=== PATIENT | male | born 1950 | race Hispanic/Latino ===

== ENCOUNTER 2017-02-17 12:22 | Inpatient (IN) | payer OTHER ==
[2017-02-17 12:55] VITALS: BMI 20.3
--- NOTE | 2017-02-17 13:18 | ED PDOC ---
Arrival/HPI - General Chief Complaint: Psychiatric Evaluation Time Seen by Provider: 02/17/17 12:24 Historian: Patient - History of Present Illness Narrative History of Present Illness (Text): 02/17/17 12:52 A 66 year old male, whose past medical history includes anxiety, agitation, nervousness, CHF, diabetes, and schizoaffective disorder, presents to the emergency department complaining of increasing anxiousness and a racing mind. Patient reports he just needs to be admitted. He denies any suicidal/homicidal ideations or visual/auditory hallucinations or delusions. He sates he only takes his psychiatric medication as need. He reports "they have electric stuff on him to control him." He says he drinks on a daily bases with his last drink being this morning. He denies any drug use. Patient denies any physical complaints at this time. PMD: Dr. Vipul Murillo Crown Attacher: Dr. Connell Time/Duration: 1-3 hours Symptom Onset: Sudden Symptom Course: Unchanged Quality: Other Activities at Onset: Rest Context: Home Past Medical History - Provider Review Nursing Documentation Reviewed: Yes - Infectious Disease Hx of Infectious Diseases: None - Cardiac Hx Cardiac Disorders: No Hx Congestive Heart Failure: Yes Hx Hypertension: Yes - Pulmonary Hx Respiratory Disorders: No Hx Sleep Apnea: No Hx Tuberculosis: No - Neurological Hx Neurological Disorder: No - HEENT Hx HEENT Disorder: No - Renal Hx Renal Disorder: No - Endocrine/Metabolic Hx Endocrine Disorders: Yes Hx Diabetes Mellitus Type 2: Yes - Hematological/Oncological Hx Blood Disorders: No - Integumentary Hx Dermatological Disorder: No - Musculoskeletal/Rheumatological Hx Musculoskeletal Disorders: No - Gastrointestinal Hx Gastrointestinal Disorders: No - Genitourinary/Gynecological Hx Genitourinary Disorders: No - Psychiatric Hx Psychophysiologic Disorder: No Hx Anxiety: Yes Hx Schizophrenia: Yes Hx Substance Use: No Other/Comment: anger management - Surgical History Other/Comment: inguinal hernia repair 2010 - Anesthesia Hx Anesthesia: Yes Hx Anesthesia Reactions: No Hx Malignant Hyperthermia: No Family/Social History - Physician Review Nursing Documentation Reviewed: Yes Family/Social History: Unknown Family HX Smoking Status: Light Smoker < 10 Cigarettes Daily Hx Alcohol Use: Yes Hx Substance Use: No Allergies/Home Meds Allergies/Adverse Reactions: Allergies No Known Allergies Allergy (Verified 10/07/15 13:03) Review of Systems - Physician Review All systems were reviewed & negative as marked: Yes - Review of Systems Constitutional: absent: Fevers Respiratory: absent: SOB Cardiovascular: absent: Chest Pain Gastrointestinal: absent: Abdominal Pain Psychiatric: Anxiety. absent: Suicidal Ideation (suicidal/homicidal ideations ) , Other (visual/auditory hallucinations or delusions) Physical Exam Vital Signs Reviewed: Yes Vital Signs Temp Pulse Resp BP Pulse Ox 02/17/17 14:45 90 18 129/109 H 96 02/17/17 14:42 129/109 H 02/17/17 12:22 99.2 F 62 18 187/98 H 100 Temperature: Afebrile Blood Pressure: Hypertensive Pulse: Regular Respiratory Rate: Normal Appearance: Positive for: Well-Appearing, Non-Toxic, Comfortable Pain Distress: None Mental Status: Positive for: Alert and Oriented X 3 - Systems Exam Head: Present: Atraumatic, Normocephalic Pupils: Present: PERRL Extroacular Muscles: Present: EOMI Conjunctiva: Present: Normal Mouth: Present: Moist Mucous Membranes, Other (no tongue fasciculations) Neck: Present: Normal Range of Motion Respiratory/Chest: Present: Clear to Auscultation, Good Air Exchange. No: Respiratory Distress, Accessory Muscle Use Cardiovascular: Present: Regular Rate and Rhythm, Normal S1, S2. No: Murmurs Abdomen: Present: Normal Bowel Sounds. No: Tenderness, Distention, Peritoneal Signs Back: Present: Normal Inspection Upper Extremity: Present: Normal Inspection. No: Cyanosis, Edema Lower Extremity: Present: Normal Inspection. No: Edema Neurological: Present: GCS=15, CN II-XII Intact, Speech Normal, Motor Func Grossly Intact, Normal Sensory Function, Other (no tremors) Skin: Present: Warm, Dry, Normal Color. No: Rashes Psychiatric: Present: Alert, Oriented x 3, Normal Insight, Normal Concentration , Anxious Medical Decision Making ED Course and Treatment: 02/17/17 12:52 Impression: A 66 year old male with anxiousness. Differential Diagnosis include but are not limited to: Anxiety vs. schizoaffective disorder vs. alcohol withdrawal Plan: -- EKG -- Chest X-ray -- Labs -- Urinalysis -- Ativan -- Reassess and disposition Prior Visits: Notes and results from previous visits were reviewed. The patient last presented to the emergency department on 10/03/16 for evaluation of of hallucinations. Patient was later hospitalized for schizoaffective disorder. Progress Notes: EKG: Ordered, reviewed, and independently interpreted the EKG. Rate : 109 BPM Rhythm : Sinus tachycardia Interpretation : 1st degree AV block and right bundle branch block. 02/17/17 13:48 Chest X-ray Impression: As read by me, no acute findings. 02/17/17 14:09 Patient is medically cleared for psych evaluation. 02/17/17 15:42 Case discussed with Mckayla who will admit patient under Dr. Taisha Caputo for Schizoaffective with Depressive type r/o. - Lab Interpretations Lab Results: 02/17/17 13:18 02/17/17 13:18 Lab Results 02/17/17 14:50: Urine Color Light yellow, Urine Appearance Clear, Urine pH 7.0, Ur Specific [place] 1.010, Urine Protein Negative, Urine Glucose (UA) Negative, Urine Ketones Negative, Urine Blood Negative, Urine Nitrate Negative, Urine Bilirubin Negative, Urine Urobilinogen 0.2, Ur Leukocyte Esterase Negative, Urine Opiates Screen Negative, Urine Methadone Screen Negative, Ur Barbiturates Screen Negative, Ur Phencyclidine Scrn Negative, Ur Amphetamines Screen Negative , U Benzodiazepines Scrn Negative, U Oth Cocaine Metabols Negative, U Cannabinoids Screen Negative 02/17/17 13:18: WBC 5.2, RBC 4.62, Hgb 14.2, Hct 41.7 L, MCV 90.3, MCH 30.7, MCHC 34.1, RDW 11.9, Plt Count 293, MPV 10.1, Gran % 52.2, Lymph % (Auto) 30.5, [place]th % (Auto) 15.4 H, Eos % (Auto) 1.7, Baso % (Auto) 0.2, Gran # 2.72, Lymph # 1.6, Smyth # 0.8 H, Eos # 0.1, Baso # 0.01, Sodium 137, Potassium 4.2, Chloride 97 L, Carbon Dioxide 27, Anion Gap 17, BUN 18, Creatinine 1.0, Est GFR ( Amer) > 60, Est GFR (Non-Af Amer) > 60, Random Glucose 153 H, Calcium 10.4, Total Bilirubin 0.5, AST 43, ALT 40, Alkaline Phosphatase 81, Total Protein 8.3 , Albumin 4.7, Globulin 3.7, Albumin/Globulin Ratio 1.3, Salicylates < 1 L, Acetaminophen < 10.0 L, Valproic Acid 23 L, Alcohol, Quantitative < 10 I have reviewed the lab results: Yes - RAD Interpretation Radiology Orders: 02/17/17 13:02 CHEST PORTABLE [RAD] Stat - Medication Orders Current Medication Orders: Discontinued Medications Labetalol HCl (Trandate) 20 mg IV STAT STA Stop: 02/17/17 14:11 Last Admin: 02/17/17 14:42 Dose: Not Given Non-Admin Reason: BP Parameters Not Met MAR Pulse and Blood Pressure Document 02/17/17 14:42 JOL (Rec: 02/17/17 14:42 [id number] Blood Pressure Blood Pressure (100/60-150/90) 129/109 Lorazepam (Ativan) 2 mg IVP STAT STA Stop: 02/17/17 13:00 Last Admin: 02/17/17 13:18 Dose: 2 MG Behavioural Document 02/17/17 13:18 JO (Rec: 02/17/17 13:18 [facility]-[id number]) Maintenance Maintenance Dose No Nonmedicinal Nonmedicinal Interventions Redirect Therapeutic Communication Activity Behavior Behavior for Medication: Anxiety Dangers to self/others IVP Administration Document 02/17/17 13:18 JO (Rec: 02/17/17 13:18 [id number]) Charges for Administration # of IVP Administrations 1 - Scribe Statement The provider has reviewed the documentation as recorded by the Scribe Ignacia Lin Provider Scribe Attestation: All medical record entries made by the Scribe were at my direction and personally dictated by me. I have reviewed the chart and agree that the record accurately reflects my personal performance of the history, physical exam, medical decision making, and the department course for this patient. I have also personally directed, reviewed, and agree with the discharge instructions and disposition. Disposition/Present on Arrival - Present on Arrival Any Indicators Present on Arrival: No History of DVT/PE: No History of Uncontrolled Diabetes: No Urinary Catheter: No History of Decub. Ulcer: No History Surgical Site Infection Following: None - Disposition Have Diagnosis and Disposition been Completed?: Yes Diagnosis: Schizoaffective disorder, Alcohol withdrawal syndrome Disposition: HOSPITALIZED Disposition Time: 14:09 Patient Plan: Admission Condition: GUARDED Referrals: Chidi JOHNSON,Loc Tony MD [Primary Care Provider] - Follow up with primary
[2017-02-17 13:19] LABS: ADD MANUAL DIFF? NO
[2017-02-17 13:35] LABS: ALB/GLOB RATIO 1.3 (1.1-1.8); ALKALINE PHOSPHATASE 81 U/L (38-133); ALT/SGPT 40 U/L (7-56); AST/SGOT 43 U/L (15-59); BILIRUBIN,TOTAL 0.5 mg/dL (0.2-1.3); BLOOD UREA NITROGEN 18 mg/dL (7-21); CALCIUM 10.4 mg/dL (8.4-10.5); CARBON DIOXIDE 27 mmol/L (21-33); CHLORIDE 97 mmol/L (98-107); GFR AFRICAN-AMERICAN > 60; GLUCOSE,RANDOM 153 mg/dL (70-110); POTASSIUM 4.2 mmol/L (3.6-5.0); SODIUM 137 mmol/L (132-148); TOTAL PROTEIN 8.3 g/dL (5.8-8.3)
[2017-02-17 13:37] LABS: BASO # 0.01 K/mm3 (0.0-2.0); BASO % 0.2 % (0.0-3.0); EOS # 0.1 (0.0-0.7); EOS % 1.7 % (1.5-5.0); GRAN # 2.72 (1.4-6.5); GRAN % 52.2 % (50.0-68.0); HEMATOCRIT 41.7 % (42.0-52.0); LYMPH # 1.6 (1.2-3.4); LYMPH % 30.5 % (22.0-35.0); MEAN CELL VOLUME 90.3 fL (80.0-105.0); MEAN CORPUSCULAR HEMOGLOBIN 30.7 pg (25.0-35.0); MEAN CORPUSCULAR HGB CONC 34.1 g/dl (31.0-37.0); MEAN PLATELET VOLUME 10.1 fl (7.0-11.0); MONO # 0.8 (0.1-0.6); MONO % 15.4 % (1.0-6.0); PLATELET COUNT 293 10^3/uL (120.0-450.0); RED CELL DISTRIBUTION WIDTH 11.9 % (11.5-14.5); WHITE BLOOD COUNT 5.2 10^3/ul (4.5-11.0)
[2017-02-17] MEDS ORDERED: Labetalol 5 mg/ml Inj 20ML IV STA (14:10)
--- NOTE | 2017-02-17 14:13 | RAD ---
PROCEDURE: CHEST RADIOGRAPH, 1 VIEW HISTORY: psych COMPARISON: 10/03/2016 FINDINGS: LUNGS: Clear. PLEURA: No pneumothorax or pleural fluid seen. CARDIOVASCULAR: Normal. OSSEOUS STRUCTURES: No significant abnormalities. VISUALIZED UPPER ABDOMEN: Normal. OTHER FINDINGS: None. IMPRESSION: No active disease.
[2017-02-17 15:04] LABS: URINE BILIRUBIN NEGATIVE (NEGATIVE); URINE BLOOD NEGATIVE (NEGATIVE); URINE GLUCOSE (UA) NEGATIVE (NEGATIVE); URINE KETONE NEGATIVE (NEGATIVE); URINE LEUKOCYTE ESTERASE NEGATIVE Leu/uL (NEGATIVE); URINE PROTEIN NEGATIVE mg/dL (<30 mg/dL); URINE UROBILINOGEN 0.2 E.U./dL (<1 E.U./dL)
[2017-02-17 15:06] LABS: URINE APPEARANCE CLEAR (CLEAR); URINE COLOR LIGHT YELLOW (YELLOW)
--- NOTE | 2017-02-17 15:49 | CARD ---
APPROVED REPORT EKG Measurement Heart [id number] <Conclusion> Sinus tachycardia with 1st degree AV block Right bundle branch block Abnormal ECG
[2017-02-17] MEDS ORDERED: Albuterol-Ipratrop 3 mg / 0.5 (3 ml) UD IH PRN (17:16)
[2017-02-17] MEDS ORDERED: Magnesium Hydroxide Susp 30 ml UD PO PRN (17:19)
[2017-02-17] MEDS: Divalproex 250 mg DR (BID formulation) PO SCH (21:57)
[2017-02-18 07:02] LABS: CHOLESTEROL 155 mg/dL (130-200); GLUCOSE,FASTING 102 mg/dL (65-110)
[2017-02-18] MEDS: Divalproex 250 mg DR (BID formulation) PO SCH ×2 (09:30→21:16)
--- NOTE | 2017-02-18 10:19 | CON ---
DATE: 02/18/2017 MEDICAL CONSULTATION HISTORY OF PRESENT ILLNESS: The patient is a 66-year-old man with a past medical history of schizoph aidan, hypertension, hyperlipidemia, and non-insulin dependent diabetes mellitus (diet-controlled), w ho presents to [facility] Emergency Department for evaluation of a several-day history of increased agitation, anxiety, and racing thoughts. The patient denied any visual/auditory hallucina tions associated with the symptoms, but was subsequently, admitted to the inpatient psychiatric marsh[facility] for continued management of increased anxiety and schizophrenia. PAST MEDICAL HISTORY: As per HPI. PAST SURGICAL HISTORY: Left inguinal hernia repair. ALLERGIES: No known drug allergies. MEDICATIONS: Lipitor 10 mg p.o. daily, lisinopril 20 mg p.o. daily, Ambien 10 mg p.o. at bedtime, Re storil 30 mg p.o. at bedtime. FAMILY HISTORY: Noncontributory. SOCIAL HISTORY: The patient reports a former [id number] smoking history and social alcohol use. H e denies illicit drug abuse. REVIEW OF SYSTEMS: A 14-point review of systems is negative except as per HPI. PHYSICAL EXAMINATION: VITAL SIGNS: Temperature 97.5, pulse 89, blood pressure 132/86, respiratory rate 19, oxygen saturati on 99% on room air. GENERAL: No apparent distress. HEENT: PERRL. EOMI. No scleral icterus. No conjunctival pallor. NECK: No JVD, no bruits. LUNGS: Clear to auscultation. CARDIOVASCULAR: Regular rate and rhythm. Normal S1 and S2. ABDOMEN: Normoactive bowel sounds, soft, nontender, nondistended. EXTREMITIES: No edema. NEUROLOGIC: Awake, alert, and oriented x 3. No focal motor deficits. LABORATORY DATA: CBC reviewed and unremarkable. CMP reviewed and unremarkable. Cholesterol 155, triglycerides 143, HDL 65, LDL 66. ASSESSMENT: The patient is a 66-year-old man with a past medical history of hypertension, hyperlipid emia, non-insulin dependent diabetes mellitus, and schizophrenia who presented to the Emergency Depar tment with a several-day history of increased agitation, and who was admitted to the inpatient psychi atric unit for continued management of schizophrenia. PLAN: 1. Hypertension. Blood pressure remains controlled. Continue with lisinopril 20 mg p.o. daily. We will continue to monitor hemodynamics and adjust antihypertensives as needed. 2. Non-insulin dependent diabetes mellitus. Most recent A1c from approximately 3 months ago was 6.5 . The patient remains diet-controlled and with goal A1c, thus, no indication for medical therapy. 3. Hyperlipidemia. Labs demonstrate satisfactory lipid panel. We will discontinue Lipitor. 4. Insomnia. Continue with Ambien 5 mg p.o. at bedtime. 5. Schizophrenia. Continue with care, as per psychiatric team. 6. Prophylaxis. GI prophylaxis is not indicated, as the patient is eating. DVT prophylaxis is not indicated, as the patient is ambulatory. CODE STATUS: Full code. Loc Murillo MD cc: [id number] TT: 02/18/2017 10:19:09 Confirmation # [id number] Dictation # [id number] jn
--- NOTE | 2017-02-18 13:18 | PCM.PSYCH ---
Initial Psychiatric Evaluation - Initial Psychiatric Evaluation Type of Admission: Voluntary Chief Complaint (in patient's own words): "I need a break" History of Present Illness and Precipitating Events: A 66 year old single male with history of schizoaffective disorder, reportedly adherent with medications ambien, restoril and seroquel presents to the emergency department complaining of increasing anxiousness and a racing mind. Patient indicated to staff that he "just needs to be admitted". I reviewed nursing notes and prior records. Patient was interviewed in the dayroom and again during treatment team meeting. He is in fair control, indicates that he was anxious and wanted to take a break from his current living situation. Feels there was a "clash of methodist". Patient is pleasantly paranoid about his landlord and indicates that his landord has "designs about his life" and wants patient to date his . Patient doesn't feel like his landlord wants to hurt him and patient denies thoughts to harm his landlord. Patient's landlord is Islamic and patient feels as though there are "anti-christian mechanisms and anti-semitic electronics in effect". Patient reports living in this home for over 2 decades. Patient initially reported that he was having difficulty sleeping prior to admission however eventually admitted that he was sleeping fairly well on a combination of ambien, restoril and seroquel prescribed by Dr. Killian. Patient denied any depression or suicidal thoughts. Pt denies any homicidal or suicidal ideation. PSYCHIATRIC HISTORY MULTIPLE ADMISSIONS, most recently 10/03/16-10/15/16, discharged on Risperdal 2 mg at the morning time 2 mg at the nighttime for psychosis and mood stabilization, Depakote 500 mg at the morning time and 750 at the nighttime for mood stabilization, sonata 10mg po hs for insomnia, cogentin 0.5bid for possible EPS. Other admissions occurred in 12/2015, 10/2015 and 11/2011 at [facility]. Obtains Restoril 30 mg HS, ambien 10 mg hs and Seroquel [address] Murillo (confirmed by calling [facility]) SOCIAL HISTORY Born and raised in [place]. Single. No kids. Unemployed. Prior arrests in [place] for "damaging an automobile" as well as in [place], [place] for MJA possession. Denies drug, alcohol or tobacco use. Current Medications: Active Medications Generic Name Dose Route Start Last Admin Trade Name Freq PRN Reason Stop Dose Admin Acetaminophen 650 mg 02/17/17 17:20 Tylenol 325mg Tab PO Q6H PRN Pain, moderate (4-7) Albuterol/Ipratropium 3 ml 02/17/17 17:16 Duoneb 3 Mg/0.5 Mg (3 Ml) Ud IH [id number] PRN Shortness of Breath Atorvastatin Calcium 10 mg 02/17/17 17:15 02/17/17 21:56 Lipitor PO 10 mg DIN SADIE Administration Benztropine Mesylate 0.5 mg 02/17/17 22:00 02/17/17 21:56 Cogentin PO 0.5 mg AMHS SADIE Administration Divalproex Sodium 250 mg 02/17/17 22:00 02/17/17 21:57 Depestevan Stephenson (*Bid*) PO 250 mg AMHS SADIE Administration Protocol Famotidine 40 mg 02/17/17 17:01 Pepcid PO HS PRN Indigestion / Heartburn Lisinopril 20 mg 02/17/17 18:00 02/17/17 18:02 Zestril PO 20 mg DAILY SADIE Administration Lorazepam 1 mg 02/17/17 17:13 02/18/17 01:57 Ativan PO 1 mg Q6 PRN Administration Anxiety Protocol Lorazepam 1 mg 02/17/17 17:15 Ativan IM Q6H PRN Anxiety Protocol Magnesium Hydroxide 30 ml 02/17/17 17:19 Milk Of Magnesia PO DAILY PRN Constipation Risperidone 1 mg 02/17/17 22:00 02/17/17 21:57 Risperdal Tab PO 1 mg AMHS SADIE Administration Protocol Ziprasidone 20 mg 02/17/17 17:05 Geodon Cap PO Q6 PRN Agitation Protocol Ziprasidone 20 mg 02/17/17 17:08 Geodon Inj IM Q6 PRN Agitation Protocol Zolpidem Tartrate 5 mg 02/17/17 16:59 02/17/17 21:57 Ambien PO 5 mg HS PRN Administration Insomnia Protocol Past Psychiatric History - Past Psychiatric History Pertinent Medical Hx (Current Medical&Sleep Prob, Allergies): Allergies Allergy/AdvReac Type Severity Reaction Status Date / Time No Known Allergies Allergy Verified 02/17/17 19:47 Atorvastatin [Lipitor] 10 mg PO DIN #7 tab 10/15/16 Benztropine [Cogentin] 0.5 mg PO AMHS PRN #30 tab 10/15/16 Divalproex [Depakocecilia STEPHENSON (*BID*)] 250 mg PO HS #14 tcp 10/15/16 Divalproex [Depakote (*BID*)] 500 mg PO AMHS #30 tcp 10/15/16 Famotidine [Pepcid] 40 mg PO HS #7 tab 10/15/16 Folic Acid 1 mg PO DAILY #14 tab 10/15/16 Lisinopril [Zestril] 20 mg PO DAILY #7 tab 10/15/16 Multivitamin Therapeutic Tab [Thera Tab] 1 tab PO DAILY #14 tab 10/15/16 Thiamine [Vitamin B1 Tab] 100 mg PO DAILY #14 tab 10/15/16 Zaleplon [Sonata] 10 mg PO HS #14 cap 10/15/16 risperiDONE [RisperDAL] 2 mg PO AMHS #30 tab 10/15/16 Mental Status Examination - Affect Affect: Broad - Motor Activity Motor Activity: Calm - Reliability in Providing Information Reliability in Providing Information: Fair, Poor, due to alteration in thoughts - Speech Speech: Tangential - Mood Mood: Other (labile, though pleasant and joking at times) - Formal Thought Process Formal Thought Process: Delusions, Paranoia, Loosening of associations - Cognitive Functions Orientation: Place, Situation Sensorium: Alert Judgement: Imparied, as evidence by: Poor judgement, Imparied, as evidence by: Lack of insight into illness DSM 5 DX - DSM 5 DSM 5 Diagnosis: Schizoaffective Disorder - Recommended/Plan of Treatment Treatment Recommendations and Plan of Treatment: * Grp, milieu and supportive tx * c/w Ambien 5 mg HS for insomnia * c/w Risperdal 1 mg AMHS for delusions and paranoia, c/w Cogentin 0.5 mg AMHS for EPS prophylaxis * c/w Depakote 250 mg AMHS for mood control * Appreciate f/u by Dr. Ruiz on 02/18/17 * Vitals reviewed and noted below: Selected Entries 02/18/17 02/18/17 06:00 09:30 Temperature 97.5 F L Pulse Rate 89 89 Respiratory 19 Rate Blood Pressure 132/86 132/86 O2 Sat by Pulse 99 Oximetry FLOOR LABS NOTED BELOW 02/18/17 02/18/17 06:00 06:19 POC Glucose (mg/dL) 93 Fasting Glucose 102 Triglycerides 143 Cholesterol 155 LDL Cholesterol Direct 66 HDL Cholesterol 65 H ER LABS AND STUDIES 02/17/17 14:50: Urine Color Light yellow, Urine Appearance Clear, Urine pH 7.0, Ur Specific [place] 1.010, Urine Protein Negative, Urine Glucose (UA) Negative, Urine Ketones Negative, Urine Blood Negative, Urine Nitrate Negative, Urine Bilirubin Negative, Urine Urobilinogen 0.2, Ur Leukocyte Esterase Negative, Urine Opiates Screen Negative, Urine Methadone Screen Negative, Ur Barbiturates Screen Negative, Ur Phencyclidine Scrn Negative, Ur Amphetamines Screen Negative , U Benzodiazepines Scrn Negative, U Oth Cocaine Metabols Negative, U Cannabinoids Screen Negative 02/17/17 13:18: WBC 5.2, RBC 4.62, Hgb 14.2, Hct 41.7 L, MCV 90.3, MCH 30.7, MCHC 34.1, RDW 11.9, Plt Count 293, MPV 10.1, Gran % 52.2, Lymph % (Auto) 30.5, [place] % (Auto) 15.4 H, Eos % (Auto) 1.7, Baso % (Auto) 0.2, Gran # 2.72, Lymph # 1.6, [place] # 0.8 H, Eos # 0.1, Baso # 0.01, Sodium 137, Potassium 4.2, Chloride 97 L, Carbon Dioxide 27, Anion Gap 17, BUN 18, Creatinine 1.0, Est GFR ( Amer) > 60, Est GFR (Non-Af Amer) > 60, Random Glucose 153 H, Calcium 10.4, Total Bilirubin 0.5, AST 43, ALT 40, Alkaline Phosphatase 81, Total Protein 8.3 , Albumin 4.7, Globulin 3.7, Albumin/Globulin Ratio 1.3, Salicylates < 1 L, Acetaminophen < 10.0 L, Valproic Acid 23 L, Alcohol, Quantitative < 10 EKG: Rate : 109 BPM Rhythm : Sinus tachycardia Interpretation : 1st degree AV block and right bundle branch block. 02/17/17 13:48 Chest X-ray Impression: no acute findings. - Smoking Cessation Smoking Cessation Initiated: No Reason for not providing: Patient denies tobacco use
--- NOTE | 2017-02-19 08:51 | PN ---
DATE: 02/19/2017 SUBJECTIVE: The patient seen and examined at bedside in inpatient psychiatric unit. No acute events overnight. He remains afebrile and hemodynamically stable. OBJECTIVE: VITAL SIGNS: Temperature 97.8, pulse 75, blood pressure 109/78, respiratory rate 16. Oxygen saturat ion 99% on room air. GENERAL: No apparent distress. HEENT: PERRL. EOMI. No scleral icterus. No conjunctival pallor. NECK: No JVD, no bruits. LUNGS: Clear to auscultation. CARDIOVASCULAR: Regular rate and rhythm, normal S1 and S2, no murmurs. ABDOMEN: Normoactive bowel sounds, soft, nontender, nondistended. EXTREMITIES: No edema. NEUROLOGIC: Awake, alert and oriented x 3. No focal motor deficits. LABORATORY DATA: No new labs. ASSESSMENT: The patient is a 66-year-old man with past medical history of hypertension, hyperlipidem ia, [id number] diabetes mellitus, and schizophrenia who is admitted to the inpatient psych iatric unit for continued management of schizophrenia. PLAN: 1. Hypertension. Blood pressure well controlled. Continue with lisinopril 20 mg p.o. daily. 2. Oqg-tklfrkv-zjzjsvibc diabetes mellitus, well controlled with most recent A1c of 6.5. Fingerstic ks are satisfactory. Will continue to monitor. 3. Hyperlipidemia, diet controlled. 4. Insomnia. Continue with Ambien 5 mg p.o. at bedtime. 5. Schizophrenia. Continue with care as per psychiatric team. 6. Prophylaxis. GI prophylaxis not indicated as the patient is eating. DVT prophylaxis is not louis cated as patient is ambulatory. CODE STATUS: Full code. Loc Murillo MD cc: [id number] TT: 02/19/2017 08:51:15 Confirmation # [id number] Dictation # [id number]
[2017-02-19] MEDS: Divalproex 250 mg DR (BID formulation) PO SCH ×2 (10:33→23:11)
--- NOTE | 2017-02-19 11:00 | PCM.PYCHPN ---
Psychiatric Progress Note - Psychiatric Progress Note Patient seen today, length of contact: 25 min Patient Chief Complaint: "I need a break" Problems Identified/Issues Discussed: I reviewed recent notes and met with patient at bedside. Patient appears fairly groomed and he is oriented to month your location and to circumstances. Patient is in good control during our interview and generally denies any issues with his medications or any new discomfort or pain. He is still paranoid but this needs to be elicited. Patient can also admit that his thought process can be paranoid sometimes. Patient is labile with overinclusive and tangential thought process. He is easily redirectable. Does not demonstrate overt signs of anger and can joke appropriately. He is oddly related but not overly psychotic. There are no behavioral issues overnight Diagnostic Results: Schizoaffective Disorder Medication Change: No Medical Record Reviewed: Yes (notes, reports, labs, vitals) Mental Status Examination - Cognitive Function Orientation: Place, Situation Attention: WNL Concentration: Poor (improving) Association: Loose Fund of Knowledge: Poor - Mood Mood: Other (labile, though pleasant and joking at times) - Affect Affect: Broad - Speech Speech: Appropriate - Formal Thought Process Formal Thought Process: Delusions, Paranoia, Loosening of associations ( improving) - Homicidal Ideation Homicidal Ideation: No Goal/Treatment Plan - Goal/Treatment Plan Need for Continued Stay: Discharge may exacerbated symptoms Progress Toward Problem(s) and Goals/Treatment Plan: * Grp, milieu and supportive tx * c/w Ambien 5 mg HS for insomnia * c/w Risperdal 1 mg AMHS for delusions and paranoia, c/w Cogentin 0.5 mg AMHS for EPS prophylaxis * c/w Depakote 250 mg AMHS for mood control * Appreciate f/u by Dr. Ruiz on 02/18/17 and 02/19/17 * Vitals reviewed and noted below: Selected Entries 02/19/17 02/19/17 06:30 10:33 Temperature 97.8 F Pulse Rate 75 75 Respiratory 16 Rate Blood Pressure 109/78 109/78 FLOOR LABS NOTED BELOW 02/18/17 02/18/17 06:00 06:19 POC Glucose (mg/dL) 93 Fasting Glucose 102 Triglycerides 143 Cholesterol 155 LDL Cholesterol Direct 66 HDL Cholesterol 65 H ER LABS AND STUDIES 02/17/17 14:50: Urine Color Light yellow, Urine Appearance Clear, Urine pH 7.0, Ur Specific [place] 1.010, Urine Protein Negative, Urine Glucose (UA) Negative, Urine Ketones Negative, Urine Blood Negative, Urine Nitrate Negative, Urine Bilirubin Negative, Urine Urobilinogen 0.2, Ur Leukocyte Esterase Negative, Urine Opiates Screen Negative, Urine Methadone Screen Negative, Ur Barbiturates Screen Negative, Ur Phencyclidine Scrn Negative, Ur Amphetamines Screen Negative , U Benzodiazepines Scrn Negative, U Oth Cocaine Metabols Negative, U Cannabinoids Screen Negative 02/17/17 13:18: WBC 5.2, RBC 4.62, Hgb 14.2, Hct 41.7 L, MCV 90.3, MCH 30.7, MCHC 34.1, RDW 11.9, Plt Count 293, MPV 10.1, Gran % 52.2, Lymph % (Auto) 30.5, [place] % (Auto) 15.4 H, Eos % (Auto) 1.7, Baso % (Auto) 0.2, Gran # 2.72, Lymph # 1.6, [place] # 0.8 H, Eos # 0.1, Baso # 0.01, Sodium 137, Potassium 4.2, Chloride 97 L, Carbon Dioxide 27, Anion Gap 17, BUN 18, Creatinine 1.0, Est GFR ( Amer) > 60, Est GFR (Non-Af Amer) > 60, Random Glucose 153 H, Calcium 10.4, Total Bilirubin 0.5, AST 43, ALT 40, Alkaline Phosphatase 81, Total Protein 8.3 , Albumin 4.7, Globulin 3.7, Albumin/Globulin Ratio 1.3, Salicylates < 1 L, Acetaminophen < 10.0 L, Valproic Acid 23 L, Alcohol, Quantitative < 10 EKG: Rate : 109 BPM Rhythm : Sinus tachycardia Interpretation : 1st degree AV block and right bundle branch block. 02/17/17 13:48 Chest X-ray Impression: no acute findings.
[2017-02-20] MEDS: Divalproex 250 mg DR (BID formulation) PO SCH ×2 (10:36→21:21)
--- NOTE | 2017-02-20 11:14 | PCM.PYCHPN ---
Psychiatric Progress Note - Psychiatric Progress Note Patient seen today, length of contact: 25 min Patient Chief Complaint: "I need a break" Problems Identified/Issues Discussed: I reviewed recent notes and met with patient at bedside. Patient appears fairly groomed and he is oriented to month, year, location and circumstances. Patient is in good control during our interview and generally denies any issues with his medications or any new discomfort or pain. Sleep was restless last night. He is still paranoid but this needs to be elicited and less noticeable than prior admissions. Patient is also willing to admit that his thought process can be paranoid sometimes. Patient is labile with overinclusive and tangential thought process. Nursing notes indicate that patient can be seen pacing on the unit and can be intrusive at times. Nonetheless he is easily redirectable. Does not demonstrate overt signs of anger and can joke appropriately. He is oddly related but not overly psychotic. There were no behavioral issues overnight Diagnostic Results: Schizoaffective Disorder Medication Change: Yes (increased risperdal to 1/2 on 02/20/17) Medical Record Reviewed: Yes (notes, reports, labs, vitals) Mental Status Examination - Cognitive Function Orientation: Place, Situation Attention: WNL Concentration: Poor (improving) Association: Loose Fund of Knowledge: Poor - Mood Mood: Other (labile, though pleasant and joking at times) - Affect Affect: Broad - Speech Speech: Appropriate - Formal Thought Process Formal Thought Process: Delusions, Paranoia, Loosening of associations ( improving) - Homicidal Ideation Homicidal Ideation: No Goal/Treatment Plan - Goal/Treatment Plan Need for Continued Stay: Discharge may exacerbated symptoms Progress Toward Problem(s) and Goals/Treatment Plan: * Grp, milieu and supportive tx * c/w Ambien 5 mg HS prn for insomnia * Increased Risperdal to 1 mg AM and 2 mg HS for delusions and paranoia, c/w Cogentin 0.5 mg AMHS for EPS prophylaxis * c/w Depakote 250 mg AMHS for mood control * Appreciate f/u by Dr. Ruiz on 02/18/17 and 02/19/17 * Vitals reviewed and noted below: Selected Entries 02/20/17 02/20/17 08:36 10:37 Temperature 97.1 F L Pulse Rate 73 73 Respiratory 19 Rate Blood Pressure 112/73 112/73 FLOOR LABS NOTED BELOW 02/18/17 02/18/17 06:00 06:19 POC Glucose (mg/dL) 93 Fasting Glucose 102 Triglycerides 143 Cholesterol 155 LDL Cholesterol Direct 66 HDL Cholesterol 65 H ER LABS AND STUDIES 02/17/17 14:50: Urine Color Light yellow, Urine Appearance Clear, Urine pH 7.0, Ur Specific [place] 1.010, Urine Protein Negative, Urine Glucose (UA) Negative, Urine Ketones Negative, Urine Blood Negative, Urine Nitrate Negative, Urine Bilirubin Negative, Urine Urobilinogen 0.2, Ur Leukocyte Esterase Negative, Urine Opiates Screen Negative, Urine Methadone Screen Negative, Ur Barbiturates Screen Negative, Ur Phencyclidine Scrn Negative, Ur Amphetamines Screen Negative , U Benzodiazepines Scrn Negative, U Oth Cocaine Metabols Negative, U Cannabinoids Screen Negative 02/17/17 13:18: WBC 5.2, RBC 4.62, Hgb 14.2, Hct 41.7 L, MCV 90.3, MCH 30.7, MCHC 34.1, RDW 11.9, Plt Count 293, MPV 10.1, Gran % 52.2, Lymph % (Auto) 30.5, [place] % (Auto) 15.4 H, Eos % (Auto) 1.7, Baso % (Auto) 0.2, Gran # 2.72, Lymph # 1.6, [place] # 0.8 H, Eos # 0.1, Baso # 0.01, Sodium 137, Potassium 4.2, Chloride 97 L, Carbon Dioxide 27, Anion Gap 17, BUN 18, Creatinine 1.0, Est GFR ( Amer) > 60, Est GFR (Non-Af Amer) > 60, Random Glucose 153 H, Calcium 10.4, Total Bilirubin 0.5, AST 43, ALT 40, Alkaline Phosphatase 81, Total Protein 8.3 , Albumin 4.7, Globulin 3.7, Albumin/Globulin Ratio 1.3, Salicylates < 1 L, Acetaminophen < 10.0 L, Valproic Acid 23 L, Alcohol, Quantitative < 10 EKG: Rate : 109 BPM Rhythm : Sinus tachycardia Interpretation : 1st degree AV block and right bundle branch block. 02/17/17 13:48 Chest X-ray Impression: no acute findings.
[2017-02-21] MEDS: Divalproex 250 mg DR (BID formulation) PO SCH ×2 (09:02→22:42)
--- NOTE | 2017-02-21 09:23 | PCM.PYCHPN ---
Psychiatric Progress Note - Psychiatric Progress Note Patient seen today, length of contact: 25 min Patient Chief Complaint: "I need a break" Problems Identified/Issues Discussed: I reviewed recent notes and met with patient at bedside. Patient appears fairly groomed and he is oriented to month, year, location and circumstances. Patient is in good control during our interview and generally denies any issues with his medications or any new discomfort or pain. Reports that "everything is so far so good" and that he slept better last night . He is still paranoid but this still needs to be elicited and noticeably less pervasive than prior admissions. Patient is also able to admit that he can be paranoid sometimes. Patient can be labile with overinclusive and tangential thought process, focus appears to be improving. Prior nursing notes have indicated that patient paces on the unit and can be intrusive at times. Nonetheless he is easily redirectable and impulse control also appears to be improving. Patient does not demonstrate overt signs of anger and can joke appropriately. He is oddly related but not overtly psychotic. Seems only to be able engage superficially in conversations. There were no behavioral issues overnight Diagnostic Results: Schizoaffective Disorder Medication Change: Yes (increased risperdal to 1/2 on 02/20/17) Medical Record Reviewed: Yes (notes, reports, labs, vitals) Mental Status Examination - Cognitive Function Orientation: Place, Situation Attention: WNL Concentration: Poor (improving) Association: Loose Fund of Knowledge: Poor - Mood Mood: Other (labile, though pleasant and joking at times) - Affect Affect: Broad - Speech Speech: Appropriate - Formal Thought Process Formal Thought Process: Delusions, Paranoia, Loosening of associations ( improving) - Homicidal Ideation Homicidal Ideation: No Goal/Treatment Plan - Goal/Treatment Plan Need for Continued Stay: Discharge may exacerbated symptoms Progress Toward Problem(s) and Goals/Treatment Plan: * Grp, milieu and supportive tx * Appreciate f/u by Dr. Ruiz on 02/18/17 and 02/19/17 * c/w Ambien 5 mg HS prn for insomnia * Increased Risperdal to 1 mg AM and 2 mg HS for delusions and paranoia, c/w Cogentin 0.5 mg AMHS for EPS prophylaxis * c/w Depakote 250 mg AMHS for mood control * Vitals reviewed and noted below: Selected Entries 02/20/17 02/20/17 02/20/17 08:36 10:37 16:25 Temperature 97.1 F L Pulse Rate 73 73 82 Respiratory 19 Rate Blood Pressure 112/73 112/73 104/53 L FLOOR LABS NOTED BELOW 02/18/17 02/18/17 06:00 06:19 POC Glucose (mg/dL) 93 Fasting Glucose 102 Triglycerides 143 Cholesterol 155 LDL Cholesterol Direct 66 HDL Cholesterol 65 H ER LABS AND STUDIES 02/17/17 14:50: Urine Color Light yellow, Urine Appearance Clear, Urine pH 7.0, Ur Specific [place] 1.010, Urine Protein Negative, Urine Glucose (UA) Negative, Urine Ketones Negative, Urine Blood Negative, Urine Nitrate Negative, Urine Bilirubin Negative, Urine Urobilinogen 0.2, Ur Leukocyte Esterase Negative, Urine Opiates Screen Negative, Urine Methadone Screen Negative, Ur Barbiturates Screen Negative, Ur Phencyclidine Scrn Negative, Ur Amphetamines Screen Negative , U Benzodiazepines Scrn Negative, U Oth Cocaine Metabols Negative, U Cannabinoids Screen Negative 02/17/17 13:18: WBC 5.2, RBC 4.62, Hgb 14.2, Hct 41.7 L, MCV 90.3, MCH 30.7, MCHC 34.1, RDW 11.9, Plt Count 293, MPV 10.1, Gran % 52.2, Lymph % (Auto) 30.5, [place] % (Auto) 15.4 H, Eos % (Auto) 1.7, Baso % (Auto) 0.2, Gran # 2.72, Lymph # 1.6, [place] # 0.8 H, Eos # 0.1, Baso # 0.01, Sodium 137, Potassium 4.2, Chloride 97 L, Carbon Dioxide 27, Anion Gap 17, BUN 18, Creatinine 1.0, Est GFR ( Amer) > 60, Est GFR (Non-Af Amer) > 60, Random Glucose 153 H, Calcium 10.4, Total Bilirubin 0.5, AST 43, ALT 40, Alkaline Phosphatase 81, Total Protein 8.3 , Albumin 4.7, Globulin 3.7, Albumin/Globulin Ratio 1.3, Salicylates < 1 L, Acetaminophen < 10.0 L, Valproic Acid 23 L, Alcohol, Quantitative < 10 EKG: Rate : 109 BPM Rhythm : Sinus tachycardia Interpretation : 1st degree AV block and right bundle branch block. 02/17/17 13:48 Chest X-ray Impression: no acute findings.
--- NOTE | 2017-02-22 09:06 | PCM.PYCHPN ---
Psychiatric Progress Note - Psychiatric Progress Note Patient seen today, length of contact: 25 min Patient Chief Complaint: "I need a break" Problems Identified/Issues Discussed: I reviewed recent notes and met with patient at bedside. Patient appears fairly groomed and he is oriented to month, year, location and circumstances. Patient is in good control during our interview and generally denies any issues with his medications or any new discomfort or pain. Reports that "I am ready to leave" and that he slept fairly well last night. He is still paranoid but this is noticeably less pervasive than prior admissions. Patient is also able to admit that he can be paranoid sometimes. Patient can be labile with overinclusive and tangential thought process though focus appears to be improving since admission. Prior nursing notes have indicated that patient paces on the unit and can be intrusive at times. Nonetheless he is easily redirectable and impulse control also appears to be improving. There has been no aggression or threats on the unit. Patient does not demonstrate overt signs of anger. He is oddly related but not overtly psychotic. He can joke and relate light-heartedly. Seems only to be able engage superficially in conversations. There were no behavioral issues over the weekend Diagnostic Results: Schizoaffective Disorder Medication Change: Yes (increased risperdal to 1 mg AM & 2 mg HS on 02/20/17) Medical Record Reviewed: Yes (notes, reports, labs, vitals) Mental Status Examination - Cognitive Function Orientation: Place, Situation Attention: WNL Concentration: Poor (improving) Association: Loose Fund of Knowledge: Poor - Mood Mood: Other (labile, though pleasant and joking at times) - Affect Affect: Broad - Speech Speech: Appropriate - Formal Thought Process Formal Thought Process: Delusions, Paranoia, Loosening of associations ( improving) - Homicidal Ideation Homicidal Ideation: No Goal/Treatment Plan - Goal/Treatment Plan Need for Continued Stay: Discharge may exacerbated symptoms Progress Toward Problem(s) and Goals/Treatment Plan: * Grp, milieu and supportive tx * Appreciate f/u by Dr. Ruiz on 02/18/17 and 02/19/17 * c/w Ambien 5 mg HS prn for insomnia * Risperdal to 1 mg AM and 2 mg HS for delusions and paranoia, c/w Cogentin 0.5 mg AMHS for EPS prophylaxis * Depakote 250 mg AMHS for mood control * Vitals reviewed and noted below: 02/21/17 02/21/17 02/21/17 06:00 09:02 16:23 Temperature 97.9 F Pulse Rate 73 73 78 Respiratory 18 Rate Blood Pressure 111/65 111/65 117/77 FLOOR LABS NOTED BELOW 02/18/17 02/18/17 06:00 06:19 POC Glucose (mg/dL) 93 Fasting Glucose 102 Triglycerides 143 Cholesterol 155 LDL Cholesterol Direct 66 HDL Cholesterol 65 H ER LABS AND STUDIES 02/17/17 14:50: Urine Color Light yellow, Urine Appearance Clear, Urine pH 7.0, Ur Specific [place] 1.010, Urine Protein Negative, Urine Glucose (UA) Negative, Urine Ketones Negative, Urine Blood Negative, Urine Nitrate Negative, Urine Bilirubin Negative, Urine Urobilinogen 0.2, Ur Leukocyte Esterase Negative, Urine Opiates Screen Negative, Urine Methadone Screen Negative, Ur Barbiturates Screen Negative, Ur Phencyclidine Scrn Negative, Ur Amphetamines Screen Negative , U Benzodiazepines Scrn Negative, U Oth Cocaine Metabols Negative, U Cannabinoids Screen Negative 02/17/17 13:18: WBC 5.2, RBC 4.62, Hgb 14.2, Hct 41.7 L, MCV 90.3, MCH 30.7, MCHC 34.1, RDW 11.9, Plt Count 293, MPV 10.1, Gran % 52.2, Lymph % (Auto) 30.5, [place] % (Auto) 15.4 H, Eos % (Auto) 1.7, Baso % (Auto) 0.2, Gran # 2.72, Lymph # 1.6, [place] # 0.8 H, Eos # 0.1, Baso # 0.01, Sodium 137, Potassium 4.2, Chloride 97 L, Carbon Dioxide 27, Anion Gap 17, BUN 18, Creatinine 1.0, Est GFR ( Amer) > 60, Est GFR (Non-Af Amer) > 60, Random Glucose 153 H, Calcium 10.4, Total Bilirubin 0.5, AST 43, ALT 40, Alkaline Phosphatase 81, Total Protein 8.3 , Albumin 4.7, Globulin 3.7, Albumin/Globulin Ratio 1.3, Salicylates < 1 L, Acetaminophen < 10.0 L, Valproic Acid 23 L, Alcohol, Quantitative < 10 EKG: Rate : 109 BPM Rhythm : Sinus tachycardia Interpretation : 1st degree AV block and right bundle branch block. 02/17/17 13:48 Chest X-ray Impression: no acute findings. Estimated Date of D/C: 02/23/17
[2017-02-22] MEDS: Divalproex 250 mg DR (BID formulation) PO SCH ×2 (09:28→22:27)
[2017-02-23 06:58] VITALS: BP 109/69; PULSE 69; RESP 20; TEMP 97.3; O2SAT 97
[2017-02-23] MEDS: Divalproex 250 mg DR (BID formulation) PO SCH (09:48)
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
== END 2017-02-23 16:16 | disposition home or self-care (01) | DRG 430 ==
LOC: ED 12:22 → PSYC 15:22
PROVIDERS: ADMIT Psychiatry & Neurology Psychiatry; ATTEND Psychiatry & Neurology Psychiatry
DX: F25.9 Schizoaffective disorder, unspecified (principal); E11.9 Type 2 diabetes mellitus without complications; I10 Essential (primary) hypertension; F41.9 Anxiety disorder, unspecified; E78.5 Hyperlipidemia, unspecified; R45.1 Restlessness and agitation; G47.00 Insomnia, unspecified; Z87.891 Personal history of nicotine dependence

== ENCOUNTER 2017-04-26 01:36 | Inpatient (IN) | payer MEDICAID, OTHER ==
[2017-04-26 01:58] VITALS: BMI 24.7
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
[2017-04-26 03:12] LABS: ADD MANUAL DIFF? NO
[2017-04-26 03:21] LABS: BASO # 0.01 K/mm3 (0.0-2.0); BASO % 0.2 % (0.0-3.0); EOS # 0.1 (0.0-0.7); EOS % 1.3 % (1.5-5.0); GRAN % 62.1 % (50.0-68.0); HEMATOCRIT 36.2 % (42.0-52.0); LYMPH # 0.8 (1.2-3.4); LYMPH % 18.4 % (22.0-35.0); MEAN CELL VOLUME 88.5 fL (80.0-105.0); MEAN CORPUSCULAR HEMOGLOBIN 29.1 pg (25.0-35.0); MEAN CORPUSCULAR HGB CONC 32.9 g/dl (31.0-37.0); MEAN PLATELET VOLUME 10.8 fl (7.0-11.0); MONO # 0.8 (0.1-0.6); PLATELET COUNT 226 10^3/uL (120.0-450.0); RED CELL DISTRIBUTION WIDTH 13.5 % (11.5-14.5); WHITE BLOOD COUNT 4.5 10^3/ul (4.5-11.0)
[2017-04-26 03:36] LABS: ALB/GLOB RATIO 1.3 (1.1-1.8); ALKALINE PHOSPHATASE 58 U/L (38-133); ALT/SGPT 43 U/L (7-56); AST/SGOT 70 U/L (15-59); BILIRUBIN,TOTAL 0.5 mg/dL (0.2-1.3); BLOOD UREA NITROGEN 20 mg/dL (7-21); CALCIUM 9.2 mg/dL (8.4-10.5); CARBON DIOXIDE 27 mmol/L (21-33); CHLORIDE 107 mmol/L (98-107); GFR AFRICAN-AMERICAN > 60; GLUCOSE,RANDOM 144 mg/dL (70-110); POTASSIUM 3.7 mmol/L (3.6-5.0); SODIUM 142 mmol/L (132-148); TOTAL PROTEIN 6.8 g/dL (5.8-8.3)
[2017-04-26 03:47] LABS: TROPONIN I 0.05 ng/mL
--- NOTE | 2017-04-26 04:47 | CP.PCM.HP ---
History of Present Illness - History of Present Illness History of Present Illness: CC: Bizarre Behavior This is a 66yo M w/ a PMhx of schizoaffective disorder, CHF, hypertension, hyperlipidemia, and NIDDM coming in in extremely bizarre straight, extremely hard to redirect, frequently leaving the room during the exam, stating that he needs to call the police because he believes that people are after him. Even while writing this note he is staring at me from the nurses station. Iván Alvarez was called on him due to un-redirectionable behavior. The patient is denying any physical symptoms, no fevers/chills, ROBETRS, CP, SOB, abdominal pain, N/V/D, dysuria/freq/urg, or lower extremity pain/swelling. PMhx: as above Surgeries: denies FamHx: would not answer the question Allergies: said he had none Meds: please refer to MAR Social; unable to obtain from the patient or collaterals at the time Present on Admission - Present on Admission Any Indicators Present on Admission: No History of DVT/PE: No History of Uncontrolled Diabetes: Yes Urinary Catheter: No Decubitus Ulcer Present: No Past Patient History - Infectious Disease Hx of Infectious Diseases: None - Past Social History Smoking Status: Light Smoker < 10 Cigarettes Daily - CARDIAC Hx Cardiac Disorders: No Hx Congestive Heart Failure: Yes Hx Hypertension: Yes - PULMONARY Hx Respiratory Disorders: No Hx Sleep Apnea: No Hx Tuberculosis: No - NEUROLOGICAL Hx Neurological Disorder: No - HEENT Hx HEENT Problems: No - RENAL Hx Chronic Kidney Disease: No - ENDOCRINE/METABOLIC Hx Endocrine Disorders: Yes Hx Diabetes Mellitus Type 2: Yes - HEMATOLOGICAL/ONCOLOGICAL Hx Blood Disorders: No - INTEGUMENTARY Hx Dermatological Problems: No - MUSCULOSKELETAL/RHEUMATOLOGICAL Hx Musculoskeletal Disorders: No - GASTROINTESTINAL Hx Gastrointestinal Disorders: No - GENITOURINARY/GYNECOLOGICAL Hx Genitourinary Disorders: No - PSYCHIATRIC Hx Bipolar Disorder: Yes Hx Substance Use: No - SURGICAL HISTORY Other/Comment: inguinal hernia repair 2010 - ANESTHESIA Hx Anesthesia: Yes Hx Anesthesia Reactions: No Hx Malignant Hyperthermia: No Meds Allergies/Adverse Reactions: Allergies Allergy/AdvReac Type Severity Reaction Status Date / Time No Known Allergies Allergy Verified 04/26/17 02:03 Physical Exam - Constitutional Appears: Well, Non-toxic Additional comments: bizarre behavior dishelved - Head Exam Head Exam: ATRAUMATIC - Eye Exam Eye Exam: EOMI - ENT Exam ENT Exam: Mucous Membranes Moist - Neck Exam Neck exam: Positive for: Full Rom. Negative for: Lymphadenopathy - Respiratory Exam Respiratory Exam: Clear to Auscultation Bilateral, NORMAL BREATHING PATTERN. absent: Rales, Rhonchi, Wheezes - Cardiovascular Exam Cardiovascular Exam: REGULAR RHYTHM, +S1, +S2 - GI/Abdominal Exam GI & Abdominal Exam: Normal Bowel Sounds, Soft. absent: Tenderness - Rectal Exam Rectal Exam: Deferred - Extremities Exam Extremities exam: Positive for: normal inspection. Negative for: calf tenderness - Back Exam Back exam: NORMAL INSPECTION. absent: CVA tenderness (L), CVA tenderness (R) - Neurological Exam Neurological exam: Alert, Oriented x3 - Psychiatric Exam Psychiatric exam: Normal Affect - Skin Skin Exam: Warm Results - Vital Signs Recent Vital Signs: Last Vital Signs Temp 98.3 F 04/26/17 01:58 Pulse 57 L 04/26/17 01:58 Resp 17 04/26/17 01:58 BP 119/71 04/26/17 01:58 Pulse Ox 98 04/26/17 01:58 - Labs Result Diagrams: 04/26/17 03:04 04/26/17 03:04 Labs: Laboratory Results - last 24 hr 04/26/17 04/26/17 04/26/17 03:04 03:04 03:04 WBC 4.5 RBC 4.09 Hgb 11.9 L Hct 36.2 L MCV 88.5 MCH 29.1 MCHC 32.9 RDW 13.5 Plt Count 226 MPV 10.8 Gran % 62.1 Lymph % (Auto) 18.4 L Laurel % (Auto) 18.0 H Eos % (Auto) 1.3 L Baso % (Auto) 0.2 Gran # 2.80 Lymph # 0.8 L Laurel # 0.8 H Eos # 0.1 Baso # 0.01 Sodium 142 Potassium 3.7 Chloride 107 Carbon Dioxide 27 Anion Gap 12 BUN 20 Creatinine 0.8 Est GFR ( Amer) > 60 Est GFR (Non-Af Amer) > 60 Random Glucose 144 H Calcium 9.2 Total Bilirubin 0.5 AST 70 H ALT 43 Alkaline Phosphatase 58 Lactate Dehydrogenase 546 Total Creatine Kinase 805 H CK-MB (CK-2) 9.8 H CK-MB (CK-2) % 1.2 L Troponin I 0.05 Total Protein 6.8 Albumin 3.9 Globulin 2.9 Albumin/Globulin Ratio 1.3 Alcohol, Quantitative < 10 Assessment & Plan - Assessment and Plan (Free Text) Assessment: 66yo M admitted for bizarre behavior 1st degree heart block; asymptomatic -patient has a first degree heart block on EKG with bradycardia asymptomatic -asymptomatic -cardiology consult ordered; please appreciate recs -from my understanding, first degree heart blocks are simply monitored and there is no treatment for them unless they become symptomatic and rarely progress to such -patient also has an old RBBB Shizoaffective disorder -will resume psych meds -geodon 20mg for extreme agitation or unredirectable behavior -psych consult; Dr. Sumner; recs appreciated -patient is psychotic currently, unredirectionable; paranoid; tangential CHF; chronic and not in exacerbation -c/w home meds -appreciate cardio recs hypertension -c/w home meds hyperlipidemia -c/w home meds NIDDM -RISS Proph Pepcid SCD Heart Healthy Diet Case Discussed w Dr. Charity Ramos PGY1 Night Float Decision To Admit - Pt Status Changed To: Hospital Disposition Of: Observation - . Bed Request Type: Remote Telemetry Admitting Physician: Estiven Nash MD
[2017-04-26] MEDS ORDERED: Albuterol 0.083% Inhal Sol (2.5 mg/3 mL) UD IH PRN (05:59)
[2017-04-26] MEDS: Insulin Lispro 1 UNITS/0.01 ML SC SCH ×4 (08:13→22:00)
--- NOTE | 2017-04-26 09:16 | RAD ---
HISTORY: medical clearance COMPARISON: Chest x-ray performed 02/17/17 TECHNIQUE: Chest, one view. FINDINGS: Examination limited by habitus and hypoinflation. LUNGS: Bilateral hilar prominence. No focal consolidation. Mild streaky upper lobe atelectasis. Please note that chest x-ray has limited sensitivity for the detection of pulmonary masses. PLEURA: No significant pleural effusion identified. No definite pneumothorax . CARDIOVASCULAR: Heart size appears top normal. OSSEOUS STRUCTURES: Degenerative changes. VISUALIZED UPPER ABDOMEN: Unremarkable. OTHER FINDINGS: None. IMPRESSION: Hypoinflation. Bilateral hilar prominence. Mild bilateral upper lobe streaky atelectasis.
[2017-04-26 09:19] LABS: TROPONIN I 0.05 ng/mL
[2017-04-26] MEDS: Multivitamin Therapeutic Tab PO SCH (10:09)
[2017-04-26] MEDS: Divalproex 500 mg DR(BID formulation) PO SCH ×2 (10:09→21:05)
[2017-04-26 10:27] LABS: MAGNESIUM 2.2 mg/dL (1.7-2.2); PHOSPHOROUS 3.2 mg/dL (2.5-4.5)
--- NOTE | 2017-04-26 11:19 | RAD ---
HISTORY: abn cxr COMPARISON: Chest x-ray performed 04/26/17 TECHNIQUE: Chest PA and lateral FINDINGS: LUNGS: Examination limited by habitus and hypoinflation. The patient's chin obscures evaluation of the lung apices. Bilateral hilar prominence. No focal consolidation. Please note that chest x-ray has limited sensitivity for the detection of pulmonary masses. PLEURA: No significant pleural effusion identified. No definite pneumothorax . CARDIOVASCULAR: Heart size appears top normal. OSSEOUS STRUCTURES: Degenerative changes. VISUALIZED UPPER ABDOMEN: Unremarkable. OTHER FINDINGS: None. IMPRESSION: Limited study. Hypoinflation. Bilateral hilar prominence.
--- NOTE | 2017-04-26 16:04 | CON ---
DATE: 04/26/2017 REASON FOR CONSULTATION: High grade AV block. HISTORY OF PRESENT ILLNESS: The patient is a 66-year-old male, who has a history of schizoaffective disorder, congestive heart failure, hypertension, hyperlipidemia, jez-qowkjfs-kcqbljgqh diabetes isabel itus, who was brought in by EMS because of bizarre behavior. The patient was found yelling and screa thierno outside his house. The patient denies any suicidal or homicidal ideation. He denies any chest pain. The patient was found to be in sinus rhythm with 2:1 AV conduction. The patient was admitted to ICU. There is no reported and no reported third degree AV block so far. SOCIAL HISTORY: Unobtainable at this time as the patient does not give any reliable answers and he i s still restless and agitated. MEDICATIONS: Albuterol inhaler q. 2 hours, Cogentin 0.5 mg p.r.n. orally, Depakote 500 mg twice a da y, folic acid 1 mg daily, Geodon 20 mg IM p.r.n. for agitation, Lipitor 10 mg once a day, ibuprofen 6 00 mg q. 6 hours, Pepcid 20 mg twice a day orally, Risperdal 1 mg p.o. q. a.m. and 2 mg p.o. at bedti ny, thiamine 100 mg daily, Zestril 20 mg daily. REVIEW OF SYSTEMS: No reported seizures since patient's admission to ICU and no reported significant sinus pauses. PHYSICAL EXAMINATION: GENERAL: The patient is an elderly male, who is agitated, uncooperative but does not appear to be in acute distress. The patient did allow me to listen to his heart and lungs, palpate his stomach, and check his lower extremities, and the findings were as follows: HEENT: Normocephalic. NECK: No JVD. CHEST: Clear. HEART: S1, S2 regular. EXTREMITIES: No edema. LABORATORY DATA: Hemoglobin and hematocrit 11.9 and 36.2, white count and platelet count were within normal limits. SMA-7 is within normal limits except for glucose of 144. Troponin was 0.05 twice. TSH level is within normal limits at 0.52. EKG revealed sinus rhythm with 2:1 AV block, heart rate i s 44, right bundle branch block, nonspecific inferior T-wave changes. Chest x-ray revealed no infilt rate or effusion. ASSESSMENT: 1. High grade atrioventricular block with 2:1 conduction. 2. Schizoaffective disorder. 3. Uncontrolled diabetes mellitus. 4. Mild anemia. RECOMMENDATIONS: Continue current ICU monitoring. Continue Zestril 20 mg once a day, Lipitor 10 mg once a day, Pepcid 20 mg orally twice a day, albuterol inhaler. Continue Depakote, Cogentin, Haldol and thiamine. Obtain an echocardiogram. Electrophysiology consult from Dr. Romero will be requested . Quentin Quick MD cc: [id number] TT: 04/26/2017 16:04:03 Confirmation # [id number] Dictation # [id number] ln
[2017-04-26 16:44] LABS: TROPONIN I 0.04 ng/mL
--- NOTE | 2017-04-26 22:01 | CARD ---
APPROVED REPORT EKG Measurement Heart [id number] <Conclusion> Sinus rhythm with 2nd degree AV block with 2:1 AV conduction Possible Left atrial enlargement Right bundle branch block Possible Inferior infarct, age undetermined Abnormal ECG
--- NOTE | 2017-04-26 22:01 | CARD ---
APPROVED REPORT EKG Measurement Heart [id number] <Conclusion> Sinus rhythm with 2nd degree AV block with 2:1 AV conduction Possible Left atrial enlargement Right bundle branch block T wave abnormality, consider inferior ischemia Abnormal ECG
[2017-04-27 05:41] LABS: URINE BILIRUBIN NEGATIVE (NEGATIVE); URINE BLOOD NEGATIVE (NEGATIVE); URINE GLUCOSE (UA) 250 mg/dL (NEGATIVE); URINE KETONE 15 mg/dL (NEGATIVE); URINE LEUKOCYTE ESTERASE NEGATIVE Leu/uL (NEGATIVE); URINE PROTEIN 30 mg/dL (<30 mg/dL); URINE UROBILINOGEN 0.2 E.U./dL (<1 E.U./dL)
[2017-04-27 05:44] LABS: URINE APPEARANCE SL CLOUDY (CLEAR); URINE COLOR YELLOW (YELLOW)
[2017-04-27 05:47] LABS: URINE EPITHELIAL CELLS 0 - 2 /hpf (0-5); URINE RBC 0 - 2 /hpf (0-2); URINE WBC 0 - 2 /hpf (0-6)
[2017-04-27 06:38] LABS: ADD MANUAL DIFF? NO
[2017-04-27 07:09] LABS: ALB/GLOB RATIO 1.4 (1.1-1.8); ALKALINE PHOSPHATASE 59 U/L (38-133); ALT/SGPT 38 U/L (7-56); AST/SGOT 40 U/L (15-59); BILIRUBIN,TOTAL 0.6 mg/dL (0.2-1.3); BLOOD UREA NITROGEN 16 mg/dL (7-21); CALCIUM 9.3 mg/dL (8.4-10.5); CARBON DIOXIDE 28 mmol/L (21-33); CHLORIDE 105 mmol/L (98-107); GFR AFRICAN-AMERICAN > 60; GLUCOSE,RANDOM 101 mg/dL (70-110); POTASSIUM 3.8 mmol/L (3.6-5.0); SODIUM 140 mmol/L (132-148); TOTAL PROTEIN 6.6 g/dL (5.8-8.3)
[2017-04-27 07:18] LABS: BASO # 0.01 K/mm3 (0.0-2.0); BASO % 0.3 % (0.0-3.0); EOS # 0.2 (0.0-0.7); EOS % 4.5 % (1.5-5.0); GRAN # 1.97 (1.4-6.5); GRAN % 49.4 % (50.0-68.0); HEMATOCRIT 38.2 % (42.0-52.0); LYMPH # 1.2 (1.2-3.4); LYMPH % 30.8 % (22.0-35.0); MEAN CELL VOLUME 88.2 fL (80.0-105.0); MEAN CORPUSCULAR HEMOGLOBIN 28.9 pg (25.0-35.0); MEAN CORPUSCULAR HGB CONC 32.7 g/dl (31.0-37.0); MEAN PLATELET VOLUME 10.7 fl (7.0-11.0); MONO # 0.6 (0.1-0.6); PLATELET COUNT 194 10^3/uL (120.0-450.0); RED CELL DISTRIBUTION WIDTH 13.2 % (11.5-14.5)
[2017-04-27] MEDS: Insulin Lispro 1 UNITS/0.01 ML SC SCH ×4 (08:47→22:00)
[2017-04-27] MEDS: Multivitamin Therapeutic Tab PO SCH ×2 (08:53→09:39)
[2017-04-27] MEDS: Divalproex 500 mg DR(BID formulation) PO SCH ×2 (09:45→21:56)
--- NOTE | 2017-04-27 10:05 | CON ---
DATE: 04/27/2017 HISTORY OF PRESENT ILLNESS: Shortly, the patient is a 66-year-old male with long and debilitating hi story of schizoaffective disorder versus schizophrenia. The patient was admitted on the CCU unit for EKG changes, as well as AV block, right bundle-branch block, and change in mental status. Psych dat kimmy was called for evaluation of disorganized and paranoid behavior. The patient was seen and examined in CCU. This short story writer is very familiar with this patient from the [facility] admissions to the psychiatric inpatient unit. Most recent was in 02/2017. The patient has chr onic noncompliance with the medication management and followup appointment. The patient was seen and examined today in CCU. The patient presented to be alert and oriented. The patient knows that he is in the hospital in CCU. The patient knows the date today, but presented to be disorganized in his thoughts and behavior. The patient presented to be paranoid. The patient sa id that he was admitted because he was dying. When this short story writer asked what was the reason for him to and how he felt, the patient replied "because every day what is going on in this world." The maik hunt reported that "I am not schizophrenic. I do not have any paranoia. Real people are talking to me. I am not crazy." But, the patient presented to have disorganized thoughts, paranoia, intense ey e contact. The patient is mumbling, tangential, and circumstantial thought process. VITAL SIGNS: This short story writer reviewed vital signs. Vital signs seem to be stable. Temperature 98.4. P ulse is 61, blood pressure 175/98, respirations 14. Oxygen saturation is 98. MEDICATIONS: Reviewed. Tylenol, albuterol, Lipitor, Cogentin 0.5 mg twice a day as needed, Depakote 500 mg twice a day, Pepcid 20 mg twice a day, folic acid 1 mg daily, Motrin, Humalog, lisinopril 20 mg daily, multivitamins 1 pill daily, thiamine 100 mg daily, Sonata 10 mg at the nighttime scheduled, and Geodon as needed for agitation. The patient was on Risperdal 1 mg in the morning time, Risperda l 2 mg at the nighttime. Considering the fact that the patient was noncompliant with medication, dos es are very high. We will decrease the doses. LABORATORIES: Reviewed. WBC cells 4.0, hemoglobin 12.5, hematocrit 38.2. Chemistry also reviewed. Urinalysis reviewed. Toxicology - valproic acid less than 10. The patient was noncompliant with th e medication. Reports reviewed. PAST PSYCHIATRIC HISTORY: The patient has long and debilitating history of mental illness, chronic n oncompliance with medication. The patient has POA. MENTAL STATUS EXAMINATION: The patient presented to be alert and oriented in self, time, and place. Intense eye contact. Speech was over-productive, low volume. The patient was mumbling and very raghav d to understand. Mood described "I'm not crazy. People just talking to me." Affect flat. Mood inc ongruent. Thought process was circumstantial and tangential. Thought content: The patient obviousl y is psychotic and paranoid, as well as thought process is disorganized. The patient denied thoughts of harming himself or others, denied intent or plan. Insight and judgment are impaired. Impulses a re well-controlled. IMPRESSION: Schizoaffective disorder, as per history. EKG changes. The patient is in CCU. PLAN: This short story writer did decrease the dose of Risperdal because the patient was noncompliant with the m edication 0.5 mg twice a day. All antipsychotic medication could increase QTC prolongation, and we w ill monitor the patient closely. At the same time, ____ continue Depakote 500 mg twice a day should be continued. This short story writer will follow up on this patient and advise accordingly. Thank you very much for letting me participate in the care of your patient. Should you have any ques tions, give me a call back. Taisha Saleh MD cc: [id number] TT: 04/27/2017 10:05:07 Confirmation # [id number] Dictation # [id number] néstor
--- NOTE | 2017-04-27 11:46 | CP.PCM.PN ---
<Sissy Smith - Last Filed: 04/27/17 11:53> Subjective - Date & Time of Evaluation Date of Evaluation: 04/27/17 Time of Evaluation: 11:00 - Subjective Subjective: Pt was seen and examined at bedside. Pt is calmer today and answering some questions. Pt is AAOx3. No acute complaints at this time. As per nursing staff, no acute or adverse events overnight. Pt is resting comfortably. Objective - Vital Signs/Intake and Output Vital Signs (last 24 hours): Temp Pulse Resp BP Pulse Ox 98.4 F 61 14 175/98 H 98 04/27/17 08:00 04/27/17 08:53 04/27/17 08:00 04/27/17 08:53 04/27/17 08:00 Intake and Output: 04/27/17 04/27/17 06:59 18:59 Intake Total 400 Output Total 400 Balance 0 - Medications Medications: Current Medications Acetaminophen (Tylenol 325mg Tab) 650 mg PO Q6H PRN PRN Reason: Fever >100.4 F Albuterol Sulfate (Albuterol 0.083% Inhal Milli (2.5 Mg/3 Ml) Ud) 2.5 mg IH Q2H PRN PRN Reason: Shortness of Breath Atorvastatin Calcium (Lipitor) 10 mg PO DIN [facility] Last Admin: 04/26/17 17:01 Dose: 10 mg Benztropine Mesylate (Cogentin) 0.5 mg PO [facility] PRN PRN Reason: Muscle spasm Divalproex Sodium (Depakote Dr(*Bid*)) 500 mg PO [facility] PRN Reason: Protocol Last Admin: 04/27/17 09:45 Dose: 500 mg Famotidine (Pepcid) 20 mg PO BID [facility] Last Admin: 04/27/17 09:38 Dose: Not Given Folic Acid (Folic Acid) 1 mg PO DAILY [facility] Last Admin: 04/27/17 09:38 Dose: Not Given Ibuprofen (Motrin Tab) 600 mg PO Q6H PRN PRN Reason: Pain, Mild (1-3) Insulin Human Lispro (Humalog) 0 units SC ACHS [facility] PRN Reason: Protocol Last Admin: 04/27/17 08:47 Dose: Not Given Lisinopril (Zestril) 20 mg PO DAILY [facility] Last Admin: 04/27/17 09:39 Dose: Not Given Multivitamins (Thera Tab) 1 tab PO DAILY [facility] Last Admin: 04/27/17 09:39 Dose: Not Given Risperidone (Risperdal Tab) 0.5 mg PO HS [facility] PRN Reason: Protocol Risperidone (Risperdal Tab) 0.5 mg PO QAM [facility] PRN Reason: Protocol Last Admin: 04/27/17 09:39 Dose: Not Given Thiamine HCl (Vitamin B1 Tab) 100 mg PO DAILY [facility] Last Admin: 04/27/17 09:39 Dose: Not Given Zaleplon (Sonata) 10 mg PO HS [facility] Last Admin: 04/26/17 22:05 Dose: 10 mg Ziprasidone (Geodon Inj) 20 mg IM DAILY PRN; Protocol PRN Reason: Agitation - Labs Labs: 04/27/17 05:30 04/27/17 05:30 - Constitutional Appears: No Acute Distress - Head Exam Head Exam: ATRAUMATIC, NORMAL INSPECTION, NORMOCEPHALIC - Eye Exam Eye Exam: EOMI, Normal appearance, PERRL Pupil Exam: NORMAL ACCOMODATION, PERRL - ENT Exam ENT Exam: Mucous Membranes Moist, Normal Exam - Neck Exam Neck Exam: Full ROM, Normal Inspection. absent: Lymphadenopathy - Respiratory Exam Respiratory Exam: Clear to Ausculation Bilateral, NORMAL BREATHING PATTERN - Cardiovascular Exam Cardiovascular Exam: REGULAR RHYTHM, +S1, +S2. absent: Murmur - GI/Abdominal Exam GI & Abdominal Exam: Soft, Normal Bowel Sounds. absent: Tenderness - Extremities Exam Extremities Exam: Full ROM, Normal Capillary Refill, Normal Inspection. absent : Joint Swelling, Pedal Edema - Back Exam Back Exam: NORMAL INSPECTION - Neurological Exam Neurological Exam: Alert, Awake, CN II-XII Intact, Oriented x3 - Psychiatric Exam Psychiatric exam: Normal Affect, Normal Mood - Skin Skin Exam: Dry, Intact, Normal Color, Warm Assessment and Plan - Assessment and Plan (Free Text) Assessment: 66 M admitted for bizarre behavior and high grade AV block 2:1 High grade AV block 2:1 - Cardiology consulted, Dr. garza, Recommended zestril, lipitor, Echo and EP consult - EP consulted, Dr. Hemphill, appreciate recs - Currently in NSR -asymptomatic Shizoaffective disorder -will resume psych meds -psych consult; Dr. 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 -c/w home meds hypertension -c/w home meds hyperlipidemia -c/w home meds NIDDM -RISS Proph Pepcid SCD Heart Healthy Diet Seen reviewed and discussed with attending <Gary JOHNSON,Marianna - Last Filed: 04/27/17 12:47> Objective - Vital Signs/Intake and Output Vital Signs (last 24 hours): Temp Pulse Resp BP Pulse Ox 98.6 F 78 27 H 137/83 98 04/27/17 12:00 04/27/17 12:30 04/27/17 12:30 04/27/17 11:00 04/27/17 08:00 Intake and Output: 04/27/17 04/27/17 06:59 18:59 Intake Total 400 Output Total 400 Balance 0 - Medications Medications: Current Medications Acetaminophen (Tylenol 325mg Tab) 650 mg PO Q6H PRN PRN Reason: Fever >100.4 F Albuterol Sulfate (Albuterol 0.083% Inhal Milli (2.5 Mg/3 Ml) Ud) 2.5 mg IH Q2H PRN PRN Reason: Shortness of Breath Atorvastatin Calcium (Lipitor) 10 mg PO DIN [facility] Last Admin: 04/26/17 17:01 Dose: 10 mg Benztropine Mesylate (Cogentin) 0.5 mg PO [facility] PRN PRN Reason: Muscle spasm Divalproex Sodium (Depakote Dr(*Bid*)) 500 mg PO [facility] PRN Reason: Protocol Last Admin: 04/27/17 09:45 Dose: 500 mg Famotidine (Pepcid) 20 mg PO BID [facility] Last Admin: 04/27/17 09:38 Dose: Not Given Folic Acid (Folic Acid) 1 mg PO DAILY [facility] Last Admin: 04/27/17 09:38 Dose: Not Given Ibuprofen (Motrin Tab) 600 mg PO Q6H PRN PRN Reason: Pain, Mild (1-3) Insulin Human Lispro (Humalog) 0 units SC ACHS [facility] PRN Reason: Protocol Last Admin: 04/27/17 08:47 Dose: Not Given Lisinopril (Zestril) 20 mg PO DAILY [facility] Last Admin: 04/27/17 09:39 Dose: Not Given Multivitamins (Thera Tab) 1 tab PO DAILY [facility] Last Admin: 04/27/17 09:39 Dose: Not Given Risperidone (Risperdal Tab) 0.5 mg PO HS [facility] PRN Reason: Protocol Risperidone (Risperdal Tab) 0.5 mg PO QAM [facility] PRN Reason: Protocol Last Admin: 04/27/17 09:39 Dose: Not Given Thiamine HCl (Vitamin B1 Tab) 100 mg PO DAILY [facility] Last Admin: 04/27/17 09:39 Dose: Not Given Zaleplon (Sonata) 10 mg PO HS [facility] Last Admin: 04/26/17 22:05 Dose: 10 mg Ziprasidone (Geodon Inj) 20 mg IM DAILY PRN; Protocol PRN Reason: Agitation - Labs Labs: 04/27/17 05:30 04/27/17 05:30 Attending/Attestation - Attestation I have personally seen and examined this patient.: Yes I have fully participated in the care of the patient.: Yes I have reviewed all pertinent clinical information, including history, physical exam and plan: Yes Notes (Text): 04/27/17 12:38 Patient was seen and examined with medical technologist blood bank . Patient is more alert and cooperative today.He is NSR.EP evaluation is pending, discuss with .TSH level is normal.. Patient is clinically euvolemic, no clinical sign of heart failure. Management plan was discussed in detail with patient Education was provided.
--- NOTE | 2017-04-27 15:51 | PN ---
DATE: 04/27/2017 There is no reported high grade AV block. The patient currently in sinus rhythm. PHYSICAL EXAMINATION: VITAL SIGNS: Blood pressure 137/83, heart rate 78, temperature 98.6, respiration 18. HEENT: Normocephalic. NECK: No JVD. CHEST: Clear. HEART: S1, S2 regular. EXTREMITIES: No edema. LABORATORIES: Hemoglobin and hematocrit are 12.5 and 38.2, white count and platelet count are 4 and 194,000. Today's SMA-7 is within normal limit. ASSESSMENT: 1. Second degree atrioventricular block with 2:1 atrioventricular conduction, has currently resolved . 2. Schizoaffective disorder. 3. Hypertension. RECOMMENDATIONS: Continue current Depestevan Cogentin. Continue Lipitor at 10 mg once a day, Pepcid 20 mg p.o. twice a day, Zestril at 20 mg once a day. I will review the echocardiograph study perform ed today. Awaiting EP evaluation prior to clearing the patient for transfer to psych. Quentin Quick MD cc: [id number] TT: 04/27/2017 15:50:51 Confirmation # [id number] Dictation # [id number] en
--- NOTE | 2017-04-27 23:22 | CON ---
DATE: 04/27/2017 REQUESTING PHYSICIAN: Dr. Quick. REASON FOR EVALUATION: 1. Bradycardia. 2. Mobitz type 1 block, 2:1 block. 3. Schizoaffective disorder. PHYSICIAN REQUESTING CONSULT: Dr. Quentin Quick. HISTORY OF PRESENT ILLNESS: The patient is a 66-year-old male with past medical history si gnificant for schizoaffective disorder, congestive heart failure, hypertension, hyperlipidemia, diabe valentino who was brought to the Emergency Department on 04/26/2017 with bizarre behavior. The patient was found yelling and screaming outside of his house. He denies any suicidal ideation or homicidal idea tion. No active cardiac complaints. The patient on EKG, as well as on telemetry, found to have bob ods of 2:1 AV conduction. The patient was admitted to the ICU for further evaluation and management, seen in consultation by Dr. Quentin Quick. Dr. Quick asked me to see the patient in regard s to the aforementioned conduction system issues. REVIEW OF SYSTEMS: Review of systems cannot reliably obtained secondary to patient's mental status. Still appears quite confused. Is able to identify that he is in a hospital and [facility] is unable to give any further details as his current state. SOCIAL HISTORY: Unable to be obtained at this point. MEDICATIONS: On admission, the patient is on albuterol inhaler q. 2 hours, Cogentin 0.5 mg p.r.n. or ally, Depakote 500 mg b.i.d., folic acid 1 mg daily, Geodon 20 mg p.o. p.r.n. agitation, Lipitor 40 m g p.o. daily, ibuprofen 600 mg q. 6 hours, Pepcid 20 mg p.o. daily, Risperdal 1 mg morning and 2 mg n ight, thiamine 100 mg daily, Zestril 20 mg p.o. daily. DIAGNOSTICS: On review of 12-lead EKG, which was done today, 04/27/2017, on this EKG right bundle br anch block type pattern with prolonged UT interval of 220 milliseconds, signifying first degree AV bl ock. There is no dropped beat on this particular tracing. There is leftward axis and nonspecific ST -T wave changes. QT/QTc is 432 and 501 respectively. Echocardiogram has been ordered, but not officially read. On review of telemetry, the patient does h ave periods of 1:1 conduction, other periods of Wenckebach, which are quite evident, other times not so evident, followed by a dropped beat and a shorter UT interval. 2:1 block is also seen at times. LABORATORY DATA: On review of relevant lab work, the patient has a white count of 4.0, H and H of 12 .5 and 38.2, platelet count of 194. Sodium is 140, potassium 3.8. BUN and creatinine is 16 and 0.7, glucose has been elevated, ALT and A ST are 40 and 38 respectively. Albumin 3.9, globulin is 2.7. Urine is positive for ketones, glucosu miesha, proteinuria. ASSESSMENT AND PLAN: 1. Bradycardia, which is transient secondary to intermittent Wenckebach type pattern followed by 2:1 block. It is unclear if patient is symptomatic at this point given his significant psychiatric dera ngement at this point. When patient returns to baseline, further history perhaps can be obtained. I f there is evidence of syncope, progressive shortness of breath, lightheadedness, dizziness, one may consider a permanent pacemaker. This also may be necessary if patient needs to be treated from a hea rt failure/coronary standpoint with beta kassi medications. At this point, patient appears to be h emodynamically stable and does not require a permanent pacemaker. 2. Mobitz type 1, followed by 2:1 block. This most likely represents a block at the level of the AV node and not likely representing block below the node. If there is block below the AV node, progres marii to complete heart block would be of concern. At this point, there is no evidence of complete he art block. 3. Schizoaffective disorder, for which he receives medications. It is my hope that the patient's me ntal status does return to baseline. From what I am led to believe, the patient does live independen tly and cares for himself. Thank you for allowing me to participate in the care of your patient. Please do not hesitate to call for any questions in regards to his care. Arjun Romero MD cc: [id number] TT: 04/27/2017 23:22:01 Confirmation # [id number] Dictation # [id number] mn
[2017-04-28 07:18] LABS: ADD MANUAL DIFF? NO
[2017-04-28 07:29] LABS: BASO # 0.01 K/mm3 (0.0-2.0); BASO % 0.2 % (0.0-3.0); EOS # 0.2 (0.0-0.7); EOS % 3.1 % (1.5-5.0); GRAN # 2.87 (1.4-6.5); GRAN % 59.7 % (50.0-68.0); HEMATOCRIT 39.6 % (42.0-52.0); LYMPH # 1.2 (1.2-3.4); LYMPH % 24.9 % (22.0-35.0); MEAN CORPUSCULAR HEMOGLOBIN 29.3 pg (25.0-35.0); MEAN CORPUSCULAR HGB CONC 33.3 g/dl (31.0-37.0); MONO # 0.6 (0.1-0.6); MONO % 12.1 % (1.0-6.0); PLATELET COUNT 200 10^3/uL (120.0-450.0); RED CELL DISTRIBUTION WIDTH 13.1 % (11.5-14.5); WHITE BLOOD COUNT 4.8 10^3/ul (4.5-11.0)
[2017-04-28 07:42] LABS: ALB/GLOB RATIO 1.3 (1.1-1.8); ALKALINE PHOSPHATASE 60 U/L (38-133); ALT/SGPT 37 U/L (7-56); AST/SGOT 28 U/L (15-59); BILIRUBIN,TOTAL 0.5 mg/dL (0.2-1.3); BLOOD UREA NITROGEN 15 mg/dL (7-21); CALCIUM 9.4 mg/dL (8.4-10.5); CARBON DIOXIDE 28 mmol/L (21-33); CHLORIDE 104 mmol/L (95-110); GFR AFRICAN-AMERICAN > 60; GLUCOSE,RANDOM 95 mg/dL (70-110); POTASSIUM 3.8 mmol/L (3.6-5.0); SODIUM 139 mmol/L (132-148); TOTAL PROTEIN 6.5 g/dL (5.8-8.3)
[2017-04-28] MEDS: Insulin Lispro 1 UNITS/0.01 ML SC SCH ×4 (08:10→21:26)
[2017-04-28] MEDS: Divalproex 500 mg DR(BID formulation) PO SCH ×2 (09:34→21:23)
[2017-04-28] MEDS: Multivitamin Therapeutic Tab PO SCH (09:35)
--- NOTE | 2017-04-28 12:38 | PN ---
DATE: 04/28/2017 Shortly, the patient is a 66-year-old male. The patient has long and debilitating history of schizoaffective disorder, bipolar type. The patient has chronic noncompliance with the medication s as well as followup appointment. The patient has cognitive limitations due to his chronic psychoti c symptoms and being noncompliant with treatment. The patient also has chronic delusions, hallucinat ions and paranoia. The patient was admitted on the medical side for EKG changes. Psych consult was called for medication management as well as patient has disorganized thought process. The patient al so has been noncompliant with the medications. The patient was initially seen yesterday. Medication s resumed. The patient was followed up today at the morning time. The patient presented to be alert , but disorganized. The patient had impression that he is dying. Obviously, he is not. The patient was observed eating comfortably, ate 100% of his meal. As Per nursing report, the patient has episod es of confusion, but there is no agitation, no aggression. VITAL SIGNS: Stable. Temperature is 98.5, pulse is 73, blood pressure 115/46, respirations 18. MEDICATIONS: Reviewed. Tylenol, Lipitor, Cogentin 0.5 mg twice a day as needed for muscle spasm. T he patient is on Depakote 500 mg twice a day, Pepcid, folic acid, Motrin, Humalog, Zestril, multivita mins, Risperdal 0.5 mg twice a day, thiamine, Sonata 10 mg at nighttime and Geodon as needed for agit ation. The patient was not agitated and never gave IM. LABORATORY DATA: Hematology reviewed from today. Hemoglobin 13.2, hematocrit 39.6. Chemistry also reviewed, seems to be within normal limits. Urinalysis within normal limits. Toxicology, valproic a sheela less than 10 at the time of admission. The patient was noncompliant with the medications. The p atient was seen by cardiology team and was diagnosed with second degree atrioventricular block with 2 :1 atrioventricular conduction, has currently resolved. Schizoaffective disorder and hypertension. The patient also seen by Dr. Romero. Notes reviewed. MENTAL STATUS EXAMINATION: The patient appears to be alert, oriented to self, time, and place. Inte rmittent eye contact. Speech was fast, low volume. The patient is rambling something, at times inco herently. Mood described, "I feel horrible, I am dying." Affect is flat. Thought process is disorg anized and tangential and circumstantial. Thought content: The patient denied visual, auditory, or tactile hallucinations, but obviously patient is psychotic and disorganized, but socially appropriate . Insight is limited. Impulses are well controlled. IMPRESSION: As per history, the patient has schizoaffective disorder, multiple admissions, chronic n oncompliance. The patient lives independently. The patient has power of trade mark attorney. The patient has multiple medical issues. Please see medical team note for more detailed information. PLAN: As per this senior copywriter's perspective, patient is psychotic, but seems to be at his baseline. The patient was resumed on Risperdal as well as Depakote as well as Sonata. The patient is doing better, but has impression that he is dying, which is not true. While patient is on the medical side, this senior copywriter will follow up on this patient. There are no behavioral issues. POA needs to be involved. T his senior copywriter is not sure if patient will be transferred to the psychiatric inpatient unit because the p atient seems to be at his baseline, but will follow up and advise accordingly. Thank you very much for letting me participate in the care of your patient. Taisha Saleh MD cc: [id number] TT: 04/28/2017 12:38:10 Confirmation # [id number] Dictation # [id number] aicha
--- NOTE | 2017-04-28 12:50 | CP.PCM.PN ---
<Sissy Smith - Last Filed: 04/28/17 12:50> Subjective - Date & Time of Evaluation Date of Evaluation: 04/28/17 Time of Evaluation: 11:30 - Subjective Subjective: Pt was seen and examined at bedside. Pt is calm and AAOx3. No acute complaints at this time. As per nursing staff, no acute or adverse events overnight. Pt is resting comfortably. Pt answers some questions but remains tangential and hard to redirect. Objective - Vital Signs/Intake and Output Vital Signs (last 24 hours): Temp Pulse Resp BP Pulse Ox 98.9 F 73 18 115/46 L 98 04/28/17 04:00 04/28/17 08:00 04/28/17 06:10 04/28/17 09:36 04/27/17 16:00 Intake and Output: 04/28/17 04/28/17 06:59 18:59 Intake Total 450 Output Total 600 Balance -150 - Medications Medications: Current Medications Acetaminophen (Tylenol 325mg Tab) 650 mg PO Q6H PRN PRN Reason: Fever >100.4 F Albuterol Sulfate (Albuterol 0.083% Inhal Milli (2.5 Mg/3 Ml) Ud) 2.5 mg IH Q2H PRN PRN Reason: Shortness of Breath Atorvastatin Calcium (Lipitor) 10 mg PO DIN [facility] Last Admin: 04/27/17 18:42 Dose: 10 mg Benztropine Mesylate (Cogentin) 0.5 mg PO [facility] PRN PRN Reason: Muscle spasm Divalproex Sodium (Depakote Dr(*Bid*)) 500 mg PO AMHS [facility] PRN Reason: Protocol Last Admin: 04/28/17 09:34 Dose: 500 mg Famotidine (Pepcid) 20 mg PO BID [facility] Last Admin: 04/28/17 09:37 Dose: 20 mg Folic Acid (Folic Acid) 1 mg PO DAILY [facility] Last Admin: 04/28/17 09:35 Dose: 1 mg Ibuprofen (Motrin Tab) 600 mg PO Q6H PRN PRN Reason: Pain, Mild (1-3) Insulin Human Lispro (Humalog) 0 units SC ACHS [facility] PRN Reason: Protocol Last Admin: 04/28/17 11:29 Dose: 1 units Lisinopril (Zestril) 20 mg PO DAILY [facility] Last Admin: 04/28/17 09:36 Dose: 20 mg Multivitamins (Thera Tab) 1 tab PO DAILY [facility] Last Admin: 04/28/17 09:35 Dose: 1 tab Risperidone (Risperdal Tab) 0.5 mg PO HS [facility] PRN Reason: Protocol Last Admin: 04/27/17 21:57 Dose: 0.5 mg Risperidone (Risperdal Tab) 0.5 mg PO QAM [facility] PRN Reason: Protocol Last Admin: 04/28/17 09:37 Dose: 0.5 mg Thiamine HCl (Vitamin B1 Tab) 100 mg PO DAILY [facility] Last Admin: 04/28/17 09:35 Dose: 100 mg Zaleplon (Sonata) 10 mg PO HS [facility] Last Admin: 04/27/17 21:56 Dose: 10 mg Ziprasidone (Geodon Inj) 20 mg IM DAILY PRN; Protocol PRN Reason: Agitation - Labs Labs: 04/28/17 07:00 04/28/17 07:00 - Constitutional Appears: No Acute Distress - Head Exam Head Exam: ATRAUMATIC, NORMAL INSPECTION, NORMOCEPHALIC - Eye Exam Eye Exam: EOMI, Normal appearance, PERRL Pupil Exam: NORMAL ACCOMODATION, PERRL - ENT Exam ENT Exam: Mucous Membranes Moist, Normal Exam - Neck Exam Neck Exam: Full ROM, Normal Inspection. absent: Lymphadenopathy - Respiratory Exam Respiratory Exam: Clear to Ausculation Bilateral, NORMAL BREATHING PATTERN - Cardiovascular Exam Cardiovascular Exam: REGULAR RHYTHM, +S1, +S2. absent: Murmur - GI/Abdominal Exam GI & Abdominal Exam: Soft, Normal Bowel Sounds. absent: Tenderness - Neurological Exam Neurological Exam: Alert, Awake, CN II-XII Intact, Normal Gait, Oriented x3 - Psychiatric Exam Psychiatric exam: Normal Affect, Normal Mood - Skin Skin Exam: Dry, Intact, Normal Color, Warm Assessment and Plan - Assessment and Plan (Free Text) Assessment: 66 M admitted for bizarre behavior and high grade AV block 2:1 High grade AV block 2:1 - Cardiology consulted, Dr. garza, Recommended zestril, lipitor, Echo and EP consult - EP consulted, Dr. Hemphill, no plan for pacemaker at this time - Currently in NSR -asymptomatic Shizoaffective disorder -will resume psych meds -psych consult; Dr. Sumner; risperdal dosage adjusted to 0.5mg BID, Depakote 500mg BID -patient is at baseline CHF; chronic and not in exacerbation -c/w home meds hypertension -c/w home meds hyperlipidemia -c/w home meds NIDDM -RISS Proph Pepcid SCD Heart Healthy Diet Seen reviewed and discussed with attending DISPO: pt is pending transfer to [facility] as there is no acute medical intervention at this time <Marianna Vega MD - Last Filed: 04/28/17 16:34> Objective - Vital Signs/Intake and Output Vital Signs (last 24 hours): Temp Pulse Resp BP Pulse Ox 98.9 F 68 17 107/68 98 04/28/17 04:00 04/28/17 16:00 04/28/17 16:00 04/28/17 16:00 04/27/17 16:00 Intake and Output: 04/28/17 04/28/17 06:59 18:59 Intake Total 450 Output Total 600 Balance -150 - Medications Medications: Current Medications Acetaminophen (Tylenol 325mg Tab) 650 mg PO Q6H PRN PRN Reason: Fever >100.4 F Albuterol Sulfate (Albuterol 0.083% Inhal Milli (2.5 Mg/3 Ml) Ud) 2.5 mg IH Q2H PRN PRN Reason: Shortness of Breath Atorvastatin Calcium (Lipitor) 10 mg PO DIN [facility] Last Admin: 04/28/17 16:19 Dose: 10 mg Benztropine Mesylate (Cogentin) 0.5 mg PO [facility] PRN PRN Reason: Muscle spasm Divalproex Sodium (Depakote Dr(*Bid*)) 500 mg PO [facility] PRN Reason: Protocol Last Admin: 04/28/17 09:34 Dose: 500 mg Famotidine (Pepcid) 20 mg PO BID [facility] Last Admin: 04/28/17 09:37 Dose: 20 mg Folic Acid (Folic Acid) 1 mg PO DAILY [facility] Last Admin: 04/28/17 09:35 Dose: 1 mg Ibuprofen (Motrin Tab) 600 mg PO Q6H PRN PRN Reason: Pain, Mild (1-3) Insulin Human Lispro (Humalog) 0 units SC [facility] PRN Reason: Protocol Last Admin: 04/28/17 16:09 Dose: Not Given Lisinopril (Zestril) 20 mg PO DAILY [facility] Last Admin: 04/28/17 09:36 Dose: 20 mg Multivitamins (Thera Tab) 1 tab PO DAILY [facility] Last Admin: 04/28/17 09:35 Dose: 1 tab Risperidone (Risperdal Tab) 0.5 mg PO HS [facility] PRN Reason: Protocol Last Admin: 04/27/17 21:57 Dose: 0.5 mg Risperidone (Risperdal Tab) 0.5 mg PO QAM [facility] PRN Reason: Protocol Last Admin: 04/28/17 09:37 Dose: 0.5 mg Thiamine HCl (Vitamin B1 Tab) 100 mg PO DAILY [facility] Last Admin: 04/28/17 09:35 Dose: 100 mg Zaleplon (Sonata) 10 mg PO HS [facility] Last Admin: 04/27/17 21:56 Dose: 10 mg Ziprasidone (Geodon Inj) 20 mg IM DAILY PRN; Protocol PRN Reason: Agitation - Labs Labs: 04/28/17 07:00 04/28/17 07:00 Attending/Attestation - Attestation I have personally seen and examined this patient.: Yes I have fully participated in the care of the patient.: Yes I have reviewed all pertinent clinical information, including history, physical exam and plan: Yes Notes (Text): 04/28/17 16:30 Patient was seen and examined with mobile paramedical examiner .Agreed with resident assessment and plan. 66 Yrs old male with PMH of Schezophrenia, HTN,CHF was admitted with agitation , was found to have bradycardia and 2.1 Mobitz type 2 Heart block.Patient is back in NSR with first degree heart block,Patient is asymptomatic,He is not in over heart failure.He is euvolemic. once he will be cleared by cardiology, he will be discharged to Psychiatry.
--- NOTE | 2017-04-28 13:36 | PN ---
DATE: 04/28/2017 SUBJECTIVE: The patient is confused. Monitor reveals period of 2:1 conduction, but overall heart ra te is within normal limit. PHYSICAL EXAMINATION: VITAL SIGNS: Blood pressure 115/46, heart rate 73, respiration 18, temperature 98.9. HEENT: Normocephalic. CHEST: Clear. HEART: S1, S2 regular. EXTREMITIES: No edema. LABORATORIES: Hemoglobin and hematocrit 13.2 and 36.9. White count and platelet count are within no rmal limit. Today's SMA-7 is entirely within normal limit. Electrophysiology consult by Dr. Romero was reviewed. ASSESSMENT: 1. Bradycardia, which is transient secondary to intermittent Wenckebach followed by 2:1 atrioventric ular block. It is not clear if the patient is symptomatic and when the patient goes to baseline. Fu rther history will be obtained. Evidence of syncope, progressive shortness of breath. One may consi daniel pacemaker. 2. Intermittent Wenckebach with periods of 2:1 conduction. 3. Schizoaffective disorder. 4. Hypertension. RECOMMENDATIONS: Continue Zestril at 20 mg once a day. Continue Lipitor, albuterol, Cogentin, Pepci d and other psych medications. Further decision to transfer the patient to [facility] has to be cleared b vilma Romero, the assembly detailer. Quentin Quick MD cc: [id number] TT: 04/28/2017 13:35:35 Confirmation # [id number] Dictation # [id number]
--- NOTE | 2017-04-28 16:51 | CARD ---
APPROVED REPORT EXAM: Two-dimensional and M-mode echocardiogram with Doppler and color Doppler. INDICATION Chest Pain 2D DIMENSIONS Left Atrium (2D)4.3 (1.6-4.0cm)IVSd1.2 (0.7-1.1cm) LVDd4.7 (3.9-5.9cm)LVOT Diameter2.0 (1.8-2.4cm) PWd1.1 (0.7-1.1cm)LVDs2.9 (2.5-4.0cm) FS (%) 38.6 %LVEF (%)69.0 (>50%) M-Mode DIMENSIONS Aortic Root3.00 (2.2-3.7cm)Aortic Cusp Exc.0.90 (1.5-2.0cm) Aortic Valve AoV Peak Hpdcepfl906.0cm/sAoV VTI45.1cmAO Peak GR.32mmHg LVOT Peak Tgxxtetx702.0cm/sLVOT VTI22.70cmAO Mean GR.15mmHg JENY (VMAX)1.42gn3AQR (VTI)1.58cm2 Mitral Valve MV E Kgqhbulp91.0cm/sMV A Fhqxlyps11.2cm/sE/A ratio0.7 TDI E/Lateral E'0.0E/Medial E'0.0 Tricuspid Valve TR Peak Gdzwlcry585vh/sRAP [id number] Peak Gr.19mmHg CPCT15kgPh LEFT VENTRICLE The left ventricle is normal size. There is borderline concentric left ventricular hypertrophy. The left ventricular function is normal. The left ventricular ejection fraction is within the normal range. There is normal LV segmental wall motion. Transmitral Doppler flow pattern is Grade I-abnormal relaxation pattern. RIGHT VENTRICLE The right ventricle is normal size. There is normal right ventricular wall thickness. The right ventricular systolic function is normal. ATRIA The left atrium is borderline dilated. The right atrium size is normal. AORTIC VALVE The aortic valve is severely thickened. There is mild aortic regurgitation. There is mild valvular aortic stenosis. MITRAL VALVE The mitral valve is mildly thickened. Mitral regurgitation is trace. TRICUSPID VALVE There is no pulmonary hypertension. GREAT VESSELS The aortic root is normal in size. The IVC is normal in size and collapses >50% with inspiration. <Conclusion> The left ventricle is normal size. There is borderline concentric left ventricular hypertrophy. The left ventricular function is normal. The left ventricular ejection fraction is within the normal range. There is normal LV segmental wall motion. Transmitral Doppler flow pattern is Grade I-abnormal relaxation pattern. The aortic valve is severely thickened. There is mild aortic regurgitation. There is mild valvular aortic stenosis.
--- NOTE | 2017-04-28 17:26 | CARD ---
APPROVED REPORT EKG Measurement Heart [id number] <Conclusion> Marked sinus bradycardia with 2nd degree AV block with 2:1 conduction Incomplete right bundle branch block Abnormal ECG
--- NOTE | 2017-04-28 18:01 | CARD ---
APPROVED REPORT EKG Measurement Heart [id number] <Conclusion> Sinus rhythm with 1st degree AV block Right bundle branch block Septal infarct, age undetermined Abnormal ECG
[2017-04-29 06:34] LABS: ADD MANUAL DIFF? NO
[2017-04-29 06:40] LABS: BASO # 0.01 K/mm3 (0.0-2.0); BASO % 0.3 % (0.0-3.0); EOS # 0.2 (0.0-0.7); EOS % 4.1 % (1.5-5.0); GRAN # 1.92 (1.4-6.5); GRAN % 49.6 % (50.0-68.0); HEMATOCRIT 41.8 % (42.0-52.0); LYMPH # 1.2 (1.2-3.4); LYMPH % 31.3 % (22.0-35.0); MEAN CELL VOLUME 88.4 fL (80.0-105.0); MEAN CORPUSCULAR HEMOGLOBIN 28.8 pg (25.0-35.0); MEAN CORPUSCULAR HGB CONC 32.5 g/dl (31.0-37.0); MEAN PLATELET VOLUME 10.6 fl (7.0-11.0); MONO # 0.6 (0.1-0.6); MONO % 14.7 % (1.0-6.0); PLATELET COUNT 197 10^3/uL (120.0-450.0); RED CELL DISTRIBUTION WIDTH 13.2 % (11.5-14.5); WHITE BLOOD COUNT 3.9 10^3/ul (4.5-11.0)
[2017-04-29 07:00] LABS: ALB/GLOB RATIO 1.3 (1.1-1.8); ALKALINE PHOSPHATASE 63 U/L (38-133); ALT/SGPT 33 U/L (7-56); AST/SGOT 22 U/L (15-59); BILIRUBIN,TOTAL 0.5 mg/dL (0.2-1.3); BLOOD UREA NITROGEN 12 mg/dL (7-21); CALCIUM 9.8 mg/dL (8.4-10.5); CARBON DIOXIDE 29 mmol/L (21-33); CHLORIDE 103 mmol/L (98-107); GFR AFRICAN-AMERICAN > 60; GLUCOSE,RANDOM 103 mg/dL (70-110); POTASSIUM 4.1 mmol/L (3.6-5.0); SODIUM 140 mmol/L (132-148); TOTAL PROTEIN 6.7 g/dL (5.8-8.3)
[2017-04-29] MEDS: Insulin Lispro 1 UNITS/0.01 ML SC SCH ×4 (07:35→23:01)
[2017-04-29] MEDS: Multivitamin Therapeutic Tab PO SCH (10:01)
[2017-04-29] MEDS: Divalproex 500 mg DR(BID formulation) PO SCH ×2 (10:02→23:10)
--- NOTE | 2017-04-29 12:34 | PN ---
DATE: 04/29/2017 SUBJECTIVE: The patient is still in second degree AV block with periods of 2:1 conduction. Heart ra te is in the upper 40s. No reported sinus pauses. The patient denies any chest pain or dizziness. PHYSICAL EXAMINATION: VITAL SIGNS: Blood pressure 128/74, heart rate 69, temperature 98.1, respirations 18. HEENT: Normocephalic. NECK: No JVD. CHEST: Clear. HEART SOUNDS: Regular. EXTREMITIES: No edema. LABORATORIES: Hemoglobin and hematocrit are 13.6 and 41.8. White count and platelet count are 3.9 a nd 197,000. Today's SMA-7 is entirely within normal limits. Today's EKG revealed sinus rhythm with 2:1 AV conduction at a rate of 47. ASSESSMENT: 1. Mobitz 1 second degree atrioventricular block with 2:1 conduction. 2. Schizoaffective disorder. 3. Hyperlipidemia. RECOMMENDATIONS: Continue current folic acid, Lipitor, oral Pepcid, multivitamin, and Zestril at 20 mg daily. The case was discussed with Dr. Romero who will discuss with the patient's legal guardian the option of an implantable dual chamber pacemaker. Quentin Quick MD cc: [id number] TT: 04/29/2017 12:33:59 Confirmation # [id number] Dictation # [id number] mn
--- NOTE | 2017-04-29 13:21 | PN ---
DATE: 04/29/2017 REASON FOR FOLLOWUP: 1. Heart block, Mobitz I 2:1 block. 2. Bradycardia. 3. Schizoaffective disorder. 4. Hypertension. The patient is seen and examined this morning. He appears to be slightly less confused, interactive, but does have difficulty focusing in on the conversation. He denies any chest pain, dizziness or lightheadedness. Further limited history is able to be obtained. The patient lives at home. Physical activity is limited to a few steps for unclear reasons for unclear period of time. He denies any unexplained falls. RELEVANT LABORATORY WORK: On review, patient has a white count of 3.9, H and H of 13.6 and 41.8, platelets of 197. Sodium of 140, potassium 4.1, BUN and creatinine are 12 and 0.7. Glucoses have been elevated. ALT and AST is 22 and 32 respectively. Globulin is 2.9, albumin is 3.8. CURRENT MEDICATIONS: Include acetaminophen 650 mg p.o. q. 6 hours, atorvastatin 10 mg p.o. at bedtime, benztropine 0.5 mg p.o. p.r.n. muscle spasm , Depakote 500 mg p.o. b.i.d., Pepcid 20 mg p.o. b.i.d., folic acid 1 mg p.o. b.i.d., ibuprofen 600 mg q. 6 hours p.r.n. mild pain, insulin sliding scale, lisinopril 20 mg p.o. daily, multivitamin 1 tab p.o. daily, risperidone 0.5 mg p.o. daily, thiamine is 100 mg p.o. daily, Sonata is 10 mg p.o. at bedtime. PHYSICAL EXAMINATION: VITAL SIGNS: The patient is afebrile at 97.5 currently with a pulse of 62, occasionally 2:1 block resulting in the 40s. There are periods of 1:1 conduction. There are also periods of clear Wenckebach behavior. Blood pressure is 105/58, but previously had been 126/77, respirations of 18. GENERAL: He is a relatively well-developed, well-nourished, elderly male, in no acute distress, able to speak in full sentences, does have baseline confusion , is somewhat suspicious. He is hung up on verbiage and does need to be redirected with questions. HEENT: Head is normocephalic, atraumatic. There is no suzy facial asymmetry. Mucous membranes appear moist. Dentition appears to be intact. NECK: Supple. No jugular venous distention. There is evidence of occasional proctor A waves. CHEST: Clear to auscultation bilaterally. CARDIOVASCULAR: Regular rate and rhythm. S1, S2. No S3 or S4. ABDOMEN: Soft, nontender, nondistended. Positive bowel sounds. EXTREMITIES: No cyanosis, clubbing or edema. Echocardiogram which was done on 04/27/2017 shows normal LV size, borderline concentric left ventricular hypertrophy, function is normal, no significant segmental wall motion abnormality is noted. There is a grade I abnormal relaxation pattern. Aortic valve is severely thickened with mild aortic regurgitation. Mild valvular aortic stenosis is noted. ASSESSMENT AND PLAN: 1. Heart block, occasional 2:1 block, resulting in heart rates in the 40s. Conduction otherwise does show Mobitz type I block, at times 1:1 conduction with heart rates in the 60s-70s. It is difficult to elicit whether patient has symptoms with 2:1 block, but may be CHB with junctional escape. This likely is secondary to heart block at the level of the atrioventricular mati. Cannot completely or fully rule out infranodal pathology. Being that the patient is unable to effectively give me a history, it does appear as though he has some functional limitation of unclear etiology. From a safety standpoint, patient would likely benefit from a permanent pacemaker. I have had a conversation with him and he did mention if a procedure is deemed necessary, that he would not be opposed to having implantation of a permanent pacemaker. At this point, after discussions with Dr. Quick and Dr. Melendez, it does not appear, at least within our comfort level, that the patient has the capacity at this point to make medical decisions, especially medical decisions regarding potential surgery. We will reach out to the patient's power of regulatory attorney, explain the situation, clinical scenario, potential risks and benefits of permanent pacemaker implantation. 2. Bradycardia of unclear significance. Bradycardia times out with the patient 's altered mental status. Again, we will address the bradycardia and potential permanent pacemaker implantation in the near future. 3. Schizoaffective disorder, for which psychiatry is seeing him and his medications are being optimized. 4. Hypertension, which does not appear to be a major issue at this time. 5. Mild aortic stenosis with aortic sclerosis. This also does not appear to be hemodynamically significant at this point. Thank you for allowing me to participate in the care of your patient. Please do not hesitate to call if you have any questions in regards to his care. Arjun Romero MD cc: [phone] TT: 04/29/2017 13:20:24 Confirmation # [id number] Dictation # [id number] en MTDD
--- NOTE | 2017-04-29 15:16 | CARD ---
APPROVED REPORT EKG Measurement Heart [id number] <Conclusion> Sinus rhythm with 2nd degree AV block with 2:1 AV conduction Incomplete right bundle branch block Abnormal ECG
--- NOTE | 2017-04-29 16:15 | CP.PCM.PN ---
Subjective - Date & Time of Evaluation Date of Evaluation: 04/29/17 Time of Evaluation: 08:00 - Subjective Subjective: patient seen and examined in CCU room 4. patient is alert And awake. Oriented to place and time. Denies any chest pain. Denies any dizziness. Currently on vest [place]. Denies any Shortness of breath, nausea, vomiting. tolerating diet well. Review of Systems - Constitutional Constitutional: absent: Fever, Chills - EENT Nose/Mouth/Throat: absent: Nasal Congestion - Cardiovascular Cardiovascular: absent: Chest Pain, Chest Pain at Rest, Palpitations - Gastrointestinal Gastrointestinal: absent: Abdominal Pain, Nausea, Vomiting - Musculoskeletal Musculoskeletal: absent: Abnormal Gait - Psychiatric Psychiatric: Anxiety, Depression - Hematologic/Lymphatic Hematologic: absent: Easy Bleeding, Easy Bruising Objective - Vital Signs/Intake and Output Vital Signs (last 24 hours): Temp Pulse Resp BP Pulse Ox 98.1 F 69 18 128/74 96 04/29/17 04:00 04/29/17 04:00 04/29/17 04:00 04/29/17 04:00 04/29/17 04:00 Intake and Output: 04/29/17 04/29/17 06:59 18:59 Intake Total 480 Output Total 850 Balance -370 - Medications Medications: Current Medications Acetaminophen (Tylenol 325mg Tab) 650 mg PO Q6H PRN PRN Reason: Fever >100.4 F Albuterol Sulfate (Albuterol 0.083% Inhal Milli (2.5 Mg/3 Ml) Ud) 2.5 mg IH Q2H PRN PRN Reason: Shortness of Breath Atorvastatin Calcium (Lipitor) 10 mg PO [facility] Last Admin: 04/28/17 16:19 Dose: 10 mg Benztropine Mesylate (Cogentin) 0.5 mg PO [facility] PRN PRN Reason: Muscle spasm Divalproex Sodium (Depakote Dr(*Bid*)) 500 mg PO [facility] PRN Reason: Protocol Last Admin: 04/29/17 10:02 Dose: 500 mg Famotidine (Pepcid) 20 mg PO BID [facility] Last Admin: 04/29/17 10:01 Dose: 20 mg Folic Acid (Folic Acid) 1 mg PO DAILY [facility] Last Admin: 04/29/17 10:02 Dose: 1 mg Ibuprofen (Motrin Tab) 600 mg PO Q6H PRN PRN Reason: Pain, Mild (1-3) Insulin Human Lispro (Humalog) 0 units SC ACHS [facility] PRN Reason: Protocol Last Admin: 04/29/17 11:24 Dose: Not Given Lisinopril (Zestril) 20 mg PO DAILY [facility] Last Admin: 04/29/17 10:01 Dose: 20 mg Multivitamins (Thera Tab) 1 tab PO DAILY [facility] Last Admin: 04/29/17 10:01 Dose: 1 tab Risperidone (Risperdal Tab) 0.5 mg PO HS [facility] PRN Reason: Protocol Last Admin: 04/28/17 21:24 Dose: 0.5 mg Risperidone (Risperdal Tab) 0.5 mg PO QAM [facility] PRN Reason: Protocol Last Admin: 04/29/17 10:02 Dose: 0.5 mg Thiamine HCl (Vitamin B1 Tab) 100 mg PO DAILY [facility] Last Admin: 04/29/17 10:01 Dose: 100 mg Zaleplon (Sonata) 10 mg PO [facility] Last Admin: 04/28/17 21:24 Dose: 10 mg Ziprasidone (Geodon Inj) 20 mg IM DAILY PRN; Protocol PRN Reason: Agitation - Labs Labs: 04/29/17 06:15 04/29/17 06:15 - Constitutional Appears: Well, Non-toxic - Head Exam Head Exam: NORMAL INSPECTION - ENT Exam ENT Exam: Mucous Membranes Moist - Respiratory Exam Respiratory Exam: NORMAL BREATHING PATTERN - Cardiovascular Exam Cardiovascular Exam: Bradycardia - GI/Abdominal Exam GI & Abdominal Exam: Soft, Normal Bowel Sounds. absent: Tenderness - Extremities Exam Extremities Exam: absent: Pedal Edema - Back Exam Back Exam: absent: CVA tenderness (L), CVA tenderness (R) - Neurological Exam Neurological Exam: Alert - Psychiatric Exam Psychiatric exam: Flat Affect - Skin Skin Exam: Normal Color Assessment and Plan - Assessment and Plan (Free Text) Assessment: Patient ias a 66 year old male admitted for bizarre behavior and high grade AV block 2:1 1. AV block 2:[address] garza appreciated. Continue zestril, lipitor. case discussed with EP life consultant Dr. Alvarez in detail. plan for pacemaker. Currently patient agreed for Pacemaker placement. Case discussed with patient's power of attorney lawyer [phone]. 2.Shizoaffective disorder Continue mediations per psychiatry. case discussed with Dr. Sumner in detail. on risperdal,Cogentin,Sonata, Depakote 500mg BID and geodon. 3.hypertension; continue Zestril. 4. hypercholesterolemia; continue Lipitor. GI/DVT prophylaxis. Continue to monitor in telemetry.
--- NOTE | 2017-04-29 16:46 | CP.PCM.PCO ---
Physician Communication Note - Physician Communication Note Physician Communication Note: d/w , pt has POA, no acute psych issues, will f/u tomorrow
[2017-04-30 06:31] LABS: ADD MANUAL DIFF? NO
[2017-04-30 06:58] LABS: INR 1.01 (0.93-1.08); PARTIAL THROMBOPLASTIN TIME 30.8 Seconds (23.7-30.8)
[2017-04-30 07:12] LABS: ALB/GLOB RATIO 1.3 (1.1-1.8); ALKALINE PHOSPHATASE 63 U/L (38-133); ALT/SGPT 27 U/L (7-56); AST/SGOT 21 U/L (15-59); BILIRUBIN,TOTAL 0.5 mg/dL (0.2-1.3); BLOOD UREA NITROGEN 15 mg/dL (7-21); CALCIUM 9.6 mg/dL (8.4-10.5); CARBON DIOXIDE 30 mmol/L (21-33); CHLORIDE 101 mmol/L (98-107); GFR AFRICAN-AMERICAN > 60; GLUCOSE,RANDOM 93 mg/dL (70-110); POTASSIUM 4.2 mmol/L (3.6-5.0); SODIUM 138 mmol/L (132-148); TOTAL PROTEIN 6.9 g/dL (5.8-8.3)
[2017-04-30] MEDS: Insulin Lispro 1 UNITS/0.01 ML SC SCH ×4 (07:19→22:00)
[2017-04-30 07:21] LABS: BASO # 0.02 K/mm3 (0.0-2.0); BASO % 0.4 % (0.0-3.0); EOS # 0.3 (0.0-0.7); EOS % 5.9 % (1.5-5.0); GRAN # 2.29 (1.4-6.5); GRAN % 50.4 % (50.0-68.0); HEMATOCRIT 41.5 % (42.0-52.0); LYMPH # 1.3 (1.2-3.4); LYMPH % 29.5 % (22.0-35.0); MEAN CELL VOLUME 88.9 fL (80.0-105.0); MEAN CORPUSCULAR HEMOGLOBIN 28.9 pg (25.0-35.0); MEAN CORPUSCULAR HGB CONC 32.5 g/dl (31.0-37.0); MEAN PLATELET VOLUME 10.8 fl (7.0-11.0); MONO # 0.6 (0.1-0.6); MONO % 13.8 % (1.0-6.0); PLATELET COUNT 203 10^3/uL (120.0-450.0); RED CELL DISTRIBUTION WIDTH 13.4 % (11.5-14.5); WHITE BLOOD COUNT 4.6 10^3/ul (4.5-11.0)
[2017-04-30] MEDS: Divalproex 500 mg DR(BID formulation) PO SCH ×2 (09:12→21:53)
[2017-04-30] MEDS: Multivitamin Therapeutic Tab PO SCH (09:12)
--- NOTE | 2017-04-30 10:26 | PN ---
DATE: 04/30/2017 Shortly, the patient is a 66-year-old white male. The patient was admitted on the medical side for e valuation of altered mental status. Currently, the patient is in CCU for EKG changes and possible pa cemaker placement. Psych consult was called for evaluation of delusions and disorganized thoughts an d behavior which seem to be chronic. The patient suffers from schizoaffective disorder. The patient was followed up by this sign writer letterer or painter today at the morning time. The patient presented to be alert. The p atient has good appetite, ate 100% of the meal. The patient referred to himself as "a sick man." Th e patient also has a fixed false belief that people are talking to him through the devices and throug h the technological advanced devices. The patient said he hears some "real people voices and they ar e harrassing me" which is very chronic. The patient does not have any agitation or aggression. The patient is compliant with the medication and treatment plan. This sign writer letterer or painter discussed this case with Dr Kayla Melendez yesterday. The patient had POA, Mr. Fischer, who was contacted yesterday and the patie nt and patient's POA were in agreement with pacemaker placement. Besides that, there is no agitation or aggression, no dangerous behavior. VITAL SIGNS: This sign writer letterer or painter reviewed vital signs, seem to be stable. Pulse is 78, blood pressure is 12 7/82, respirations 15. MEDICATIONS: Reviewed. The patient is on Lipitor, Cogentin 0.5 mg twice a day, Depakote 500 mg twic e a day. The patient is on folic acid 1 mg daily. The patient also is on Zestril, multivitamins, Ri sperdal 0.5 mg twice a day and will not increase that dose because patient has EKG changes and all an tipsychotic medications could give QTC prolongation. LABORATORY DATA: Reviewed. Most recent was from today. Hemoglobin 13, hematocrit is 41. Coagulati on reviewed. Chemistry reviewed. Toxicology reviewed. MENTAL STATUS EXAMINATION: The patient seems to be at his baseline. He believes in delusions. Inte rmittent eye contact. Speech was low volume, but over-productive. Mood described "I'm a sick man." Affect was flat. Thought process circumstantial and tangential. Thought content: The patient has delusions. The patient hears some voices through some devices which is not true and this is delusion which seems to be chronic. The patient does not exhibit any aggressive or agitated behavior. The p atient denied thoughts of harming himself or others, denied intent or plan. Insight and judgment are improving. Impulses are well controlled. IMPRESSION: As per history of schizoaffective disorder. The patient has multiple medical issues. P quynh see medical team notes for more detailed information. The patient is currently in ICU for penny ycardia and possible pacemaker placement. PLAN: Continue current management. This sign writer letterer or painter will not increase the dose of Risperdal. The patien t seems to be stable and at his baseline of mental status. The patient's POA was contacted. The pat ient and POA were in agreement to have pacemaker placement. This sign writer letterer or painter will follow up on this patie nt every other day. This case was discussed with Dr. Melendez. No behavioral incidents. Should yo u have any questions, give me a call back. Psych team will follow patient up on Thursday. Dr. Deshpande will see this patient. Thank you very much for letting me participate in the care of your patient. Should you have any ques tions, give me a call back. Taisha Saleh MD cc: [phone] TT: 04/30/2017 10:26:19 Confirmation # [id number] Dictation # [id number] tn
--- NOTE | 2017-04-30 11:31 | PN ---
DATE: 04/30/2017 FOLLOWUP The patient is incoherent and does not give reliable answers if ____ ask about experiencing dizziness . He is in sinus rhythm with periods of 2:1 conduction on the monitor. PHYSICAL EXAMINATION: VITAL SIGNS: The most recent blood pressure is 127/82 with a heart rate of 73, respirations 21, temp erature 98.4. HEENT: Normocephalic. CHEST: Clear. HEART: S1, S2 regular. EXTREMITIES: No edema. LABORATORIES: Hemoglobin and hematocrit 13.5 and 41.5. White count and platelet count are within no rmal limits. Today's SMA-7 is entirely within normal limits. ASSESSMENT: 1. Second-degree arteriovenous block with periods of 2:1 conduction frequently. 2. Schizoaffective disorder. 3. Hypertension. RECOMMENDATIONS: Continue Zestril 20 mg once a day, Pepcid 20 mg p.o. twice a day, Lipitor 10 mg onc e a day, albuterol inhaler q. 2 hours p.r.n., Cogentin 0.5 mg twice a day. The patient is scheduled for dual-chamber pacemaker placement today. Quentin Quick MD cc: [id number] TT: 04/30/2017 11:31:17 Confirmation # [id number] Dictation # [id number] [place]
--- NOTE | 2017-04-30 13:05 | CP.PCM.PN ---
<Sissy Smith - Last Filed: 04/30/17 13:05> Subjective - Date & Time of Evaluation Date of Evaluation: 04/30/17 Time of Evaluation: 08:00 - Subjective Subjective: Pt was seen and examined at bedside. No acute complaints at this time. Pt is AAOx 3 and answering questions. Pt was educated about procedure today, pacemaker placement. Pt is currently in [facility]. No acute events overnight as per nursing staff. Objective - Vital Signs/Intake and Output Vital Signs (last 24 hours): Temp Pulse Resp BP Pulse Ox 98.4 F 78 21 127/82 96 04/30/17 00:00 04/30/17 07:40 04/30/17 07:40 04/30/17 07:00 04/29/17 04:00 Intake and Output: 04/30/17 04/30/17 06:59 18:59 Intake Total 400 Output Total 1000 Balance -600 - Medications Medications: Current Medications Acetaminophen (Tylenol 325mg Tab) 650 mg PO Q6H PRN PRN Reason: Fever >100.4 F Albuterol Sulfate (Albuterol 0.083% Inhal Milli (2.5 Mg/3 Ml) Ud) 2.5 mg IH Q2H PRN PRN Reason: Shortness of Breath Atorvastatin Calcium (Lipitor) 10 mg PO DIN [facility] Last Admin: 04/29/17 16:59 Dose: 10 mg Benztropine Mesylate (Cogentin) 0.5 mg PO [facility] PRN PRN Reason: Muscle spasm Divalproex Sodium (Depakote Dr(*Bid*)) 500 mg PO [facility] PRN Reason: Protocol Last Admin: 04/30/17 09:12 Dose: 500 mg Famotidine (Pepcid) 20 mg PO BID [facility] Last Admin: 04/30/17 09:12 Dose: 20 mg Folic Acid (Folic Acid) 1 mg PO DAILY [facility] Last Admin: 04/30/17 09:12 Dose: 1 mg Ibuprofen (Motrin Tab) 600 mg PO Q6H PRN PRN Reason: Pain, Mild (1-3) Insulin Human Lispro (Humalog) 0 units SC ACHS [facility] PRN Reason: Protocol Last Admin: 04/30/17 11:25 Dose: Not Given Lisinopril (Zestril) 20 mg PO DAILY [facility] Last Admin: 04/30/17 09:12 Dose: 20 mg Multivitamins (Thera Tab) 1 tab PO DAILY [facility] Last Admin: 04/30/17 09:12 Dose: 1 tab Risperidone (Risperdal Tab) 0.5 mg PO HS [facility] PRN Reason: Protocol Last Admin: 04/29/17 23:10 Dose: 0.5 mg Risperidone (Risperdal Tab) 0.5 mg PO QAM [facility] PRN Reason: Protocol Last Admin: 04/30/17 09:11 Dose: 0.5 mg Thiamine HCl (Vitamin B1 Tab) 100 mg PO DAILY [facility] Last Admin: 04/30/17 09:12 Dose: 100 mg Zaleplon (Sonata) 10 mg PO HS [facility] Last Admin: 04/29/17 23:10 Dose: 10 mg Ziprasidone (Geodon Inj) 20 mg IM DAILY PRN; Protocol PRN Reason: Agitation - Labs Labs: 04/30/17 05:45 04/30/17 05:45 PT 10.9 Seconds (9.9-11.8) 04/30/17 05:45 INR 1.01 (0.93-1.08) 04/30/17 05:45 APTT 30.8 Seconds (23.7-30.8) 04/30/17 05:45 - Constitutional Appears: No Acute Distress - Head Exam Head Exam: ATRAUMATIC, NORMAL INSPECTION, NORMOCEPHALIC - Eye Exam Eye Exam: EOMI, Normal appearance, PERRL Pupil Exam: NORMAL ACCOMODATION, PERRL - ENT Exam ENT Exam: Mucous Membranes Moist, Normal Exam - Respiratory Exam Respiratory Exam: Clear to Ausculation Bilateral, NORMAL BREATHING PATTERN - Cardiovascular Exam Cardiovascular Exam: REGULAR RHYTHM, +S1, +S2. absent: Murmur - GI/Abdominal Exam GI & Abdominal Exam: Soft, Normal Bowel Sounds. absent: Tenderness - Extremities Exam Extremities Exam: Full ROM, Normal Capillary Refill, Normal Inspection. absent : Joint Swelling, Pedal Edema - Neurological Exam Neurological Exam: Alert, Awake, CN II-XII Intact, Oriented x3 - Psychiatric Exam Psychiatric exam: Normal Affect, Normal Mood - Skin Skin Exam: Dry, Intact, Normal Color, Warm Assessment and Plan - Assessment and Plan (Free Text) Assessment: Patient ias a 66 year old male with PMHx of schizophrenia admitted for bizarre behavior and high grade AV block 2:1 1. AV block 2:[address] garza, recommended to continue lipitor, zestril and pacemaker eval case discussed with EP nursing consultant Dr. Alvarez in detail, possibly for pacemaker today, pt made npo Currently patient/poa agreed for Pacemaker placement. Case discussed with patient's power of manager new product [phone]. 2.Shizoaffective disorder Continue mediations per psychiatry. case discussed with Dr. Sumner in detail. on risperdal,Cogentin,Sonata, Depakote and geodon. 3.hypertension continue Zestril. 4. hypercholesterolemia continue Lipitor. GI/DVT prophylaxis. Continue to monitor in telemetry. Seen reviewed and discussed with Dr. Melendez <Vernon Melendez - Last Filed: 04/30/17 15:48> Objective - Vital Signs/Intake and Output Vital Signs (last 24 hours): Temp Pulse Resp BP Pulse Ox 98.4 F 68 16 101/60 96 04/30/17 00:00 04/30/17 14:20 04/30/17 14:20 04/30/17 14:00 04/29/17 04:00 Intake and Output: 04/30/17 04/30/17 06:59 18:59 Intake Total 400 Output Total 1000 Balance -600 - Medications Medications: Current Medications Acetaminophen (Tylenol 325mg Tab) 650 mg PO Q6H PRN PRN Reason: Fever >100.4 F Albuterol Sulfate (Albuterol 0.083% Inhal Milli (2.5 Mg/3 Ml) Ud) 2.5 mg IH Q2H PRN PRN Reason: Shortness of Breath Atorvastatin Calcium (Lipitor) 10 mg PO DIN [facility] Last Admin: 04/29/17 16:59 Dose: 10 mg Benztropine Mesylate (Cogentin) 0.5 mg PO [facility] PRN PRN Reason: Muscle spasm Divalproex Sodium (Symone Stephenson(*Bid*)) 500 mg PO [facility] PRN Reason: Protocol Last Admin: 04/30/17 09:12 Dose: 500 mg Famotidine (Pepcid) 20 mg PO BID [facility] Last Admin: 04/30/17 09:12 Dose: 20 mg Folic Acid (Folic Acid) 1 mg PO DAILY [facility] Last Admin: 04/30/17 09:12 Dose: 1 mg Ibuprofen (Motrin Tab) 600 mg PO Q6H PRN PRN Reason: Pain, Mild (1-3) Insulin Human Lispro (Humalog) 0 units SC ACHS [facility] PRN Reason: Protocol Last Admin: 04/30/17 11:25 Dose: Not Given Lisinopril (Zestril) 20 mg PO DAILY [facility] Last Admin: 04/30/17 09:12 Dose: 20 mg Multivitamins (Thera Tab) 1 tab PO DAILY [facility] Last Admin: 04/30/17 09:12 Dose: 1 tab Risperidone (Risperdal Tab) 0.5 mg PO HS [facility] PRN Reason: Protocol Last Admin: 04/29/17 23:10 Dose: 0.5 mg Risperidone (Risperdal Tab) 0.5 mg PO QAM [facility] PRN Reason: Protocol Last Admin: 04/30/17 09:11 Dose: 0.5 mg Thiamine HCl (Vitamin B1 Tab) 100 mg PO DAILY [facility] Last Admin: 04/30/17 09:12 Dose: 100 mg Zaleplon (Sonata) 10 mg PO HS [facility] Last Admin: 04/29/17 23:10 Dose: 10 mg Ziprasidone (Geodon Inj) 20 mg IM DAILY PRN; Protocol PRN Reason: Agitation - Labs Labs: 04/30/17 05:45 04/30/17 05:45 PT 10.9 Seconds (9.9-11.8) 04/30/17 05:45 INR 1.01 (0.93-1.08) 04/30/17 05:45 APTT 30.8 Seconds (23.7-30.8) 04/30/17 05:45 Attending/Attestation - Attestation I have personally seen and examined this patient.: Yes I have fully participated in the care of the patient.: Yes I have reviewed all pertinent clinical information, including history, physical exam and plan: Yes Notes (Text): 04/30/17 15:47 attending note; Patient seen and examined with resident. Patient is alert, awake and oriented. Agreed for the pacemaker procedure. Power of manager new product informed. Case discussed with Dr. Alvarez in detail.
[2017-04-30] MEDS ORDERED: Midazolam 2 MG/2 ML VIAL ONE (17:35)
[2017-04-30] MEDS ORDERED: Liquid Adhesive TOP ONE (17:44)
[2017-04-30] MEDS ORDERED: Lidocaine 2% Inj (20ml) ONE (17:45)
[2017-04-30] MEDS ORDERED: Atropine 0.4 mg/ml Inj (1 mL) ONE (17:59)
[2017-04-30] MEDS ORDERED: HYDROmorphone 1 mg/ml ISec IVP PRN (19:39)
[2017-04-30] MEDS ORDERED: Sodium Chloride 0.9% 1,000 ML IV SCH (19:45)
--- NOTE | 2017-04-30 23:30 | CARD ---
APPROVED REPORT EKG Measurement Heart [id number] <Conclusion> Atrial sensed, Ventricular paced rhythm Abnormal ECG
--- NOTE | 2017-04-30 23:37 | CARD ---
APPROVED REPORT EKG Measurement Heart [id number] <Conclusion> Sinus rhythm with 1st degree AV block Right bundle branch block Abnormal ECG
[2017-05-01 06:45] LABS: ADD MANUAL DIFF? NO
[2017-05-01 07:04] LABS: BASO # 0.01 K/mm3 (0.0-2.0); BASO % 0.2 % (0.0-3.0); EOS # 0.3 (0.0-0.7); EOS % 4.7 % (1.5-5.0); GRAN # 3.18 (1.4-6.5); GRAN % 57.8 % (50.0-68.0); HEMATOCRIT 41.7 % (42.0-52.0); LYMPH # 1.2 (1.2-3.4); LYMPH % 22.2 % (22.0-35.0); MEAN CELL VOLUME 88.7 fL (80.0-105.0); MEAN CORPUSCULAR HEMOGLOBIN 28.7 pg (25.0-35.0); MEAN CORPUSCULAR HGB CONC 32.4 g/dl (31.0-37.0); MEAN PLATELET VOLUME 10.5 fl (7.0-11.0); MONO # 0.8 (0.1-0.6); MONO % 15.1 % (1.0-6.0); PLATELET COUNT 187 10^3/uL (120.0-450.0); RED CELL DISTRIBUTION WIDTH 13.2 % (11.5-14.5); WHITE BLOOD COUNT 5.5 10^3/ul (4.5-11.0)
[2017-05-01 07:22] LABS: ALB/GLOB RATIO 1.2 (1.1-1.8); ALKALINE PHOSPHATASE 66 U/L (38-133); ALT/SGPT 23 U/L (7-56); AST/SGOT 26 U/L (15-59); BILIRUBIN,TOTAL 0.5 mg/dL (0.2-1.3); BLOOD UREA NITROGEN 16 mg/dL (7-21); CALCIUM 9.1 mg/dL (8.4-10.5); CARBON DIOXIDE 30 mmol/L (21-33); CHLORIDE 101 mmol/L (98-107); GFR AFRICAN-AMERICAN > 60; GLUCOSE,RANDOM 93 mg/dL (70-110); POTASSIUM 4.8 mmol/L (3.6-5.0); SODIUM 137 mmol/L (132-148); TOTAL PROTEIN 6.5 g/dL (5.8-8.3)
[2017-05-01] MEDS: Insulin Lispro 1 UNITS/0.01 ML SC SCH ×4 (08:45→22:58)
[2017-05-01] MEDS: Divalproex 500 mg DR(BID formulation) PO SCH ×2 (09:36→22:57)
[2017-05-01] MEDS: Multivitamin Therapeutic Tab PO SCH (09:36)
--- NOTE | 2017-05-01 10:11 | OP ---
PROCEDURE DATE: 04/30/2017 PROCEDURE: Dual chamber permanent pacemaker. DIAGNOSES: Intermittent complete heart block. REFERRING PHYSICIAN: Dr. Quick. BRIEF HISTORY: The patient is a 66-year-old male with past medical history significant for schizoaffective disorder, congestive heart failure, hypertension, hyperlipidemia, diabetes who was b rought to the Emergency Department with altered mental status. The patient, in the process of being evaluated, was found to have EKG abnormalities in the form of 2:1 AV block, initially thought to be p erhaps Mobitz type 1 with progressive 2:1 heart block. The patient was kept under close observation. The patient had ongoing issues with 2:1 block with heart rates in the 40s, blood pressure was catracho nal. In addition, the patient was found to have an EKG pattern with a right bundle branch block, 1st degree AV block. Echocardiogram was within normal limits. On further evaluation of telemetry strip s, there were periods where there was no clear AV association. Underlying rhythm appeared to be a ju nctional escape at 45 beats per minute. The case was discussed with the patient, level understanding was in question given his underlying psychiatric issues. A detailed discussion was had with the pat marilee's power of transactional attorney, a gentleman by the name of Abdiel Amado. Numerous phone calls were ma de back and forth between the medical managing team, myself, Mr. Fischer. Today it was decided diamante t the patient would benefit from a permanent pacemaker given degree of profound bradycardia documente d. Informed consent was received over the phone through the power of transactional attorney witnessed by nurses as well as other staff physicians. DESCRIPTION OF PROCEDURE: After informed consent was received the patient was brought to the cardiac catheterization laboratory at [facility] for the aforementioned procedure. The patient was brought to the lab in a post-absorptive state, placed on the table. All appropriate monitors wer e placed. Dr. Dai was the anesthesiologist for this case. The left pectoral area was draped and p repped in a sterile fashion, 2% lidocaine solution was injected into the surgical site. Using a 9 bl galdino, a 3.5 cm incision was made 2 fingerbreadths below the clavicle using blunt dissection and electr ocautery, the fascial planes were dissected. Cephalic vein cutdown was then performed with minimal d ifficulty. A 2 wire technique was employed, a total of two 7 [place] SafeSheaths were inserted kianna roy. The right ventricular lead was first inserted. This is a [employer] MRI safe 5076 58 cm lead , serial number [id number]. This was initially inserted into the right ventricular apex, but there were problems with stability as well as thresholds, therefore a mid-septal position was ultimately fi nalized. From this location, excellent parameters were obtained. Threshold is 0.4 volts at 0.7 mill iamps and impedance of 765 ohms and R-wave amplitude is 5.6. Once this lead was in place and positio n was finalized, the right atrial lead was inserted through the 2nd 7 [place] SafeSheath safe sheath. This was a 5076, 52 cm lead, serial number [id number]. Both leads were then tied down using 0 silk suture. Additional ligatures were applied to achieve hemostasis. Parameters on the right atrial le ad are as follows: Threshold is 0.7 volts at 1.3 milliamps, impedance of 674, amplitude of 2.3. The patient was left DDD. The patient did have any hemodynamically significant bradycardia with heart r ates in the 30s and 40 with slow junctional escape rhythm. The patient was kept DDD for the remainde r of the case. A subfascial pocket was made with blunt dissection and electrocautery, irrigated with bacitracin solution. The lead was then connected to the pulse generator which is a Medtronic Advisa DR device, serial number [id number]. The lead system and device were then coiled and placed in th e subfascial pocket. A retention suture was applied to prevent device migration. The fascial and sk in layers were brought together using 2-0 Vicryl. Final skin layer was closed with Mastisol and Ster i-Strips. The patient tolerated the procedure, remained hemodynamically stable, especially once the pacemaker was in place. Final parameters on the pacemaker: The patient is set at DDD 60-100. The patient will be continued to be monitored on telemetry. Postop checks will be performed in the f orm of 12-lead EKG and chest x-ray. Device will also be tracked from [employer] in the morning. If t hese checks are within normal limits, the patient may be discharged from an electrophysiologic standp oint. Further psychiatric treatment may be required. The patient should followup from a device vasquez dpoint. Logistically this may be easiest done through the pacemaker center here at [facility]. Thank you for allowing me to participate in the care of your patient. Please do not hesitate to call the questions in regards to his care. Arjun Romero MD cc:Vernon Melendez MD 481 TT: 04/30/2017 20:09:19 jn
--- NOTE | 2017-05-01 10:13 | RAD ---
PROCEDURE: CHEST RADIOGRAPH, 1 VIEW HISTORY: post ppm implant COMPARISON: 04/26/2017 FINDINGS: LUNGS: Clear. PLEURA: No pneumothorax or pleural fluid seen. CARDIOVASCULAR: Normal heart size. New permanent pacemaker noted. OSSEOUS STRUCTURES: No significant abnormalities. VISUALIZED UPPER ABDOMEN: Normal. OTHER FINDINGS: None. IMPRESSION: Permanent pacemaker. No infiltrate.
[2017-05-01] MEDS ORDERED: Insulin Lispro 1 UNITS/0.01 ML ONE (11:32)
--- NOTE | 2017-05-01 16:52 | CP.PCM.PN ---
<Sissy Smith - Last Filed: 05/01/17 16:52> Subjective - Date & Time of Evaluation Date of Evaluation: 05/01/17 Time of Evaluation: 10:00 - Subjective Subjective: Pt was seen and examined at bedside. Pt tolerated pacemaker placement - working fine as per interrogation this morning. Pt has no acute complaints at this time. No acute events overnight as per nursing staff. Pt is resting comfortably in bed. Objective - Vital Signs/Intake and Output Vital Signs (last 24 hours): Temp Pulse Resp BP Pulse Ox 97.5 F L 69 15 99/41 L 91 L 05/01/17 04:00 05/01/17 08:10 05/01/17 08:10 05/01/17 08:00 05/01/17 08:10 Intake and Output: 05/01/17 05/01/17 06:59 18:59 Intake Total 1100 Output Total 400 Balance 700 - Medications Medications: Current Medications Acetaminophen (Tylenol 325mg Tab) 650 mg PO Q6H PRN PRN Reason: Fever >100.4 F Albuterol Sulfate (Albuterol 0.083% Inhal Milli (2.5 Mg/3 Ml) Ud) 2.5 mg IH Q2H PRN PRN Reason: Shortness of Breath Atorvastatin Calcium (Lipitor) 10 mg PO DIN [facility] Last Admin: 04/30/17 16:44 Dose: Not Given Benztropine Mesylate (Cogentin) 0.5 mg PO [facility] PRN PRN Reason: Muscle spasm Divalproex Sodium (Depakote Dr(*Bid*)) 500 mg PO [facility] PRN Reason: Protocol Last Admin: 05/01/17 09:36 Dose: 500 mg Famotidine (Pepcid) 20 mg PO BID [facility] Last Admin: 05/01/17 09:36 Dose: 20 mg Folic Acid (Folic Acid) 1 mg PO DAILY [facility] Last Admin: 05/01/17 09:36 Dose: 1 mg Hydromorphone HCl (Dilaudid) 1 mg IVP Q15M PRN PRN Reason: Pain, moderate (4-7) Last Admin: 05/01/17 04:03 Dose: 1 mg Ibuprofen (Motrin Tab) 600 mg PO Q6H PRN PRN Reason: Pain, Mild (1-3) Insulin Human Lispro (Humalog) 0 units SC [facility] PRN Reason: Protocol Last Admin: 05/01/17 16:38 Dose: Not Given Lisinopril (Zestril) 20 mg PO DAILY [facility] Last Admin: 05/01/17 09:37 Dose: 20 mg Multivitamins (Thera Tab) 1 tab PO DAILY [facility] Last Admin: 05/01/17 09:36 Dose: 1 tab Risperidone (Risperdal Tab) 0.5 mg PO HS [facility] PRN Reason: Protocol Last Admin: 04/30/17 21:53 Dose: 0.5 mg Risperidone (Risperdal Tab) 0.5 mg PO QAM [facility] PRN Reason: Protocol Last Admin: 05/01/17 09:37 Dose: 0.5 mg Thiamine HCl (Vitamin B1 Tab) 100 mg PO DAILY [facility] Last Admin: 05/01/17 09:37 Dose: 100 mg Zaleplon (Sonata) 10 mg PO HS [facility] Last Admin: 04/30/17 21:54 Dose: 10 mg Ziprasidone (Geodon Inj) 20 mg IM DAILY PRN; Protocol PRN Reason: Agitation - Labs Labs: 05/01/17 06:00 05/01/17 06:00 PT 10.9 Seconds (9.9-11.8) 04/30/17 05:45 INR 1.01 (0.93-1.08) 04/30/17 05:45 APTT 30.8 Seconds (23.7-30.8) 04/30/17 05:45 - Constitutional Appears: No Acute Distress - Head Exam Head Exam: ATRAUMATIC, NORMAL INSPECTION, NORMOCEPHALIC - Eye Exam Eye Exam: EOMI, Normal appearance, PERRL Pupil Exam: NORMAL ACCOMODATION, PERRL - ENT Exam ENT Exam: Mucous Membranes Moist, Normal Exam - Neck Exam Neck Exam: Full ROM, Normal Inspection. absent: Lymphadenopathy - Respiratory Exam Respiratory Exam: Clear to Ausculation Bilateral, NORMAL BREATHING PATTERN - Cardiovascular Exam Cardiovascular Exam: REGULAR RHYTHM, +S1, +S2. absent: Murmur - GI/Abdominal Exam GI & Abdominal Exam: Soft, Normal Bowel Sounds. absent: Tenderness - Extremities Exam Extremities Exam: Full ROM, Normal Capillary Refill, Normal Inspection. absent : Joint Swelling, Pedal Edema - Back Exam Back Exam: NORMAL INSPECTION - Neurological Exam Neurological Exam: Alert, Awake, CN II-XII Intact, Normal Gait, Oriented x3 - Psychiatric Exam Psychiatric exam: Normal Affect, Normal Mood - Skin Skin Exam: Dry, Intact, Normal Color, Warm Assessment and Plan - Assessment and Plan (Free Text) Assessment: Patient ias a 66 year old male with PMHx of schizophrenia admitted for bizarre behavior and high grade AV block 2:1 1. AV block 2:[address] garza, recommended to continue lipitor, zestril and pacemaker eval case discussed with EP marketing regional consultant Dr. Alvarez in detail, - s/p pacemaker 2.Shizoaffective disorder Continue mediations per psychiatry. case discussed with Dr. Sumner in detail. on risperdal,Cogentin,Sonata, Depakote and geodon. 3.hypertension continue Zestril. 4. hypercholesterolemia continue Lipitor. GI/DVT prophylaxis. Continue to monitor in telemetry. Collin Vest d/c. PT eval and transfer to psych as per Dr. Sumner Seen reviewed and discussed with attending <Gary JOHNSON,Joséwilliamsportsimona - Last Filed: 05/01/17 17:05> Objective - Vital Signs/Intake and Output Vital Signs (last 24 hours): Temp Pulse Resp BP Pulse Ox 97.5 F L 69 15 99/41 L 91 L 05/01/17 04:00 05/01/17 08:10 05/01/17 08:10 05/01/17 08:00 05/01/17 08:10 Intake and Output: 05/01/17 05/01/17 06:59 18:59 Intake Total 1100 Output Total 400 Balance 700 - Medications Medications: Current Medications Acetaminophen (Tylenol 325mg Tab) 650 mg PO Q6H PRN PRN Reason: Fever >100.4 F Albuterol Sulfate (Albuterol 0.083% Inhal Milli (2.5 Mg/3 Ml) Ud) 2.5 mg IH Q2H PRN PRN Reason: Shortness of Breath Atorvastatin Calcium (Lipitor) 10 mg PO DIN [facility] Last Admin: 04/30/17 16:44 Dose: Not Given Benztropine Mesylate (Cogentin) 0.5 mg PO [facility] PRN PRN Reason: Muscle spasm Divalproex Sodium (Symone Stephenson(*Bid*)) 500 mg PO [facility] PRN Reason: Protocol Last Admin: 05/01/17 09:36 Dose: 500 mg Famotidine (Pepcid) 20 mg PO BID [facility] Last Admin: 05/01/17 09:36 Dose: 20 mg Folic Acid (Folic Acid) 1 mg PO DAILY [facility] Last Admin: 05/01/17 09:36 Dose: 1 mg Hydromorphone HCl (Dilaudid) 1 mg IVP Q15M PRN PRN Reason: Pain, moderate (4-7) Last Admin: 05/01/17 04:03 Dose: 1 mg Ibuprofen (Motrin Tab) 600 mg PO Q6H PRN PRN Reason: Pain, Mild (1-3) Insulin Human Lispro (Humalog) 0 units SC [facility] PRN Reason: Protocol Last Admin: 05/01/17 16:38 Dose: Not Given Lisinopril (Zestril) 20 mg PO DAILY [facility] Last Admin: 05/01/17 09:37 Dose: 20 mg Multivitamins (Thera Tab) 1 tab PO DAILY [facility] Last Admin: 05/01/17 09:36 Dose: 1 tab Risperidone (Risperdal Tab) 0.5 mg PO [facility] PRN Reason: Protocol Last Admin: 04/30/17 21:53 Dose: 0.5 mg Risperidone (Risperdal Tab) 0.5 mg PO QAM [facility] PRN Reason: Protocol Last Admin: 05/01/17 09:37 Dose: 0.5 mg Thiamine HCl (Vitamin B1 Tab) 100 mg PO DAILY [facility] Last Admin: 05/01/17 09:37 Dose: 100 mg Zaleplon (Sonata) 10 mg PO HS [facility] Last Admin: 04/30/17 21:54 Dose: 10 mg Ziprasidone (Geodon Inj) 20 mg IM DAILY PRN; Protocol PRN Reason: Agitation - Labs Labs: 05/01/17 06:00 05/01/17 06:00 PT 10.9 Seconds (9.9-11.8) 04/30/17 05:45 INR 1.01 (0.93-1.08) 04/30/17 05:45 APTT 30.8 Seconds (23.7-30.8) 04/30/17 05:45 Attending/Attestation - Attestation I have personally seen and examined this patient.: Yes I have fully participated in the care of the patient.: Yes I have reviewed all pertinent clinical information, including history, physical exam and plan: Yes Notes (Text): 05/01/17 17:03 Patient was seen and examined with medical authorization specialist .Agreed with resident assessment and plan. 66 Yrs old male with PMH of Schezophrenia, HTN,CHF was admitted with agitation , was found to have bradycardia and 2.1 Mobitz type 2 Heart block.Patient was evaluated by cardiology and EP , underwent Pacemaker placement yesterday.He is asymptomatic.He is not in over heart failure.He is euvolemic.His restraint has been discontinued today, need to be evaluated by PT prior to discharge to Psychiatry.
[2017-05-02 06:25] VITALS: O2SAT 96
[2017-05-02] MEDS: Insulin Lispro 1 UNITS/0.01 ML SC SCH ×2 (08:26→11:40)
[2017-05-02 08:50] LABS: ADD MANUAL DIFF? NO
[2017-05-02 09:03] LABS: ALB/GLOB RATIO 1.3 (1.1-1.8); ALKALINE PHOSPHATASE 72 U/L (38-133); ALT/SGPT 20 U/L (7-56); AST/SGOT 25 U/L (15-59); BILIRUBIN,TOTAL 0.6 mg/dL (0.2-1.3); BLOOD UREA NITROGEN 16 mg/dL (7-21); CALCIUM 9.8 mg/dL (8.4-10.5); CARBON DIOXIDE 29 mmol/L (21-33); CHLORIDE 100 mmol/L (95-110); GFR AFRICAN-AMERICAN > 60; GLUCOSE,RANDOM 95 mg/dL (70-110); POTASSIUM 4.4 mmol/L (3.6-5.0); SODIUM 139 mmol/L (132-148); TOTAL PROTEIN 6.9 g/dL (5.8-8.3)
[2017-05-02 09:04] LABS: BASO # 0.01 K/mm3 (0.0-2.0); BASO % 0.2 % (0.0-3.0); EOS # 0.3 (0.0-0.7); EOS % 4.4 % (1.5-5.0); GRAN % 54.4 % (50.0-68.0); HEMATOCRIT 42.6 % (42.0-52.0); LYMPH # 1.3 (1.2-3.4); MEAN CORPUSCULAR HEMOGLOBIN 29.1 pg (25.0-35.0); MEAN CORPUSCULAR HGB CONC 33.1 g/dl (31.0-37.0); MEAN PLATELET VOLUME 10.6 fl (7.0-11.0); MONO # 1.1 (0.1-0.6); PLATELET COUNT 147 10^3/uL (120.0-450.0); RED CELL DISTRIBUTION WIDTH 13.1 % (11.5-14.5); WHITE BLOOD COUNT 5.7 10^3/ul (4.5-11.0)
--- NOTE | 2017-05-02 10:02 | CP.PCM.DIS ---
<Sissy Smith - Last Filed: 05/02/17 12:49> Provider - Provider Date of Admission: 04/26/17 04:34 Attending physician: Vernon Melendez MD Consults: Cardio - Dr. Garza EP- Dr. Alvarez Psych - Dr. Sumner Time Spent in preparation of Discharge (in minutes): 45 Hospital Course - Lab Results Lab Results: Micro Results 04/26/17 05:30 Blood-Venous Blood Culture - Final NO GROWTH AFTER 5 DAYS 04/26/17 05:30 Blood-Venous Gram Stain - Final TEST NOT PERFORMED 04/26/17 08:00 Nose MRSA Culture (Admit) - Final MRSA NOT DETECTED Most Recent Lab Values WBC 5.7 10^3/ul (4.5-11.0) 05/02/17 08:30 RBC 4.84 10^6/uL (3.5-6.1) 05/02/17 08:30 Hgb 14.1 gm/dL (14.0-18.0) 05/02/17 08:30 Hct 42.6 % (42.0-52.0) 05/02/17 08:30 MCV 88.0 fL (80.0-105.0) 05/02/17 08:30 MCH 29.1 pg (25.0-35.0) 05/02/17 08:30 MCHC 33.1 g/dl (31.0-37.0) 05/02/17 08:30 RDW 13.1 % (11.5-14.5) 05/02/17 08:30 Plt Count 147 10^3/uL (120.0-450.0) 05/02/17 08:30 MPV 10.6 fl (7.0-11.0) 05/02/17 08:30 Gran % 54.4 % (50.0-68.0) 05/02/17 08:30 Lymph % (Auto) 22.0 % (22.0-35.0) 05/02/17 08:30 [place] % (Auto) 19.0 % (1.0-6.0) H 05/02/17 08:30 Eos % (Auto) 4.4 % (1.5-5.0) 05/02/17 08:30 Baso % (Auto) 0.2 % (0.0-3.0) 05/02/17 08:30 Gran # 3.10 (1.4-6.5) 05/02/17 08:30 Lymph # 1.3 (1.2-3.4) 05/02/17 08:30 [place] # 1.1 (0.1-0.6) H 05/02/17 08:30 Eos # 0.3 (0.0-0.7) 05/02/17 08:30 Baso # 0.01 K/mm3 (0.0-2.0) 05/02/17 08:30 PT 10.9 Seconds (9.9-11.8) 04/30/17 05:45 INR 1.01 (0.93-1.08) 04/30/17 05:45 APTT 30.8 Seconds (23.7-30.8) 04/30/17 05:45 Sodium 139 mmol/L (132-148) 05/02/17 08:30 Potassium 4.4 mmol/L (3.6-5.0) 05/02/17 08:30 Chloride 100 mmol/L (95-110) 05/02/17 08:30 Carbon Dioxide 29 mmol/L (21-33) 05/02/17 08:30 Anion Gap 14 (10-20) 05/02/17 08:30 BUN 16 mg/dL (7-21) 05/02/17 08:30 Creatinine 0.8 mg/dL (0.5-1.4) 05/02/17 08:30 Est GFR ( Amer) > 60 05/02/17 08:30 Est GFR (Non-Af Amer) > 60 05/02/17 08:30 POC Glucose (mg/dL) 92 mg/dL (65-110) 05/02/17 07:15 Random Glucose 95 mg/dL (70-110) 05/02/17 08:30 Calcium 9.8 mg/dL (8.4-10.5) 05/02/17 08:30 Phosphorus 3.2 mg/dL (2.5-4.5) 04/26/17 09:55 Magnesium 2.2 mg/dL (1.7-2.2) 04/26/17 09:55 Total Bilirubin 0.6 mg/dL (0.2-1.3) 05/02/17 08:30 AST 25 U/L (15-59) 05/02/17 08:30 ALT 20 U/L (7-56) 05/02/17 08:30 Alkaline Phosphatase 72 U/L (38-133) 05/02/17 08:30 Lactate Dehydrogenase 461 U/L (333-699) 04/26/17 16:00 Total Creatine Kinase 464 U/L (35-230) H 04/26/17 16:00 CK-MB (CK-2) 5.3 ng/mL (0.0-3.6) H 04/26/17 16:00 CK-MB (CK-2) % 1.1 % (2.5-3.0) L 04/26/17 16:00 Troponin I 0.04 ng/mL 04/26/17 16:00 Total Protein 6.9 g/dL (5.8-8.3) 05/02/17 08:30 Albumin 4.0 g/dL (3.0-4.8) 05/02/17 08:30 Globulin 3.0 gm/dL 05/02/17 08:30 Albumin/Globulin Ratio 1.3 (1.1-1.8) 05/02/17 08:30 TSH 3rd Generation 0.52 mIU/mL (0.46-4.68) 04/26/17 09:55 Urine Color Yellow (YELLOW) 04/27/17 03:43 Urine Appearance Sl cloudy (CLEAR) 04/27/17 03:43 Urine pH 7.0 (4.7-8.0) 04/27/17 03:43 Ur Specific [employer] 1.020 (1.005-1.035) 04/27/17 03:43 Urine Protein 30 mg/dL (<30 mg/dL) H 04/27/17 03:43 Urine Glucose (UA) 250 mg/dL (NEGATIVE) H 04/27/17 03:43 Urine Ketones 15 mg/dL (NEGATIVE) H 04/27/17 03:43 Urine Blood Negative (NEGATIVE) 04/27/17 03:43 Urine Nitrate Negative (NEGATIVE) 04/27/17 03:43 Urine Bilirubin Negative (NEGATIVE) 04/27/17 03:43 Urine Urobilinogen 0.2 E.U./dL (<1 E.U./dL) 04/27/17 03:43 Ur Leukocyte Esterase Negative Son/uL (NEGATIVE) 04/27/17 03:43 Urine RBC 0 - 2 /hpf (0-2) 04/27/17 03:43 Urine WBC 0 - 2 /hpf (0-6) 04/27/17 03:43 Ur Epithelial Cells 0 - 2 /hpf (0-5) 04/27/17 03:43 Valproic Acid < 10 ug/mL (50.0-100.0) L 04/26/17 08:44 Alcohol, Quantitative < 10 mg/dL (0-10) 04/26/17 03:04 - Hospital Course Hospital Course: 66 M with a PMhx of schizoaffective disorder, HTN, CHF, hypertension, hyperlipidemia, and NIDDM admitted at [facility] for agitation and bizzarre behavior ultimately found to have bradycardia and 2:1 Mobitz type 2 heart block. Pt was admitted to telemetry monitoring, Cardiology was consulted, Dr. Garza. Pt was asymptomatic and reverted back to a NSR upon admission. Dr. Garza recommended to continue liptor, zestril, and requested and echo which demonstrated a normal ejection fraction as well as a EP consult for a pacemaker eval. Pt routine labwork were unremarkable. Pt remained clinically euvolemic without any clinical signs of heart failure. EP, Dr. Alvarez consulted, recommended pacemaker placement, POA Mr. Fischer made aware of plan and all parites agreed for pacemaker placement. Pacemaker was subsequently placed and interoogated to be found working properly. Psych was consulted, Dr. Sumner for pt' s extensive psych hx. Pt was initially requiring kirby vest for pt safety however upon dose adjustments of psych meds by Dr. Sumner, pt was much more calm and cooperative. Pt home psych meds were resumed and cymbalta was added. Pt no longer required the kirby vest after pacemaker placement and was subsequently transferred to tele floor. Pt tolerated PT, who recommended that the pt may be dc home. However, considering pt's psych hx, decision was made to transfer to psych. POA again made aware and all parties agreed. Pt now under care of psych floor and will fu with Dr. Sumner. Discharge Exam - Head Exam Head Exam: ATRAUMATIC, NORMAL INSPECTION, NORMOCEPHALIC - Eye Exam Eye Exam: EOMI, Normal appearance, PERRL Pupil Exam: NORMAL ACCOMODATION, PERRL - ENT Exam ENT Exam: Mucous Membranes Moist - Respiratory Exam Respiratory Exam: Clear to PA & Lateral, NORMAL BREATHING PATTERN, UNREMARKABLE - Cardiovascular Exam Cardiovascular Exam: REGULAR RHYTHM, +S1, +S2 - GI/Abdominal Exam GI & Abdominal Exam: Normal Bowel Sounds - Extremities Exam Extremities exam: normal inspection - Neurological Exam Neurological exam: Alert, CN II-XII Intact, Oriented x3, Reflexes Normal - Psychiatric Exam Psychiatric exam: Normal Affect, Normal Mood - Skin Skin Exam: Dry, Intact, Normal Color, Warm Discharge Plan - Follow Up Plan Condition: STABLE Disposition: HOME/ ROUTINE Instructions: Pacemaker (GEN), Heart Healthy Diet (GEN), Brief Psychotic Disorder (DC), Acute Wound Care (GEN) Additional Instructions: 1. Transfer to Psych floor today. 2. Follow up with PMD of choice. <Vernon Melendez - Last Filed: 05/02/17 13:40> Provider - Provider Date of Admission: 04/26/17 04:34 Attending physician: Vernon Melendez MD Hospital Course - Lab Results Lab Results: Micro Results 04/26/17 05:30 Blood-Venous Blood Culture - Final NO GROWTH AFTER 5 DAYS 04/26/17 05:30 Blood-Venous Gram Stain - Final TEST NOT PERFORMED 04/26/17 08:00 Nose MRSA Culture (Admit) - Final MRSA NOT DETECTED Most Recent Lab Values WBC 5.7 10^3/ul (4.5-11.0) 05/02/17 08:30 RBC 4.84 10^6/uL (3.5-6.1) 05/02/17 08:30 Hgb 14.1 gm/dL (14.0-18.0) 05/02/17 08:30 Hct 42.6 % (42.0-52.0) 05/02/17 08:30 MCV 88.0 fL (80.0-105.0) 05/02/17 08:30 MCH 29.1 pg (25.0-35.0) 05/02/17 08:30 MCHC 33.1 g/dl (31.0-37.0) 05/02/17 08:30 RDW 13.1 % (11.5-14.5) 05/02/17 08:30 Plt Count 147 10^3/uL (120.0-450.0) 05/02/17 08:30 MPV 10.6 fl (7.0-11.0) 05/02/17 08:30 Gran % 54.4 % (50.0-68.0) 05/02/17 08:30 Lymph % (Auto) 22.0 % (22.0-35.0) 05/02/17 08:30 [place] % (Auto) 19.0 % (1.0-6.0) H 05/02/17 08:30 Eos % (Auto) 4.4 % (1.5-5.0) 05/02/17 08:30 Baso % (Auto) 0.2 % (0.0-3.0) 05/02/17 08:30 Gran # 3.10 (1.4-6.5) 05/02/17 08:30 Lymph # 1.3 (1.2-3.4) 05/02/17 08:30 [place] # 1.1 (0.1-0.6) H 05/02/17 08:30 Eos # 0.3 (0.0-0.7) 05/02/17 08:30 Baso # 0.01 K/mm3 (0.0-2.0) 05/02/17 08:30 PT 10.9 Seconds (9.9-11.8) 04/30/17 05:45 INR 1.01 (0.93-1.08) 04/30/17 05:45 APTT 30.8 Seconds (23.7-30.8) 04/30/17 05:45 Sodium 139 mmol/L (132-148) 05/02/17 08:30 Potassium 4.4 mmol/L (3.6-5.0) 05/02/17 08:30 Chloride 100 mmol/L (95-110) 05/02/17 08:30 Carbon Dioxide 29 mmol/L (21-33) 05/02/17 08:30 Anion Gap 14 (10-20) 05/02/17 08:30 BUN 16 mg/dL (7-21) 05/02/17 08:30 Creatinine 0.8 mg/dL (0.5-1.4) 05/02/17 08:30 Est GFR ( Amer) > 60 05/02/17 08:30 Est GFR (Non-Af Amer) > 60 05/02/17 08:30 POC Glucose (mg/dL) 151 mg/dL (65-110) H 05/02/17 11:02 Random Glucose 95 mg/dL (70-110) 05/02/17 08:30 Calcium 9.8 mg/dL (8.4-10.5) 05/02/17 08:30 Phosphorus 3.2 mg/dL (2.5-4.5) 04/26/17 09:55 Magnesium 2.2 mg/dL (1.7-2.2) 04/26/17 09:55 Total Bilirubin 0.6 mg/dL (0.2-1.3) 05/02/17 08:30 AST 25 U/L (15-59) 05/02/17 08:30 ALT 20 U/L (7-56) 05/02/17 08:30 Alkaline Phosphatase 72 U/L (38-133) 05/02/17 08:30 Lactate Dehydrogenase 461 U/L (333-699) 04/26/17 16:00 Total Creatine Kinase 464 U/L (35-230) H 04/26/17 16:00 CK-MB (CK-2) 5.3 ng/mL (0.0-3.6) H 04/26/17 16:00 CK-MB (CK-2) % 1.1 % (2.5-3.0) L 04/26/17 16:00 Troponin I 0.04 ng/mL 04/26/17 16:00 Total Protein 6.9 g/dL (5.8-8.3) 05/02/17 08:30 Albumin 4.0 g/dL (3.0-4.8) 05/02/17 08:30 Globulin 3.0 gm/dL 05/02/17 08:30 Albumin/Globulin Ratio 1.3 (1.1-1.8) 05/02/17 08:30 TSH 3rd Generation 0.52 mIU/mL (0.46-4.68) 04/26/17 09:55 Urine Color Yellow (YELLOW) 04/27/17 03:43 Urine Appearance Sl cloudy (CLEAR) 04/27/17 03:43 Urine pH 7.0 (4.7-8.0) 04/27/17 03:43 Ur Specific [employer] 1.020 (1.005-1.035) 04/27/17 03:43 Urine Protein 30 mg/dL (<30 mg/dL) H 04/27/17 03:43 Urine Glucose (UA) 250 mg/dL (NEGATIVE) H 04/27/17 03:43 Urine Ketones 15 mg/dL (NEGATIVE) H 04/27/17 03:43 Urine Blood Negative (NEGATIVE) 04/27/17 03:43 Urine Nitrate Negative (NEGATIVE) 04/27/17 03:43 Urine Bilirubin Negative (NEGATIVE) 04/27/17 03:43 Urine Urobilinogen 0.2 E.U./dL (<1 E.U./dL) 04/27/17 03:43 Ur Leukocyte Esterase Negative Son/uL (NEGATIVE) 04/27/17 03:43 Urine RBC 0 - 2 /hpf (0-2) 04/27/17 03:43 Urine WBC 0 - 2 /hpf (0-6) 04/27/17 03:43 Ur Epithelial Cells 0 - 2 /hpf (0-5) 04/27/17 03:43 Valproic Acid < 10 ug/mL (50.0-100.0) L 04/26/17 08:44 Alcohol, Quantitative < 10 mg/dL (0-10) 04/26/17 03:04 Attending/Attestation - Attestation I have personally seen and examined this patient.: Yes I have fully participated in the care of the patient.: Yes I have reviewed all pertinent clinical information, including history, physical exam and plan: Yes Notes (Text): 05/02/17 13:38 attending note; Patient seen and examined with resident. Patient ias a 66 year old male admitted for bizarre behavior/delusional thoughts and high grade AV block 2:1 1. AV block 2:[address] garza appreciated. Continue zestril, lipitor. s/p pacemaker by DR. Diaz on 04/30/17. pacemaker site is clean in dressing. paced rhythm. No arrhythmias. Case discussed with patient's power of psychologist [phone]. patient will be transferred to psychiatric floor for further treatment. Case discussed with in detail. 2.Shizoaffective disorder Continue mediations per psychiatry. . on risperdal,Cogentin,Sonata, Depakote 500mg BID and geodon. 3.hypertension; continue Zestril. 4. hypercholesterolemia; continue Lipitor. transfer to the psychiatric floor today. Diagnosis; Schizoaffective disorder Status post pacemaker Hypertension Hypercholesterolemia
[2017-05-02] MEDS: Multivitamin Therapeutic Tab PO SCH (10:58)
[2017-05-02] MEDS: Divalproex 500 mg DR(BID formulation) PO SCH (10:58)
--- NOTE | 2017-05-02 11:09 | CON ---
DATE: 05/02/2017 The patient is a 66-year-old white male with schizoaffective disorder who is well known to this [facility] due to his multiple psychiatric hospitalizations. The patient was seen by Dr. Saleh for ev aluation of delusions and disorganized thoughts and behavior. At the time of Dr. Saleh's visit , the patient reported he hears hallucinations, specifically the paranoid type of voices that are raghav assing him. The patient did not appear to be agitated or aggressive. The patient was not demonstrat ing any agitation or aggression and no dangerous behavior at that time. I met with patient at bedside. The patient is irritable and indicates that he is "not too good" and he is actively delusional as he believes that this provider is the of his first cousin and asks many questions about my roman catholic, specifically asking me repeatedly if I am Shinto. The patient also reports that he has not taken a shower or brushed his teeth and he is quite perseverative about thes e issues and it is difficult to maintain a productive conversation with him. The patient admits that he has not been taking his medications prior to admission. However, it is unclear if this is true a s the patient does not appear to be the best historian at this time. The patient also reports that h e has not been sleeping and that "his arm still hurts" and generally rambled irritative throughout t he course of our conversation. He reports that he is depressed and anxious; however, he will not tel l me about what he has been depressed or anxious about and in the same sentence, he will adamantly de ny that he has any psychiatric symptoms. His insight and judgment are considered to be poor at this time. Though he denies having any suicidal thoughts or homicidal thoughts, he would benefit from a psychiatric hospitalization which is what this provider is recommending. VITAL SIGNS AND LABORATORY DATA: Reviewed by this provider. RELEVANT PSYCHIATRIC MEDICATIONS: Include Cogentin 0.5 mg a.m. and at bedtime, Depakote 500 mg a.m. and at bedtime, Risperdal 0.5 mg a.m. and at bedtime, Sonata 10 mg at bedtime and Geodon 20 mg IM stephania ly p.r.n. IMPRESSION: Schizoaffective disorder. RECOMMENDATIONS: We will continue current medications and psychiatric medications. This provider sapp s recommended psychiatric hospitalization and the patient has agreed; however, he has a POA and FARZANEH espinoza ust sign the patient in the unit in this regard once he is medically cleared. Rosa Elena Deshpande MD cc: [id number] TT: 05/02/2017 11:08:52 Confirmation # [id number] Dictation # [id number] tn
[2017-05-02 12:31] VITALS: BP 110/72; PULSE 84; RESP 20; TEMP 98.8
== END 2017-05-02 13:39 | DRG 244 ==
LOC: ED 01:36 → ERH 04:34 → CCU 07:01 → 2RNO 05-01 18:24
PROVIDERS: ADMIT Internal Medicine; ATTEND Internal Medicine
PROC: 0JH606Z Insertion of Pacemaker, Dual Chamber into Chest Subcutaneous Tissue and Fascia, Open Approach (ICD-10-PCS; principal; 2017-04-30)
PROC: 02H63JZ Insertion of Pacemaker Lead into Right Atrium, Percutaneous Approach (ICD-10-PCS; 2017-04-30)
PROC: 02HK3JZ Insertion of Pacemaker Lead into Right Ventricle, Percutaneous Approach (ICD-10-PCS; 2017-04-30)
DX: I44.2 Atrioventricular block, complete (principal); I11.0 Hypertensive heart disease with heart failure; I50.9 Heart failure, unspecified; F25.0 Schizoaffective disorder, bipolar type; D64.9 Anemia, unspecified; E11.65 Type 2 diabetes mellitus with hyperglycemia; E78.00 Pure hypercholesterolemia, unspecified; E78.5 Hyperlipidemia, unspecified; F22 Delusional disorders; I35.0 Nonrheumatic aortic (valve) stenosis; I45.10 Unspecified right bundle-branch block; I70.0 Atherosclerosis of aorta; Z79.84 Long term (current) use of oral hypoglycemic drugs; F17.210 Nicotine dependence, cigarettes, uncomplicated; Z91.14 Patient's other noncompliance with medication regimen; Z91.19 Patient's noncompliance with other medical treatment and regimen; R00.1 Bradycardia, unspecified

== ENCOUNTER 2017-05-02 14:04 | Inpatient (IN) | payer MEDICAID, OTHER ==
[2017-05-02] MEDS: Multivitamin Therapeutic Tab PO SCH (17:17)
[2017-05-02] MEDS ORDERED: ZALEPLON 10 MG PO SCH (22:00)
[2017-05-02] MEDS: Divalproex 500 mg DR(BID formulation) PO SCH (22:23)
--- NOTE | 2017-05-03 07:49 | PCM.BM ---
<Parul Patel - Last Filed: 05/04/17 19:58> - Milieu Protocol Maintain good personal hygiene: daily Encourage regular showers, daily Remind patient to perform daily oral care, daily Assist patient to perform ADL's Maintain personal safety: every shift Educate patient to report safety concerns to staff, every shift Monitor environment for contraband/sharps Medication safety: Monitor for expected outcome, potential side effects: daily, Assess barriers to learning: daily, Assess readiness for medication education: daily Discharge/Continuing Care - Education Needs Education Needs: Patient Medication, Patient Diagnosis/Disease Process, Patient Coping Skills, Patient Community resources, Patient Activities of Daily Living, Patient Nutrition, Patient Personal Hygiene/Grooming, Patient Aftercare Safety Plan - Treatment Team Participation Discussed with Family/SO: No Was Patient/Family/SO present at Treatment Team Meeting: Yes <Lance Connell - Last Filed: 05/05/17 10:14> - Diagnosis (1) Paranoia Status: Acute Interventions: 05/05/17 10:15given to conspiratorial thinking <Haydee Krueger - Last Filed: 05/05/17 11:00> Family Contact Family involvement: No known Family/SO <Arjun Mendieta - Last Filed: 05/05/17 11:19> Treatment Plan Problems - Problems identified on initial assessmt Delusions Date Initiated: 05/02/17 Time Initiated: 12:00 Assessment reference: NA Status: Active depression Date Initiated: 05/02/17 Time Initiated: 12:00 Assessment reference: NA Status: Active hallucinations Date Initiated: 05/02/17 Time Initiated: 12:00 Assessment reference: NA Status: Active Treatment team Pt information Patient Assests: cooperative, negotiates basic needs Patient Liabilities: live alone, poor support system, medical problems - Milieu Protocol Maintain good personal hygiene: daily Encourage regular showers, daily Remind patient to perform daily oral care, daily Assist patient to perform ADL's Maintain personal safety: daily Educate patient to report safety concerns to staff, daily Monitor environment for contraband/sharps Medication safety: Monitor for expected outcome, potential side effects: daily, Assess barriers to learning: daily, Assess readiness for medication education: daily Discharge/Continuing Care - Education Needs Education Needs: Family Medication, Family Diagnosis/Disease Process, Family Activities of Daily Living, Family Health Practices/Safety, Family Personal Hygiene/Grooming - Discharge Discharge Criteria: Tolerates medication w/o severe side effects, Free of Suicidal thoughts, Free of paranoid thoughts, Normal sleep pattern Discharge to:: Home - Treatment Team Participation Discussed with Family/SO: No Was Patient/Family/SO present at Treatment Team Meeting: No <Elizabet Monet - Last Filed: 05/05/17 12:18>
[2017-05-03 08:01] LABS: GLUCOSE,FASTING 101 mg/dL (65-110); HDL CHOLESTEROL 45 mg/dL (29-60)
[2017-05-03 08:12] LABS: LDL CHOLESTEROL 52 mg/dL (0-129)
[2017-05-03 08:20] LABS: FREE T4 1.17 ng/dL (0.78-2.19)
[2017-05-03] MEDS: Divalproex 500 mg DR(BID formulation) PO SCH ×2 (10:27→22:09)
[2017-05-03] MEDS: Multivitamin Therapeutic Tab PO SCH (10:27)
--- NOTE | 2017-05-03 12:29 | CP.PCM.CON ---
<Sissy Smith - Last Filed: 05/03/17 12:26> History of Present Illness - History of Present Illness History of Present Illness: 66 M with a PMhx of schizoaffective disorder, HTN, CHF, hypertension, hyperlipidemia, and NIDDM admitted at [facility] for agitation and bizzarre behavior ultimately found to have bradycardia and 2:1 Mobitz type 2 heart block. Pt was admitted to telemetry monitoring, Cardiology was consulted, Dr. Garza. Pt was asymptomatic and reverted back to a NSR upon admission. Dr. Garza recommended to continue liptor, zestril, and requested and echo which demonstrated a normal ejection fraction as well as a EP consult for a pacemaker eval. Pt routine labwork were unremarkable. Pt remained clinically euvolemic without any clinical signs of heart failure. EP, Dr. Alvarez consulted, recommended pacemaker placement, POA Mr. Fischer made aware of plan and all parites agreed for pacemaker placement. Pacemaker was subsequently placed and interoogated to be found working properly. Psych was consulted, Dr. Sumner for pt' s extensive psych hx. Pt was initially requiring kirby vest for pt safety however upon dose adjustments of psych meds by Dr. Sumner, pt was much more calm and cooperative. Pt home psych meds were resumed and cymbalta was added. Pt no longer required the kirby vest after pacemaker placement and was subsequently transferred to tele floor. Pt tolerated PT, who recommended that the pt may be dc home. However, considering pt's psych hx, decision was made to transfer to [facility]. POA again made aware and all parties agreed. Pt was seen and examined. Pt has no acute complaints at this time. Dressing were changes to [facility]. Pt denied fever, chills, sob, chest pains, abdominal pains, n/v/d/c or urinary symptoms. PMhx: schizoaffective disorder, HTN, CHF, hypertension, hyperlipidemia, and NIDDM Surgeries: denies FamHx: would not answer the question Allergies: said he had none Meds: please refer to MAR Social; unable to obtain from the patient Review of Systems - Review of Systems Review of Systems: as per HPI otherwise negative Past Patient History - Infectious Disease Hx of Infectious Diseases: None - Past Social History Smoking Status: Light Smoker < 10 Cigarettes Daily - CARDIAC Hx Cardiac Disorders: Yes Hx Cardia Arrhythmia: Yes Hx Congestive Heart Failure: Yes Hx Hypercholesterolemia: Yes Hx Hypertension: Yes Hx Pacemaker: Yes (04/30/17) - PULMONARY Hx Respiratory Disorders: No - NEUROLOGICAL Hx Neurological Disorder: No - HEENT Hx HEENT Problems: No - RENAL Hx Chronic Kidney Disease: No - ENDOCRINE/METABOLIC Hx Diabetes Mellitus Type 2: Yes - HEMATOLOGICAL/ONCOLOGICAL Hx Blood Disorders: No - INTEGUMENTARY Hx Dermatological Problems: No - MUSCULOSKELETAL/RHEUMATOLOGICAL Hx Falls: No - GASTROINTESTINAL Hx Gastrointestinal Disorders: No - GENITOURINARY/GYNECOLOGICAL Hx Genitourinary Disorders: No - PSYCHIATRIC Hx Anxiety: Yes Hx Bipolar Disorder: Yes Hx Depression: Yes Hx Schizophrenia: Yes Hx Substance Use: No - SURGICAL HISTORY Other/Comment: inguinal hernia repair 2009 - ANESTHESIA Hx Anesthesia: Yes Hx Anesthesia Reactions: No Hx Malignant Hyperthermia: No Meds Allergies/Adverse Reactions: Allergies Allergy/AdvReac Type Severity Reaction Status Date / Time No Known Allergies Allergy Verified 05/03/17 04:36 - Medications Medications: Current Medications Atorvastatin Calcium (Lipitor) 10 mg PO DIN [facility] Last Admin: 05/02/17 17:17 Dose: 10 mg Benztropine Mesylate (Cogentin) 0.5 mg PO [facility] Last Admin: 05/03/17 10:27 Dose: 0.5 mg Divalproex Sodium (Depakote Dr(*Bid*)) 500 mg PO [facility] Last Admin: 05/03/17 10:27 Dose: 500 mg Famotidine (Pepcid) 40 mg PO [facility] Last Admin: 05/02/17 22:24 Dose: 40 mg Folic Acid (Folic Acid) 1 mg PO DAILY [facility] Last Admin: 05/03/17 10:27 Dose: 1 mg Lisinopril (Zestril) 20 mg PO DAILY [facility] Last Admin: 05/03/17 10:27 Dose: 20 mg Multivitamins (Thera Tab) 1 tab PO DAILY [facility] Last Admin: 05/03/17 10:27 Dose: 1 tab Risperidone (Risperdal Tab) 1 mg PO [facility] PRN Reason: Protocol Last Admin: 05/03/17 10:27 Dose: 1 mg Thiamine HCl (Vitamin B1 Tab) 100 mg PO DAILY [facility] Last Admin: 05/03/17 10:27 Dose: 100 mg Zolpidem Tartrate (Ambien) 5 mg PO HS PRN; Protocol PRN Reason: Insomnia Physical Exam - Constitutional Appears: No Acute Distress - Head Exam Head Exam: ATRAUMATIC, NORMAL INSPECTION, NORMOCEPHALIC - Eye Exam Eye Exam: EOMI, Normal appearance, PERRL Pupil Exam: Fixed - ENT Exam ENT Exam: Mucous Membranes Moist, Normal Exam - Neck Exam Neck exam: Positive for: Normal Inspection - Respiratory Exam Respiratory Exam: Clear to Auscultation Bilateral, NORMAL BREATHING PATTERN - Cardiovascular Exam Cardiovascular Exam: REGULAR RHYTHM, +S1, +S2 - GI/Abdominal Exam GI & Abdominal Exam: Normal Bowel Sounds, Soft. absent: Tenderness - Extremities Exam Extremities exam: Positive for: normal inspection - Back Exam Back exam: NORMAL INSPECTION - Neurological Exam Neurological exam: Alert, CN II-XII Intact, Normal Gait, Oriented x3, Reflexes Normal - Psychiatric Exam Psychiatric exam: Normal Affect, Normal Mood - Skin Skin Exam: Dry, Intact, Normal Color, Warm Results - Vital Signs Recent Vital Signs: Last Vital Signs Temp Pulse 74 05/02/17 16:59 Resp BP 108/75 05/02/17 16:59 Pulse Ox - Labs Labs: Laboratory Results - last 24 hr 05/03/17 05/03/17 05/03/17 07:00 07:00 07:00 Fasting Glucose 101 Triglycerides 105 Cholesterol 117 L LDL Cholesterol Direct 52 HDL Cholesterol 45 Free T4 1.17 TSH 3rd Generation 0.45 L Valproic Acid 90 Assessment & Plan - Assessment and Plan (Free Text) Assessment: Patient ias a 66 year old male with PMHx of schizophrenia admitted for bizarre behavior and high grade AV block 2:1 1. AV block 2:[address] garza, recommended to continue lipitor, zestril and pacemaker eval case discussed with EP freight traffic consultant Dr. Alvarez in detail, - s/p pacemaker, dressings changed - continue to monitor 2.Shizoaffective disorder Continue mediations per psychiatry. case discussed with Dr. Sumner in detail. on risperdal,Cogentin,Sonata, Depakote and geodon. 3.hypertension continue Zestril. 4. hypercholesterolemia continue Lipitor. GI/DVT prophylaxis. Seen reviewed and discussed with Dr. Melendez <Vernon Melendez - Last Filed: 05/03/17 14:21> Meds - Medications Medications: Current Medications Atorvastatin Calcium (Lipitor) 10 mg PO DIN [facility] Last Admin: 05/02/17 17:17 Dose: 10 mg Benztropine Mesylate (Cogentin) 0.5 mg PO [facility] Last Admin: 05/03/17 10:27 Dose: 0.5 mg Divalproex Sodium (Depakote Dr(*Bid*)) 500 mg PO [facility] Last Admin: 05/03/17 10:27 Dose: 500 mg Famotidine (Pepcid) 40 mg PO HS [facility] Last Admin: 05/02/17 22:24 Dose: 40 mg Folic Acid (Folic Acid) 1 mg PO DAILY [facility] Last Admin: 05/03/17 10:27 Dose: 1 mg Lisinopril (Zestril) 20 mg PO DAILY [facility] Last Admin: 05/03/17 10:27 Dose: 20 mg Multivitamins (Thera Tab) 1 tab PO DAILY [facility] Last Admin: 05/03/17 10:27 Dose: 1 tab Risperidone (Risperdal Tab) 1 mg PO [facility] PRN Reason: Protocol Last Admin: 05/03/17 10:27 Dose: 1 mg Thiamine HCl (Vitamin B1 Tab) 100 mg PO DAILY [facility] Last Admin: 05/03/17 10:27 Dose: 100 mg Zolpidem Tartrate (Ambien) 5 mg PO HS PRN; Protocol PRN Reason: Insomnia Results - Vital Signs Recent Vital Signs: Last Vital Signs Temp Pulse 74 05/02/17 16:59 Resp BP 108/75 05/02/17 16:59 Pulse Ox - Labs Labs: Laboratory Results - last 24 hr 05/03/17 05/03/17 05/03/17 07:00 07:00 07:00 Fasting Glucose 101 Triglycerides 105 Cholesterol 117 L LDL Cholesterol Direct 52 HDL Cholesterol 45 Free T4 1.17 TSH 3rd Generation 0.45 L Valproic Acid 90 Attending/Attestation - Attestation I have personally seen and examined this patient.: Yes I have fully participated in the care of the patient.: Yes I have reviewed all pertinent clinical information: Yes Notes (Text): 05/03/17 14:19 attending note; Patient seen and examined with resident. Patient ias a 66 year old male admitted to psychiatric floor for bizarre behavior/delusional thoughts. patient was transferred from medical floor yesterday. Clinically stable. 1. AV block 2:1; s/p pacemaker by DR. Diaz on 04/30/17. pacemaker site is clean in dressing. dressing change today. Steri strips in place. Continue zestril, lipitor. 2.Shizoaffective disorder; Continue mediations per psychiatry. on risperdal,Cogentin,Sonata, Depakote 500mg BID and geodon. 3.hypertension; continue Zestril. 4. hypercholesterolemia; continue Lipitor. patient is medically stable. Please reconsult as needed.
--- NOTE | 2017-05-03 14:54 | HP ---
HISTORY OF PRESENT ILLNESS: The patient is a single 66-year-old white male with a long history of sc hizoaffective disorder, numerous hospitalizations, most recently hospitalized at [facility] in 02/2017, reported noncompliance with medications prior to current admission who was transferred from the medical floor where he was treated for EKG changes including AV block, right bundle branch block and change in mental status. The patient required a pacemaker placement on 04/30/2017, of leslie pino his power of family law attorney, Abdiel Fischer, consented. Psychiatry followed with patient while he was being medically stabilized for this disorganized and paranoid behavior. I reviewed Dr. Taisha turner's notes as well as met with patient while he was on the medical floor as well as while he was on the unit today. The patient presented to be disorganized, paranoid and irrational during my visit y on the medical floor. He was preoccupied with the possibility that this provider was Rastafari and that I was to one of his family members in the past. The patient states that he was dep ressed and anxious, but denies being suicidal. He is aware superficially about his current medical p roblems and reported that he would like psychiatric admission once he is medically stabilized. Altho ugh patient denied having schizophrenia and denies having any mental health problems, patient incongr uently requests psychiatric admission for "help." As noted, I interviewed the patient on the medical floor and again today this morning and patient is a little calmer today, though still delusional and preoccupied with the possibility that I was into his family at one point. Nonetheless, thou ght process is less scattered and he is calmer, though still irritable at my visit this morning. Den ies hallucinations. He denies any current discomfort. He is quite aware that a pacemaker was placed and wonders appropriately about the correct wound care and dressing care necessary. Nursing notes r lavell that the patient appears to be calmer and less paranoid than prior admissions and that there we re no major behavioral issues overnight. His insight and judgment are considered to be impaired, tho ugh improved since yesterday. PSYCHIATRIC HISTORY: Multiple admissions, most recently including 02/2017, 10/2016, 12/2015 and 10/10 015. In 02/2017, he was discharged on the medication regimen of Ambien 5 mg at bedtime for insomnia, Risperdal 1 mg a.m. and 2 mg at bedtime for delusions, paranoia, Cogentin 0.5 mg a.m. and at bedtime for EPS prophylaxis and Depakote 250 mg a.m. and at bedtime for mood control. The patient was disch arged at that time to follow up with Elkin Deal from [facility]. In 10/2016, the patient was admitted for depression, worsening of paranoia, hallucinations and verbalizing thoughts of harming himself. The patient was discharged on Risperdal 2 mg a.m. and at bedtime, Depakote 500 mg a.m. and 750 mg at bedt genesis, Sonata 10 mg at bedtime and Cogentin 0.5 mg b.i.d. In 12/2015, the patient was discharged on Cogentin 1 mg a.m. and at bedtime, Depakote 500 t.i.d., Pro lixin 10 mg a.m. and at bedtime, and Prolixin Decanoate 50 mg. The patient was also discharged on Son sujatha 5 mg at bedtime. In 10/2015, the patient was admitted after he called 911 complaining that the police are after him an d the patient was acutely psychotic and bizarre at the time. The patient was discharged on Cogentin 1 mg a.m. and at bedtime, Depakote 500 mg p.o. b.i.d., Risperdal 2 mg t.i.d. SOCIAL HISTORY: The patient was born and raised in [place]. He is single, no kids. He is unempl oyed, although he had worked off the [employer] before for over 10 years. Prior arrests in [place] for "da maging an automobile" as well as in [place], [place] for marijuana possession. He denied any drug , alcohol or tobacco use. VITAL SIGNS: Reviewed and as of 4:59 p.m. yesterday, pulse rate was 74, blood pressure was 108/75. LABORATORIES: Reviewed and as of 05/03/2017, fasting glucose was 101. Fasting lipids showed ____ 11 7 in cholesterol which is considered low. Otherwise, LDL direct was 52, HDL was 45. Free T4 is 1.17 . TSH is 0.45, which is considered to be low, and triglycerides are also within normal limits at 105 . Depakote level was 90. On 05/02/2017, CBC was within normal limits. Chemistry profile showed no wesley or derangements. IMPRESSION: Schizoaffective disorder, acute exacerbation secondary to reported noncompliance by yaakov ent. RECOMMENDATIONS: 1. Group, milieu and supportive therapy. 2. We will continue with risperidone; however, increase dose to 1 mg p.o. a.m. and at bedtime (jazmine butler note the patient was taking 0.5 mg a.m. and at bedtime while he was on the medical floor. 3. Continue with Depakote 500 mg a.m. and at bedtime. 4. Continue with Ambien 5 mg at bedtime p.r.n. 5. Continue with Cogentin 0.5 mg a.m. and at bedtime ____ prophylaxis. Currently awaiting medical followup. In the meantime, we will continue with Lipitor 10 mg at night, Pepcid 40 mg at bedtime, folic acid 1 mg daily, lisinopril 20 mg daily, multivitamins and thiamine __ __ mg p.o. daily. Rosa Elena Deshpande MD cc: [id number] TT: 05/03/2017 14:53:59 aicha
[2017-05-04] MEDS: Divalproex 500 mg DR(BID formulation) PO SCH ×3 (08:11→21:38)
[2017-05-04] MEDS: Multivitamin Therapeutic Tab PO SCH (08:11)
--- NOTE | 2017-05-05 02:24 | PN ---
DATE: 05/05/[address] Saleh. SUBJECTIVE: Chart reviewed and case discussed with nursing. The patient is a 66-year-old white male with a long history of schizoaffective disorder that has incl uded a number of prior psychiatric hospitalizations (most recently at [facility] this past February), who h as a history also of noncompliance. He had initially been hospitalized on our medical floor because of EKG changes secondary to AV block and right bundle branch block and a change in his mental status and [facility] He was initially disorganized, paranoid and irrational. Presently, the patient is irritable, seems less suspicious, but is upset that he cannot sleep. His previous psychiatric hospitalizations include this past February, October, 12/2015, 10/2015 and 2016. He had been discharged on Ambien, Risperdal and Cogentin. In the past, the patient has also been maintained on Prolixin Decanoate. The patient is single, neve r , no children, is unemployed, legal difficulties for damaging an automobile in the [facility]. MEDICATIONS: He is presently being maintained on Cogentin 0.5 mg a.m. and at bedtime, Depakote 500 m g a.m. and at bedtime. Risperdal 1 mg a.m. and bedtime. He the patient's Ambien from 5 to 10 mg because he was having difficulty sleeping. PHYSICAL EXAMINATION: VITAL SIGNS: Blood pressure 107/69, , pulse 84, temperature 97.4. PLAN: and chart reviewed. Lance Connell MD, PhD cc: [id number] TT: 05/05/2017 02:23:29 Confirmation # [id number] Dictation # [id number] mn
[2017-05-05] MEDS: Multivitamin Therapeutic Tab PO SCH (09:05)
[2017-05-05] MEDS: Divalproex 500 mg DR(BID formulation) PO SCH ×2 (09:06→22:19)
[2017-05-06] MEDS: Divalproex 500 mg DR(BID formulation) PO SCH ×2 (09:02→21:32)
[2017-05-06] MEDS: Multivitamin Therapeutic Tab PO SCH (09:03)
[2017-05-07] MEDS: Divalproex 500 mg DR(BID formulation) PO SCH ×2 (09:46→21:57)
[2017-05-07] MEDS: Multivitamin Therapeutic Tab PO SCH (09:48)
--- NOTE | 2017-05-08 09:06 | PCM.PYCHPN ---
Psychiatric Progress Note - Psychiatric Progress Note Patient seen today, length of contact: this is note of 05/07 Patient Chief Complaint: depression Problems Identified/Issues Discussed: pt diffuse,perseverative,given to anger and rambling DSM 5 Symptoms Update: as above Medication Change: No Medical Record Reviewed: Yes Consults ordered or reviewed: reviewde Mental Status Examination - Cognitive Function Memory: Intact, Other Fund of Knowledge: WNL Decription of patient's judgement and insights: pontificates,can be caustic,critical,tangential,w surprising store of memory for trivia - Mood Mood: Other - Affect Affect: Other - Speech Speech: Stammering - Formal Thought Process Formal Thought Process: Circumstantial, Other - Suicidal Ideation Suicidal Ideation: No - Homicidal Ideation Homicidal Ideation: No Goal/Treatment Plan - Goal/Treatment Plan Progress Toward Problem(s) and Goals/Treatment Plan: supervised living situation
[2017-05-08] MEDS: Multivitamin Therapeutic Tab PO SCH (09:16)
[2017-05-08] MEDS: Divalproex 500 mg DR(BID formulation) PO SCH ×2 (09:17→21:10)
--- NOTE | 2017-05-08 16:10 | PCM.PYCHPN ---
Psychiatric Progress Note - Psychiatric Progress Note Patient seen today, length of contact: 30min Patient Chief Complaint: "I am not psych patient, but may be I am, may be with medications I would feel better, I am willing to go to the residential...., may be not..." Problems Identified/Issues Discussed: Suicide/ homicide prevention, past psychiatric h/o, current psychiatric symptoms , medical problems, risk/benefits and alternatives of medications, medications compliance, coping strategies, substance abuse h/o, relapse prevention, importance of follow up with psychiatrist and therapist, discharge plan. 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, dressings changed hypertension hypercholesterolemia Diagnostic Results: Lab Results 05/03/17 07:00: Valproic Acid 90 05/03/17 07:00: Free T4 1.17, TSH 3rd Generation 0.45 L 05/03/17 07:00: Fasting Glucose 101, Triglycerides 105, Cholesterol 117 L, LDL Cholesterol Direct 52, HDL Cholesterol 45 Vital Signs Temp Pulse Resp BP 05/08/17 07:40 98.2 F 60 18 110/72 05/07/17 18:45 72 114/70 05/07/17 09:00 72 107/68 05/07/17 07:32 98.4 F 72 20 107/68 05/06/17 16:15 72 114/70 05/06/17 09:01 60 114/77 05/06/17 07:18 98.1 F 60 20 114/73 05/05/17 16:00 63 110/68 05/05/17 07:02 97.5 F L 70 20 126/74 05/04/17 16:22 84 107/69 05/04/17 08:11 70 109/71 05/03/17 15:00 79 101/67 05/03/17 07:00 97.4 F L 78 18 113/73 05/02/17 16:59 74 108/75 DSM 5 Symptoms Update: Shortly patient is a 66 year old single male with history of schizoaffective disorder, multiple psychiatric admissions into this facility, patient has chronic noncompliance with the medications and follow-up appointments, patient has power overturn 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 Please see Dr. Deshpande and Dr. Connell for more detailed information. he shouldn't was seen today at the treatment team meeting, patient presented to have acceptable personal hygiene, looks younger than his chronological age, patient was disorganized in his thoughts, patient feels that "I signed my life to you people, you are talking about me...". pt said that he is not psych patient, then said "may be I am, may be with medications I will feel better, may be not, I am willing to go to the residential, may be not...". pt compliant with meds, no side effects observed or reported. pt has POA, initially gave verbal consent for admission, then said he does not want to be pt's POA for medical issues. pt signed consent himself at the beginning of the week. Impression: schizoaffective disorder Medication Change: Yes (risperdal increased) Medical Record Reviewed: Yes Consults ordered or reviewed: medical consult appreciated Mental Status Examination - Cognitive Function Orientation: Person, Place, Situation, Time Memory: Intact, Other Attention: Poor Concentration: Poor Association: Loose Fund of Knowledge: WNL - Mood Mood: Depressed, Anxious - Affect Affect: Constricted, Flat - Speech Speech: Stammering (overproductive) - Formal Thought Process Formal Thought Process: Circumstantial, Other - Suicidal Ideation Suicidal Ideation: No - Homicidal Ideation Homicidal Ideation: No Goal/Treatment Plan - Goal/Treatment Plan Need for Continued Stay: Remain at risks for inpatient hospitalization, Severe depression anxiety, Discharge may exacerbated symptoms, Severe functional impairment Progress Toward Problem(s) and Goals/Treatment Plan: Milieu, structure, supportive therapy We will continue Depakote 500 mg twice a day for mood stabilization Risperdal will be increased to 1mg am and 2mg hs for psychosis SW evaluation for possible NH placement POA involvement medical f/u will monitor closely Estimated Date of D/C: 05/15/17 (will monitor closely)
[2017-05-09] MEDS: Divalproex 500 mg DR(BID formulation) PO SCH ×2 (10:08→21:18)
[2017-05-09] MEDS: Multivitamin Therapeutic Tab PO SCH (10:09)
[2017-05-10] MEDS: Multivitamin Therapeutic Tab PO SCH (09:06)
[2017-05-10] MEDS: Divalproex 500 mg DR(BID formulation) PO SCH ×2 (09:06→21:42)
--- NOTE | 2017-05-10 11:39 | PCM.PYCHPN ---
Psychiatric Progress Note - Psychiatric Progress Note Patient seen today, length of contact: 30min Patient Chief Complaint: "I do not feel any different, I think your medications not working for me, I didn't sleep..." (as per RN report pt slept well) Problems Identified/Issues Discussed: Suicide/ homicide prevention, past psychiatric h/o, current psychiatric symptoms , medical problems, risk/benefits and alternatives of medications, medications compliance, coping strategies, substance abuse h/o, relapse prevention, importance of follow up with psychiatrist and therapist, discharge plan. 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, dressings changed hypertension hypercholesterolemia Diagnostic Results: Lab Results 05/03/17 07:00: Valproic Acid 90 05/03/17 07:00: Free T4 1.17, TSH 3rd Generation 0.45 L 05/03/17 07:00: Fasting Glucose 101, Triglycerides 105, Cholesterol 117 L, LDL Cholesterol Direct 52, HDL Cholesterol 45 Vital Signs Temp Pulse Resp BP 05/08/17 07:40 98.2 F 60 18 110/72 05/07/17 18:45 72 114/70 05/07/17 09:00 72 107/68 05/07/17 07:32 98.4 F 72 20 107/68 05/06/17 16:15 72 114/70 05/06/17 09:01 60 114/77 05/06/17 07:18 98.1 F 60 20 114/73 05/05/17 16:00 63 110/68 05/05/17 07:02 97.5 F L 70 20 126/74 05/04/17 16:22 84 107/69 05/04/17 08:11 70 109/71 05/03/17 15:00 79 101/67 05/03/17 07:00 97.4 F L 78 18 113/73 05/02/17 16:59 74 108/75 Temp Pulse Resp BP Pulse Ox 97.9 F 60 20 115/66 05/10/17 07:48 05/10/17 09:04 05/10/17 07:48 05/10/17 09:04 DSM 5 Symptoms Update: Shortly patient is a 66 year old single male with history of schizoaffective disorder, multiple psychiatric admissions into this facility, patient has chronic noncompliance with the medications and follow-up appointments, patient has power overturn the with 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 Please see Dr. Deshpande and Dr. Connell for more detailed information. pt was seen next to the nursing station, pt seems to be restless, pt was keep moving his legs like exercising, pt said that he still does not feel any improvement on meds, pt said that he feels that he is monitored by electronics, "as you know technology everywhere" (pt has tx resistant psychosis, pt was not on any antipsychotics for years, most likely damage is permanent, from this wrier perspective pt needs to have NH placement, will d/w pt and pt's POA, pt has poa only for financial issues, but medical decisions pt is making himself), pt said that he wants to relax and cannot r/o akathesia, will add small dose of ativan. pt compliant with meds, pt c/o restlessness, r/o akathesia, will add ativan, no tremor, no rigidity, AIMS 0, no EPS. pt signed consent himself at the beginning of the week. Impression: schizoaffective disorder Medication Change: Yes (ativan 0.5mg bid) Medical Record Reviewed: Yes Consults ordered or reviewed: medical consult appreciated Mental Status Examination - Cognitive Function Orientation: Person, Place, Situation, Time Memory: Intact, Other Attention: Poor Concentration: Poor Association: Loose Fund of Knowledge: WNL - Mood Mood: Depressed, Anxious - Affect Affect: Constricted, Flat - Speech Speech: Stammering (overproductive) - Formal Thought Process Formal Thought Process: Circumstantial, Other - Suicidal Ideation Suicidal Ideation: No - Homicidal Ideation Homicidal Ideation: No Goal/Treatment Plan - Goal/Treatment Plan Need for Continued Stay: Remain at risks for inpatient hospitalization, Severe depression anxiety, Discharge may exacerbated symptoms, Severe functional impairment Progress Toward Problem(s) and Goals/Treatment Plan: Milieu, structure, supportive therapy We will continue Depakote 500 mg twice a day for mood stabilization Risperdal 1mg am and 2mg hs for psychosis benadryl 50mg hs prn for insomnia and possible EPS EKG was done 04/30/2017 QTC was 483, will consider to check it again ativan 0.5mg bid po for restlessness SW evaluation for possible NH placement POA involvement medical f/u will monitor closely Estimated Date of D/C: 05/15/17 (will monitor closely)
[2017-05-11] MEDS: Multivitamin Therapeutic Tab PO SCH (08:23)
[2017-05-11] MEDS: Divalproex 500 mg DR(BID formulation) PO SCH ×2 (10:00→22:21)
--- NOTE | 2017-05-11 14:40 | PCM.PYCHPN ---
Psychiatric Progress Note - Psychiatric Progress Note Patient seen today, length of contact: 30min Patient Chief Complaint: "I do not feel any different" Problems Identified/Issues Discussed: Suicide/ homicide prevention, past psychiatric h/o, current psychiatric symptoms , medical problems, risk/benefits and alternatives of medications, medications compliance, coping strategies, substance abuse h/o, relapse prevention, importance of follow up with psychiatrist and therapist, discharge plan. 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, dressings changed hypertension hypercholesterolemia Diagnostic Results: Lab Results 05/03/17 07:00: Valproic Acid 90 05/03/17 07:00: Free T4 1.17, TSH 3rd Generation 0.45 L 05/03/17 07:00: Fasting Glucose 101, Triglycerides 105, Cholesterol 117 L, LDL Cholesterol Direct 52, HDL Cholesterol 45 Vital Signs Temp Pulse Resp BP 05/08/17 07:40 98.2 F 60 18 110/72 05/07/17 18:45 72 114/70 05/07/17 09:00 72 107/68 05/07/17 07:32 98.4 F 72 20 107/68 05/06/17 16:15 72 114/70 05/06/17 09:01 60 114/77 05/06/17 07:18 98.1 F 60 20 114/73 05/05/17 16:00 63 110/68 05/05/17 07:02 97.5 F L 70 20 126/74 05/04/17 16:22 84 107/69 05/04/17 08:11 70 109/71 05/03/17 15:00 79 101/67 05/03/17 07:00 97.4 F L 78 18 113/73 05/02/17 16:59 74 108/75 Temp Pulse Resp BP Pulse Ox 97.9 F 60 20 115/66 05/10/17 07:48 05/10/17 09:04 05/10/17 07:48 05/10/17 09:04 Laboratory Results - last 72 hr 05/10/17 07:30 Valproic Acid 77 DSM 5 Symptoms Update: Shortly patient is a 66 year old single male with history of schizoaffective disorder, multiple psychiatric admissions into this facility, patient has chronic noncompliance with the medications and follow-up appointments, 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 Please see Dr. Deshpande and Dr. Connell for more detailed information. pt was seen in his room, much calmer after ativan was started, no new complaints , SW working with pt in regards of d/c plan NH or assisted living. 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 pt compliant with meds, no side effects observed or reported, AIMS 0, no EPS. s per nursing saff reports, patient is compliant with the medications, no behavioral problems, patient still psychotic, no agitation, no aggression, patient quiet and staying in his room injurious of the times. Impression: schizoaffective disorder Medication Change: Yes (ativan 0.5mg bid was started yesterday) Medical Record Reviewed: Yes Consults ordered or reviewed: medical consult appreciated Mental Status Examination - Cognitive Function Orientation: Person, Place, Situation, Time Memory: Intact, Other Attention: Poor Concentration: Poor Association: Loose Fund of Knowledge: WNL - Mood Mood: Depressed, Anxious - Affect Affect: Constricted, Flat - Speech Speech: Stammering (overproductive) - Formal Thought Process Formal Thought Process: Circumstantial, Other - Suicidal Ideation Suicidal Ideation: No - Homicidal Ideation Homicidal Ideation: No Goal/Treatment Plan - Goal/Treatment Plan Need for Continued Stay: Remain at risks for inpatient hospitalization, Severe depression anxiety, Discharge may exacerbated symptoms, Severe functional impairment Progress Toward Problem(s) and Goals/Treatment Plan: Milieu, structure, supportive therapy We will continue Depakote 500 mg twice a day for mood stabilization depakote level was done 05/10/17 77 Risperdal 1mg am and 2mg hs for psychosis benadryl 50mg hs prn for insomnia and possible EPS EKG was done 04/30/2017 QTC was 483, will consider to check it again ativan 0.5mg bid po for restlessness SW evaluation for possible NH placement, assisted living POA involvement medical f/u will monitor closely Estimated Date of D/C: 05/15/17 (will monitor closely)
[2017-05-12] MEDS: Multivitamin Therapeutic Tab PO SCH (09:04)
[2017-05-12] MEDS: Divalproex 500 mg DR(BID formulation) PO SCH ×2 (09:04→21:51)
--- NOTE | 2017-05-12 12:25 | PCM.PYCHPN ---
Psychiatric Progress Note - Psychiatric Progress Note Patient seen today, length of contact: 30min Patient Chief Complaint: "people are doing horrible things to me, not you but others, technology everywhere, they constantly talking to me, why me? what do you me why me?, i was not working, I had long hair, people thought I am hippie, I was smoking marijuana, look-look at my hand, da-da-da it could be electronics talking..." (pt has chronic psychosis, was not taking meds for years, now seems to have prominent psychotic symptoms. Problems Identified/Issues Discussed: Suicide/ homicide prevention, past psychiatric h/o, current psychiatric symptoms , medical problems, risk/benefits and alternatives of medications, medications compliance, coping strategies, substance abuse h/o, relapse prevention, importance of follow up with psychiatrist and therapist, discharge plan. 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, dressings changed hypertension hypercholesterolemia Diagnostic Results: Lab Results 05/03/17 07:00: Valproic Acid 90 05/03/17 07:00: Free T4 1.17, TSH 3rd Generation 0.45 L 05/03/17 07:00: Fasting Glucose 101, Triglycerides 105, Cholesterol 117 L, LDL Cholesterol Direct 52, HDL Cholesterol 45 Vital Signs Temp Pulse Resp BP 05/08/17 07:40 98.2 F 60 18 110/72 05/07/17 18:45 72 114/70 05/07/17 09:00 72 107/68 05/07/17 07:32 98.4 F 72 20 107/68 05/06/17 16:15 72 114/70 05/06/17 09:01 60 114/77 05/06/17 07:18 98.1 F 60 20 114/73 05/05/17 16:00 63 110/68 05/05/17 07:02 97.5 F L 70 20 126/74 05/04/17 16:22 84 107/69 05/04/17 08:11 70 109/71 05/03/17 15:00 79 101/67 05/03/17 07:00 97.4 F L 78 18 113/73 05/02/17 16:59 74 108/75 Temp Pulse Resp BP Pulse Ox 97.9 F 60 20 115/66 05/10/17 07:48 05/10/17 09:04 05/10/17 07:48 05/10/17 09:04 Laboratory Results - last 72 hr 05/10/17 07:30 Valproic Acid 77 Temp Pulse Resp BP Pulse Ox 98.5 F 73 20 115/69 05/11/17 07:32 05/11/17 16:30 05/11/17 07:32 05/11/17 16:30 DSM 5 Symptoms Update: Shortly patient is a 66 year old single male with history of schizoaffective disorder, multiple psychiatric admissions into this facility, patient has chronic noncompliance with the medications and follow-up appointments, 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 Please see Dr. Deshpande and Dr. Connell for more detailed information. pt was seen at treatment team meeting, much calmer after ativan was started, no new complaints, "people are doing horrible things to me, not you but others, technology everywhere, they constantly talking to me, why me? 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 pt compliant with meds, no side effects observed or reported, AIMS 0, no EPS. s per nursing saff reports, patient is compliant with the medications, no behavioral problems, patient still psychotic, no agitation, no aggression, patient quiet and staying in his room injurious of the times. Impression: schizoaffective disorder Medication Change: Yes (riseprdal increased, ativan increased) Medical Record Reviewed: Yes Consults ordered or reviewed: medical consult appreciated Mental Status Examination - Cognitive Function Orientation: Person, Place, Situation, Time Memory: Intact, Other Attention: Poor Concentration: Poor Association: Loose Fund of Knowledge: WNL - Mood Mood: Depressed, Anxious - Affect Affect: Constricted, Flat - Speech Speech: Stammering (overproductive) - Formal Thought Process Formal Thought Process: Hallucinations, Delusions, Paranoia, Loosening of associations, Circumstantial, Other - Suicidal Ideation Suicidal Ideation: No - Homicidal Ideation Homicidal Ideation: No Goal/Treatment Plan - Goal/Treatment Plan Need for Continued Stay: Remain at risks for inpatient hospitalization, Severe depression anxiety, Discharge may exacerbated symptoms, Severe functional impairment Progress Toward Problem(s) and Goals/Treatment Plan: Milieu, structure, supportive therapy We will continue Depakote 500 mg twice a day for mood stabilization depakote level was done 05/10/17 77 Risperdal 2mg am and 2mg hs for psychosis benadryl 50mg hs prn for insomnia and possible EPS EKG was done 04/30/2017 QTC was 483, will consider to check it again EKG for tomorrow ativan 0.5mg tid po for restlessness SW evaluation for possible NH placement, assisted living POA involvement medical f/u will monitor closely Estimated Date of D/C: 05/15/17 (will monitor closely)
[2017-05-13] MEDS: Multivitamin Therapeutic Tab PO SCH (07:56)
--- NOTE | 2017-05-13 09:27 | CARD ---
APPROVED REPORT EKG Measurement Heart [id number] <Conclusion> Electronic ventricular pacemaker
[2017-05-13] MEDS: Divalproex 500 mg DR(BID formulation) PO SCH ×2 (13:59→21:31)
--- NOTE | 2017-05-13 14:26 | PCM.PYCHPN ---
Psychiatric Progress Note - Psychiatric Progress Note Patient seen today, length of contact: 30min Patient Chief Complaint: "people are doing horrible things to me, technology everywhere" Problems Identified/Issues Discussed: Suicide/ homicide prevention, past psychiatric h/o, current psychiatric symptoms , medical problems, risk/benefits and alternatives of medications, medications compliance, coping strategies, substance abuse h/o, relapse prevention, importance of follow up with psychiatrist and therapist, discharge plan. 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, dressings changed hypertension hypercholesterolemia Diagnostic Results: Lab Results 05/03/17 07:00: Valproic Acid 90 05/03/17 07:00: Free T4 1.17, TSH 3rd Generation 0.45 L 05/03/17 07:00: Fasting Glucose 101, Triglycerides 105, Cholesterol 117 L, LDL Cholesterol Direct 52, HDL Cholesterol 45 Vital Signs Temp Pulse Resp BP 05/08/17 07:40 98.2 F 60 18 110/72 05/07/17 18:45 72 114/70 05/07/17 09:00 72 107/68 05/07/17 07:32 98.4 F 72 20 107/68 05/06/17 16:15 72 114/70 05/06/17 09:01 60 114/77 05/06/17 07:18 98.1 F 60 20 114/73 05/05/17 16:00 63 110/68 05/05/17 07:02 97.5 F L 70 20 126/74 05/04/17 16:22 84 107/69 05/04/17 08:11 70 109/71 05/03/17 15:00 79 101/67 05/03/17 07:00 97.4 F L 78 18 113/73 05/02/17 16:59 74 108/75 Temp Pulse Resp BP Pulse Ox 97.9 F 60 20 115/66 05/10/17 07:48 05/10/17 09:04 05/10/17 07:48 05/10/17 09:04 Laboratory Results - last 72 hr 05/10/17 07:30 Valproic Acid 77 Temp Pulse Resp BP Pulse Ox 98.5 F 73 20 115/69 05/11/17 07:32 05/11/17 16:30 05/11/17 07:32 05/11/17 16:30 Temp Pulse Resp BP Pulse Ox 97.9 F 67 20 109/72 05/13/17 10:15 05/13/17 10:15 05/13/17 10:15 05/13/17 10:15 EKG was done 05/13/17 QTc 430 WNL DSM 5 Symptoms Update: Shortly patient is a 66 year old single male with history of schizoaffective disorder, multiple psychiatric admissions into this facility, patient has chronic noncompliance with the medications and follow-up appointments, 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 Please see Dr. Deshpande and Dr. Connell for more detailed information. pt was seen at treatment team meeting room, much calmer pt was interviewed by L[facility] Rudolph, discussed case with them, seems pt will be not accepted "we want to be sure that we will be proper facility for him", pt still has psychotic symptoms, was anxious after the intervie. pt compliant with meds, no side effects observed or reported, AIMS 0, no EPS. s per nursing saff reports, patient is compliant with the medications, no behavioral problems, patient still psychotic, no agitation, no aggression, patient quiet and staying in his room injurious of the times. Impression: schizoaffective disorder Medication Change: No (riseprdal increased, ativan increased yesterday) Medical Record Reviewed: Yes Consults ordered or reviewed: medical consult appreciated Mental Status Examination - Cognitive Function Orientation: Person, Place, Situation, Time Memory: Intact, Other Attention: Poor Concentration: Poor Association: Loose Fund of Knowledge: WNL - Mood Mood: Depressed, Anxious - Affect Affect: Constricted, Flat - Speech Speech: Stammering (overproductive) - Formal Thought Process Formal Thought Process: Hallucinations, Delusions, Paranoia, Loosening of associations, Circumstantial, Other - Suicidal Ideation Suicidal Ideation: No - Homicidal Ideation Homicidal Ideation: No Goal/Treatment Plan - Goal/Treatment Plan Need for Continued Stay: Remain at risks for inpatient hospitalization, Severe depression anxiety, Discharge may exacerbated symptoms, Severe functional impairment Progress Toward Problem(s) and Goals/Treatment Plan: Milieu, structure, supportive therapy We will continue Depakote 500 mg twice a day for mood stabilization depakote level was done 05/10/17 77 Risperdal 2mg am and 2mg hs for psychosis benadryl 50mg hs prn for insomnia and possible EPS EKG was done 04/30/2017 QTC was 483, 05/13/17 430 WNL ativan 0.5mg tid po for restlessness SW evaluation for possible NH placement, assisted living POA involvement medical f/u will monitor closely Estimated Date of D/C: 05/15/17 (will monitor closely)
[2017-05-14] MEDS: Multivitamin Therapeutic Tab PO SCH (08:53)
[2017-05-14] MEDS: Divalproex 500 mg DR(BID formulation) PO SCH ×3 (08:54→21:26)
--- NOTE | 2017-05-14 15:22 | PCM.PYCHPN ---
Psychiatric Progress Note - Psychiatric Progress Note Patient seen today, length of contact: 30min Patient Chief Complaint: "people are doing horrible things to me, technology everywhere" Problems Identified/Issues Discussed: Suicide/ homicide prevention, past psychiatric h/o, current psychiatric symptoms , medical problems, risk/benefits and alternatives of medications, medications compliance, coping strategies, substance abuse h/o, relapse prevention, importance of follow up with psychiatrist and therapist, discharge plan. 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, dressings changed hypertension hypercholesterolemia Diagnostic Results: Lab Results 05/03/17 07:00: Valproic Acid 90 05/03/17 07:00: Free T4 1.17, TSH 3rd Generation 0.45 L 05/03/17 07:00: Fasting Glucose 101, Triglycerides 105, Cholesterol 117 L, LDL Cholesterol Direct 52, HDL Cholesterol 45 Vital Signs Temp Pulse Resp BP 05/08/17 07:40 98.2 F 60 18 110/72 05/07/17 18:45 72 114/70 05/07/17 09:00 72 107/68 05/07/17 07:32 98.4 F 72 20 107/68 05/06/17 16:15 72 114/70 05/06/17 09:01 60 114/77 05/06/17 07:18 98.1 F 60 20 114/73 05/05/17 16:00 63 110/68 05/05/17 07:02 97.5 F L 70 20 126/74 05/04/17 16:22 84 107/69 05/04/17 08:11 70 109/71 05/03/17 15:00 79 101/67 05/03/17 07:00 97.4 F L 78 18 113/73 05/02/17 16:59 74 108/75 Temp Pulse Resp BP Pulse Ox 97.9 F 60 20 115/66 05/10/17 07:48 05/10/17 09:04 05/10/17 07:48 05/10/17 09:04 Laboratory Results - last 72 hr 05/10/17 07:30 Valproic Acid 77 Temp Pulse Resp BP Pulse Ox 98.5 F 73 20 115/69 05/11/17 07:32 05/11/17 16:30 05/11/17 07:32 05/11/17 16:30 Temp Pulse Resp BP Pulse Ox 97.9 F 67 20 109/72 05/13/17 10:15 05/13/17 10:15 05/13/17 10:15 05/13/17 10:15 EKG was done 05/13/17 QTc 430 WNL Temp Pulse Resp BP Pulse Ox 98.6 F 74 20 140/91 H 05/14/17 07:42 05/14/17 08:54 05/14/17 07:42 05/14/17 08:54 DSM 5 Symptoms Update: Shortly patient is a 66 year old single male with history of schizoaffective disorder, multiple psychiatric admissions into this facility, patient has chronic noncompliance with the medications and follow-up appointments, patient has power overturn the with 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 Please see Dr. Deshpande and Dr. Connell for more detailed information. pt was seen in his room, much calmer pt was interviewed by [facility] yesterday, pt was not accepted, at present moment SW working with another resident care assistant living facility. pt still paranoid, feels that due to current technologies he is monitored and hears some people are talking "it is not psychosis, these people are real". pt compliant with meds, no side effects observed or reported, AIMS 0, no EPS. s per nursing staff reports, patient is compliant with the medications, no behavioral problems, patient still psychotic, no agitation, no aggression, patient quiet and staying in his room majority of the times. Impression: schizoaffective disorder Medication Change: No Medical Record Reviewed: Yes Consults ordered or reviewed: medical consult appreciated Mental Status Examination - Cognitive Function Orientation: Person, Place, Situation, Time Memory: Intact, Other Attention: Poor Concentration: Poor Association: Loose Fund of Knowledge: WNL - Mood Mood: Depressed, Anxious - Affect Affect: Constricted, Flat - Speech Speech: Stammering (overproductive) - Formal Thought Process Formal Thought Process: Hallucinations, Delusions, Paranoia, Loosening of associations, Circumstantial, Other - Suicidal Ideation Suicidal Ideation: No - Homicidal Ideation Homicidal Ideation: No Goal/Treatment Plan - Goal/Treatment Plan Need for Continued Stay: Remain at risks for inpatient hospitalization, Severe depression anxiety, Discharge may exacerbated symptoms, Severe functional impairment Progress Toward Problem(s) and Goals/Treatment Plan: Milieu, structure, supportive therapy We will continue Depakote 500 mg twice a day for mood stabilization depakote level was done 05/10/17 77 Risperdal 2mg am and 2mg hs for psychosis benadryl 50mg hs prn for insomnia and possible EPS EKG was done 04/30/2017 QTC was 483, 05/13/17 430 WNL ativan 0.5mg tid po for restlessness SW evaluation for possible NH placement, assisted living POA involvement medical f/u will monitor closely Estimated Date of D/C: 05/15/17 (will monitor closely)
[2017-05-15] MEDS: Multivitamin Therapeutic Tab PO SCH (08:59)
[2017-05-15] MEDS: Divalproex 500 mg DR(BID formulation) PO SCH ×2 (09:03→21:30)
--- NOTE | 2017-05-15 16:07 | PCM.PYCHPN ---
Psychiatric Progress Note - Psychiatric Progress Note Patient seen today, length of contact: 30min Patient Chief Complaint: "please repeat what my options are?" Problems Identified/Issues Discussed: Suicide/ homicide prevention, past psychiatric h/o, current psychiatric symptoms , medical problems, risk/benefits and alternatives of medications, medications compliance, coping strategies, substance abuse h/o, relapse prevention, importance of follow up with psychiatrist and therapist, discharge plan. 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, dressings changed hypertension hypercholesterolemia Diagnostic Results: Lab Results 05/03/17 07:00: Valproic Acid 90 05/03/17 07:00: Free T4 1.17, TSH 3rd Generation 0.45 L 05/03/17 07:00: Fasting Glucose 101, Triglycerides 105, Cholesterol 117 L, LDL Cholesterol Direct 52, HDL Cholesterol 45 Vital Signs Temp Pulse Resp BP 05/08/17 07:40 98.2 F 60 18 110/72 05/07/17 18:45 72 114/70 05/07/17 09:00 72 107/68 05/07/17 07:32 98.4 F 72 20 107/68 05/06/17 16:15 72 114/70 05/06/17 09:01 60 114/77 05/06/17 07:18 98.1 F 60 20 114/73 05/05/17 16:00 63 110/68 05/05/17 07:02 97.5 F L 70 20 126/74 05/04/17 16:22 84 107/69 05/04/17 08:11 70 109/71 05/03/17 15:00 79 101/67 05/03/17 07:00 97.4 F L 78 18 113/73 05/02/17 16:59 74 108/75 Temp Pulse Resp BP Pulse Ox 97.9 F 60 20 115/66 05/10/17 07:48 05/10/17 09:04 05/10/17 07:48 05/10/17 09:04 Laboratory Results - last 72 hr 05/10/17 07:30 Valproic Acid 77 Temp Pulse Resp BP Pulse Ox 98.5 F 73 20 115/69 05/11/17 07:32 05/11/17 16:30 05/11/17 07:32 05/11/17 16:30 Temp Pulse Resp BP Pulse Ox 97.9 F 67 20 109/72 05/13/17 10:15 05/13/17 10:15 05/13/17 10:15 05/13/17 10:15 EKG was done 05/13/17 QTc 430 WNL Temp Pulse Resp BP Pulse Ox 98.6 F 74 20 140/91 H 05/14/17 07:42 05/14/17 08:54 05/14/17 07:42 05/14/17 08:54 Temp Pulse Resp BP Pulse Ox 98.1 F 68 20 117/72 05/15/17 07:16 05/15/17 09:00 05/15/17 07:16 05/15/17 09:00 DSM 5 Symptoms Update: Shortly patient is a 66 year old single male with history of schizoaffective disorder, multiple psychiatric admissions into this facility, patient has chronic noncompliance with the medications and follow-up appointments, 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 Please see Dr. Deshpande and Dr. Connell for more detailed information. pt was seen at the treatment team meeting, thought process is better organized, pt was interviewed by [facility], was not accepted because pt is relatively high functioning. Pt was educated about d/c plan options: PACT team will f/u pt in the community vs Boarding home, pt asked to think about it. besides that pt presented better, asked reasonable questions. pt still paranoid, feels that due to current technologies he is monitored and hears some people are talking "it is not psychosis, these people are real". chronic, tx resistant psychosis. pt compliant with meds, no side effects observed or reported, AIMS 0, no EPS. s per nursing staff reports, patient is compliant with the medications, no behavioral problems, patient still psychotic, no agitation, no aggression, patient quiet and staying in his room majority of the times. Impression: schizoaffective disorder Medication Change: No Medical Record Reviewed: Yes Consults ordered or reviewed: medical consult appreciated Mental Status Examination - Cognitive Function Orientation: Person, Place, Situation, Time Memory: Intact, Other Attention: Poor (somewhat better) Concentration: Poor (somewhat better) Association: Loose (some improvement) Fund of Knowledge: WNL - Mood Mood: Depressed (better), Anxious (better) - Affect Affect: Constricted, Flat - Speech Speech: Stammering (overproductive) - Formal Thought Process Formal Thought Process: Hallucinations (some improvement), Delusions (some improvement), Paranoia (some improvement), Loosening of associations (some improvement), Circumstantial (some improvement) - Suicidal Ideation Suicidal Ideation: No - Homicidal Ideation Homicidal Ideation: No Goal/Treatment Plan - Goal/Treatment Plan Need for Continued Stay: Remain at risks for inpatient hospitalization, Severe depression anxiety, Discharge may exacerbated symptoms, Severe functional impairment Progress Toward Problem(s) and Goals/Treatment Plan: Milieu, structure, supportive therapy We will continue Depakote 500 mg twice a day for mood stabilization depakote level was done 05/10/17 77 Risperdal 2mg am and 2mg hs for psychosis benadryl 50mg hs prn for insomnia and possible EPS EKG was done 04/30/2017 QTC was 483, 05/13/17 430 WNL ativan 0.5mg tid po for restlessness SW evaluation for possible NH placement, assisted living POA involvement medical f/u will monitor closely pt was not accepted by assisted living facilities. Estimated Date of D/C: 05/18/17 (no solid d/c plan)
[2017-05-16] MEDS: Multivitamin Therapeutic Tab PO SCH (08:09)
[2017-05-16] MEDS: Divalproex 500 mg DR(BID formulation) PO SCH ×2 (10:57→22:06)
--- NOTE | 2017-05-16 12:15 | PCM.PYCHPN ---
Psychiatric Progress Note - Psychiatric Progress Note Patient seen today, length of contact: 30min Patient Chief Complaint: "I am fine, I want to go to the Boarding home". Problems Identified/Issues Discussed: Suicide/ homicide prevention, past psychiatric h/o, current psychiatric symptoms , medical problems, risk/benefits and alternatives of medications, medications compliance, coping strategies, substance abuse h/o, relapse prevention, importance of follow up with psychiatrist and therapist, discharge plan. 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, dressings changed hypertension hypercholesterolemia Diagnostic Results: Lab Results 05/03/17 07:00: Valproic Acid 90 05/03/17 07:00: Free T4 1.17, TSH 3rd Generation 0.45 L 05/03/17 07:00: Fasting Glucose 101, Triglycerides 105, Cholesterol 117 L, LDL Cholesterol Direct 52, HDL Cholesterol 45 Vital Signs Temp Pulse Resp BP 05/08/17 07:40 98.2 F 60 18 110/72 05/07/17 18:45 72 114/70 05/07/17 09:00 72 107/68 05/07/17 07:32 98.4 F 72 20 107/68 05/06/17 16:15 72 114/70 05/06/17 09:01 60 114/77 05/06/17 07:18 98.1 F 60 20 114/73 05/05/17 16:00 63 110/68 05/05/17 07:02 97.5 F L 70 20 126/74 05/04/17 16:22 84 107/69 05/04/17 08:11 70 109/71 05/03/17 15:00 79 101/67 05/03/17 07:00 97.4 F L 78 18 113/73 05/02/17 16:59 74 108/75 Temp Pulse Resp BP Pulse Ox 97.9 F 60 20 115/66 05/10/17 07:48 05/10/17 09:04 05/10/17 07:48 05/10/17 09:04 Laboratory Results - last 72 hr 05/10/17 07:30 Valproic Acid 77 Temp Pulse Resp BP Pulse Ox 98.5 F 73 20 115/69 05/11/17 07:32 05/11/17 16:30 05/11/17 07:32 05/11/17 16:30 Temp Pulse Resp BP Pulse Ox 97.9 F 67 20 109/72 05/13/17 10:15 05/13/17 10:15 05/13/17 10:15 05/13/17 10:15 EKG was done 05/13/17 QTc 430 WNL Temp Pulse Resp BP Pulse Ox 98.6 F 74 20 140/91 H 05/14/17 07:42 05/14/17 08:54 05/14/17 07:42 05/14/17 08:54 Temp Pulse Resp BP Pulse Ox 98.1 F 68 20 117/72 05/15/17 07:16 05/15/17 09:00 05/15/17 07:16 05/15/17 09:00 DSM 5 Symptoms Update: Shortly patient is a 66 year old single male with history of schizoaffective disorder, multiple psychiatric admissions into this facility, patient has chronic noncompliance with the medications and follow-up appointments, patient has power 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 Please see Dr. Desphande and Dr. Connell for more detailed information. pt was seen in his room, thought process is better organized, pt wants to be discharged to the boarding home. besides that pt presented better, asked reasonable questions, pt still paranoid , feels that due to current technologies he is monitored and hears some people are talking "it is not psychosis, these people are real". chronic, tx resistant psychosis. pt compliant with meds, no side effects observed or reported, AIMS 0, no EPS. as per nursing staff reports, patient is compliant with the medications, no behavioral problems, patient still psychotic, no agitation, no aggression, patient quiet and staying in his room majority of the times. Impression: schizoaffective disorder Medication Change: No Medical Record Reviewed: Yes Consults ordered or reviewed: medical consult appreciated Mental Status Examination - Cognitive Function Orientation: Person, Place, Situation, Time Memory: Intact, Other Attention: Poor (somewhat better) Concentration: Poor (somewhat better) Association: Loose (some improvement) Fund of Knowledge: WNL - Mood Mood: Depressed (better), Anxious (better) - Affect Affect: Constricted, Flat - Speech Speech: Stammering (overproductive) - Formal Thought Process Formal Thought Process: Hallucinations (some improvement), Delusions (some improvement), Paranoia (some improvement), Loosening of associations (some improvement), Circumstantial (some improvement) - Suicidal Ideation Suicidal Ideation: No - Homicidal Ideation Homicidal Ideation: No Goal/Treatment Plan - Goal/Treatment Plan Need for Continued Stay: Remain at risks for inpatient hospitalization, Severe depression anxiety, Discharge may exacerbated symptoms, Severe functional impairment Progress Toward Problem(s) and Goals/Treatment Plan: Milieu, structure, supportive therapy Depakote 500 mg twice a day for mood stabilization depakote level was done 05/10/17 77 Risperdal 2mg am and 2mg hs for psychosis benadryl 50mg hs prn for insomnia and possible EPS EKG was done 04/30/2017 QTC was 483, 05/13/17 430 WNL ativan 0.5mg tid po for restlessness SW most likely will refer pt to the [facility] POA involvement medical f/u will monitor closely pt was not accepted by assisted living facilities. Estimated Date of D/C: 05/18/17 (no solid d/c plan)
[2017-05-17 01:31] VITALS: O2SAT 80
[2017-05-17] MEDS: Multivitamin Therapeutic Tab PO SCH (08:19)
[2017-05-17] MEDS: Divalproex 500 mg DR(BID formulation) PO SCH ×2 (10:49→21:19)
--- NOTE | 2017-05-17 11:25 | PCM.PYCHPN ---
Psychiatric Progress Note - Psychiatric Progress Note Patient seen today, length of contact: 30min Patient Chief Complaint: "I am fine, I want to go to the Boarding home, will Haydee talk to me tomorrow? , is any doctors working in there?". Problems Identified/Issues Discussed: Suicide/ homicide prevention, past psychiatric h/o, current psychiatric symptoms , medical problems, risk/benefits and alternatives of medications, medications compliance, coping strategies, substance abuse h/o, relapse prevention, importance of follow up with psychiatrist and therapist, discharge plan. 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, dressings changed hypertension hypercholesterolemia Diagnostic Results: Lab Results 05/03/17 07:00: Valproic Acid 90 05/03/17 07:00: Free T4 1.17, TSH 3rd Generation 0.45 L 05/03/17 07:00: Fasting Glucose 101, Triglycerides 105, Cholesterol 117 L, LDL Cholesterol Direct 52, HDL Cholesterol 45 Vital Signs Temp Pulse Resp BP 05/08/17 07:40 98.2 F 60 18 110/72 05/07/17 18:45 72 114/70 05/07/17 09:00 72 107/68 05/07/17 07:32 98.4 F 72 20 107/68 05/06/17 16:15 72 114/70 05/06/17 09:01 60 114/77 05/06/17 07:18 98.1 F 60 20 114/73 05/05/17 16:00 63 110/68 05/05/17 07:02 97.5 F L 70 20 126/74 05/04/17 16:22 84 107/69 05/04/17 08:11 70 109/71 05/03/17 15:00 79 101/67 05/03/17 07:00 97.4 F L 78 18 113/73 05/02/17 16:59 74 108/75 Temp Pulse Resp BP Pulse Ox 97.9 F 60 20 115/66 05/10/17 07:48 05/10/17 09:04 05/10/17 07:48 05/10/17 09:04 Laboratory Results - last 72 hr 05/10/17 07:30 Valproic Acid 77 Temp Pulse Resp BP Pulse Ox 98.5 F 73 20 115/69 05/11/17 07:32 05/11/17 16:30 05/11/17 07:32 05/11/17 16:30 Temp Pulse Resp BP Pulse Ox 97.9 F 67 20 109/72 05/13/17 10:15 05/13/17 10:15 05/13/17 10:15 05/13/17 10:15 EKG was done 05/13/17 QTc 430 WNL Temp Pulse Resp BP Pulse Ox 98.6 F 74 20 140/91 H 05/14/17 07:42 05/14/17 08:54 05/14/17 07:42 05/14/17 08:54 Temp Pulse Resp BP Pulse Ox 98.1 F 68 20 117/72 05/15/17 07:16 05/15/17 09:00 05/15/17 07:16 05/15/17 09:00 Temp Pulse Resp BP Pulse Ox 98.4 F 69 18 110/69 80 L 05/17/17 06:47 05/17/17 06:47 05/17/17 06:47 05/17/17 06:47 05/17/17 01:31 DSM 5 Symptoms Update: Shortly patient is a 66 year old single male with history of schizoaffective disorder, multiple psychiatric admissions into this facility, patient has chronic noncompliance with the medications and follow-up appointments, 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 Please see Dr. Deshpande and Dr. Connell for more detailed information. pt was seen in his room, thought process is better organized, pt wants to be discharged to the boarding home, was asking reasonable and relative questions for example: "I am fine, I want to go to the Boarding home, will Haydee talk to me tomorrow?, is any doctors working in there?". pt has tx resistant psychosis/delusions: "due to current technologies people are monitoring and talking to me, it is not psychosis, these people are real". pt compliant with meds, no side effects observed or reported, AIMS 0, no EPS. as per nursing staff reports, patient is compliant with the medications, no behavioral problems, patient still psychotic, no agitation, no aggression, patient quiet and staying in his room majority of the times. Impression: schizoaffective disorder Medication Change: No Medical Record Reviewed: Yes Consults ordered or reviewed: medical consult appreciated Mental Status Examination - Cognitive Function Orientation: Person, Place, Situation, Time Memory: Intact, Other Attention: Poor (somewhat better) Concentration: Poor (somewhat better) Association: Loose (some improvement) Fund of Knowledge: WNL - Mood Mood: Depressed (better), Anxious (better) - Affect Affect: Constricted, Flat - Speech Speech: Stammering (overproductive) - Formal Thought Process Formal Thought Process: Hallucinations (some improvement), Delusions (some improvement), Paranoia (some improvement), Loosening of associations (some improvement), Circumstantial (some improvement) - Suicidal Ideation Suicidal Ideation: No - Homicidal Ideation Homicidal Ideation: No Goal/Treatment Plan - Goal/Treatment Plan Need for Continued Stay: Remain at risks for inpatient hospitalization, Severe depression anxiety, Discharge may exacerbated symptoms, Severe functional impairment Progress Toward Problem(s) and Goals/Treatment Plan: Milieu, structure, supportive therapy Depakote 500 mg twice a day for mood stabilization depakote level was done 05/10/17 77 Risperdal 2mg am and 2mg hs for psychosis benadryl 50mg hs prn for insomnia and possible EPS EKG was done 04/30/2017 QTC was 483, 05/13/17 430 WNL ativan 0.5mg tid po for restlessness SW most likely will refer pt to the [facility] POA involvement medical f/u will monitor closely pt was not accepted by assisted living facilities. Estimated Date of D/C: 05/18/17 (no solid d/c plan)
[2017-05-18] MEDS: Divalproex 500 mg DR(BID formulation) PO SCH ×3 (08:47→22:10)
[2017-05-18] MEDS: Multivitamin Therapeutic Tab PO SCH (08:50)
--- NOTE | 2017-05-18 10:48 | PCM.BM ---
<Iggy Figueroa - Last Filed: 05/18/17 10:44> Treatment Plan Problems - Problems identified on initial assessmt Delusions Date Initiated: 05/02/17 Time Initiated: 12:00 Assessment reference: NA Status: Active depression Date Initiated: 05/02/17 Time Initiated: 12:00 Assessment reference: NA Status: Active hallucinations Date Initiated: 05/02/17 Time Initiated: 12:00 Date resolved: 05/18/17 Assessment reference: NA Status: Active Treatment assets and liabiliti Patient Assests: cooperative, negotiates basic needs Patient Liabilities: live alone, poor support system, medical problems - Milieu Protocol Maintain good personal hygiene: daily Encourage regular showers, daily Remind patient to perform daily oral care, daily Assist patient to perform ADL's Maintain personal safety: daily Educate patient to report safety concerns to staff, daily Monitor environment for contraband/sharps Medication safety: Monitor for expected outcome, potential side effects: daily, Assess barriers to learning: daily, Assess readiness for medication education: daily Milieu Narrative: Milieu, structure, supportive therapy Depakote 500 mg twice a day for mood stabilization depakote level was done 05/10/17 77 Risperdal 2mg am and 2mg hs for psychosis benadryl 50mg hs prn for insomnia and possible EPS EKG was done 04/30/2017 QTC was 483, 05/13/17 430 WNL ativan 0.5mg tid po for restlessness SW most likely will refer pt to the Boarding home POA involvement medical f/u will monitor closely pt was not accepted by assisted living facilities. Family Contact Family involvement: Family/SO is involved Family contact comment: Patient had Medical POA, Mr. Fischer, Esq. who relinquished his responsibilities as pt's Health Care Proxy. - Goals for Treatment Patient goals for treatment: "I don't know, you tell me." Discharge/Continuing Care - Education Needs Education Needs: Family Medication, Family Diagnosis/Disease Process, Family Activities of Daily Living, Family Health Practices/Safety, Family Personal Hygiene/Grooming, Patient Coping Skills, Patient Community resources, Patient Nutrition, Patient Aftercare Safety Plan - Discharge Discharge Criteria: Tolerates medication w/o severe side effects, Free of Suicidal thoughts, Free of paranoid thoughts, Normal sleep pattern Discharge to:: Home - Additional Comments Milieu, structure, supportive therapy Depakote 500 mg twice a day for mood stabilization depakote level was done 05/10/17 77 Risperdal 2mg am and 2mg hs for psychosis benadryl 50mg hs prn for insomnia and possible EPS EKG was done 04/30/2017 QTC was 483, 05/13/17 430 WNL ativan 0.5mg tid po for restlessness SW most likely will refer pt to the Boarding home POA involvement medical f/u will monitor closely pt was not accepted by assisted living facilities. - Treatment Team Participation Patient/Family/SO Statement: Milieu, structure, supportive therapy Depakote 500 mg twice a day for mood stabilization depakote level was done 05/10/17 77 Risperdal 2mg am and 2mg hs for psychosis benadryl 50mg hs prn for insomnia and possible EPS EKG was done 04/30/2017 QTC was 483, 05/13/17 430 WNL ativan 0.5mg tid po for restlessness SW most likely will refer pt [facility] POA involvement medical f/u will monitor closely pt was not accepted by assisted living facilities. Discussed with Family/SO: No Was Patient/Family/SO present at Treatment Team Meeting: No <Taisha Saleh - Last Filed: 05/18/17 15:28> - Diagnosis (1) Schizoaffective disorder Status: Chronic Interventions: 05/18/17 15:28 Psychoeducation/psychotherapy Psychopharmacology/adjustment of medications as needed/ monitoring possible side effects Evaluate pt on daily basis Compliance with medications and follow up appointments Long acting medication if pt is noncompliant with pill form Suicide and homicide risk assessment and prevention, coping strategies, safety plan Relapse prevention Reduction of symptoms Improve functional status Possible assertive community treatment Cognitive behavioral therapy Family intervention Possible social skill training as outpatient <Elizabet Monet - Last Filed: 05/19/17 09:24>
--- NOTE | 2017-05-18 15:37 | PCM.PYCHPN ---
Psychiatric Progress Note - Psychiatric Progress Note Patient seen today, length of contact: 30min Patient Chief Complaint: "I am fine, I want to go to the Boarding home". Problems Identified/Issues Discussed: Suicide/ homicide prevention, past psychiatric h/o, current psychiatric symptoms , medical problems, risk/benefits and alternatives of medications, medications compliance, coping strategies, substance abuse h/o, relapse prevention, importance of follow up with psychiatrist and therapist, discharge plan. 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, dressings changed hypertension hypercholesterolemia Diagnostic Results: Lab Results 05/03/17 07:00: Valproic Acid 90 05/03/17 07:00: Free T4 1.17, TSH 3rd Generation 0.45 L 05/03/17 07:00: Fasting Glucose 101, Triglycerides 105, Cholesterol 117 L, LDL Cholesterol Direct 52, HDL Cholesterol 45 Vital Signs Temp Pulse Resp BP 05/08/17 07:40 98.2 F 60 18 110/72 05/07/17 18:45 72 114/70 05/07/17 09:00 72 107/68 05/07/17 07:32 98.4 F 72 20 107/68 05/06/17 16:15 72 114/70 05/06/17 09:01 60 114/77 05/06/17 07:18 98.1 F 60 20 114/73 05/05/17 16:00 63 110/68 05/05/17 07:02 97.5 F L 70 20 126/74 05/04/17 16:22 84 107/69 05/04/17 08:11 70 109/71 05/03/17 15:00 79 101/67 05/03/17 07:00 97.4 F L 78 18 113/73 05/02/17 16:59 74 108/75 Temp Pulse Resp BP Pulse Ox 97.9 F 60 20 115/66 05/10/17 07:48 05/10/17 09:04 05/10/17 07:48 05/10/17 09:04 Laboratory Results - last 72 hr 05/10/17 07:30 Valproic Acid 77 Temp Pulse Resp BP Pulse Ox 98.5 F 73 20 115/69 05/11/17 07:32 05/11/17 16:30 05/11/17 07:32 05/11/17 16:30 Temp Pulse Resp BP Pulse Ox 97.9 F 67 20 109/72 05/13/17 10:15 05/13/17 10:15 05/13/17 10:15 05/13/17 10:15 EKG was done 05/13/17 QTc 430 WNL Temp Pulse Resp BP Pulse Ox 98.6 F 74 20 140/91 H 05/14/17 07:42 05/14/17 08:54 05/14/17 07:42 05/14/17 08:54 Temp Pulse Resp BP Pulse Ox 98.1 F 68 20 117/72 05/15/17 07:16 05/15/17 09:00 05/15/17 07:16 05/15/17 09:00 Temp Pulse Resp BP Pulse Ox 98.4 F 69 18 110/69 80 L 05/17/17 06:47 05/17/17 06:47 05/17/17 06:47 05/17/17 06:47 05/17/17 01:31 DSM 5 Symptoms Update: Shortly patient is a 66 year old single male with history of schizoaffective disorder, multiple psychiatric admissions into this facility, patient has chronic noncompliance with the medications and follow-up appointments, patient has power overturn the with his sports physical therapist, initially patient was admitted to ICU for evaluation of bradycardia, patient had pacemaker placed , medically stabilized, was transferred to the psychiatric inpatient unit for evaluation and stabilization of psychotic symptoms, inability to function, worsening of manic symptoms, patient needs further evaluation and stabilization , medication titration. Please see Dr. Deshpande and Dr. Connell for more detailed information. pt was seen at the treatment team room, discussed d/c options, pt had difficulties to make decision, but with a lot of support and explanation pt chose to go to the boarding home. pt has tx resistant psychosis/delusions: "you don't know about voices you asking , due to current technologies people are monitoring and talking to me, it is not psychosis, these people are real". pt compliant with meds, no side effects observed or reported, AIMS 0, no EPS. as per nursing staff reports, patient is compliant with the medications, no behavioral problems, patient still psychotic, no agitation, no aggression, patient quiet and staying in his room majority of the times, deeply sleeping, then pt convinced that he did not sleep. Impression: schizoaffective disorder Medication Change: No Medical Record Reviewed: Yes Consults ordered or reviewed: medical consult appreciated Mental Status Examination - Cognitive Function Orientation: Person, Place, Situation, Time Memory: Intact, Other Attention: Poor (somewhat better) Concentration: Poor (somewhat better) Association: Loose (some improvement) Fund of Knowledge: WNL - Mood Mood: Depressed (better), Anxious (better) - Affect Affect: Constricted, Flat - Speech Speech: Stammering (overproductive) - Formal Thought Process Formal Thought Process: Hallucinations (some improvement), Delusions (some improvement), Paranoia (some improvement), Loosening of associations (some improvement), Circumstantial (some improvement) - Suicidal Ideation Suicidal Ideation: No - Homicidal Ideation Homicidal Ideation: No Goal/Treatment Plan - Goal/Treatment Plan Need for Continued Stay: Remain at risks for inpatient hospitalization, Severe depression anxiety, Discharge may exacerbated symptoms, Severe functional impairment Progress Toward Problem(s) and Goals/Treatment Plan: Milieu, structure, supportive therapy Depakote 500 mg twice a day for mood stabilization depakote level was done 05/10/17 77 Risperdal 2mg am and 2mg hs for psychosis benadryl 50mg hs prn for insomnia and possible EPS EKG was done 04/30/2017 QTC was 483, 05/13/17 430 WNL ativan 0.5mg tid po for restlessness SW most likely will refer pt to the [facility] POA involvement medical f/u will monitor closely pt was not accepted by assisted living facilities. Estimated Date of D/C: 05/22/17 (no solid d/c plan)
[2017-05-19] MEDS: Multivitamin Therapeutic Tab PO SCH (09:30)
[2017-05-19] MEDS: Divalproex 500 mg DR(BID formulation) PO SCH ×2 (09:30→21:44)
--- NOTE | 2017-05-19 14:04 | PCM.PYCHPN ---
Psychiatric Progress Note - Psychiatric Progress Note Patient seen today, length of contact: 30min Patient Chief Complaint: "I am anxious, with review my notes, people from boarding home are coming today " Problems Identified/Issues Discussed: Suicide/ homicide prevention, past psychiatric h/o, current psychiatric symptoms , medical problems, risk/benefits and alternatives of medications, medications compliance, coping strategies, substance abuse h/o, relapse prevention, importance of follow up with psychiatrist and therapist, discharge plan. 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, dressings changed hypertension hypercholesterolemia Diagnostic Results: Lab Results 05/03/17 07:00: Valproic Acid 90 05/03/17 07:00: Free T4 1.17, TSH 3rd Generation 0.45 L 05/03/17 07:00: Fasting Glucose 101, Triglycerides 105, Cholesterol 117 L, LDL Cholesterol Direct 52, HDL Cholesterol 45 Vital Signs Temp Pulse Resp BP 05/08/17 07:40 98.2 F 60 18 110/72 05/07/17 18:45 72 114/70 05/07/17 09:00 72 107/68 05/07/17 07:32 98.4 F 72 20 107/68 05/06/17 16:15 72 114/70 05/06/17 09:01 60 114/77 05/06/17 07:18 98.1 F 60 20 114/73 05/05/17 16:00 63 110/68 05/05/17 07:02 97.5 F L 70 20 126/74 05/04/17 16:22 84 107/69 05/04/17 08:11 70 109/71 05/03/17 15:00 79 101/67 05/03/17 07:00 97.4 F L 78 18 113/73 05/02/17 16:59 74 108/75 Temp Pulse Resp BP Pulse Ox 97.9 F 60 20 115/66 05/10/17 07:48 05/10/17 09:04 05/10/17 07:48 05/10/17 09:04 Laboratory Results - last 72 hr 05/10/17 07:30 Valproic Acid 77 Temp Pulse Resp BP Pulse Ox 98.5 F 73 20 115/69 05/11/17 07:32 05/11/17 16:30 05/11/17 07:32 05/11/17 16:30 Temp Pulse Resp BP Pulse Ox 97.9 F 67 20 109/72 05/13/17 10:15 05/13/17 10:15 05/13/17 10:15 05/13/17 10:15 EKG was done 05/13/17 QTc 430 WNL Temp Pulse Resp BP Pulse Ox 98.6 F 74 20 140/91 H 05/14/17 07:42 05/14/17 08:54 05/14/17 07:42 05/14/17 08:54 Temp Pulse Resp BP Pulse Ox 98.1 F 68 20 117/72 05/15/17 07:16 05/15/17 09:00 05/15/17 07:16 05/15/17 09:00 Temp Pulse Resp BP Pulse Ox 98.4 F 69 18 110/69 80 L 05/17/17 06:47 05/17/17 06:47 05/17/17 06:47 05/17/17 06:47 05/17/17 01:31 Temp Pulse Resp BP Pulse Ox 97.3 F L 67 20 117/78 80 L 05/19/17 07:28 05/19/17 09:31 05/19/17 07:28 05/19/17 09:31 05/17/17 01:31 DSM 5 Symptoms Update: Shortly patient is a 66 year old single male with history of schizoaffective disorder, multiple psychiatric admissions into this facility, patient has chronic noncompliance with the medications and follow-up appointments, patient has power overturn the with his take up supervisor, initially patient was admitted to ICU for evaluation of bradycardia, patient had pacemaker placed , medically stabilized, was transferred to the psychiatric inpatient unit for evaluation and stabilization of psychotic symptoms, inability to function, worsening of manic symptoms, patient needs further evaluation and stabilization , medication titration. Please see Dr. Deshpande and Dr. Connell for more detailed information. pt was seen in his room,presented to be anxious today, anxiety is related to the fact that he will have to interviews by boarding homes today. pt has tx resistant psychosis/delusions: "you don't know about voices you asking , due to current technologies people are monitoring and talking to me, it is not psychosis, these people are real". pt compliant with meds, no side effects observed or reported, AIMS 0, no EPS. as per nursing staff reports, patient is compliant with the medications, no behavioral problems, patient still psychotic, no agitation, no aggression, patient quiet and staying in his room majority of the times, deeply sleeping, then pt convinced that he did not sleep. Impression: schizoaffective disorder Medication Change: No Medical Record Reviewed: Yes Consults ordered or reviewed: medical consult appreciated Mental Status Examination - Cognitive Function Orientation: Person, Place, Situation, Time Memory: Intact, Other Attention: Poor (somewhat better) Concentration: Poor (somewhat better) Association: Loose (some improvement) Fund of Knowledge: WNL - Mood Mood: Depressed (better), Anxious (better) - Affect Affect: Constricted, Flat - Speech Speech: Stammering (overproductive) - Formal Thought Process Formal Thought Process: Hallucinations (some improvement), Delusions (some improvement), Paranoia (some improvement), Loosening of associations (some improvement), Circumstantial (some improvement) - Suicidal Ideation Suicidal Ideation: No - Homicidal Ideation Homicidal Ideation: No Goal/Treatment Plan - Goal/Treatment Plan Need for Continued Stay: Remain at risks for inpatient hospitalization, Severe depression anxiety, Discharge may exacerbated symptoms, Severe functional impairment Progress Toward Problem(s) and Goals/Treatment Plan: Milieu, structure, supportive therapy Depakote 500 mg twice a day for mood stabilization depakote level was done 05/10/17 77 Risperdal 2mg am and 2mg hs for psychosis benadryl 50mg hs prn for insomnia and possible EPS EKG was done 04/30/2017 QTC was 483, 05/13/17 430 WNL ativan 0.5mg tid po for restlessness patient was interviewed by [facility] 04/19/2017, another interviews coming later on. POA involvement medical f/u will monitor closely Estimated Date of D/C: 05/22/17 (no solid d/c plan)
[2017-05-20] MEDS: Divalproex 500 mg DR(BID formulation) PO SCH ×3 (08:54→21:44)
[2017-05-20] MEDS: Multivitamin Therapeutic Tab PO SCH (08:55)
--- NOTE | 2017-05-20 14:05 | PCM.PYCHPN ---
Psychiatric Progress Note - Psychiatric Progress Note Patient seen today, length of contact: 30min Patient Chief Complaint: "I am going to boarding home...:" Problems Identified/Issues Discussed: Suicide/ homicide prevention, past psychiatric h/o, current psychiatric symptoms , medical problems, risk/benefits and alternatives of medications, medications compliance, coping strategies, substance abuse h/o, relapse prevention, importance of follow up with psychiatrist and therapist, discharge plan. 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, dressings changed hypertension hypercholesterolemia Diagnostic Results: Lab Results 05/03/17 07:00: Valproic Acid 90 05/03/17 07:00: Free T4 1.17, TSH 3rd Generation 0.45 L 05/03/17 07:00: Fasting Glucose 101, Triglycerides 105, Cholesterol 117 L, LDL Cholesterol Direct 52, HDL Cholesterol 45 Vital Signs Temp Pulse Resp BP 05/08/17 07:40 98.2 F 60 18 110/72 05/07/17 18:45 72 114/70 05/07/17 09:00 72 107/68 05/07/17 07:32 98.4 F 72 20 107/68 05/06/17 16:15 72 114/70 05/06/17 09:01 60 114/77 05/06/17 07:18 98.1 F 60 20 114/73 05/05/17 16:00 63 110/68 05/05/17 07:02 97.5 F L 70 20 126/74 05/04/17 16:22 84 107/69 05/04/17 08:11 70 109/71 05/03/17 15:00 79 101/67 05/03/17 07:00 97.4 F L 78 18 113/73 05/02/17 16:59 74 108/75 Temp Pulse Resp BP Pulse Ox 97.9 F 60 20 115/66 05/10/17 07:48 05/10/17 09:04 05/10/17 07:48 05/10/17 09:04 Laboratory Results - last 72 hr 05/10/17 07:30 Valproic Acid 77 Temp Pulse Resp BP Pulse Ox 98.5 F 73 20 115/69 05/11/17 07:32 05/11/17 16:30 05/11/17 07:32 05/11/17 16:30 Temp Pulse Resp BP Pulse Ox 97.9 F 67 20 109/72 05/13/17 10:15 05/13/17 10:15 05/13/17 10:15 05/13/17 10:15 EKG was done 05/13/17 QTc 430 WNL Temp Pulse Resp BP Pulse Ox 98.6 F 74 20 140/91 H 05/14/17 07:42 05/14/17 08:54 05/14/17 07:42 05/14/17 08:54 Temp Pulse Resp BP Pulse Ox 98.1 F 68 20 117/72 05/15/17 07:16 05/15/17 09:00 05/15/17 07:16 05/15/17 09:00 Temp Pulse Resp BP Pulse Ox 98.4 F 69 18 110/69 80 L 05/17/17 06:47 05/17/17 06:47 05/17/17 06:47 05/17/17 06:47 05/17/17 01:31 Temp Pulse Resp BP Pulse Ox 97.3 F L 67 20 117/78 80 L 05/19/17 07:28 05/19/17 09:31 05/19/17 07:28 05/19/17 09:31 05/17/17 01:31 Temp Pulse Resp BP Pulse Ox 98.2 F 60 18 121/74 80 L 05/20/17 06:52 05/20/17 08:55 05/20/17 06:52 05/20/17 08:55 05/17/17 01:31 DSM 5 Symptoms Update: Shortly patient is a 66 year old single male with history of schizoaffective disorder, multiple psychiatric admissions into this facility, patient has chronic noncompliance with the medications and follow-up appointments, patient has power overturn the with his extension service agent, initially patient was admitted to ICU for evaluation of bradycardia, patient had pacemaker placed , medically stabilized, was transferred to the psychiatric inpatient unit for evaluation and stabilization of psychotic symptoms, inability to function, worsening of manic symptoms, patient needs further evaluation and stabilization , medication titration. Please see Dr. Deshpande and Dr. Connell for more detailed information. pt was seen in his room,presented to be anxious today, anxiety is related to the fact that he will have to interviews by boarding homes today. pt has tx resistant psychosis/delusions: "you don't know about voices you asking , due to current technologies people are monitoring and talking to me, it is not psychosis, these people are real". pt compliant with meds, no side effects observed or reported, AIMS 0, no EPS. as per nursing staff reports, patient is compliant with the medications, no behavioral problems, patient still psychotic, no agitation, no aggression, patient quiet and staying in his room majority of the times, deeply sleeping, then pt convinced that he did not sleep. Impression: schizoaffective disorder Medication Change: No Medical Record Reviewed: Yes Consults ordered or reviewed: medical consult appreciated Mental Status Examination - Cognitive Function Orientation: Person, Place, Situation, Time Memory: Intact, Other Attention: Poor (somewhat better) Concentration: Poor (somewhat better) Association: Loose (some improvement) Fund of Knowledge: WNL - Mood Mood: Depressed (better), Anxious (better) - Affect Affect: Constricted, Flat - Speech Speech: Stammering (overproductive) - Formal Thought Process Formal Thought Process: Hallucinations (some improvement), Delusions (some improvement), Paranoia (some improvement), Loosening of associations (some improvement), Circumstantial (some improvement) - Suicidal Ideation Suicidal Ideation: No - Homicidal Ideation Homicidal Ideation: No Goal/Treatment Plan - Goal/Treatment Plan Need for Continued Stay: Remain at risks for inpatient hospitalization, Severe depression anxiety, Discharge may exacerbated symptoms, Severe functional impairment Progress Toward Problem(s) and Goals/Treatment Plan: Milieu, structure, supportive therapy Depakote 500 mg twice a day for mood stabilization depakote level was done 05/10/17 77 Risperdal 2mg am and 2mg hs for psychosis benadryl 50mg hs prn for insomnia and possible EPS EKG was done 04/30/2017 QTC was 483, 05/13/17 430 WNL ativan 0.5mg tid po for restlessness patient was interviewed by boarding home 04/19/2017, another interviews coming later on. POA involvement medical f/u will monitor closely pt will be d/c tomorrow Estimated Date of D/C: 05/22/17 (no solid d/c plan)
[2017-05-21 07:31] VITALS: BP 111/76; PULSE 61; RESP 20; TEMP 97.5
[2017-05-21] MEDS: Multivitamin Therapeutic Tab PO SCH (08:23)
[2017-05-21] MEDS: Divalproex 500 mg DR(BID formulation) PO SCH (09:04)
--- NOTE | 2017-05-21 12:53 | PCM.PYCHDC ---
Mental Status Examination - Mental Status Examination Orientation: Person, Place, Situation, Time Memory: Intact Mood: Neutral Affect: Constricted Speech: Appropriate Attention: Poor (some improvement) Concentration: Poor (some improvement) Association: Loose (chronic) Fund of Knowledge: WNL Formal Thought Process: Delusions (chronic, treatment resistant) Description of patient's judgement and insight: Pt has improved insight into mental and medical illness, but still convinced that people are talking to pt by all the electronic devises, (which is chronic and tx resistant) but pt was compliant with medications and unit rules and regulations, pt was going to groups, was calm, cooperative, socially appropriate , no behavioral incidents, no agitation, no aggression. Psychotic Thoughts and Behaviors: pt has chronic psychotic symptoms, hear voices of people and paranoid ideation of people monitoring pt "through electronic devises", overall pt improved significantly, but still has residual symptoms which are tx resistant. Suicidal Ideation: No Current Homicidal Ideation?: No Plan: pt adamantly denied thoughts of harming self or others denied intent or plan. Discharge Summary - Discharge Note Reason for Hospitalization: psychosis Psychiatric History (includes Medical, Family, Personal Hx): chornic mental illness, noncompliance with meds, multiple psyhiatric admiss Laboratory Data: Abnormal Lab Results 05/21/17 08:30 Valproic Acid 78 Lab Results 05/21/17 08:30: Valproic Acid 78 05/10/17 07:30: Valproic Acid 77 05/03/17 07:00: Valproic Acid 90 05/03/17 07:00: Free T4 1.17, TSH 3rd Generation 0.45 L 05/03/17 07:00: Fasting Glucose 101, Triglycerides 105, Cholesterol 117 L, LDL Cholesterol Direct 52, HDL Cholesterol 45 Temp Pulse Resp BP Pulse Ox 97.5 F L 61 20 111/76 80 L 05/21/17 07:29 05/21/17 07:29 05/21/17 07:29 05/21/17 07:29 05/17/17 01:31 Vital Signs Temp Pulse Resp BP Pulse Ox 05/21/17 07:29 97.5 F L 61 20 111/76 05/20/17 16:00 73 102/68 05/20/17 08:55 60 121/74 05/20/17 06:52 98.2 F 60 18 121/74 05/19/17 16:00 69 115/72 05/19/17 09:31 67 117/78 05/19/17 07:28 97.3 F L 67 20 117/78 05/18/17 15:45 68 105/67 05/18/17 08:48 66 109/64 05/18/17 06:37 97.8 F 66 19 109/64 05/17/17 16:01 72 112/68 05/17/17 06:47 98.4 F 69 18 110/69 05/17/17 01:31 114/75 80 L 05/16/17 16:31 77 110/73 05/16/17 07:05 98.4 F 72 20 104/61 05/15/17 16:23 64 111/62 05/15/17 09:00 68 117/72 05/15/17 07:16 98.1 F 68 20 117/72 05/14/17 16:00 67 123/71 05/14/17 08:54 74 140/91 H 05/14/17 07:42 98.6 F 74 20 140/91 H 05/13/17 16:33 64 98/62 L 05/13/17 10:15 97.9 F 67 20 109/72 05/12/17 16:00 76 114/79 05/11/17 16:30 73 115/69 05/11/17 08:21 70 121/71 05/11/17 07:32 98.5 F 70 20 121/71 05/10/17 15:00 97.9 F 79 17 117/78 05/10/17 09:04 60 115/66 05/10/17 07:48 97.9 F 60 20 115/66 05/09/17 10:13 67 117/72 05/09/17 07:09 97.6 F 67 18 117/72 05/08/17 16:22 62 104/75 05/08/17 07:40 98.2 F 60 18 110/72 05/07/17 18:45 72 114/70 05/07/17 09:00 72 107/68 05/07/17 07:32 98.4 F 72 20 107/68 05/06/17 16:15 72 114/70 05/06/17 09:01 60 114/77 05/06/17 07:18 98.1 F 60 20 114/73 05/05/17 16:00 63 110/68 05/05/17 07:02 97.5 F L 70 20 126/74 05/04/17 16:22 84 107/69 05/04/17 08:11 70 109/71 05/03/17 15:00 79 101/67 05/03/17 07:00 97.4 F L 78 18 113/73 05/02/17 16:59 74 108/75 Consultations:: List each consultation separately and include: 1. Reason for request. 2. Findings. 3. Follow-up Consultations: medical consult appreciated see notes for more detailed information Summary of Hospital Course include:: 1. Description of specific treatment plan utilized for patients during their course of treatmen. 2. Summarize the time- course for resolution of acute symptoms and/or regressed behaviors. 3. Describe issues identified and worked on during hospitalization. 4. Describe medication utilized. 5. Describe medical problems identified and treated. 6. Reassessment of suicide risk Summary of Hospital Course: Shortly patient is a 66 year old single male with history of schizoaffective disorder, multiple psychiatric admissions into this facility, patient has chronic noncompliance with the medications and follow-up appointments, patient has POA, his vice president of compliance, initially patient was admitted to ICU for evaluation of bradycardia, patient had pacemaker placed, medically stabilized, was transferred to the psychiatric inpatient unit for evaluation and stabilization of psychotic symptoms, inability to function, worsening of manic symptoms, patient needed further evaluation and stabilization, medication titration. Please see Dr. Deshpande and Dr. Connell for more detailed information. at the first interraction with this pt , patient presented to have acceptable personal hygiene, looks younger than his chronological age, patient was disorganized in his thoughts, patient feels that "I signed my life to you people , you are talking about me...". pt said that he is not psych patient, then said "may be I am, may be with medications I will feel better, may be not, I am willing to go to the residential, may be not...". during this hospitalization pt was stabilized on the following medications: Depakote 500 mg twice a day for mood stabilization depakote level was theraputic, see labs Risperdal 2mg am and 2mg hs for psychosis benadryl 50mg hs prn for insomnia and possible EPS EKG was done 04/30/2017 QTC was 483, 05/13/17 430 WNL, no worsening of QTc after risperdal started ativan 0.5mg tid po for restlessness patient was interviewed by assisted facilities, but was not accepted pt was interviewed by [facility] was accepted during this hospitalization pt's POA refused to be his medical POA, pt signed consent himself, pt had a capacity to do so. Over the course of this hospitalization pt was attending groups, pt also had medication management, had therapeutic milieu. Overall pt improved, psychosis is better, but still pt has delusions to be monitored. pt was socially appropriate, no behavioral issues, pts insight improved as well and soon pt deemed to be ready for discharge. At the time of the discharge pt denied been depressed, denied thoughts of harming self or others, pt appeared to be less psychotic, denied been anxious, was considered to pose no threat to self or others, will be following up at outpatient psychiatrist, information about follow up appointment, time and address provided to the pt, it is patient responsibility to follow up with outpatient clinic, PMD as well as specialists (see SW note for more detailed information). In case pt will need to obtain results of studies pending at discharge pt was provided with contact information of Psychiatric Inpatient unit [phone] as well as Medical Record Department [phone]. pt was d/c to the [facility], pt was in agreement with that plan. pt was provided with prescriptions for all of medications, one month supply and no refills (please see medication reconciliation form) Pt was educated about safety plan in case of worsening of symptoms or in case of suicidal or homicidal ideation call 911 or go to the nearest ER, also was educated to take meds as prescribed and stay away from drugs, pt verbalized understanding. - Diagnosis (1) Schizoaffective disorder Current Visit: No Status: Chronic Priority: Medium - Final Diagnosis (DSM 5) Condition upon Discharge: GOOD Disposition: HOME/ ROUTINE Follow-up Treatment Plan: At the time of the discharge pt denied been depressed, denied thoughts of harming self or others, pt appeared to be less psychotic, denied been anxious, was considered to pose no threat to self or others, will be following up at outpatient psychiatrist, information about follow up appointment, time and address provided to the pt, it is patient responsibility to follow up with outpatient clinic, PMD as well as specialists (see SW note for more detailed information). In case pt will need to obtain results of studies pending at discharge pt was provided with contact information of Psychiatric Inpatient unit [phone] as well as Medical Record Department [phone]. pt was d/c to the boarding home, pt was in agreement with that plan. pt was provided with prescriptions for all of medications, one month supply and no refills (please see medication reconciliation form) Pt was educated about safety plan in case of worsening of symptoms or in case of suicidal or homicidal ideation call 911 or go to the nearest ER, also was educated to take meds as prescribed and stay away from drugs, pt verbalized understanding. Prescriptions/Medication Reconciliation: Atorvastatin [Lipitor] 10 mg PO DIN #30 tab Benztropine [Cogentin] 0.5 mg PO AMHS #60 tab Divalproex [Depakote DR(*BID*)] 500 mg PO AMHS #60 tcp Famotidine [Pepcid] 40 mg PO HS #30 tab Folic Acid 1 mg PO DAILY #30 tab Lisinopril [Zestril] 20 mg PO DAILY #30 tab LORazepam [Ativan] 0.5 mg PO TID #90 tab Multivitamin Therapeutic Tab [Thera Tab] 1 tab PO DAILY #30 tab risperiDONE [RisperDAL Tab] 2 mg PO AMHS #60 tab Thiamine [Vitamin B1 Tab] 100 mg PO DAILY #30 tab Zolpidem [Ambien] 10 mg PO HS PRN #30 tab PRN Reason: Insomnia - Smoking Cessation Smoking Cessation Medication prescribed: No Reason for not providing: pt does not smoke - Antipsychotic Medications Pt discharged on 2 or more routine antipsychotic medications: No
== END 2017-05-21 13:59 | disposition home or self-care (01) | DRG 885 ==
LOC: PSYC 14:04
PROVIDERS: ADMIT Psychologist; ATTEND Psychiatry & Neurology Psychiatry
DX: F25.9 Schizoaffective disorder, unspecified (principal); I11.0 Hypertensive heart disease with heart failure; I50.9 Heart failure, unspecified; F31.9 Bipolar disorder, unspecified; E11.9 Type 2 diabetes mellitus without complications; E78.5 Hyperlipidemia, unspecified; E78.00 Pure hypercholesterolemia, unspecified; F17.210 Nicotine dependence, cigarettes, uncomplicated; F22 Delusional disorders; F41.9 Anxiety disorder, unspecified; G47.00 Insomnia, unspecified; I45.10 Unspecified right bundle-branch block; G25.71 Drug induced akathisia; Z79.899 Other long term (current) drug therapy; Z91.14 Patient's other noncompliance with medication regimen; Z95.0 Presence of cardiac pacemaker; I44.1 Atrioventricular block, second degree

== ENCOUNTER 2017-07-29 10:56 | Emergency (ER) | payer SELFPAY ==
[2017-07-29 10:57] VITALS: BMI 24.7
--- NOTE | 2017-07-29 11:31 | ED PDOC ---
Arrival/HPI <Devika Cerda - Last Filed: 07/29/17 13:27> - General Historian: Patient EM Caveat: Acuity of Condition - History of Present Illness Time/Duration: Prior to Arrival Symptom Onset: Other Symptom Course: Unchanged Context: Home <TabSid - Last Filed: 07/29/17 13:46> - General Chief Complaint: Psychiatric Evaluation Time Seen by Provider: 07/29/17 11:10 - History of Present Illness Narrative History of Present Illness (Text): 07/29/17 11:27 Patient is a 67 year old male with a past medical history of shizoaffective disorder, HTN, HLD, DM II who presented to [facility] ED on 07/29/17 by Brendan. As per Brendan, patient's neighbors called the ambulance due to patient being non- compliant with medications. As per patient however, today he got into an argument with his healthcare provider, Tim regarding the possibility of patient moving to a snf. Patient states he does not want to stay in a snf but would rather stay where he currently is; arguing led to the healthcare provider calling the ambulance for patient to be seen and further evaluated. Patient states he feels fine and wants to go back home. He denies suicidal/homicidal ideations, chest pain, dizziness, n/v/d, headache, auditory/ visual hallucinations. PMD: Dr. Murillo (BarthSid) Past Medical History - Provider Review Nursing Documentation Reviewed: Yes - Infectious Disease Hx of Infectious Diseases: None - Cardiac Hx Cardiac Disorders: Yes Hx Cardiac Arrhythmia: Yes Hx Congestive Heart Failure: Yes Hx Hypertension: Yes Hx Pacemaker: Yes (04/30/17) - Pulmonary Hx Respiratory Disorders: No - Neurological Hx Neurological Disorder: No - HEENT Hx HEENT Disorder: No - Renal Hx Renal Disorder: No - Endocrine/Metabolic Hx Endocrine Disorders: Yes Hx Diabetes Mellitus Type 2: Yes - Hematological/Oncological Hx Blood Disorders: No - Integumentary Hx Dermatological Disorder: No - Musculoskeletal/Rheumatological Hx Falls: No - Gastrointestinal Hx Gastrointestinal Disorders: No - Genitourinary/Gynecological Hx Genitourinary Disorders: No - Psychiatric Hx Psychophysiologic Disorder: Yes Hx Anxiety: Yes Hx Bipolar Disorder: Yes Hx Depression: Yes Hx Schizophrenia: Yes Hx Substance Use: No - Surgical History Other/Comment: inguinal hernia repair 2010 - Anesthesia Hx Anesthesia: Yes Hx Anesthesia Reactions: No Hx Malignant Hyperthermia: No <Sid Barth - Last Filed: 07/29/17 13:46> Family/Social History <ZaidaKaranlalo - Last Filed: 07/29/17 13:27> - Physician Review Nursing Documentation Reviewed: Yes Family/Social History: Other Smoking Status: Former Smoker Hx Alcohol Use: Yes Frequency of alcohol use: Few days per week Hx Substance Use: No <Sid Barth - Last Filed: 07/29/17 13:46> Narrative Family History (Free Text): non-contributory 07/29/17 11:32 (Sid Barth) Allergies/Home Meds <Devika Cerda - Last Filed: 07/29/17 13:27> <Sid Barth - Last Filed: 07/29/17 13:46> Allergies/Adverse Reactions: Allergies No Known Allergies Allergy (Verified 07/29/17 11:05) Home Medications: Home Meds Medication Instructions Recorded Confirmed Aspirin [Aspirin EC] 325 mg PO DAILY 07/29/17 07/29/17 Cod Liver Oil [Cod Liver Oil] 1 tab PO DAILY 07/29/17 07/29/17 Surry-3S/Dha/Epa/Fish Oil [Fish 1,290 mg PO DAILY 07/29/17 07/29/17 Oil 1,200 mg Softgel] Suvorexant [Belsomra] 15 mg PO HS 07/29/17 07/29/17 Review of Systems - Physician Review All systems were reviewed & negative as marked: Yes - Review of Systems Systems not reviewed;Unavailable: Acuity of Condition Constitutional: Normal. absent: Fatigue, Fevers Eyes: Normal. absent: Vision Changes ENT: Normal. absent: Hearing Changes Respiratory: absent: SOB, Cough Cardiovascular: absent: Chest Pain, Palpitations Gastrointestinal: absent: Abdominal Pain, Stool Changes, Diarrhea, Nausea, Vomiting Genitourinary Male: absent: Dysuria, Frequency Musculoskeletal: Normal Skin: absent: Rash, Pruritis Neurological: absent: Headache, Dizziness Psychiatric: Normal. absent: Anxiety, Suicidal Ideation, Other (homidical ideation, auditory hallucinations,visual hallucinations) <Sid Barth - Last Filed: 07/29/17 13:46> Physical Exam Vital Signs Reviewed: Yes Temperature: Afebrile Blood Pressure: Normal Pulse: Regular Respiratory Rate: Normal Appearance: Positive for: Comfortable Pain Distress: None Mental Status: Positive for: Alert and Oriented X 3. No: Confused, Agitated - Systems Exam Head: Present: Atraumatic, Normocephalic Extroacular Muscles: Present: EOMI Mouth: Present: Moist Mucous Membranes. No: Drooling Nose (External): No: Atraumatic, Abrasion Neck: Present: Normal Range of Motion Respiratory/Chest: Present: Clear to Auscultation, Good Air Exchange. No: Accessory Muscle Use, Wheezes, Rales Cardiovascular: Present: Regular Rate and Rhythm, Normal S1, S2 Abdomen: Present: Tenderness, Distention, Normal Bowel Sounds Upper Extremity: Present: Normal Inspection Lower Extremity: Present: Normal Inspection Neurological: Present: CN II-XII Intact, Speech Normal Skin: Present: Warm, Normal Color Psychiatric: Present: Alert, Oriented x 3 <Sid Barth - Last Filed: 07/29/17 13:46> Vital Signs Temp Pulse Resp BP Pulse Ox 07/29/17 11:44 99.3 F 07/29/17 11:01 99.2 F 98 H 16 169/79 H 98 Medical Decision Making <Devika Cerda - Last Filed: 07/29/17 13:27> - Lab Interpretations I have reviewed the lab results: Yes Interpretation: Abnormal lab values (anemic, PMD notified) - EKG Interpretation Interpreted by ED Physician: Yes Type: 12 lead EKG Comparison: Different from prev. EKG <Sid Barth - Last Filed: 07/29/17 13:46> ED Course and Treatment: 07/29/17 13:29 Patient seen and examined with resident; he is without complaints but psych history as above is noted. His labs revealed a Hgb of 9.8, down from a normal of 14.1, 3 months ago - he is guaiac negative with no complaints with no indication for medical admission. Patient cleared for PES eval and admission - he was seen by PES and will be discharged to follow up with outpatient psych. Regarding his anemia, spoke with Dr. Murillo, who wants the patient to follow up with him for further workup. Patient told to f/u with Dr. Murillo sean. ( Devika Cerda) 07/29/17 11:36 Assessment 67 year old male being evaluated with psych screen Plan - EKG - CXR - CBC,CMP, UA, Drug screen, Alcohol level, Depakote level - Cardiac ISO - Lipase - Psych admission; Medically cleared; PES to assess (Sid Barth) - Lab Interpretations Lab Results: 07/29/17 11:30 07/29/17 11:24 Lab Results 07/29/17 11:45: Urine Opiates Screen Negative, Urine Methadone Screen Negative, Ur Barbiturates Screen Negative, Ur Phencyclidine Scrn Negative, Ur Amphetamines Screen Negative, U Benzodiazepines Scrn Negative, U Oth Cocaine Metabols Negative, U Cannabinoids Screen Negative 07/29/17 11:30: WBC 6.9 D, RBC 3.97, Hgb 9.8 L, Hct 32.0 L, MCV 80.6, MCH 24.7 L, MCHC 30.6 L, RDW 13.7, Plt Count 270, MPV 9.2, Gran % 56.8, Lymph % (Auto) 24.7, [place] % (Auto) 14.5 H, Eos % (Auto) 3.6, Baso % (Auto) 0.4, Gran # 3.89, Lymph # 1.7, [place] # 1.0 H, Eos # 0.3, Baso # 0.03 07/29/17 11:24: Valproic Acid < 10 L 07/29/17 11:24: Sodium 141, Potassium 4.2, Chloride 103, Carbon Dioxide 25, Anion Gap 17, BUN 22 H, Creatinine 0.9, Est GFR ( Amer) > 60, Est GFR ( Non-Af Amer) > 60, Random Glucose 130 H, Calcium 9.4, Total Bilirubin 0.3, AST 22, ALT 21, Alkaline Phosphatase 63, Lactate Dehydrogenase 394, Total Creatine Kinase 28 L, Troponin I < 0.01 D, Total Protein 7.5, Albumin 4.6, Globulin 2.8 , Albumin/Globulin Ratio 1.6, Lipase 141 07/29/17 11:24: Alcohol, Quantitative < 10 07/29/17 11:24: Urine Color Yellow, Urine Appearance Clear, Urine pH 6.0, Ur Specific [place] 1.025, Urine Protein 30 H, Urine Glucose (UA) Negative, Urine Ketones Negative, Urine Blood Negative, Urine Nitrate Negative, Urine Bilirubin Negative, Urine Urobilinogen 0.2, Ur Leukocyte Esterase Negative, Urine RBC 0 - 2, Urine WBC 1 - 3, Ur Epithelial Cells 0 - 2, Amorphous Sediment Trace, Urine Bacteria Mod, Hyaline Casts 2 - 5, Fine Granular Casts 0 - 2, Coarse Granular Casts Trace H - RAD Interpretation Radiology Orders: 07/29/17 11:24 CHEST PORTABLE [RAD] Stat - PA / LEAD FABRICATOR / Resident Statement / has reviewed & agrees with the documentation as recorded. / has examined the patient and agrees with the treatment plan. <Devika Cerda - Last Filed: 07/29/17 13:27> Disposition/Present on Arrival - Present on Arrival Any Indicators Present on Arrival: Yes - Disposition Have Diagnosis and Disposition been Completed?: Yes Patient Plan: Discharge <ZaidaKaranlalo - Last Filed: 07/29/17 13:27> - Present on Arrival Any Indicators Present on Arrival: No History of DVT/PE: No History of Uncontrolled Diabetes: Yes Urinary Catheter: No History of Decub. Ulcer: No History Surgical Site Infection Following: None - Disposition Have Diagnosis and Disposition been Completed?: Yes Disposition Time: 12:22 Patient Plan: Admission <TabSid - Last Filed: 07/29/17 13:46> - Disposition Diagnosis: Schizoaffective disorder, Anemia Disposition: HOME/ ROUTINE Patient Problems: Current Active Problems Problem Status Onset Medical clearance for psychiatric admission Acute Schizoaffective disorder Chronic Anemia Acute Condition: GOOD Additional Instructions: Continue your medications as prescribed. Follow up with psychiatry. You also need to follow up with Dr. Chidi estrada to workup your anemia. Return to the emergency department if any new concerning symptoms. Referrals: Chidi JOHNSON,Loc Tony MD [Primary Care Provider] - Follow up with primary Forms: [employer] ([place]ayan)
[2017-07-29 11:43] LABS: BASO # 0.03 K/mm3 (0.0-2.0); BASO % 0.4 % (0.0-3.0); EOS # 0.3 (0.0-0.7); EOS % 3.6 % (1.5-5.0); GRAN # 3.89 (1.4-6.5); GRAN % 56.8 % (50.0-68.0); LYMPH # 1.7 (1.2-3.4); LYMPH % 24.7 % (22.0-35.0); MEAN CELL VOLUME 80.6 fl (80.0-105.0); MEAN CORPUSCULAR HEMOGLOBIN 24.7 pg (25.0-35.0); MEAN CORPUSCULAR HGB CONC 30.6 g/dl (31.0-37.0); MEAN PLATELET VOLUME 9.2 fl (7.0-11.0); MONO % 14.5 % (1.0-6.0); RED CELL DISTRIBUTION WIDTH 13.7 % (11.5-14.5); WHITE BLOOD COUNT 6.9 10^3/ul (4.5-11.0)
[2017-07-29 11:44] VITALS: TEMP 99.3
[2017-07-29 11:56] LABS: ALB/GLOB RATIO 1.6 (1.1-1.8); ALKALINE PHOSPHATASE 63 U/L (38-126); ALT/SGPT 21 U/L (7-56); AST/SGOT 22 U/L (17-59); BILIRUBIN,TOTAL 0.3 mg/dL (0.2-1.3); BLOOD UREA NITROGEN 22 mg/dL (7-21); CALCIUM 9.4 mg/dL (8.4-10.5); CARBON DIOXIDE 25 mmol/L (21-33); CHLORIDE 103 mmol/L (98-107); GFR AFRICAN-AMERICAN > 60; GLUCOSE,RANDOM 130 mg/dL (70-110); LIPASE 141 U/L (23-300); POTASSIUM 4.2 mmol/L (3.6-5.0); SODIUM 141 mmol/L (132-148); TOTAL PROTEIN 7.5 g/dL (5.8-8.3)
[2017-07-29 11:57] LABS: URINE BILIRUBIN NEGATIVE (NEGATIVE); URINE BLOOD NEGATIVE (NEGATIVE); URINE GLUCOSE (UA) NEGATIVE (NEGATIVE); URINE KETONE NEGATIVE (NEGATIVE); URINE LEUKOCYTE ESTERASE NEGATIVE Leu/uL (NEGATIVE); URINE PROTEIN 30 mg/dL (<30 mg/dL); URINE UROBILINOGEN 0.2 E.U./dL (<1 E.U./dL)
[2017-07-29 11:58] LABS: URINE APPEARANCE CLEAR (CLEAR); URINE COLOR YELLOW (YELLOW)
[2017-07-29 12:07] LABS: TROPONIN I < 0.01 ng/mL
[2017-07-29 12:11] LABS: URINE BACTERIA MOD (NEG); URINE EPITHELIAL CELLS 0 - 2 /hpf (0-5); URINE RBC 0 - 2 /hpf (0-2)
[2017-07-29 12:12] LABS: URINE AMORPHOUS SEDIMENT TRACE
--- NOTE | 2017-07-29 12:39 | RAD ---
HISTORY: pscyh, h/o CHF COMPARISON: 04/30/2017 FINDINGS: LUNGS: No active pulmonary disease. PLEURA: No significant pleural effusion identified, no pneumothorax apparent. CARDIOVASCULAR: Probable top-normal heart size. Dual lead pacemaker No pulmonary venous congestion suspect OSSEOUS STRUCTURES: No significant abnormalities. VISUALIZED UPPER ABDOMEN: Normal. OTHER FINDINGS: None. IMPRESSION: No active disease. No interval pathology noted
[2017-07-29 14:22] VITALS: BP 133/67; PULSE 73; RESP 17; O2SAT 99
--- NOTE | 2017-07-29 23:05 | CARD ---
APPROVED REPORT EKG Measurement Heart [id number] <Conclusion> Atrial sensed, Ventricular paced rhythm
== END 2017-07-29 14:23 | disposition home or self-care (01) ==
LOC: ED 10:56
DX: D64.9 Anemia, unspecified (principal); F25.9 Schizoaffective disorder, unspecified
CPT/HCPCS: 71010; 80053; 80164; 81001; 82550; 83615; 83690; 84484; 85025; 93005; 99283; G0480

== ENCOUNTER 2017-11-17 11:54 | Inpatient (IN) | payer OTHER ==
[2017-11-17 11:54] VITALS: BMI 24.7
--- NOTE | 2017-11-17 12:35 | ED PDOC ---
Arrival/HPI - General Chief Complaint: Shortness Of Breath Time Seen by Provider: 11/17/17 11:56 Historian: Patient - Critical Care Critical Care Minutes: Other (15 minutes ) - History of Present Illness Narrative History of Present Illness (Text): 11/17/17 12:22 A 67 year old male, whose past medical history includes schizoaffective disorder , hypertension, hyperlipidemia, and diabetes type 2, presents to the emergency department complaining of shortness of breath for 2 months. Patient reports he believes shortness of breath is being caused by someone from his past. Patient also notes hearing voices and the voices are using electronics to communicate with him. Denies any GI bleeding episodes. No lightheadedness. Patient denies any nausea, vomiting, dizziness, suicidal ideation, or any other complaints at this time. PMD: Dr. Fong Time/Duration: Other (2 months) Symptom Onset: Sudden Symptom Course: Unchanged Past Medical History - Provider Review Nursing Documentation Reviewed: Yes - Infectious Disease Hx of Infectious Diseases: None - Cardiac Hx Cardiac Disorders: Yes Hx Cardiac Arrhythmia: Yes Hx Congestive Heart Failure: Yes Hx Hypertension: Yes Hx Pacemaker: Yes (04/30/17) - Pulmonary Hx Respiratory Disorders: No - Neurological Hx Neurological Disorder: No - HEENT Hx HEENT Disorder: No - Renal Hx Renal Disorder: No - Endocrine/Metabolic Hx Endocrine Disorders: Yes Hx Diabetes Mellitus Type 2: Yes - Hematological/Oncological Hx Blood Disorders: No - Integumentary Hx Dermatological Disorder: No - Musculoskeletal/Rheumatological Hx Falls: No - Gastrointestinal Hx Gastrointestinal Disorders: No - Genitourinary/Gynecological Hx Genitourinary Disorders: No - Psychiatric Hx Psychophysiologic Disorder: Yes Hx Anxiety: Yes Hx Bipolar Disorder: Yes Hx Depression: Yes Hx Schizophrenia: Yes Hx Substance Use: No - Surgical History Other/Comment: inguinal hernia repair 2010 - Anesthesia Hx Anesthesia: Yes Hx Anesthesia Reactions: No Hx Malignant Hyperthermia: No Family/Social History - Physician Review Nursing Documentation Reviewed: Yes Family/Social History: No Known Family HX Smoking Status: Former Smoker Hx Alcohol Use: Yes Hx Substance Use: No Allergies/Home Meds Allergies/Adverse Reactions: Allergies No Known Allergies Allergy (Verified 11/17/17 12:02) Home Medications: Home Meds Medication Instructions Recorded Confirmed Aspirin [Aspirin EC] 325 mg PO DAILY 07/29/17 11/17/17 Cod Liver Oil [Cod Liver Oil] 1 tab PO DAILY 07/29/17 11/17/17 [place]-3S/Dha/Epa/Fish Oil [Fish 1,290 mg PO DAILY 07/29/17 11/17/17 Oil 1,200 mg Softgel] Suvorexant [Belsomra] 15 mg PO HS 07/29/17 11/17/17 Review of Systems - Physician Review All systems were reviewed & negative as marked: Yes - Review of Systems Respiratory: SOB Gastrointestinal: absent: Nausea, Vomiting Neurological: absent: Dizziness Psychiatric: Other (auditory hallucinations). absent: Suicidal Ideation Physical Exam Vital Signs Reviewed: Yes Vital Signs Temp Pulse Resp BP Pulse Ox 11/17/17 18:45 76 22 136/86 99 11/17/17 18:40 99 F 92 H 18 124/70 11/17/17 18:03 99.0 F 96 H 19 126/78 11/17/17 17:18 99.2 F 88 18 107/78 11/17/17 17:02 99 F 94 H 18 133/78 11/17/17 16:35 95 H 133/78 11/17/17 16:22 99.3 F 91 H 18 120/52 L 100 11/17/17 15:39 99.6 F 94 H 19 133/72 99 11/17/17 11:58 98.4 F 87 22 119/45 L 100 11/17/17 11:54 98.4 F 87 22 119/45 L 100 Temperature: Afebrile Blood Pressure: Normal Pulse: Regular Respiratory Rate: Normal Appearance: Positive for: Other (disheveled and anxious) Pain Distress: None Mental Status: Positive for: Alert and Oriented X 3, other (anxious) Finger Stick Blood Glucose: 138 - Systems Exam Head: Present: Atraumatic, Normocephalic Pupils: Present: PERRL Extroacular Muscles: Present: EOMI Conjunctiva: Present: Normal Mouth: Present: Moist Mucous Membranes Neck: Present: Normal Range of Motion Respiratory/Chest: Present: Clear to Auscultation, Good Air Exchange. No: Respiratory Distress, Accessory Muscle Use Cardiovascular: Present: Regular Rate and Rhythm, Normal S1, S2. No: Murmurs Abdomen: Present: Normal Bowel Sounds. No: Tenderness, Distention, Peritoneal Signs Back: Present: Normal Inspection Upper Extremity: Present: Normal Inspection. No: Cyanosis, Edema Lower Extremity: Present: Normal Inspection. No: Edema Neurological: Present: GCS=15, CN II-XII Intact, Speech Normal Skin: Present: Warm, Dry, Pale. No: Rashes Psychiatric: Present: Alert, Oriented x 3, Normal Insight, Normal Concentration , Anxious Medical Decision Making ED Course and Treatment: 11/17/17 12:28 Impression: 67 year old male with shortness of breath, particularly on exertion. Physical exam shows that patient appears anxious; otherwise no acute findings on examination. Differential Diagnosis included but are not limited to: ACS vs. Anemia vs Anxiety vs. Psychosis Plan: -- EKG -- Chest X-ray -- Labs -- Blood Culture -- PES was consulted -- Reassess and disposition Prior Visits: Notes and results from previous visits were reviewed. Patient was last seen in the emergency department on 07/29/2017 for agitation. Patient was discharged home. Progress Notes: 11/17/2017 13:57 Chest X-ray IMPRESSION: No active disease. Dictator: Gregory Anthony MD 11/17/17 12:25 EKG: Paced at 118bpm Patient noted to be anemic. CBC repeat ordered. Consent for blood transfusion obtained. Risks and benefits were discussed with patient RN Jess as witness. Rectal exam showed no hemorrhoids, no fissures. +guaic. No active bleeding. 11/17/17 15:33 Repeat CBC is the same. Blood transfusion will proceed. Patient hemodynamically stable. No active GI bleeding. Symptoms have been over many months and no sudden change. Case was discussed with Dr. Melendez who agrees to remote telemetry. - Critical Care Critical Care Minutes: 30 minutes - Lab Interpretations Microbiology Results: Microbiology Results 11/17/17 14:00 Blood-Venous Blood Culture - Preliminary NO GROWTH AFTER 24 HOURS 11/17/17 13:50 Blood-Venous Blood Culture - Preliminary NO GROWTH AFTER 24 HOURS Lab Results: 11/17/17 15:12 11/17/17 13:50 Lab Results 11/17/17 15:30: Ferritin 4.4, Vitamin B12 731 11/17/17 15:14: Blood Type Confirm A POSITIVE 11/17/17 15:12: WBC 7.3, RBC 3.15 L, Hgb 5.9 L*, Hct 21.3 L, MCV 67.6 L, MCH 18.7 L, MCHC 27.7 L, RDW 17.2 H, Plt Count 299, MPV 9.1, Gran % 60.4, Lymph % ( Auto) 23.9, [place] % (Auto) 12.9 H, Eos % (Auto) 2.5, Baso % (Auto) 0.3, Gran # 4.42, Lymph # 1.8, [place] # 0.9 H, Eos # 0.2, Baso # 0.02 11/17/17 14:40: Iron 14 L, TIBC 409, % Saturation 3 L 11/17/17 14:40: Blood Type A POSITIVE, Antibody Screen Negative, Crossmatch See Detail, BBK History Checked No verified bt 11/17/17 14:00: Urine Opiates Screen Negative, Urine Methadone Screen Negative, Ur Barbiturates Screen Negative, Ur Phencyclidine Scrn Negative, Ur Amphetamines Screen Negative, U Benzodiazepines Scrn Positive, U Oth Cocaine Metabols Negative, U Cannabinoids Screen Negative 11/17/17 13:50: Phosphorus 3.4, Total Bilirubin 0.1 L, Direct Bilirubin 0.1 11/17/17 13:50: TSH 3rd Generation 2.16 11/17/17 13:50: Alcohol, Quantitative < 10 11/17/17 13:50: Salicylates < 1 L, Acetaminophen < 10.0 L 11/17/17 13:50: Sodium 138, Potassium 4.9, Chloride 102, Carbon Dioxide 26, Anion Gap 15, BUN 23 H, Creatinine 1.1, Est GFR ( Amer) > 60, Est GFR ( Non-Af Amer) > 60, Random Glucose 99, Calcium 10.1, Lactate Dehydrogenase 394, Total Creatine Kinase 36, Troponin I < 0.01, NT-Pro-B Natriuret Pep 405 11/17/17 13:50: WBC 8.4 D, RBC 3.17 L, Hgb 5.9 L* D, Hct 21.5 L, MCV 67.8 L D, MCH 18.6 L, MCHC 27.4 L, RDW 17.0 H, Plt Count 309, MPV 9.3, Gran % 62.4, Lymph % (Auto) 22.9, [place] % (Auto) 12.8 H, Eos % (Auto) 1.7, Baso % (Auto) 0.2, Gran # 5.21, Lymph # 1.9, [place] # 1.1 H, Eos # 0.1, Baso # 0.02 11/17/17 12:16: POC Glucose (mg/dL) 138 H I have reviewed the lab results: Yes - RAD Interpretation Radiology Orders: 11/17/17 13:14 CHEST PORTABLE [RAD] Stat - Medication Orders Current Medication Orders: Acetaminophen (Tylenol 325 Mg Supp) 650 mg RC Q6H PRN PRN Reason: Fever >100.4 F Atorvastatin Calcium (Lipitor) 10 mg PO DIN [facility] Last Admin: 11/18/17 16:07 Dose: 10 mg Benztropine Mesylate (Cogentin) 0.5 mg PO AMHS [facility] Last Admin: 11/19/17 09:27 Dose: Not Given Non-Admin Reason: NPO Divalproex Sodium (Depakote Dr(*Bid*)) 500 mg PO [facility] Last Admin: 11/19/17 09:27 Dose: Not Given Non-Admin Reason: NPO Folic Acid (Folic Acid) 1 mg PO DAILY [facility] Last Admin: 11/19/17 09:27 Dose: Not Given Non-Admin Reason: NPO Sodium Chloride (Sodium Chloride 0.9%) 1,000 mls @ 100 mls/hr IV .Q10H [facility] Last Admin: 11/19/17 06:43 Dose: 100 mls/hr eMAR Start Stop Document 11/19/17 06:43 KTB (Rec: 11/19/17 06:43 KTB [id number]) Intravenous Solution Start Date 11/19/17 Start Time 06:43 Non-Formulary Medication (Suvorexant [Belsomra]) 15 mg PO [facility] Last Admin: 11/19/17 06:28 Dose: Pantoprazole Sodium (Protonix Ec Tab) 40 mg PO 0600,1600 [facility] Last Admin: 11/19/17 06:28 Dose: Not Given Non-Admin Reason: NPO Risperidone (Risperdal Tab) 2 mg PO [facility] PRN Reason: Protocol Last Admin: 11/19/17 09:28 Dose: Not Given Non-Admin Reason: NPO Thiamine HCl (Vitamin B1 Tab) 100 mg PO DAILY [facility] Last Admin: 11/19/17 09:28 Dose: Not Given Non-Admin Reason: NPO Zolpidem Tartrate (Ambien) 10 mg PO HS PRN; Protocol PRN Reason: Insomnia Last Admin: 11/19/17 00:30 Dose: 10 mg Behavioural Document 11/19/17 00:30 KTB (Rec: 11/19/17 00:31 KTB [id number]) Maintenance Maintenance Dose No Nonmedicinal Nonmedicinal Interventions See nurse's notes Comment patient requesting sleeping pill Behavior Behavior for Medication: Insomnia Re-Assess: Reassess Psych Meds Document 11/19/17 01:30 KTB (Rec: 11/19/17 06:28 KTB [facility] [id number] Reassess Psych Med Effective Discontinued Medications Acetaminophen (Tylenol 325 Mg Supp) 325 mg RC Q6H PRN PRN Reason: Fever >100.4 F Last Admin: 11/17/17 21:10 Dose: 325 mg MAR Pain/Vitals Document 11/17/17 21:10 RS (Rec: 11/17/17 21:11 RS [id number]) Pain Reassessment Is This A Pain ReAssessment? No Sleep Is patient sleeping during reassessment? No Presence of Pain Presence of Pain No Vitals Temperature (97.6 F-99.6 F) 100.6 F Temperature Source Oral Bisacodyl (Dulcolax) 20 mg PO ONCE ONE Stop: 11/18/17 14:01 Last Admin: 11/18/17 14:01 Dose: 20 mg Sodium Chloride (Sodium Chloride 0.9%) 1,000 mls @ 999 mls/hr IV .Q1H1M STA Stop: 11/17/17 16:41 Last Admin: 11/17/17 15:59 Dose: 999 mls/hr eMAR Start Stop Document 11/17/17 15:59 LA (Rec: 11/17/17 16:11 LA [facility] [id number][place] Intravenous Solution Start Date 11/17/17 Start Time 16:11 Lisinopril (Zestril) 20 mg PO DAILY [facility]ADIE Last Admin: 11/17/17 16:35 Dose: 20 mg MAR Pulse and Blood Pressure Document 11/17/17 16:35 LA (Rec: 11/17/17 16:39 [place] [facility] [id number][place] Pulse Pulse Rate (60-90) 95 Blood Pressure Blood Pressure (100/60-150/90) 133/78 Pantoprazole Sodium (Protonix Inj) 40 mg IVP Q12 SADIE Last Admin: 11/18/17 09:01 Dose: Not Given Non-Admin Reason: Patient in Endo Polyethylene Glycol/Electrolytes (Golytely) 4,000 ml PO ONCE ONE Stop: 11/18/17 16:01 Last Admin: 11/18/17 16:07 Dose: 4,000 ml - Scribe Statement The provider has reviewed the documentation as recorded by the Maricruz Damon Provider Scribe Attestation: All medical record entries made by the Maricruz were at my direction and personally dictated by me. I have reviewed the chart and agree that the record accurately reflects my personal performance of the history, physical exam, medical decision making, and the department course for this patient. I have also personally directed, reviewed, and agree with the discharge instructions and disposition. Disposition/Present on Arrival - Present on Arrival Any Indicators Present on Arrival: Yes History of DVT/PE: No History of Uncontrolled Diabetes: Yes Urinary Catheter: No History of Decub. Ulcer: No History Surgical Site Infection Following: None - Disposition Have Diagnosis and Disposition been Completed?: Yes Diagnosis: Anemia, GI bleed Disposition: HOSPITALIZED Disposition Time: 15:39 Patient Plan: Admission Condition: FAIR
--- NOTE | 2017-11-17 13:59 | RAD ---
HISTORY: sob COMPARISON: 07/29/2017 FINDINGS: LUNGS: No active pulmonary disease. PLEURA: No significant pleural effusion identified, no pneumothorax apparent. CARDIOVASCULAR: Normal. OSSEOUS STRUCTURES: No significant abnormalities. VISUALIZED UPPER ABDOMEN: Normal. OTHER FINDINGS: Tool lead pacemaker IMPRESSION: No active disease.
[2017-11-17 14:06] LABS: BASO # 0.02 K/mm3 (0.0-2.0); BASO % 0.2 % (0.0-3.0); EOS # 0.1 (0.0-0.7); EOS % 1.7 % (1.5-5.0); GRAN # 5.21 (1.4-6.5); GRAN % 62.4 % (50.0-68.0); LYMPH # 1.9 (1.2-3.4); LYMPH % 22.9 % (22.0-35.0); MEAN CELL VOLUME 67.8 fl (80.0-105.0); MEAN CORPUSCULAR HEMOGLOBIN 18.6 pg (25.0-35.0); MEAN CORPUSCULAR HGB CONC 27.4 g/dl (31.0-37.0); MEAN PLATELET VOLUME 9.3 fl (7.0-11.0); MONO # 1.1 (0.1-0.6); MONO % 12.8 % (1.0-6.0); RBC 3.17 10^6/uL (3.5-6.1); WHITE BLOOD COUNT 8.4 10^3/ul (4.5-11.0)
[2017-11-17 14:11] LABS: HEMOGLOBIN 5.9 g/dL (14.0-18.0)
[2017-11-17 14:15] LABS: ACETAMINOPHEN < 10.0 ug/ml (10.0-20.0); SALICYLATE < 1 mg/dL (2.0-20.0)
[2017-11-17 14:16] LABS: BLOOD UREA NITROGEN 23 mg/dL (7-21); CALCIUM 10.1 mg/dL (8.4-10.5); GFR AFRICAN-AMERICAN > 60; GFR NON-AFRICAN AMERICAN > 60
[2017-11-17 14:28] LABS: B-TYPE NATRIURETIC PEPTIDE 405 pg/mL (0-450); TROPONIN I < 0.01 ng/mL
[2017-11-17 14:51] LABS: BARBITURATES, UR NEGATIVE (NEGATIVE); OPIATES, UR NEGATIVE (NEGATIVE); PHENCYCLIDINE, UR NEGATIVE (NEGATIVE)
[2017-11-17 14:55] LABS: BENZODIAZEPINES, UR POSITIVE (NEGATIVE)
[2017-11-17 15:08] LABS: IRON 14 ug/dL (45-180)
[2017-11-17 15:18] LABS: TOTAL IRON BINDING CAPACITY 409 ug/dL (261-462)
[2017-11-17 15:23] LABS: % IRON SATURATION 3 % (20-55)
[2017-11-17 15:23] LABS: BASO # 0.02 K/mm3 (0.0-2.0); BASO % 0.3 % (0.0-3.0); EOS # 0.2 (0.0-0.7); EOS % 2.5 % (1.5-5.0); GRAN # 4.42 (1.4-6.5); GRAN % 60.4 % (50.0-68.0); LYMPH # 1.8 (1.2-3.4); LYMPH % 23.9 % (22.0-35.0); MEAN CELL VOLUME 67.6 fl (80.0-105.0); MEAN CORPUSCULAR HEMOGLOBIN 18.7 pg (25.0-35.0); MEAN CORPUSCULAR HGB CONC 27.7 g/dl (31.0-37.0); MEAN PLATELET VOLUME 9.1 fl (7.0-11.0); MONO # 0.9 (0.1-0.6); MONO % 12.9 % (1.0-6.0); RBC 3.15 10^6/uL (3.5-6.1); RED CELL DISTRIBUTION WIDTH 17.2 % (11.5-14.5); WHITE BLOOD COUNT 7.3 10^3/ul (4.5-11.0)
--- NOTE | 2017-11-17 15:23 | CP.PCM.HP ---
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 Patient states he was gasping for air which is what prompted him to go to the emergency department. States that people are elctronically controlling him. Admits to dizziness, shortness of breath, fatigue , weakness, and pale skin, and one episode of hematuria. Denies chest pain, shortness of breath, fevers, chills, cough, nausea, vomiting, diarrhea, hematemesis, hematochezia. PMD: Dr. Rush Past medical history: as above Surgical History: Hernia repair, Plastic surgery; ear pinning Family History: denies history of bleeding disorders, denies history of cancers Allergies: NKDA Medications: please refer to MAR Social History:admits to smoking on and off "since he was young" up to 1 ppd, admits to alcohol consumption from time to time (does not provide details) Labs:WBC 7.3, RBC 3.15, Hgb 5.9, HCT 21.3, MCV 67.6, Iron 14, TIBC 409, % saturation Fe 3 L, BNP 405, Trop x1 0.01, Sodium 138, Potassium 4.9, Chloride 102, bicarbonate 26, BUN 23, Creatinine 1.1, glucose 138 Toxicology negative Chest x-ray: no acute disease Last echocardiogram: aortic valve is severely thickened, with mild aortic regurgitation, mild valvular aortic stenosis. Mitral valve is mildly thickened with trace mitral regurgitation. Left ventricle is normal in size, with borderline concentric left ventricular hypertrophy, normal function of left ventricle as well as segmental wall motion. Left ventricular ejection fraction is 69%. Present on Admission - Present on Admission Any Indicators Present on Admission: No Review of Systems - Review of Systems Systems not reviewed;Unavailable: Uncooperative, Psychotic - Cardiovascular Cardiovascular: Dyspnea, Dyspnea on Exertion, Palpitations. absent: Chest Pain - Respiratory Respiratory: absent: Dyspnea - Gastrointestinal Gastrointestinal: absent: Abdominal Pain, Diarrhea, Hematemesis, Hematochezia, Melena, Nausea, Vomiting - Genitourinary Genitourinary: Hematuria - Neurological Neurological: Weakness - Psychiatric Psychiatric: Auditory Hallucinations, Hallucinations, Paranoia - Endocrine Endocrine: Fatigue, Palpitations - Hematologic/Lymphatic Hematologic: absent: Easy Bleeding, Easy Bruising Past Patient History - Infectious Disease Hx of Infectious Diseases: None - Past Social History Smoking Status: Former Smoker - CARDIAC Hx Cardiac Disorders: Yes Hx Cardia Arrhythmia: Yes Hx Congestive Heart Failure: Yes Hx Hypertension: Yes Hx Pacemaker: Yes (04/30/17) - PULMONARY Hx Respiratory Disorders: No - NEUROLOGICAL Hx Neurological Disorder: No - HEENT Hx HEENT Problems: No - RENAL Hx Chronic Kidney Disease: No - ENDOCRINE/METABOLIC Hx Endocrine Disorders: Yes Hx Diabetes Mellitus Type 2: Yes - HEMATOLOGICAL/ONCOLOGICAL Hx Blood Disorders: No - INTEGUMENTARY Hx Dermatological Problems: No - MUSCULOSKELETAL/RHEUMATOLOGICAL Hx Falls: No - GASTROINTESTINAL Hx Gastrointestinal Disorders: No - GENITOURINARY/GYNECOLOGICAL Hx Genitourinary Disorders: No - PSYCHIATRIC Hx Psychophysiologic Disorder: Yes Hx Anxiety: Yes Hx Bipolar Disorder: Yes Hx Depression: Yes Hx Schizophrenia: Yes Hx Substance Use: No - SURGICAL HISTORY Other/Comment: inguinal hernia repair 2009 - ANESTHESIA Hx Anesthesia: Yes Hx Anesthesia Reactions: No Hx Malignant Hyperthermia: No Meds Allergies/Adverse Reactions: Allergies Allergy/AdvReac Type Severity Reaction Status Date / Time No Known Allergies Allergy Verified 11/17/17 12:02 Physical Exam - Constitutional Appears: Non-toxic, No Acute Distress - Head Exam Head Exam: ATRAUMATIC, NORMAL INSPECTION, NORMOCEPHALIC - Eye Exam Eye Exam: EOMI, Normal appearance - ENT Exam ENT Exam: Mucous Membranes Moist, Normal Exam - Neck Exam Neck exam: Positive for: Normal Inspection - Respiratory Exam Respiratory Exam: Clear to Auscultation Bilateral, NORMAL BREATHING PATTERN. absent: Rhonchi, Wheezes - Cardiovascular Exam Cardiovascular Exam: Tachycardia, REGULAR RHYTHM, +S1, +S2 - GI/Abdominal Exam GI & Abdominal Exam: Normal Bowel Sounds, Soft - Neurological Exam Neurological exam: Alert, CN II-XII Intact, Oriented x3 - Psychiatric Exam Additional comments: paranoid - Skin Skin Exam: Intact, Normal Color, Warm Results - Vital Signs Recent Vital Signs: Last Vital Signs Temp 98.4 F 11/17/17 11:58 Pulse 87 11/17/17 11:58 Resp 22 11/17/17 11:58 BP 119/45 L 11/17/17 11:58 Pulse Ox 100 11/17/17 11:58 - Labs Result Diagrams: 11/17/17 15:12 11/17/17 13:50 Labs: Laboratory Results - last 24 hr 11/17/17 11/17/17 11/17/17 12:16 13:50 13:50 WBC 8.4 D RBC 3.17 L Hgb 5.9 L* D Hct 21.5 L MCV 67.8 L D MCH 18.6 L MCHC 27.4 L RDW 17.0 H Plt Count 309 MPV 9.3 Gran % 62.4 Lymph % (Auto) 22.9 Garza % (Auto) 12.8 H Eos % (Auto) 1.7 Baso % (Auto) 0.2 Gran # 5.21 Lymph # 1.9 Garza # 1.1 H Eos # 0.1 Baso # 0.02 Sodium 138 Potassium 4.9 Chloride 102 Carbon Dioxide 26 Anion Gap 15 BUN 23 H Creatinine 1.1 Est GFR ( Amer) > 60 Est GFR (Non-Af Amer) > 60 POC Glucose (mg/dL) 138 H Random Glucose 99 Calcium 10.1 Iron TIBC % Saturation Lactate Dehydrogenase 394 Total Creatine Kinase 36 Troponin I < 0.01 NT-Pro-B Natriuret Pep 405 Salicylates Urine Opiates Screen Urine Methadone Screen Acetaminophen Ur Barbiturates Screen Ur Phencyclidine Scrn Ur Amphetamines Screen U Benzodiazepines Scrn U Oth Cocaine Metabols U Cannabinoids Screen Alcohol, Quantitative Crossmatch BBK History Checked 11/17/17 11/17/17 11/17/17 13:50 13:50 14:00 WBC RBC Hgb Hct MCV MCH MCHC RDW Plt Count MPV Gran % Lymph % (Auto) Garza % (Auto) Eos % (Auto) Baso % (Auto) Gran # Lymph # Garza # Eos # Baso # Sodium Potassium Chloride Carbon Dioxide Anion Gap BUN Creatinine Est GFR ( Amer) Est GFR (Non-Af Amer) POC Glucose (mg/dL) Random Glucose Calcium Iron TIBC % Saturation Lactate Dehydrogenase Total Creatine Kinase Troponin I NT-Pro-B Natriuret Pep Salicylates < 1 L Urine Opiates Screen Negative Urine Methadone Screen Negative Acetaminophen < 10.0 L Ur Barbiturates Screen Negative Ur Phencyclidine Scrn Negative Ur Amphetamines Screen Negative U Benzodiazepines Scrn Positive U Oth Cocaine Metabols Negative U Cannabinoids Screen Negative Alcohol, Quantitative < 10 Crossmatch BBK History Checked 11/17/17 11/17/17 14:40 14:40 WBC RBC Hgb Hct MCV MCH MCHC RDW Plt Count MPV Gran % Lymph % (Auto) Garza % (Auto) Eos % (Auto) Baso % (Auto) Gran # Lymph # Garza # Eos # Baso # Sodium Potassium Chloride Carbon Dioxide Anion Gap BUN Creatinine Est GFR ( Amer) Est GFR (Non-Af Amer) POC Glucose (mg/dL) Random Glucose Calcium Iron 14 L TIBC 409 % Saturation 3 L Lactate Dehydrogenase Total Creatine Kinase Troponin I NT-Pro-B Natriuret Pep Salicylates Urine Opiates Screen Urine Methadone Screen Acetaminophen Ur Barbiturates Screen Ur Phencyclidine Scrn Ur Amphetamines Screen U Benzodiazepines Scrn U Oth Cocaine Metabols U Cannabinoids Screen Alcohol, Quantitative Crossmatch See Detail BBK History Checked No verified bt Assessment & Plan - Assessment and Plan (Free Text) Assessment: Patient is a 67 year old male with a past medical history of schizoaffective disorder, 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 Plan: Anemia - Hgb 5.9, 2 units PRBCs to be transfused - FOBT + - Gastroenterology consulted - Anemia workup; pending - Iron studies: Iron 14 - Follow up CBC, CMP s/p tranfusions - TSH AV block 2:1 -Continue zestril, lipitor Shizoaffective disorder -continue risperdal,Cogentin,Depakote Hypertension -continue Zestril Hypercholesterolemia -continue Lipitor <Vernon Melendez - Last Filed: 11/18/17 13:40> Results - Vital Signs Recent Vital Signs: Last Vital Signs Temp 98.1 F 11/18/17 10:17 Pulse 69 11/18/17 10:47 Resp 14 11/18/17 10:47 BP 110/69 11/18/17 10:47 Pulse Ox 97 11/18/17 10:47 - Labs Result Diagrams: 11/18/17 06:00 11/18/17 06:00 Labs: Laboratory Results - last 24 hr 11/17/17 11/17/17 11/18/17 15:45 19:01 00:30 WBC 6.1 RBC 3.47 L Hgb 7.2 L Hct 24.8 L MCV 71.5 L D MCH 20.7 L MCHC 29.0 L RDW 19.8 H Plt Count 292 MPV 9.5 Gran % Lymph % (Auto) Garza % (Auto) Eos % (Auto) Baso % (Auto) Gran # Lymph # Garza # Eos # Baso # PT 12.2 INR 1.07 APTT pO2 175 H VBG pH 7.45 H VBG pCO2 40.0 VBG HCO3 27.8 VBG Total CO2 29.0 H VBG O2 Sat (Calc) 98.9 H VBG Base Excess 3.5 H VBG Potassium 4.7 Sodium 137.0 Chloride 107.0 Glucose 96 Lactate 1.5 FiO2 21.0 Potassium Carbon Dioxide Anion Gap BUN Creatinine Est GFR ( Amer) Est GFR (Non-Af Amer) POC Glucose (mg/dL) Random Glucose Calcium Total Bilirubin AST ALT Alkaline Phosphatase Total Protein Albumin Globulin Albumin/Globulin Ratio Venous Blood Potassium 4.7 11/18/17 11/18/17 11/18/17 00:30 02:12 06:00 WBC 5.8 RBC 3.57 Hgb 7.3 L Hct 25.2 L MCV 70.6 L MCH 20.4 L MCHC 29.0 L RDW 19.4 H Plt Count 296 MPV 9.4 Gran % 47.8 L Lymph % (Auto) 33.4 Garza % (Auto) 14.5 H Eos % (Auto) 4.1 Baso % (Auto) 0.2 Gran # 2.78 Lymph # 1.9 Garza # 0.8 H Eos # 0.2 Baso # 0.01 PT INR APTT pO2 VBG pH VBG pCO2 VBG HCO3 VBG Total CO2 VBG O2 Sat (Calc) VBG Base Excess VBG Potassium Sodium 138 Chloride 105 Glucose Lactate FiO2 Potassium 4.6 Carbon Dioxide 26 Anion Gap 12 BUN 22 H Creatinine 1.2 Est GFR ( Amer) > 60 Est GFR (Non-Af Amer) > 60 POC Glucose (mg/dL) 84 Random Glucose 90 Calcium 9.3 Total Bilirubin 0.4 AST 20 ALT 27 Alkaline Phosphatase 43 Total Protein 6.3 Albumin 3.6 Globulin 2.7 Albumin/Globulin Ratio 1.3 Venous Blood Potassium 11/18/17 11/18/17 11/18/17 06:00 06:00 07:27 WBC RBC Hgb Hct MCV MCH MCHC RDW Plt Count MPV Gran % Lymph % (Auto) Garza % (Auto) Eos % (Auto) Baso % (Auto) Gran # Lymph # Garza # Eos # Baso # PT 12.7 H INR 1.10 H APTT 32.9 pO2 VBG pH VBG pCO2 VBG HCO3 VBG Total CO2 VBG O2 Sat (Calc) VBG Base Excess VBG Potassium Sodium 140 Chloride 105 Glucose Lactate FiO2 Potassium 4.6 Carbon Dioxide 26 Anion Gap 13 BUN 19 Creatinine 1.1 Est GFR ( Amer) > 60 Est GFR (Non-Af Amer) > 60 POC Glucose (mg/dL) 78 Random Glucose 86 Calcium 9.3 Total Bilirubin 0.4 AST 28 ALT 22 Alkaline Phosphatase 44 Total Protein 5.8 Albumin 3.3 Globulin 2.5 Albumin/Globulin Ratio 1.3 Venous Blood Potassium Attending/Attestation - Attestation I have personally seen and examined this patient.: Yes I have fully participated in the care of the patient.: Yes I have reviewed all pertinent clinical information: Yes Notes (Text): 11/18/17 13:36 Attending note; Patient seen and examined with resident in ER. Patient is a poor historian. History from previous chart review. 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 The patient was found to have hemoglobin of 5.9 in the ER. No active bleeding noted. Stool guaiac was positive. GI evaluation requested. 2 units PRBC transfusion ordered. History of schizophrenia; psychiatric evaluation requested. Patient had power of commercial attorney Mr. Fischer in the past. we will try to contact him. Upon discharge the patient will follow-up with PMD of choice. 11/18/17 13:39
[2017-11-17 15:32] LABS: HEMOGLOBIN 5.9 g/dL (14.0-18.0)
[2017-11-17] MEDS ORDERED: Sodium Chloride 0.9% 1,000 ML IV STA (15:41)
[2017-11-17 16:04] LABS: VENOUS BLOOD GAS BASE EXCESS 3.5 mmol/L (0.0-2.0); VENOUS BLOOD GAS PO2 175 mm/Hg (30-55); VENOUS BLOOD PH 7.45 (7.32-7.43)
--- NOTE | 2017-11-17 16:38 | CP.PCM.CON ---
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 Patient states he decided to come in today as he was "gasping for air" and couldn't walk and was feeling tired. He complained of lightheadedness and dizziness with no inciting events. Patient denied any abdominal pain, nausea, vomiting, diarrhea, constipation, hematochezia, and melena. 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 Patient stated everything "went downhill since May" when he went to [place] but would not state why. Patient admitted to dizziness, shortness of breath, fatigue, weakness, and pale skin, and one episode of hematuria. 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 Family Hx: denies history of bleeding disorders, denies history of colon ca/ gastric ca Social Hx: admits to smoking on and off "since he was young" up to 1 ppd, drinks EtOH and states last drink was 1 week ago which was 750ml of sangrai 10% alcohol; lives alone in a Basement Meds: Please see medication reconciliation ALL: NKDA PMD: Dr. Rush GI: none Pharmacy: [facility] [address] in [place] Review of Systems - Review of Systems All systems: reviewed and no additional remarkable complaints except - Constitutional Constitutional: As Per HPI, Weakness. absent: Chills, Fever - EENT Eyes: As Per HPI. absent: Blurred Vision Ears: As Per HPI, Dizziness Nose/Mouth/Throat: As Per HPI. absent: Sore Throat - Cardiovascular Cardiovascular: As Per HPI, Dyspnea, Dyspnea on Exertion. absent: Chest Pain, Chest Pain with Activity, Edema - Respiratory Respiratory: As Per HPI, Dyspnea, Dyspnea on Exertion. absent: Cough, Wheezing - Gastrointestinal Gastrointestinal: As Per HPI. absent: Abdominal Pain, Constipation, Diarrhea, Hematemesis, Hematochezia, Melena, Nausea, Vomiting - Genitourinary Genitourinary: As Per HPI, Hematuria. absent: Dysuria, Pyuria - Musculoskeletal Musculoskeletal: As Per HPI. absent: Numbness, Tingling - Integumentary Integumentary: As Per HPI. absent: Dry Skin, Rash - Neurological Neurological: As Per HPI, Dizziness. absent: Headaches Additional comments: lightheadedness - Psychiatric Psychiatric: As Per HPI, Anxiety, Auditory Hallucinations, Paranoia - Endocrine Endocrine: As Per HPI. absent: Palpitations Past Patient History - Infectious Disease Hx of Infectious Diseases: None - Past Social History Smoking Status: Former Smoker - CARDIAC Hx Cardiac Disorders: Yes Hx Cardia Arrhythmia: Yes Hx Congestive Heart Failure: Yes Hx Hypertension: Yes Hx Pacemaker: Yes (04/30/17) - PULMONARY Hx Respiratory Disorders: No - NEUROLOGICAL Hx Neurological Disorder: No - HEENT Hx HEENT Problems: No - RENAL Hx Chronic Kidney Disease: No - ENDOCRINE/METABOLIC Hx Endocrine Disorders: Yes Hx Diabetes Mellitus Type 2: Yes - HEMATOLOGICAL/ONCOLOGICAL Hx Blood Disorders: No - INTEGUMENTARY Hx Dermatological Problems: No - MUSCULOSKELETAL/RHEUMATOLOGICAL Hx Falls: No - GASTROINTESTINAL Hx Gastrointestinal Disorders: No - GENITOURINARY/GYNECOLOGICAL Hx Genitourinary Disorders: No - PSYCHIATRIC Hx Psychophysiologic Disorder: Yes Hx Anxiety: Yes Hx Bipolar Disorder: Yes Hx Depression: Yes Hx Schizophrenia: Yes Hx Substance Use: No - SURGICAL HISTORY Other/Comment: inguinal hernia repair 2009 - ANESTHESIA Hx Anesthesia: Yes Hx Anesthesia Reactions: No Hx Malignant Hyperthermia: No Meds Allergies/Adverse Reactions: Allergies Allergy/AdvReac Type Severity Reaction Status Date / Time No Known Allergies Allergy Verified 11/17/17 12:02 - Medications Medications: Current Medications Atorvastatin Calcium (Lipitor) 10 mg PO DIN SADIE Benztropine Mesylate (Cogentin) 0.5 mg PO AMHS SADIE Divalproex Sodium (Depakote Dr(*Bid*)) 500 mg PO AMHS SADIE Folic Acid (Folic Acid) 1 mg PO DAILY [facility] Sodium Chloride (Sodium Chloride 0.9%) 1,000 mls @ 999 mls/hr IV .Q1H1M STA Stop: 11/17/17 16:41 Last Admin: 11/17/17 15:59 Dose: 999 mls/hr Lisinopril (Zestril) 20 mg PO DAILY SADIE Non-Formulary Medication (Suvorexant [Belsomra]) 15 mg PO HS SADIE Pantoprazole Sodium (Protonix Inj) 40 mg IVP Q12 [facility]AD[facility] Risperidone (Risperdal Tab) 2 mg PO AMHS SADIE PRN Reason: Protocol Thiamine HCl (Vitamin B1 Tab) 100 mg PO DAILY SADIE Zolpidem Tartrate (Ambien) 10 mg PO HS PRN; Protocol PRN Reason: Insomnia Physical Exam - Constitutional Appears: Non-toxic, No Acute Distress - Eye Exam Eye Exam: EOMI, Normal appearance, PERRL. absent: Conjunctival injection, Scleral icterus - ENT Exam ENT Exam: Mucous Membranes Dry - Neck Exam Neck exam: Positive for: Full Rom, Normal Inspection - Respiratory Exam Respiratory Exam: Clear to Auscultation Bilateral, NORMAL BREATHING PATTERN. absent: Accessory Muscle Use, Rales, Rhonchi, Wheezes, Respiratory Distress - Cardiovascular Exam Cardiovascular Exam: Tachycardia, REGULAR RHYTHM, +S1, +S2. absent: Systolic Murmur - GI/Abdominal Exam GI & Abdominal Exam: Normal Bowel Sounds, Soft. absent: Distended, Firm, Guarding, Organomegaly, Rigid, Tenderness - Rectal Exam Rectal Exam: Deferred - Extremities Exam Extremities exam: Positive for: normal capillary refill, normal inspection, pedal pulses present. Negative for: pedal edema - Neurological Exam Neurological exam: Alert - Psychiatric Exam Psychiatric exam: Anxious - Skin Skin Exam: Dry, Intact, Pallor, Pallor Results - Vital Signs Recent Vital Signs: Last Vital Signs Temp 99.3 F 11/17/17 16:22 Pulse 91 H 11/17/17 16:22 Resp 18 11/17/17 16:22 BP 120/52 L 11/17/17 16:22 Pulse Ox 100 11/17/17 16:22 - Labs Result Diagrams: 11/17/17 15:12 11/17/17 13:50 Labs: Laboratory Results - last 24 hr 11/17/17 15:45 pO2 175 H VBG pH 7.45 H VBG pCO2 40.0 VBG HCO3 27.8 VBG Total CO2 29.0 H VBG O2 Sat (Calc) 98.9 H VBG Base Excess 3.5 H VBG Potassium 4.7 Sodium 137.0 Chloride 107.0 Glucose 96 Lactate 1.5 FiO2 21.0 Venous Blood Potassium 4.7 Assessment & Plan - Assessment and Plan (Free Text) Assessment: 67yo male PMHx schizoaffective disorder, 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 anemia with no signs of active bleeding 2. Hx of AV block 2:1 s/p pacemaker 3. Hx of CHF 4. Hx of HTN 5. Hx of dyslipidemia 6. Hx of NIDDM Plan: -Hgb on admission 5.9 -transfuse and monitor H&H - f/u CBC at midnight -NPO after midnight -Patient for EGD in the AM -continue management as per primary GI will continue to follow Discussed with Dr. Daisy Lemus PGY2 <Chilango Villa - Last Filed: 11/17/17 18:30> Meds - Medications Medications: Current Medications Atorvastatin Calcium (Lipitor) 10 mg PO DIN [facility] Last Admin: 11/17/17 16:40 Dose: 10 mg Benztropine Mesylate (Cogentin) 0.5 mg PO AMHS SADIE Divalproex Sodium (Depakote Dr(*Bid*)) 500 mg PO AMHS SADIE Folic Acid (Folic Acid) 1 mg PO DAILY SADIE Lisinopril (Zestril) 20 mg PO DAILY [facility] Last Admin: 11/17/17 16:35 Dose: 20 mg Non-Formulary Medication (Suvorexant [Belsomra]) 15 mg PO HS SADIE Pantoprazole Sodium (Protonix Inj) 40 mg IVP Q12 SADIE Risperidone (Risperdal Tab) 2 mg PO AMHS SADIE PRN Reason: Protocol Thiamine HCl (Vitamin B1 Tab) 100 mg PO DAILY SADIE Zolpidem Tartrate (Ambien) 10 mg PO HS PRN; Protocol PRN Reason: Insomnia Results - Vital Signs Recent Vital Signs: Last Vital Signs Temp 99.0 F 11/17/17 18:03 Pulse 96 H 11/17/17 18:03 Resp 19 11/17/17 18:03 BP 126/78 11/17/17 18:03 Pulse Ox 100 11/17/17 16:22 - Labs Result Diagrams: 11/17/17 15:12 11/17/17 13:50 Labs: Laboratory Results - last 24 hr 11/17/17 15:45 pO2 175 H VBG pH 7.45 H VBG pCO2 40.0 VBG HCO3 27.8 VBG Total CO2 29.0 H VBG O2 Sat (Calc) 98.9 H VBG Base Excess 3.5 H VBG Potassium 4.7 Sodium 137.0 Chloride 107.0 Glucose 96 Lactate 1.5 FiO2 21.0 Venous Blood Potassium 4.7 Attending/Attestation - Attestation I have personally seen and examined this patient.: Yes I have fully participated in the care of the patient.: Yes I have reviewed all pertinent clinical information: Yes Notes (Text): 11/17/17 18:29 67 year old male with schizoaffective disorder, CHF, h/o pacemaker for AV block , HTN, HLD, DM a/w severe symptomatic anemia. 1. Iron deficiency anemia 2. Occult blood positive Plan: -no overt signs of GI bleeding -likely chronic occult blood loss -recommend transfusion of 2 units of blood -npo after mn for egd tomorrow -start PPI daily -consider colonoscopy if EGD negative
[2017-11-17 19:19] LABS: BILIRUBIN,DIRECT 0.1 mg/dL (0.0-0.4)
[2017-11-17 19:28] LABS: INR 1.07 (0.93-1.08); PROTHROMBIN TIME 12.2 SECONDS (9.4-12.5)
--- NOTE | 2017-11-17 22:15 | CARD ---
APPROVED REPORT EKG Measurement Heart [id number] <Conclusion> Ventricular paced rhythm Underlying rhythm is sinus
[2017-11-17] MEDS: Divalproex 500 mg DR(BID formulation) PO SCH (23:16)
[2017-11-17] MEDS: SUVOREXANT 15 MG PO SCH (23:17)
[2017-11-18 01:01] LABS: ALB/GLOB RATIO 1.3 (1.1-1.8); ALBUMIN 3.6 g/dL (3.0-4.8); ALT/SGPT 27 U/L (7-56); AST/SGOT 20 U/L (17-59); BLOOD UREA NITROGEN 22 mg/dL (7-21); CALCIUM 9.3 mg/dL (8.4-10.5); GFR AFRICAN-AMERICAN > 60; GFR NON-AFRICAN AMERICAN > 60
[2017-11-18 01:03] LABS: MEAN CELL VOLUME 71.5 fl (80.0-105.0); MEAN CORPUSCULAR HEMOGLOBIN 20.7 pg (25.0-35.0); MEAN PLATELET VOLUME 9.5 fl (7.0-11.0); RBC 3.47 10^6/uL (3.5-6.1); RED CELL DISTRIBUTION WIDTH 19.8 % (11.5-14.5); WHITE BLOOD COUNT 6.1 10^3/ul (4.5-11.0)
[2017-11-18 01:06] LABS: HEMOGLOBIN 7.2 g/dL (14.0-18.0)
[2017-11-18 06:22] LABS: BASO # 0.01 K/mm3 (0.0-2.0); BASO % 0.2 % (0.0-3.0); EOS # 0.2 (0.0-0.7); EOS % 4.1 % (1.5-5.0); GRAN # 2.78 (1.4-6.5); GRAN % 47.8 % (50.0-68.0); LYMPH # 1.9 (1.2-3.4); LYMPH % 33.4 % (22.0-35.0); MEAN CELL VOLUME 70.6 fl (80.0-105.0); MEAN CORPUSCULAR HEMOGLOBIN 20.4 pg (25.0-35.0); MEAN PLATELET VOLUME 9.4 fl (7.0-11.0); MONO # 0.8 (0.1-0.6); MONO % 14.5 % (1.0-6.0); RBC 3.57 10^6/uL (3.5-6.1); RED CELL DISTRIBUTION WIDTH 19.4 % (11.5-14.5); WHITE BLOOD COUNT 5.8 10^3/ul (4.5-11.0)
[2017-11-18 06:39] LABS: HEMOGLOBIN 7.3 g/dL (14.0-18.0)
[2017-11-18 06:42] LABS: INR 1.1 (0.93-1.08); PARTIAL THROMBOPLASTIN TIME 32.9 Seconds (25.1-36.5); PROTHROMBIN TIME 12.7 SECONDS (9.4-12.5)
--- NOTE | 2017-11-18 06:53 | CP.PCM.PN ---
Subjective - Date & Time of Evaluation Date of Evaluation: 11/18/17 Time of Evaluation: 06:55 - Subjective Subjective: PGY2 Medicine Resident Progress note for GI Patient seen and examined at bedside. ROS: 12 point review of systems negative except as indicated in HPI Objective - Vital Signs/Intake and Output Vital Signs (last 24 hours): Temp Pulse Resp BP Pulse Ox 100.6 F H 83 22 134/78 99 11/18/17 00:42 11/18/17 00:42 11/18/17 00:42 11/18/17 00:42 11/17/17 18:45 Intake and Output: 11/17/17 11/18/17 18:59 06:59 Intake Total 0 603 Balance 0 603 - Medications Medications: Current Medications Acetaminophen (Tylenol 325 Mg Supp) 650 mg RC Q6H PRN PRN Reason: Fever >100.4 F Atorvastatin Calcium (Lipitor) 10 mg PO DIN [facility] Last Admin: 11/17/17 16:40 Dose: 10 mg Benztropine Mesylate (Cogentin) 0.5 mg PO [facility] Last Admin: 11/17/17 23:16 Dose: 0.5 mg Divalproex Sodium (Depakote Dr(*Bid*)) 500 mg PO [facility] Last Admin: 11/17/17 23:16 Dose: 500 mg Folic Acid (Folic Acid) 1 mg PO DAILY [facility] Non-Formulary Medication (Suvorexant [Belsomra]) 15 mg PO HS [facility] Last Admin: 11/17/17 23:17 Dose: Not Given Pantoprazole Sodium (Protonix Inj) 40 mg IVP Q12 [facility] Last Admin: 11/17/17 23:16 Dose: 40 mg Risperidone (Risperdal Tab) 2 mg PO [facility] PRN Reason: Protocol Last Admin: 11/17/17 23:16 Dose: 2 mg Thiamine HCl (Vitamin B1 Tab) 100 mg PO DAILY SADIE Zolpidem Tartrate (Ambien) 10 mg PO HS PRN; Protocol PRN Reason: Insomnia Last Admin: 11/18/17 03:13 Dose: 10 mg - Labs Labs: 11/18/17 06:00 11/18/17 00:30 PT 12.7 SECONDS (9.4-12.5) H 11/18/17 06:00 INR 1.10 (0.93-1.08) H 11/18/17 06:00 APTT 32.9 Seconds (25.1-36.5) 11/18/17 06:00 Assessment and Plan - Assessment and Plan (Free Text) Assessment: 67yo male PMHx schizoaffective disorder, 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 iron deficient anemia with no signs of active bleeding 2. Hx of AV block 2:1 s/p pacemaker 3. Hx of CHF 4. Hx of HTN 5. Hx of dyslipidemia 6. Hx of NIDDM Plan: -Hgb on admission 5.9 -transfuse and monitor H&H -occult blood positive -NPO after midnight -Patient for EGD in the AM -continue management as per primary Discussed with Dr. Priscila Lemus PGY2
[2017-11-18 07:02] LABS: ALB/GLOB RATIO 1.3 (1.1-1.8); ALBUMIN 3.3 g/dL (3.0-4.8); ALT/SGPT 22 U/L (7-56); AST/SGOT 28 U/L (17-59); BLOOD UREA NITROGEN 19 mg/dL (7-21); CALCIUM 9.3 mg/dL (8.4-10.5); GFR AFRICAN-AMERICAN > 60; GFR NON-AFRICAN AMERICAN > 60
[2017-11-18] MEDS: Divalproex 500 mg DR(BID formulation) PO SCH ×2 (09:00→22:44)
[2017-11-18] MEDS ORDERED: Propofol 10 mg/ml Inj (20 ML) ONE ×2 (09:41→10:02)
[2017-11-18] MEDS ORDERED: Etomidate 40 MG/20 ML ML IV ONE (09:41)
[2017-11-18] MEDS ORDERED: Lidocaine 1% Inj (20ml) ONE (09:41)
[2017-11-18] MEDS ORDERED: Sodium Chloride 0.9% 1,000 ML IV SCH (10:30)
--- NOTE | 2017-11-18 13:49 | CP.PCM.PN ---
<Sid Barth - Last Filed: 11/18/17 18:33> Subjective - Date & Time of Evaluation Date of Evaluation: 11/18/17 Time of Evaluation: 07:30 - Subjective Subjective: Patient seen and examined at bedside in no acute distress. Patient states he feels better and no longer feels short of breath. States he slept well and found a good show to watch on television. Concerned about his status with diabetes since he was told he was pre-diabetic in the past. Patient is aware with plan of endoscopy and is in agreement. Denies shortness of breath, chest pain, palpitations abdominal pain, nausea, vomiting, diarrhea, chills. Objective - Vital Signs/Intake and Output Vital Signs (last 24 hours): Temp Pulse Resp BP Pulse Ox 98.1 F 69 14 110/69 97 11/18/17 10:17 11/18/17 10:47 11/18/17 10:47 11/18/17 10:47 11/18/17 10:47 Intake and Output: 11/18/17 11/18/17 06:59 18:59 Intake Total 843 Balance 843 - Medications Medications: Current Medications Acetaminophen (Tylenol 325 Mg Supp) 650 mg RC Q6H PRN PRN Reason: Fever >100.4 F Atorvastatin Calcium (Lipitor) 10 mg PO DIN [facility] Last Admin: 11/17/17 16:40 Dose: 10 mg Benztropine Mesylate (Cogentin) 0.5 mg PO [facility] Last Admin: 11/18/17 09:00 Dose: Not Given Bisacodyl (Dulcolax) 20 mg PO ONCE ONE Stop: 11/18/17 14:01 Divalproex Sodium (Depakote Dr(*Bid*)) 500 mg PO [facility] Last Admin: 11/18/17 09:00 Dose: Not Given Folic Acid (Folic Acid) 1 mg PO DAILY [facility] Last Admin: 11/18/17 09:01 Dose: Not Given Sodium Chloride (Sodium Chloride 0.9%) 1,000 mls @ 100 mls/hr IV .Q10H [facility] Non-Formulary Medication (Suvorexant [Belsomra]) 15 mg PO HS [facility] Last Admin: 11/17/17 23:17 Dose: Not Given Pantoprazole Sodium (Protonix Ec Tab) 40 mg PO 0600,1600 [facility] Polyethylene Glycol/Electrolytes (Golytely) 4,000 ml PO ONCE ONE Stop: 11/18/17 16:01 Risperidone (Risperdal Tab) 2 mg PO [facility] PRN Reason: Protocol Last Admin: 11/18/17 09:01 Dose: Not Given Thiamine HCl (Vitamin B1 Tab) 100 mg PO DAILY [facility] Last Admin: 11/18/17 09:01 Dose: Not Given Zolpidem Tartrate (Ambien) 10 mg PO HS PRN; Protocol PRN Reason: Insomnia Last Admin: 11/18/17 03:13 Dose: 10 mg - Labs Labs: 11/18/17 06:00 11/18/17 06:00 PT 12.7 SECONDS (9.4-12.5) H 11/18/17 06:00 INR 1.10 (0.93-1.08) H 11/18/17 06:00 APTT 32.9 Seconds (25.1-36.5) 11/18/17 06:00 - Constitutional Appears: Non-toxic, No Acute Distress - Head Exam Head Exam: ATRAUMATIC, NORMAL INSPECTION, NORMOCEPHALIC - Eye Exam Eye Exam: EOMI, Normal appearance - ENT Exam ENT Exam: Mucous Membranes Moist, Normal Exam - Neck Exam Neck Exam: Normal Inspection - Respiratory Exam Respiratory Exam: Clear to Ausculation Bilateral, Wheezes, NORMAL BREATHING PATTERN - Cardiovascular Exam Cardiovascular Exam: REGULAR RHYTHM, +S1, +S2 - GI/Abdominal Exam GI & Abdominal Exam: Soft, Normal Bowel Sounds - Extremities Exam Extremities Exam: Normal Inspection. 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 Plan: Anemia - Hgb now 7.3 from 5.9 on admission s/p 1 unit PRBC transfused - FOBT + - Gastroenterology consulted; endoscopy this morning revealed esophagitis, drop in Hemoglobin possibly due to an ulcer that was bleeding at the time which has now resolved as patient is hemodynamically stable. - Golytely prep for colonoscopy tomorrow AV block 2:1 -Continue zestril, lipitor Shizoaffective disorder -continue risperdal,Cogentin,Depakote Hypertension -continue Zestril Hypercholesterolemia -continue Lipitor Case discussed and reviewed with Dr. Nora Barth PGY1 <Vernon Melendez - Last Filed: 11/20/17 07:53> Objective - Vital Signs/Intake and Output Vital Signs (last 24 hours): Temp Pulse Resp BP Pulse Ox 97 F L 67 18 124/82 97 11/19/17 16:00 11/20/17 06:00 11/19/17 16:00 11/19/17 16:00 11/19/17 16:00 Intake and Output: 11/20/17 11/20/17 06:59 18:59 Intake Total 720 Balance 720 - Medications Medications: Current Medications Acetaminophen (Tylenol 325 Mg Supp) 650 mg RC Q6H PRN PRN Reason: Fever >100.4 F Atorvastatin Calcium (Lipitor) 10 mg PO DIN [facility] Last Admin: 11/19/17 21:31 Dose: 10 mg Benztropine Mesylate (Cogentin) 0.5 mg PO [facility] Last Admin: 11/19/17 21:31 Dose: 0.5 mg Divalproex Sodium (Depakote Dr(*Bid*)) 500 mg PO [facility] Last Admin: 11/19/17 21:30 Dose: 500 mg Folic Acid (Folic Acid) 1 mg PO DAILY [facility] Last Admin: 11/19/17 09:27 Dose: Not Given Sodium Chloride (Sodium Chloride 0.9%) 1,000 mls @ 100 mls/hr IV .Q10H [facility] Last Admin: 11/19/17 06:43 Dose: 100 mls/hr Sodium Chloride (Sodium Chloride 0.9%) 1,000 mls @ 100 mls/hr IV .Q10H [facility] Non-Formulary Medication (Suvorexant [Belsomra]) 15 mg PO HS [facility] Last Admin: 11/19/17 06:28 Dose: Not Given Pantoprazole Sodium (Protonix Ec Tab) 40 mg PO 0600,1600 [facility] Last Admin: 11/20/17 06:03 Dose: 40 mg Risperidone (Risperdal Tab) 2 mg PO [facility] PRN Reason: Protocol Last Admin: 11/19/17 21:31 Dose: 2 mg Thiamine HCl (Vitamin B1 Tab) 100 mg PO DAILY [facility] Last Admin: 11/19/17 09:28 Dose: Not Given Zolpidem Tartrate (Ambien) 10 mg PO HS PRN; Protocol PRN Reason: Insomnia Last Admin: 11/19/17 23:33 Dose: 10 mg - Labs Labs: 11/20/17 05:30 11/20/17 05:30 PT 12.7 SECONDS (9.4-12.5) H 11/18/17 06:00 INR 1.10 (0.93-1.08) H 11/18/17 06:00 APTT 32.9 Seconds (25.1-36.5) 11/18/17 06:00 Attending/Attestation - Attestation I have personally seen and examined this patient.: Yes I have fully participated in the care of the patient.: Yes I have reviewed all pertinent clinical information, including history, physical exam and plan: Yes Notes (Text): 11/20/17 07:51 Attending note; Patient seen and examined with resident. 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 The patient was found to have hemoglobin of 5.9 in the ER. Status post 2 units PRBC transfusion. Endoscopy showed esophagitis. No active bleeding noted. Case discussed with GI in detail. Plan for colonoscopy tomorrow. History of schizophrenia; psychiatric evaluation requested. Upon discharge the patient will follow-up with PMD of choice.
[2017-11-18] MEDS ORDERED: Bisacodyl 5mg EC Tab PO ONE (14:00)
[2017-11-18] MEDS ORDERED: Peg-Electrolyte Oral Soln 4L (Golytely) PO ONE (16:00)
[2017-11-18] MEDS: Pantoprazole 40 mg EC Tab PO SCH (16:07)
[2017-11-18 17:19] LABS: FERRITIN 4.4 ng/mL
[2017-11-19] MEDS: SUVOREXANT 15 MG PO SCH (06:28)
[2017-11-19] MEDS: Pantoprazole 40 mg EC Tab PO SCH (06:28)
[2017-11-19 08:44] LABS: BLOOD UREA NITROGEN 13 mg/dL (7-21); CALCIUM 9.2 mg/dL (8.4-10.5); GFR AFRICAN-AMERICAN > 60; GFR NON-AFRICAN AMERICAN > 60
[2017-11-19] MEDS: Divalproex 500 mg DR(BID formulation) PO SCH ×2 (09:27→21:30)
[2017-11-19 09:43] LABS: MEAN CELL VOLUME 71.1 fl (80.0-105.0); MEAN CORPUSCULAR HEMOGLOBIN 20.8 pg (25.0-35.0); MEAN CORPUSCULAR HGB CONC 29.3 g/dl (31.0-37.0); MEAN PLATELET VOLUME 9.8 fl (7.0-11.0); PLATELET COUNT 308 10^3/uL (120.0-450.0); RBC 3.84 10^6/uL (3.5-6.1); RED CELL DISTRIBUTION WIDTH 20.2 % (11.5-14.5); WHITE BLOOD COUNT 4.3 10^3/ul (4.5-11.0)
[2017-11-19] MEDS ORDERED: Propofol 10 mg/ml Inj (20 ML) ONE (13:40)
--- NOTE | 2017-11-19 13:40 | CP.PCM.PN ---
<Sid Barth - Last Filed: 11/19/17 14:47> Subjective - Date & Time of Evaluation Date of Evaluation: 11/19/17 Time of Evaluation: 07:05 - Subjective Subjective: Patient seen and examined at bedside in no acute distress. Says he drank half of golyteley; explained to patient he needed to attempt drinking all of it. Patient states he feels good here because he isn't alone and is surrounded by people. Denies shortness of breath, dizziness, chest pain, abdominal pain, nausea, vomiting, diarrhea. Objective - Vital Signs/Intake and Output Vital Signs (last 24 hours): Temp Pulse Resp BP Pulse Ox 98.4 F 72 18 141/72 98 11/19/17 12:35 11/19/17 12:35 11/19/17 12:35 11/19/17 12:35 11/19/17 12:35 Intake and Output: 11/19/17 11/19/17 06:59 18:59 Intake Total 360 Balance 360 - Medications Medications: Current Medications Acetaminophen (Tylenol 325 Mg Supp) 650 mg RC Q6H PRN PRN Reason: Fever >100.4 F Atorvastatin Calcium (Lipitor) 10 mg PO DIN [facility] Last Admin: 11/18/17 16:07 Dose: 10 mg Benztropine Mesylate (Cogentin) 0.5 mg PO [facility] Last Admin: 11/19/17 09:27 Dose: Not Given Divalproex Sodium (Depakote Dr(*Bid*)) 500 mg PO [facility] Last Admin: 11/19/17 09:27 Dose: Not Given Folic Acid (Folic Acid) 1 mg PO DAILY [facility] Last Admin: 11/19/17 09:27 Dose: Not Given Sodium Chloride (Sodium Chloride 0.9%) 1,000 mls @ 100 mls/hr IV .Q10H [facility] Last Admin: 11/19/17 06:43 Dose: 100 mls/hr Non-Formulary Medication (Suvorexant [Belsomra]) 15 mg PO HS [facility] Last Admin: 11/19/17 06:28 Dose: Not Given Pantoprazole Sodium (Protonix Ec Tab) 40 mg PO 0600,1600 [facility] Last Admin: 11/19/17 06:28 Dose: Not Given Risperidone (Risperdal Tab) 2 mg PO [facility] PRN Reason: Protocol Last Admin: 11/19/17 09:28 Dose: Not Given Thiamine HCl (Vitamin B1 Tab) 100 mg PO DAILY [facility] Last Admin: 11/19/17 09:28 Dose: Not Given Zolpidem Tartrate (Ambien) 10 mg PO HS PRN; Protocol PRN Reason: Insomnia Last Admin: 11/19/17 00:30 Dose: 10 mg - Labs Labs: 11/19/17 09:30 11/19/17 07:00 PT 12.7 SECONDS (9.4-12.5) H 11/18/17 06:00 INR 1.10 (0.93-1.08) H 11/18/17 06:00 APTT 32.9 Seconds (25.1-36.5) 11/18/17 06:00 - Constitutional Appears: Non-toxic, No Acute Distress - Head Exam Head Exam: ATRAUMATIC, NORMAL INSPECTION, NORMOCEPHALIC - ENT Exam ENT Exam: Mucous Membranes Moist - Respiratory Exam Respiratory Exam: Clear to Ausculation Bilateral, NORMAL BREATHING PATTERN. 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 Plan: Anemia - Hgb now 8.0 from 5.9 on admission - FOBT + - Gastroenterology consulted; endoscopy this morning revealed esophagitis, drop in Hemoglobin possibly due to an ulcer that was bleeding at the time which has now resolved as patient is hemodynamically stable. - Golytely prep done, colonoscopy this afternoon; no abnormalities found. - CT abdomen/pelvis with oral and IV contrast for further evaluation of source of bleed - Peripheral smear ordered AV block 2:1 -Continue zestril, lipitor Shizoaffective disorder -continue risperdal,Cogentin,Depakote Hypertension -continue Zestril Hypercholesterolemia -continue Lipitor Case discussed and reviewed with Dr. Zeus Barth PGY1 <Brielle Schulz - Last Filed: 11/19/17 16:10> Objective - Vital Signs/Intake and Output Vital Signs (last 24 hours): Temp Pulse Resp BP Pulse Ox 98.6 F 79 20 132/85 98 11/19/17 15:00 11/19/17 15:00 11/19/17 15:00 11/19/17 15:00 11/19/17 15:00 Intake and Output: 11/19/17 11/19/17 06:59 18:59 Intake Total 360 Balance 360 - Medications Medications: Current Medications Acetaminophen (Tylenol 325 Mg Supp) 650 mg RC Q6H PRN PRN Reason: Fever >100.4 F Atorvastatin Calcium (Lipitor) 10 mg PO DIN [facility] Last Admin: 11/18/17 16:07 Dose: 10 mg Benztropine Mesylate (Cogentin) 0.5 mg PO [facility] Last Admin: 11/19/17 09:27 Dose: Not Given Divalproex Sodium (Depakote Dr(*Bid*)) 500 mg PO [facility] Last Admin: 11/19/17 09:27 Dose: Not Given Folic Acid (Folic Acid) 1 mg PO DAILY [facility] Last Admin: 11/19/17 09:27 Dose: Not Given Sodium Chloride (Sodium Chloride 0.9%) 1,000 mls @ 100 mls/hr IV .Q10H [facility] Last Admin: 11/19/17 06:43 Dose: 100 mls/hr Sodium Chloride (Sodium Chloride 0.9%) 1,000 mls @ 100 mls/hr IV .Q10H [facility] Non-Formulary Medication (Suvorexant [Belsomra]) 15 mg PO HS [facility] Last Admin: 11/19/17 06:28 Dose: Not Given Pantoprazole Sodium (Protonix Ec Tab) 40 mg PO 0600,1600 [facility] Last Admin: 11/19/17 06:28 Dose: Not Given Risperidone (Risperdal Tab) 2 mg PO [facility] PRN Reason: Protocol Last Admin: 11/19/17 09:28 Dose: Not Given Thiamine HCl (Vitamin B1 Tab) 100 mg PO DAILY [facility] Last Admin: 11/19/17 09:28 Dose: Not Given Zolpidem Tartrate (Ambien) 10 mg PO HS PRN; Protocol PRN Reason: Insomnia Last Admin: 11/19/17 00:30 Dose: 10 mg - Labs Labs: 11/19/17 09:30 11/19/17 07:00 PT 12.7 SECONDS (9.4-12.5) H 11/18/17 06:00 INR 1.10 (0.93-1.08) H 11/18/17 06:00 APTT 32.9 Seconds (25.1-36.5) 11/18/17 06:00 Attending/Attestation - Attestation I have personally seen and examined this patient.: Yes I have fully participated in the care of the patient.: Yes I have reviewed all pertinent clinical information, including history, physical exam and plan: Yes Notes (Text): 11/19/17 16:01 67 year old male with past medical history of schizoaffective disorder, hypertension, diabetes and dyslipidemia who presented with symptomatic anemia. This improve after prbc transfusions. He was seen by GI and had EGD yesterday which showed esophagitis. Today he had colonoscopy; will follow up with result and with GI recommendations. Brielle Schulz MD Hospitalist.
[2017-11-19] MEDS ORDERED: Barium Sulfate Susp 2.1% w/v, 2.0% w/w 450 mL Bottle PO ONE (14:27)
[2017-11-19 14:55] LABS: BASOPHIL 2 % (0.0-1.0); EOSINOPHIL 8 % (0.0-3.0); LYMPHOCYTE 41 % (22.0-35.0); MONOCYTE 8 % (1.0-6.0); NEUTROPHIL 41 % (50.0-70.0)
[2017-11-19 14:56] LABS: PLATELET ESTIMATE NORMAL (NORMAL); POIKILOCYTOSIS SLIGHT
[2017-11-19 14:57] LABS: ANISOCYTOSIS 1+; MICROCYTOSIS 1+
[2017-11-19] MEDS ORDERED: Iohexol 350 MG/100 ML VIAL ONE (17:39)
[2017-11-20] MEDS: Pantoprazole 40 mg EC Tab PO SCH ×2 (06:03→18:08)
[2017-11-20 06:27] LABS: BASO # 0.01 K/mm3 (0.0-2.0); BASO % 0.2 % (0.0-3.0); EOS # 0.2 (0.0-0.7); EOS % 4.5 % (1.5-5.0); GRAN # 1.86 (1.4-6.5); GRAN % 44.5 % (50.0-68.0); LYMPH # 1.3 (1.2-3.4); LYMPH % 32.1 % (22.0-35.0); MEAN CELL VOLUME 71.4 fl (80.0-105.0); MEAN CORPUSCULAR HEMOGLOBIN 20.4 pg (25.0-35.0); MEAN CORPUSCULAR HGB CONC 28.6 g/dl (31.0-37.0); MEAN PLATELET VOLUME 9.3 fl (7.0-11.0); MONO # 0.8 (0.1-0.6); MONO % 18.7 % (1.0-6.0); RBC 3.77 10^6/uL (3.5-6.1); RED CELL DISTRIBUTION WIDTH 20.6 % (11.5-14.5); WHITE BLOOD COUNT 4.2 10^3/ul (4.5-11.0)
[2017-11-20 06:54] LABS: HEMOGLOBIN 7.7 g/dL (14.0-18.0)
[2017-11-20 07:03] LABS: ALB/GLOB RATIO 1.4 (1.1-1.8); ALBUMIN 3.5 g/dL (3.0-4.8); ALT/SGPT 21 U/L (7-56); AST/SGOT 30 U/L (17-59); BLOOD UREA NITROGEN 12 mg/dL (7-21); CALCIUM 9.1 mg/dL (8.4-10.5); GFR AFRICAN-AMERICAN > 60; GFR NON-AFRICAN AMERICAN > 60
--- NOTE | 2017-11-20 07:14 | CP.PCM.PN ---
<Priscila Lemus - Last Filed: 11/20/17 11:09> Subjective - Date & Time of Evaluation Date of Evaluation: 11/20/17 Time of Evaluation: 08:31 - Subjective Subjective: PGY2 Medicine Resident Progress note for GI Patient seen and examined at bedside. No acute events overnight as per nursing and patient afebrile. Patient is s/p EGD 11/18 and Colonoscopy 11/19. Patient denied any acute complaints of abdominal pain, nausea, vomiting, diarrhea, constipation, blood in stool, and melena. He is eager to eat and shower. Patient started to talk about the "electronics in his psyche" at the end of our encounter. ROS: 12 point review of systems negative except as indicated in HPI Objective - Vital Signs/Intake and Output Vital Signs (last 24 hours): Temp Pulse Resp BP Pulse Ox 97 F L 67 18 124/82 97 11/19/17 16:00 11/20/17 06:00 11/19/17 16:00 11/19/17 16:00 11/19/17 16:00 Intake and Output: 11/20/17 11/20/17 06:59 18:59 Intake Total 720 Balance 720 - Medications Medications: Current Medications Acetaminophen (Tylenol 325 Mg Supp) 650 mg RC Q6H PRN PRN Reason: Fever >100.4 F Atorvastatin Calcium (Lipitor) 10 mg PO DIN [facility] Last Admin: 11/19/17 21:31 Dose: 10 mg Benztropine Mesylate (Cogentin) 0.5 mg PO [facility] Last Admin: 11/19/17 21:31 Dose: 0.5 mg Divalproex Sodium (Depakote Dr(*Bid*)) 500 mg PO [facility] Last Admin: 11/19/17 21:30 Dose: 500 mg Folic Acid (Folic Acid) 1 mg PO DAILY [facility] Last Admin: 11/19/17 09:27 Dose: Not Given Sodium Chloride (Sodium Chloride 0.9%) 1,000 mls @ 100 mls/hr IV .Q10H [facility] Last Admin: 11/19/17 06:43 Dose: 100 mls/hr Sodium Chloride (Sodium Chloride 0.9%) 1,000 mls @ 100 mls/hr IV .Q10H [facility] Non-Formulary Medication (Suvorexant [Belsomra]) 15 mg PO [facility] Last Admin: 11/19/17 06:28 Dose: Not Given Pantoprazole Sodium (Protonix Ec Tab) 40 mg PO 0600,1600 [facility] Last Admin: 11/20/17 06:03 Dose: 40 mg Risperidone (Risperdal Tab) 2 mg PO [facility] PRN Reason: Protocol Last Admin: 11/19/17 21:31 Dose: 2 mg Thiamine HCl (Vitamin B1 Tab) 100 mg PO DAILY [facility] Last Admin: 11/19/17 09:28 Dose: Not Given Zolpidem Tartrate (Ambien) 10 mg PO HS PRN; Protocol PRN Reason: Insomnia Last Admin: 11/19/17 23:33 Dose: 10 mg - Labs Labs: 11/20/17 05:30 11/20/17 05:30 PT 12.7 SECONDS (9.4-12.5) H 11/18/17 06:00 INR 1.10 (0.93-1.08) H 11/18/17 06:00 APTT 32.9 Seconds (25.1-36.5) 11/18/17 06:00 - Constitutional Appears: Non-toxic, No Acute Distress - Head Exam Head Exam: ATRAUMATIC, NORMAL INSPECTION, NORMOCEPHALIC - Eye Exam Eye Exam: EOMI, Normal appearance. absent: Conjunctival injection, Scleral icterus - ENT Exam ENT Exam: Mucous Membranes Moist - Neck Exam Neck Exam: Full ROM, Normal Inspection - Respiratory Exam Respiratory Exam: Clear to Ausculation Bilateral, NORMAL BREATHING PATTERN. absent: Accessory Muscle Use, Rales, Rhonchi, Wheezes, Respiratory Distress - Cardiovascular Exam Cardiovascular Exam: REGULAR RHYTHM, RRR, +S1, +S2. absent: Murmur - GI/Abdominal Exam GI & Abdominal Exam: Soft, Normal Bowel Sounds. absent: Firm, Guarding, Rigid, Tenderness - Extremities Exam Extremities Exam: Normal Capillary Refill, Normal Inspection. 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 anemia with no signs of active bleeding 2. Hx of AV block 2:1 s/p pacemaker 3. Hx of CHF 4. Hx of HTN 5. Hx of dyslipidemia 6. Hx of NIDDM Plan: -EGD 11/18: Z-line regular 35cm from incisors. LA Grade B erosive esophagitis; non-bleeding erosive gastropathy. Gastritis and nodular mucosa in the duodenal bulb. Duodenitis. -Colonoscopy 11/19: Examined portion of ileum was normal; diverticulosis in sigmoid colon; internal hemorrhoids; normal mucosa in entire examined colon. -CT abd/pelvis: diffuse gastric wall thickening; free pelvic fluid; multiple liver hypodensities not characterized on exam, findings can represent cysts to hemangiomas statistically in view of presence of multiple R renal cysts unless other etiology like hepatic mass or metastasis is clinically suspected. There is dense calcified plaque in the R common femoral artery. -Hgb on admission 5.9 --> 7.7 this AM -Patient received 2U PRBC and remained hemodynamically stable with no signs of overt bleed -Protonix 40mg po bid -f/u peripheral smear -Recommend outpatient capsule endoscopy and GI clinic follow up GI will sign off at this time Discussed with Dr. Edgardo Lemus PGY2 <[place] - Last Filed: 11/20/17 11:43> Objective - Vital Signs/Intake and Output Vital Signs (last 24 hours): Temp Pulse Resp BP Pulse Ox 97 F L 67 18 124/82 97 11/19/17 16:00 11/20/17 06:00 11/19/17 16:00 11/19/17 16:00 11/19/17 16:00 Intake and Output: 11/20/17 11/20/17 06:59 18:59 Intake Total 720 Balance 720 - Medications Medications: Current Medications Acetaminophen (Tylenol 325 Mg Supp) 650 mg RC Q6H PRN PRN Reason: Fever >100.4 F Atorvastatin Calcium (Lipitor) 10 mg PO DIN [facility] Last Admin: 11/19/17 21:31 Dose: 10 mg Benztropine Mesylate (Cogentin) 0.5 mg PO [facility] Last Admin: 11/20/17 09:54 Dose: 0.5 mg Divalproex Sodium (Depakote Dr(*Bid*)) 500 mg PO [facility] Last Admin: 11/20/17 09:54 Dose: 500 mg Folic Acid (Folic Acid) 1 mg PO DAILY [facility] Last Admin: 11/20/17 09:54 Dose: 1 mg Sodium Chloride (Sodium Chloride 0.9%) 1,000 mls @ 100 mls/hr IV .Q10H [facility] Last Admin: 11/19/17 06:43 Dose: 100 mls/hr Sodium Chloride (Sodium Chloride 0.9%) 1,000 mls @ 100 mls/hr IV .Q10H [facility] Last Admin: 11/20/17 09:51 Dose: Not Given Non-Formulary Medication (Suvorexant [Belsomra]) 15 mg PO HS [facility] Last Admin: 11/19/17 06:28 Dose: Not Given Pantoprazole Sodium (Protonix Ec Tab) 40 mg PO 0600,1600 [facility] Last Admin: 11/20/17 06:03 Dose: 40 mg Risperidone (Risperdal Tab) 2 mg PO [facility] PRN Reason: Protocol Last Admin: 11/20/17 09:54 Dose: 2 mg Thiamine HCl (Vitamin B1 Tab) 100 mg PO DAILY [facility] Last Admin: 11/20/17 09:54 Dose: 100 mg Zolpidem Tartrate (Ambien) 10 mg PO HS PRN; Protocol PRN Reason: Insomnia Last Admin: 11/19/17 23:33 Dose: 10 mg - Labs Labs: 11/20/17 05:30 11/20/17 05:30 PT 12.7 SECONDS (9.4-12.5) H 11/18/17 06:00 INR 1.10 (0.93-1.08) H 11/18/17 06:00 APTT 32.9 Seconds (25.1-36.5) 11/18/17 06:00 Attending/Attestation - Attestation I have personally seen and examined this patient.: Yes I have fully participated in the care of the patient.: Yes I have reviewed all pertinent clinical information, including history, physical exam and plan: Yes Notes (Text): 11/20/17 11:38 I have seen and examined patient with medical care administrator. No acute events overnight, he is seen sitting at bedside eating breakfast, appears depressed. He denies abdominal pain, nausea, vomiting, fever/chills. Tolerating PO diet without difficulty. Review of vitals from today are normal. Schizoaffective disorder CHF HTN DM Microcytic iron deficiency anemia - s/p EGD and colonoscopy without significant findings to account for patient presentation CT imaging reviewed by me showing nodular hepatic contour with multiple hypodense hepatic lesions - Diet as tolerated - H/H stable without signs of overt bleeding, continue to monitor - Follow up hematology recommendations - Obtain triple phase liver CT given presence of nodular appearing liver with hepatic hypodense lesions - Obtain AFP - If workup remains negative, would suggest outpatient capsule endoscopy for further evaluation - No further planned GI intervention, will sign off case. Please reconsult as necessary, thank you.
--- NOTE | 2017-11-20 07:27 | CT ---
EXAM: CT Abdomen and Pelvis With Intravenous Contrast CLINICAL HISTORY: 67 years old, male; Pain; Abdominal pain; Additional info: R/O gi bleed TECHNIQUE: Axial computed tomography images of the abdomen and pelvis with intravenous contrast. All CT scans at this facility use one or more dose reduction techniques, viz.: automated exposure control; ma/kV adjustment per patient size (including targeted exams where dose is matched to indication; i.e. head); or iterative reconstruction technique. 642 images are submitted. Oral contrast was administered. Axial images are submitted in lung windows. Coronal and sagittal reformatted images were created and reviewed. CONTRAST: 93 mL of OMNI 350 administered intravenously. COMPARISON: No relevant prior studies available. FINDINGS: Lower thorax: Cardiomegaly. Right heart cardiac leads. Large hiatal hernia with herniation of gastric fundus into the chest. ABDOMEN: Liver: There are multiple liver hypodensities that are not characterized on this examination.These findings can represent cysts or hemangiomas statistically unless other etiology like mass or metastasis is clinically suspected. Enlarged possible nodular liver. Gallbladder and bile ducts: Unremarkable. No ductal dilation. Pancreas: Unremarkable. No mass. No ductal dilation. Spleen: Unremarkable. No splenomegaly. Adrenals: Nodular thickening of left adrenal gland. Normal right adrenal gland. Kidneys and ureters: There are multiple renal hypodensities that cannot be further characterized on the current examination. No hydronephrosis. Stomach and bowel: There is diffuse gastric wall thickening. Correlation with clinical data is recommended if gastritis is clinically suspected. No obstruction. Appendix: Normal appendix. PELVIS: Bladder: Partially decompressed bladder with bladder wall thickening measuring 10 mm.Correlation with urinalysis is recommended only if clinical cystitis is suspected. Reproductive: Enlarged prostate gland. ABDOMEN and PELVIS: Intraperitoneal space: Free pelvic fluid. No free air. Bones/joints: Mild anterolisthesis of L4 over L5. Multilevel vacuum degenerative disc disease. No acute fracture. No dislocation. Soft tissues: Unremarkable. Vasculature: There is dense calcified plaque in the right common femoral artery with marked stenosis of the lumen seen on image 78 series 3. The aorta demonstrates calcified plaque and is mildly ectatic but normal in caliber. No abdominal aortic aneurysm. Lymph nodes: Unremarkable. No enlarged lymph nodes. IMPRESSION: 1. There is diffuse gastric wall thickening. Correlation with clinical data is recommended if gastritis is clinically suspected. 2. Free pelvic fluid. 3. Partially decompressed bladder with bladder wall thickening measuring 10 mm.Correlation with urinalysis is recommended only if clinical cystitis is suspected. 4. There are multiple liver hypodensities that are not characterized on this examination.These findings can represent cysts or hemangiomas statistically in view of presence of multiple right renal cysts unless other etiology like hepatic mass or metastasis is clinically suspected. 5. There is dense calcified plaque in the right common femoral artery with marked stenosis of the lumen seen on image 78 series 3. Correlation with internal medicine evaluation and further workup or followup as recommended by patient's clinical data.
--- NOTE | 2017-11-20 08:03 | CP.PCM.PN ---
<Sid Barth - Last Filed: 11/21/17 05:05> Subjective - Date & Time of Evaluation Date of Evaluation: 11/20/17 Time of Evaluation: 08:00 - Subjective Subjective: Patient seen and examined at bedside in no acute distress. Stated on first encounter that he wouldn't mind if we could help get him into a senior care to live because he is lonely living in the basement, states he is concerned however with all his possessions if he were to live elsewhere. As per nursing patient stated he wanted to poison so he could drink. With suicidal ideation psychiatry was consulted. Patient denies shortness of breath, chest pain, palpitations, abdominal pain, nausea, vomiting, diarrhea, dizziness, cough, fevers, chills. States symptoms he presented with on admission have resolved. Objective - Vital Signs/Intake and Output Vital Signs (last 24 hours): Temp Pulse Resp BP Pulse Ox 97 F L 67 18 124/82 97 11/19/17 16:00 11/20/17 06:00 11/19/17 16:00 11/19/17 16:00 11/19/17 16:00 Intake and Output: 11/20/17 11/20/17 06:59 18:59 Intake Total 720 Balance 720 - Medications Medications: Current Medications Acetaminophen (Tylenol 325 Mg Supp) 650 mg RC Q6H PRN PRN Reason: Fever >100.4 F Atorvastatin Calcium (Lipitor) 10 mg PO DIN [facility] Last Admin: 11/19/17 21:31 Dose: 10 mg Benztropine Mesylate (Cogentin) 0.5 mg PO [facility] Last Admin: 11/19/17 21:31 Dose: 0.5 mg Divalproex Sodium (Depakote Dr(*Bid*)) 500 mg PO [facility] Last Admin: 11/19/17 21:30 Dose: 500 mg Folic Acid (Folic Acid) 1 mg PO DAILY [facility] Last Admin: 11/19/17 09:27 Dose: Not Given Sodium Chloride (Sodium Chloride 0.9%) 1,000 mls @ 100 mls/hr IV .Q10H [facility] Last Admin: 11/19/17 06:43 Dose: 100 mls/hr Sodium Chloride (Sodium Chloride 0.9%) 1,000 mls @ 100 mls/hr IV .Q10H [facility] Non-Formulary Medication (Suvorexant [Belsomra]) 15 mg PO HS [facility] Last Admin: 11/19/17 06:28 Dose: Not Given Pantoprazole Sodium (Protonix Ec Tab) 40 mg PO 0600,1600 [facility] Last Admin: 11/20/17 06:03 Dose: 40 mg Risperidone (Risperdal Tab) 2 mg PO [facility] PRN Reason: Protocol Last Admin: 11/19/17 21:31 Dose: 2 mg Thiamine HCl (Vitamin B1 Tab) 100 mg PO DAILY [facility] Last Admin: 11/19/17 09:28 Dose: Not Given Zolpidem Tartrate (Ambien) 10 mg PO HS PRN; Protocol PRN Reason: Insomnia Last Admin: 11/19/17 23:33 Dose: 10 mg - Labs Labs: 11/20/17 05:30 11/20/17 05:30 PT 12.7 SECONDS (9.4-12.5) H 11/18/17 06:00 INR 1.10 (0.93-1.08) H 11/18/17 06:00 APTT 32.9 Seconds (25.1-36.5) 11/18/17 06:00 - Constitutional Appears: Non-toxic, No Acute Distress - Head Exam Head Exam: ATRAUMATIC, NORMAL INSPECTION, NORMOCEPHALIC - Eye Exam Eye Exam: EOMI, Normal appearance - ENT Exam ENT Exam: Mucous Membranes Moist, Normal Exam - Respiratory Exam Respiratory Exam: Clear to Ausculation Bilateral, NORMAL BREATHING PATTERN. absent: Rhonchi, Wheezes - Cardiovascular Exam Cardiovascular Exam: REGULAR RHYTHM, +S1, +S2 - GI/Abdominal Exam GI & Abdominal Exam: Soft, Normal Bowel Sounds - Extremities Exam Additional comments: Femoral pulse 4/4 bilaterally Dorsalis Pedis pulse 3/4 right foot, 2/4 in left foot Posterior tibial 4/4 right foot, 2/4 in left foot - Neurological Exam Neurological Exam: Alert, Awake, Oriented x3 - Psychiatric Exam Psychiatric exam: Normal Affect, Normal Mood - Skin Skin Exam: Intact, Normal Color, Warm Assessment and Plan - Assessment and Plan (Free Text) Assessment: Patient is a 67 year old male with a past medical history of schizoaffective disorder, 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 Plan: Microcytic iron deficiency anemia - Hgb now 7.7 from 5.9 on admission; will give venofer to supplement iron loss - FOBT + - Gastroenterology consulted; endoscopy revealed esophagitis, drop in Hemoglobin possibly due to an ulcer that was bleeding at the time which has now resolved as patient is hemodynamically stable. - Golytely prep done, colonoscopy; no abnormalities found. - CT abdomen/pelvis with oral and IV contrast for further evaluation of source of bleed; reveals diffuse gastric wall thickening, free pelvic fluid, bladder with bladder wall thickening 10 mm to be followed up with urinalysis, liver hypodensities, right renal cysts, dense calcified plaque in right common femoral artery. - Hematology consulted to help find etiology of iron deficiency anemia; recommendations appreciated AV block 2:1 -Continue zestril, lipitor Shizoaffective disorder -continue risperdal,Cogentin,Depakote Hypertension -continue Zestril Hypercholesterolemia -continue Lipitor Case discussed and reviewed with Dr. 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 Will attempt to get a bed for patient at long term at [place]. <Vernon Melendez - Last Filed: 11/21/17 15:05> Objective - Vital Signs/Intake and Output Vital Signs (last 24 hours): Temp Pulse Resp BP Pulse Ox 98 F 86 20 146/78 98 11/21/17 08:47 11/21/17 10:00 11/21/17 08:47 11/21/17 08:47 11/21/17 08:47 Intake and Output: 11/21/17 11/21/17 06:59 18:59 Intake Total 540 825 Balance 540 825 - Medications Medications: Current Medications Acetaminophen (Tylenol 325 Mg Supp) 650 mg RC Q6H PRN PRN Reason: Fever >100.4 F Atorvastatin Calcium (Lipitor) 10 mg PO DIN [facility] Last Admin: 11/20/17 17:51 Dose: 10 mg Benztropine Mesylate (Cogentin) 0.5 mg PO [facility] Last Admin: 11/21/17 10:19 Dose: 0.5 mg Divalproex Sodium (Depakote Dr(*Bid*)) 500 mg PO [facility] Last Admin: 11/21/17 10:19 Dose: 500 mg Folic Acid (Folic Acid) 1 mg PO DAILY [facility] Last Admin: 11/21/17 10:19 Dose: 1 mg Sodium Chloride (Sodium Chloride 0.9%) 1,000 mls @ 100 mls/hr IV .Q10H [facility] Last Admin: 11/21/17 06:37 Dose: Not Given Non-Formulary Medication (Suvorexant [Belsomra]) 15 mg PO HS [facility] Last Admin: 11/20/17 22:33 Dose: Not Given Pantoprazole Sodium (Protonix Ec Tab) 40 mg PO 0600,1600 [facility] Last Admin: 11/21/17 06:37 Dose: 40 mg Risperidone (Risperdal Tab) 2 mg PO [facility] PRN Reason: Protocol Last Admin: 11/21/17 10:19 Dose: 2 mg Thiamine HCl (Vitamin B1 Tab) 100 mg PO DAILY [facility] Last Admin: 11/21/17 10:19 Dose: 100 mg Zolpidem Tartrate (Ambien) 10 mg PO HS PRN; Protocol PRN Reason: Insomnia Last Admin: 11/20/17 23:00 Dose: 10 mg - Labs Labs: 11/21/17 07:30 11/21/17 07:30 PT 12.7 SECONDS (9.4-12.5) H 11/18/17 06:00 INR 1.10 (0.93-1.08) H 11/18/17 06:00 APTT 32.9 Seconds (25.1-36.5) 11/18/17 06:00 Attending/Attestation - Attestation I have personally seen and examined this patient.: Yes I have fully participated in the care of the patient.: Yes I have reviewed all pertinent clinical information, including history, physical exam and plan: Yes Notes (Text): 11/21/17 15:04 Attending note; Attending note; Patient seen and examined with resident. Patient is currently on one-to-one observation due to some suicidal remarks made by patient. Psychiatric evaluation requested. 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 The patient was found to have hemoglobin of 5.9 in the ER. Status post 2 units PRBC transfusion. Endoscopy showed esophagitis. No active bleeding noted. Colonoscopy is negative. Currently hemoglobin is 7.7. Transfusion if symptomatic. Iron transfusion ordered. History of schizophrenia; psychiatric re evaluation requested. Case discussed with mental health case manager for discharge planning. Patient would prefer placement. Upon discharge the patient will follow-up with PMD of choice.
--- NOTE | 2017-11-20 08:57 | CON ---
DATE: 11/19/2017 He is being seen today for consultation. PRESENTATION: The patient is a 67-year-old male seen at bedside. Consultation was called due to patient's longstanding diagnosis of schizophrenia. He presented to the Emergency Room with complaints of increased shortness of breath, which evidently started 6 months ago, but in the past 2 months got so bad that the patient decided to come to the Emergency Room. He also shared with the emergency staff that people are electronically controlling him. In review of the records because the patient has been on the Psychiatric Unit in the past, this is an ongoing entrenched belief system that the patient has had. He described to me today electronic control with his mind and body and he repeatedly emphatically tells me that he is not a schizophrenic and he will not be called that. He has been admitted to the Psychiatric Unit at [facility] in 09/2015, 12/2015, 09/2016, 02/2017, and 04/2017. He also is emphatic and telling me that he does not want to go on a unit, that he does not need to be on a unit, and there is nothing wrong with him. The patient, according to the records, lives on his own, his family have and they have left his money with a retail pos specialist, who administrates this in ordered for him to be supported. The patient indicates that this is the situation. He also indicates that he has some sort of an ongoing issue with his living situation and he is not keeping his apartment clean. I questioned him as to whether or not with since he has someone handling his money if they would be able to pay for service to come in and he laughed at me. He does not answer questions directly, when I tried to get his history. He does not want to talk about his family at all, just insists they are all and what does it matter. He did grow up in [place], graduated in [employer], he ended up that he went to [place] and then he started using drugs, started with marijuana, cigarettes, and hashish. He got involved with a girl, who left him and then he started having mental health issues. Once he lived in the [place] area and got psychiatric help at some point thereafter. He does not appear to have a work history. He indicates that what he needs is the sleep aid and a good diet, there is nothing else that could be helpful to him. He tells me several times that he has brain damage from smoking so much pot. He says that is bad stuff, it causes brain damage and people do not understand. He also has various solution to prosecution involving the fact that he is Rastafari. He is very concerned about my ethnic background as well. He also wants to clarify with me whether or not I am her to force him into treatment and make him go upstairs to the Psychiatric Unit, I pointed out him that this is a voluntary unit and it would really not be appropriate for him to be forced there. His home medication from [facility] in [place] as prescribed by Loc Murillo MD are 25 mg of Seroquel daily, temazepam 30 mg and zolpidem 10 mg. He indicates he is fed up of being in the hospital and that his stomach hurts. He is getting all kinds of tests done to him and he really wants to be cooperative, but he would rather go home. PHYSICAL EXAMINATION: VITAL SIGNS: Include temperature of 98.6, pulse rate of 79, blood pressure of 132/85, respiratory rate of 20, and O2 saturation of 98% on room air. LABORATORY DATA: His white blood and his hemoglobin are both low, white blood cell of 4.3 and hemoglobin is 8.0. His glucose levels have been running normal. CURRENT MEDICATIONS: Here in the hospital, Lipitor, Cogentin, Depakote DR 500 mg 1 p.o. b.i.d., folic acid 1 mg daily, Belsomra 15 mg he is taking for sleep, Protonix, Risperdal 2 mg 1 p.o. b.i.d., thiamine, and zolpidem 10 mg 1 p.o. at bedtime; when the zolpidem is given, the Belsomra is not according to the schedule of medications given. Nurses notes were reviewed. On the whole, the patient has been cooperative, at times a little bizarre, he was awake and he can have an odd way of expressing himself. The patient additionally had some alcohol abuse, he says he almost never drinks any more now, but that is the concern. MENTAL STATUS EXAM: The patient is alert and oriented x3. His eye contact is fair. His behavior is cooperative. He is somewhat irritable, and he gets stuck on ideas and is very dramatic in telling me how he feels and what is going on with him. He denies being suicidal or homicidal, denies the presence of hallucinations and then he changes his mind later on the conversation and indicates he hears voices because there is cyber hacking going on, that I would not believe that they have got in his body. He occasional has visual hallucinations, but not very often, and he is preoccupied with jehovah's witness persecution of his "psyche and his soma." There are paranoid trends evident and conservation. His concentration and focus are somewhat scattered. 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 His appetite, he says is poor, but he indicates he has been sleeping since he has been in the hospital. DIAGNOSTIC IMPRESSION: Schizophrenia, chronic ongoing alcohol abuse, in addition arteriovenous block secondary to pacemaker, hypertension, and dyslipidemia. PLAN: On reviewing the notes and seeing the patient, it appears that the patient has function at a long time with this particular baseline. None of his symptoms or his presentation seems to be new. He is not suicidal. He is not homicidal and he appears in no imminent danger of hurting himself or others. He is cooperative with the patient care required and he has been cooperative towards the nursing staff as well. We will follow once more to assess him, if the patient maintains his baseline. Thank you for the consultation. Nena Swan APN
[2017-11-20] MEDS: Sodium Chloride 0.9% 1,000 ML IV SCH ×2 (09:51→21:00)
[2017-11-20] MEDS: Divalproex 500 mg DR(BID formulation) PO SCH ×2 (09:54→22:40)
[2017-11-20] MEDS ORDERED: Iodixanol 320 mg/ml 150 ml Bottle IV ONE (13:21)
[2017-11-20] MEDS ORDERED: Iron Sucrose 100 mg/5 ml Inj IVP ONE (14:46)
--- NOTE | 2017-11-20 15:34 | CT ---
PROCEDURE: CT Abdomen with and without intravenous contrast HISTORY: liver lesions on prior imaging COMPARISON: CT 11/19/2017 TECHNIQUE: Axial images of the abdomen from lung bases to iliac crest with and without intravenous contrast enhancement. Coronal and sagittal reformats generated. Oral contrast also administered. Intravenous contrast Dose: 150 cc of Omni 350 Radiation dose: Total exam DLP = 1126 mGy-cm. This CT exam was performed using one or more of the following dose reduction techniques: Automated exposure control, adjustment of the mA and/or kV according to patient size, and/or use of iterative reconstruction technique. FINDINGS: LOWER THORAX: Moderate size hiatal hernia LIVER: Multiple simple cysts are seen in the liver the largest measuring 36 x 42 mm. There are no solid lesions. GALLBLADDER AND BILE DUCTS: Unremarkable. PANCREAS: Unremarkable. No gross lesion or ductal dilatation. SPLEEN: Unremarkable. ADRENALS: Unremarkable. No mass. KIDNEYS AND URETERS: Unremarkable. No hydronephrosis. No solid mass. VASCULATURE: Unremarkable. No aortic aneurysm. BOWEL: Unremarkable. No obstruction. No gross mural thickening. APPENDIX: Normal appendix. PERITONEUM: Unremarkable. No free fluid. No free air. LYMPH NODES: Unremarkable. No enlarged lymph nodes. BLADDER: Unremarkable. REPRODUCTIVE: Unremarkable. BONES: No acute fracture. OTHER FINDINGS: None. IMPRESSION: Multiple simple cysts in the liver
[2017-11-20] MEDS: SUVOREXANT 15 MG PO SCH (22:33)
[2017-11-21 00:51] LABS: PH,URINE 7.5 (4.7-8.0); URINE BILIRUBIN NEGATIVE (NEGATIVE); URINE BLOOD NEGATIVE (NEGATIVE); URINE GLUCOSE (UA) NEGATIVE (NEGATIVE); URINE LEUKOCYTE ESTERASE NEGATIVE Leu/uL (NEGATIVE); URINE NITRATE NEGATIVE (NEGATIVE); URINE PROTEIN NEGATIVE mg/dL (<30 mg/dL); URINE UROBILINOGEN 0.2 E.U./dL (<1 E.U./dL)
[2017-11-21 01:02] LABS: URINE APPEARANCE CLEAR (CLEAR); URINE COLOR STRAW (YELLOW)
[2017-11-21] MEDS: Pantoprazole 40 mg EC Tab PO SCH (06:37)
[2017-11-21] MEDS: Sodium Chloride 0.9% 1,000 ML IV SCH (06:37)
[2017-11-21 08:09] LABS: BASO # 0.02 K/mm3 (0.0-2.0); BASO % 0.4 % (0.0-3.0); EOS # 0.2 (0.0-0.7); EOS % 4.9 % (1.5-5.0); GRAN # 2.48 (1.4-6.5); GRAN % 50.4 % (50.0-68.0); LYMPH # 1.2 (1.2-3.4); LYMPH % 23.8 % (22.0-35.0); MEAN CELL VOLUME 71.7 fl (80.0-105.0); MEAN CORPUSCULAR HEMOGLOBIN 20.3 pg (25.0-35.0); MEAN CORPUSCULAR HGB CONC 28.4 g/dl (31.0-37.0); MEAN PLATELET VOLUME 9.5 fl (7.0-11.0); MONO % 20.5 % (1.0-6.0); RBC 3.74 10^6/uL (3.5-6.1); RED CELL DISTRIBUTION WIDTH 20.7 % (11.5-14.5); WHITE BLOOD COUNT 4.9 10^3/ul (4.5-11.0)
[2017-11-21 08:15] LABS: HEMOGLOBIN 7.6 g/dL (14.0-18.0)
[2017-11-21 08:28] LABS: ALB/GLOB RATIO 1.4 (1.1-1.8); ALBUMIN 3.7 g/dL (3.0-4.8); ALT/SGPT 21 U/L (7-56); AST/SGOT 28 U/L (17-59); BLOOD UREA NITROGEN 14 mg/dL (7-21); CALCIUM 9.6 mg/dL (8.4-10.5); GFR AFRICAN-AMERICAN > 60; GFR NON-AFRICAN AMERICAN > 60
[2017-11-21] MEDS: Divalproex 500 mg DR(BID formulation) PO SCH ×2 (10:19→21:39)
--- NOTE | 2017-11-21 12:39 | CP.PCM.PN ---
<Jose Luis Ha - Last Filed: 11/21/17 12:36> Subjective - Date & Time of Evaluation Date of Evaluation: 11/21/17 Time of Evaluation: 12:36 - Subjective Subjective: Medicine Progress Note Pt seen and examined at bedside. No acute overnight events. Pt states that he feels a little short of breath when gets out of bed. Pt denied chest pain, nausea, vomiting, diarrhea, abdominal pain, fever, chills, headache, or dizziness. Objective - Vital Signs/Intake and Output Vital Signs (last 24 hours): Temp Pulse Resp BP Pulse Ox 98 F 86 20 146/78 98 11/21/17 08:47 11/21/17 10:00 11/21/17 08:47 11/21/17 08:47 11/21/17 08:47 Intake and Output: 11/21/17 11/21/17 06:59 18:59 Intake Total 540 Balance 540 - Medications Medications: Current Medications Acetaminophen (Tylenol 325 Mg Supp) 650 mg RC Q6H PRN PRN Reason: Fever >100.4 F Atorvastatin Calcium (Lipitor) 10 mg PO DIN [facility] Last Admin: 11/20/17 17:51 Dose: 10 mg Benztropine Mesylate (Cogentin) 0.5 mg PO AMHS [facility] Last Admin: 11/21/17 10:19 Dose: 0.5 mg Divalproex Sodium (Depakote Dr(*Bid*)) 500 mg PO [facility] Last Admin: 11/21/17 10:19 Dose: 500 mg Folic Acid (Folic Acid) 1 mg PO DAILY [facility] Last Admin: 11/21/17 10:19 Dose: 1 mg Sodium Chloride (Sodium Chloride 0.9%) 1,000 mls @ 100 mls/hr IV .Q10H [facility] Last Admin: 11/19/17 06:43 Dose: 100 mls/hr Sodium Chloride (Sodium Chloride 0.9%) 1,000 mls @ 100 mls/hr IV .Q10H [facility] Last Admin: 11/21/17 06:37 Dose: Not Given Non-Formulary Medication (Suvorexant [Belsomra]) 15 mg PO HS [facility] Last Admin: 11/20/17 22:33 Dose: Not Given Pantoprazole Sodium (Protonix Ec Tab) 40 mg PO 0600,1600 [facility] Last Admin: 11/21/17 06:37 Dose: 40 mg Risperidone (Risperdal Tab) 2 mg PO AMHS [facility] PRN Reason: Protocol Last Admin: 11/21/17 10:19 Dose: 2 mg Thiamine HCl (Vitamin B1 Tab) 100 mg PO DAILY [facility] Last Admin: 11/21/17 10:19 Dose: 100 mg Zolpidem Tartrate (Ambien) 10 mg PO HS PRN; Protocol PRN Reason: Insomnia Last Admin: 11/20/17 23:00 Dose: 10 mg - Labs Labs: 11/21/17 07:30 11/21/17 07:30 PT 12.7 SECONDS (9.4-12.5) H 11/18/17 06:00 INR 1.10 (0.93-1.08) H 11/18/17 06:00 APTT 32.9 Seconds (25.1-36.5) 11/18/17 06:00 - Constitutional Appears: No Acute Distress - Head Exam Head Exam: NORMAL INSPECTION - Eye Exam Eye Exam: Normal appearance - ENT Exam ENT Exam: Normal Exam - Neck Exam Neck Exam: Normal Inspection - Respiratory Exam Respiratory Exam: Clear to Ausculation Bilateral. absent: Rales, Rhonchi, Wheezes - Cardiovascular Exam Cardiovascular Exam: RRR, +S1, +S2, Murmur. absent: Gallop, Rubs - GI/Abdominal Exam GI & Abdominal Exam: Soft. 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 Plan: Iron deficiency anemia - H/H stable today - Hgb 5.9 on admission - FOBT positive - Transfused 2 units pRBC, will transfuse to maintain Hgb > 7 - Venofer given x3 - GI consulted Endoscopy revealed esophagitis, drop in Hemoglobin possibly due to an ulcer that was bleeding, now resolved Colonoscopy, no abnormalities found. - CT abdomen/pelvis showed diffuse gastric wall thickening, free pelvic fluid, bladder with bladder wall thickening 10 mm to be followed up with urinalysis, liver hypodensities, right renal cysts, dense calcified plaque in right common femoral artery. Follow up Liver CT showed multiple simple cysts in liver - Hematology consulted - PT eval and treat AV block 2:1 -Continue zestril, lipitor Schizoaffective disorder -continue risperdal, Cogentin, Depakote -Psych consulted Hypertension -continue Zestril Hypercholesterolemia -continue Lipitor Case discussed and reviewed with Dr. Nora Ha, PGY1 Currently working on placement with showcase maker. Will attempt to get a bed for patient at [facility] at [place]. <Vernon Melendez - Last Filed: 11/21/17 15:10> Objective - Vital Signs/Intake and Output Vital Signs (last 24 hours): Temp Pulse Resp BP Pulse Ox 98 F 86 20 146/78 98 11/21/17 08:47 11/21/17 10:00 11/21/17 08:47 11/21/17 08:47 11/21/17 08:47 Intake and Output: 11/21/17 11/21/17 06:59 18:59 Intake Total 540 825 Balance 540 825 - Medications Medications: Current Medications Acetaminophen (Tylenol 325 Mg Supp) 650 mg RC Q6H PRN PRN Reason: Fever >100.4 F Atorvastatin Calcium (Lipitor) 10 mg PO DIN [facility] Last Admin: 11/20/17 17:51 Dose: 10 mg Benztropine Mesylate (Cogentin) 0.5 mg PO [facility] Last Admin: 11/21/17 10:19 Dose: 0.5 mg Divalproex Sodium (Depakote Dr(*Bid*)) 500 mg PO [facility] Last Admin: 11/21/17 10:19 Dose: 500 mg Folic Acid (Folic Acid) 1 mg PO DAILY [facility] Last Admin: 11/21/17 10:19 Dose: 1 mg Sodium Chloride (Sodium Chloride 0.9%) 1,000 mls @ 100 mls/hr IV .Q10H [facility] Last Admin: 11/21/17 06:37 Dose: Not Given Non-Formulary Medication (Suvorexant [Belsomra]) 15 mg PO HS [facility] Last Admin: 11/20/17 22:33 Dose: Not Given Pantoprazole Sodium (Protonix Ec Tab) 40 mg PO 0600,1600 [facility] Last Admin: 11/21/17 06:37 Dose: 40 mg Risperidone (Risperdal Tab) 2 mg PO AMHS [facility] PRN Reason: Protocol Last Admin: 11/21/17 10:19 Dose: 2 mg Thiamine HCl (Vitamin B1 Tab) 100 mg PO DAILY [facility] Last Admin: 11/21/17 10:19 Dose: 100 mg Zolpidem Tartrate (Ambien) 10 mg PO HS PRN; Protocol PRN Reason: Insomnia Last Admin: 11/20/17 23:00 Dose: 10 mg - Labs Labs: 11/21/17 07:30 11/21/17 07:30 PT 12.7 SECONDS (9.4-12.5) H 11/18/17 06:00 INR 1.10 (0.93-1.08) H 11/18/17 06:00 APTT 32.9 Seconds (25.1-36.5) 11/18/17 06:00 Attending/Attestation - Attestation I have personally seen and examined this patient.: Yes I have fully participated in the care of the patient.: Yes I have reviewed all pertinent clinical information, including history, physical exam and plan: Yes Notes (Text): 11/21/17 15:08 Attending note; Patient seen and examined with resident. Patient is calm. Alert and awake. Able to have conversation. 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 Endoscopy showed esophagitis. No active bleeding noted. Colonoscopy is negative. Currently hemoglobin is 7.7. CT abdomen showed simple cyst in the liver. UA is negative. Iron transfusion ordered. History of schizophrenia; psychiatric re evaluation appreciated. One-to-one observation was discontinued by psychiatrist. Patient is stable. Case discussed with family caseworker for discharge planning. Upon discharge the patient will follow-up with PMD of choice.
[2017-11-22 08:01] LABS: ALB/GLOB RATIO 1.4 (1.1-1.8); ALBUMIN 3.7 g/dL (3.0-4.8); ALT/SGPT 18 U/L (7-56); AST/SGOT 32 U/L (17-59); BLOOD UREA NITROGEN 13 mg/dL (7-21); CALCIUM 9.6 mg/dL (8.4-10.5); GFR AFRICAN-AMERICAN > 60; GFR NON-AFRICAN AMERICAN > 60
[2017-11-22 08:09] LABS: BASO # 0.03 K/mm3 (0.0-2.0); BASO % 0.7 % (0.0-3.0); EOS # 0.4 (0.0-0.7); EOS % 8.2 % (1.5-5.0); GRAN # 2.27 (1.4-6.5); GRAN % 50.3 % (50.0-68.0); LYMPH # 1.1 (1.2-3.4); LYMPH % 23.7 % (22.0-35.0); MEAN CELL VOLUME 72.7 fl (80.0-105.0); MEAN CORPUSCULAR HEMOGLOBIN 20.6 pg (25.0-35.0); MEAN CORPUSCULAR HGB CONC 28.3 g/dl (31.0-37.0); MEAN PLATELET VOLUME 10.2 fl (7.0-11.0); MONO # 0.8 (0.1-0.6); MONO % 17.1 % (1.0-6.0); RBC 3.84 10^6/uL (3.5-6.1); RED CELL DISTRIBUTION WIDTH 22.4 % (11.5-14.5); WHITE BLOOD COUNT 4.5 10^3/ul (4.5-11.0)
[2017-11-22 08:13] LABS: HEMOGLOBIN 7.9 g/dL (14.0-18.0)
[2017-11-22] MEDS: Divalproex 500 mg DR(BID formulation) PO SCH ×2 (11:00→21:39)
--- NOTE | 2017-11-22 11:37 | CP.PCM.PN ---
<Jose Luis Ha - Last Filed: 11/22/17 11:34> Subjective - Date & Time of Evaluation Date of Evaluation: 11/22/17 Time of Evaluation: 11:34 - Subjective Subjective: Medicine Progress Note Pt seen and examined at bedside. No acute overnight events. Pt states that shortness of breath when he gets out of bed is about the same. Pt denied chest pain, nausea, vomiting, diarrhea, abdominal pain, fever, chills, headache, or dizziness. Objective - Vital Signs/Intake and Output Vital Signs (last 24 hours): Temp Pulse Resp BP Pulse Ox 97.8 F 64 18 137/83 96 11/22/17 07:50 11/22/17 07:50 11/22/17 07:50 11/22/17 07:50 11/22/17 07:50 Intake and Output: 11/22/17 11/22/17 06:59 18:59 Intake Total 0 Balance 0 - Medications Medications: Current Medications Acetaminophen (Tylenol 325 Mg Supp) 650 mg RC Q6H PRN PRN Reason: Fever >100.4 F Atorvastatin Calcium (Lipitor) 10 mg PO DIN [facility] Last Admin: 11/20/17 17:51 Dose: 10 mg Benztropine Mesylate (Cogentin) 0.5 mg PO [facility] Last Admin: 11/22/17 11:00 Dose: 0.5 mg Divalproex Sodium (Depakote Dr(*Bid*)) 500 mg PO [facility] Last Admin: 11/22/17 11:00 Dose: 500 mg Folic Acid (Folic Acid) 1 mg PO DAILY [facility] Last Admin: 11/22/17 11:00 Dose: 1 mg Non-Formulary Medication (Suvorexant [Belsomra]) 15 mg PO HS [facility] Last Admin: 11/20/17 22:33 Dose: Not Given Pantoprazole Sodium (Protonix Ec Tab) 40 mg PO 0600,1600 [facility] Last Admin: 11/21/17 06:37 Dose: 40 mg Risperidone (Risperdal Tab) 2 mg PO [facility] PRN Reason: Protocol Last Admin: 11/22/17 11:00 Dose: 2 mg Thiamine HCl (Vitamin B1 Tab) 100 mg PO DAILY [facility] Last Admin: 11/22/17 11:00 Dose: 100 mg Zolpidem Tartrate (Ambien) 10 mg PO HS PRN; Protocol PRN Reason: Insomnia Last Admin: 11/21/17 23:50 Dose: 10 mg - Labs Labs: 11/22/17 06:30 11/22/17 06:30 PT 12.7 SECONDS (9.4-12.5) H 11/18/17 06:00 INR 1.10 (0.93-1.08) H 11/18/17 06:00 APTT 32.9 Seconds (25.1-36.5) 11/18/17 06:00 - Constitutional Appears: No Acute Distress - Head Exam Head Exam: NORMAL INSPECTION - Eye Exam Eye Exam: Normal appearance Pupil Exam: NORMAL ACCOMODATION - ENT Exam ENT Exam: Normal Exam - Neck Exam Neck Exam: Normal Inspection - Respiratory Exam Respiratory Exam: Clear to Ausculation Bilateral. absent: Rales, Rhonchi, Wheezes - Cardiovascular Exam Cardiovascular Exam: RRR, +S1, +S2. absent: Gallop, Rubs, Murmur - GI/Abdominal Exam GI & Abdominal Exam: Soft. absent: Distended, Guarding, Tenderness, Rebound - Extremities Exam Extremities Exam: Normal Inspection - Back Exam Back Exam: NORMAL INSPECTION - Neurological Exam Neurological Exam: Alert, Awake, Oriented x3 - Psychiatric Exam Psychiatric exam: Normal Affect, Normal Mood - Skin Skin Exam: Pallor. 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 Plan: Iron deficiency anemia - H/H stable today - Hgb 5.9 on admission - FOBT positive - Transfused 2 units pRBC, will transfuse to maintain Hgb > 7 - Venofer given x4 - GI consulted Endoscopy revealed esophagitis, drop in Hemoglobin possibly due to an ulcer that was bleeding, now resolved Colonoscopy, no abnormalities found. - CT abdomen/pelvis showed diffuse gastric wall thickening, free pelvic fluid, bladder with bladder wall thickening 10 mm to be followed up with urinalysis, liver hypodensities, right renal cysts, dense calcified plaque in right common femoral artery. Follow up Liver CT showed multiple simple cysts in liver - Hematology consulted - PT eval and treat AV block 2:1 -Continue zestril, lipitor Schizoaffective disorder -continue risperdal, Cogentin, Depakote -Psych consulted Hypertension -continue Zestril Hypercholesterolemia -continue Lipitor Case discussed and reviewed with Dr. Nora Ha, PGY1 Currently working on placement with pillowcase turner. Will attempt to get a bed for patient at [facility] [place]. <Vernon Melendez - Last Filed: 11/22/17 11:43> Objective - Vital Signs/Intake and Output Vital Signs (last 24 hours): Temp Pulse Resp BP Pulse Ox 97.8 F 64 18 137/83 96 11/22/17 07:50 11/22/17 07:50 11/22/17 07:50 11/22/17 07:50 11/22/17 07:50 Intake and Output: 11/22/17 11/22/17 06:59 18:59 Intake Total 0 Balance 0 - Medications Medications: Current Medications Acetaminophen (Tylenol 325 Mg Supp) 650 mg RC Q6H PRN PRN Reason: Fever >100.4 F Atorvastatin Calcium (Lipitor) 10 mg PO DIN [facility] Last Admin: 11/20/17 17:51 Dose: 10 mg Benztropine Mesylate (Cogentin) 0.5 mg PO [facility] Last Admin: 11/22/17 11:00 Dose: 0.5 mg Divalproex Sodium (Depakote Dr(*Bid*)) 500 mg PO [facility] Last Admin: 11/22/17 11:00 Dose: 500 mg Folic Acid (Folic Acid) 1 mg PO DAILY [facility] Last Admin: 11/22/17 11:00 Dose: 1 mg Non-Formulary Medication (Suvorexant [Belsomra]) 15 mg PO HS [facility] Last Admin: 11/20/17 22:33 Dose: Not Given Pantoprazole Sodium (Protonix Ec Tab) 40 mg PO 0600,1600 [facility] Last Admin: 11/21/17 06:37 Dose: 40 mg Risperidone (Risperdal Tab) 2 mg PO [facility] PRN Reason: Protocol Last Admin: 11/22/17 11:00 Dose: 2 mg Thiamine HCl (Vitamin B1 Tab) 100 mg PO DAILY [facility] Last Admin: 11/22/17 11:00 Dose: 100 mg Zolpidem Tartrate (Ambien) 10 mg PO HS PRN; Protocol PRN Reason: Insomnia Last Admin: 11/21/17 23:50 Dose: 10 mg - Labs Labs: 11/22/17 06:30 11/22/17 06:30 PT 12.7 SECONDS (9.4-12.5) H 11/18/17 06:00 INR 1.10 (0.93-1.08) H 11/18/17 06:00 APTT 32.9 Seconds (25.1-36.5) 11/18/17 06:00 Attending/Attestation - Attestation I have personally seen and examined this patient.: Yes I have fully participated in the care of the patient.: Yes I have reviewed all pertinent clinical information, including history, physical exam and plan: Yes Notes (Text): 11/22/17 11:40 Attending note; Patient seen and examined with resident. 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 Endoscopy showed esophagitis. No active bleeding noted. Colonoscopy is negative. Currently hemoglobin is 7.9. No active bleeding. Currently asymptomatic. CT abdomen showed simple cyst in the liver. Iron transfusion ordered. History of schizophrenia; psychiatric evaluation appreciated. Patient is stable. Case discussed with machine adjuster leader case trim for discharge planning. Upon discharge the patient will follow-up with PMD of choice.
[2017-11-22] MEDS: Pantoprazole 40 mg EC Tab PO SCH (17:53)
[2017-11-22] MEDS: SUVOREXANT 15 MG PO SCH (22:00)
[2017-11-23] MEDS: Pantoprazole 40 mg EC Tab PO SCH (05:42)
[2017-11-23 07:26] LABS: BASO # 0.02 K/mm3 (0.0-2.0); BASO % 0.3 % (0.0-3.0); EOS # 0.4 (0.0-0.7); EOS % 5.6 % (1.5-5.0); GRAN # 4.59 (1.4-6.5); GRAN % 62.8 % (50.0-68.0); HEMOGLOBIN 8.2 g/dL (14.0-18.0); LYMPH # 1.2 (1.2-3.4); LYMPH % 16.7 % (22.0-35.0); MEAN CELL VOLUME 73.4 fl (80.0-105.0); MEAN CORPUSCULAR HEMOGLOBIN 20.8 pg (25.0-35.0); MEAN CORPUSCULAR HGB CONC 28.4 g/dl (31.0-37.0); MEAN PLATELET VOLUME 10.3 fl (7.0-11.0); MONO # 1.1 (0.1-0.6); MONO % 14.6 % (1.0-6.0); RBC 3.94 10^6/uL (3.5-6.1); RED CELL DISTRIBUTION WIDTH 23.3 % (11.5-14.5); WHITE BLOOD COUNT 7.3 10^3/ul (4.5-11.0)
[2017-11-23 07:36] LABS: ALB/GLOB RATIO 1.3 (1.1-1.8); ALBUMIN 3.6 g/dL (3.0-4.8); ALT/SGPT 23 U/L (7-56); AST/SGOT 24 U/L (17-59); BLOOD UREA NITROGEN 16 mg/dL (7-21); CALCIUM 9.8 mg/dL (8.4-10.5); GFR AFRICAN-AMERICAN > 60; GFR NON-AFRICAN AMERICAN > 60
[2017-11-23 07:49] VITALS: BP 140/80; PULSE 68; RESP 20; TEMP 97.9; O2SAT 96
--- NOTE | 2017-11-23 09:29 | CON ---
DATE: 11/21/2017 ADDENDUM As noted in my prior notes, the patient is a 67-year-old male with schizophrenia, currently at baseline which includes chronic paranoid symptoms being related. Patient reported having poison, however, has adamantly indicated that this thing was not serious regarding his request and does not want to , want to live. He denies any hopelessness in this regard. His insight and judgement appears to be fair and he appears to be at his baseline. As noted in my prior notes, vitals and labs are reviewed. MEDICATIONS: Relevant psychiatric medications as noted in my notes are Depakote 500 a.m. and at bedtime, Risperdal 2 mg a.m. and at bedtime, Ambien 10 mg at bedtime p.r.n. IMPRESSION: Schizophrenia, patient is at baseline. RECOMMENDATIONS: We will continue with current treatment and plan. There is no acute indications to change his medications at this time. Patient is at baseline and he does not appear to be overtly disorganized, and he is not a danger to himself or others. Psychiatry will sign off. Please re-consult as necessary if there are any acute changes. Rosa Elena Deshpande MD
--- NOTE | 2017-11-23 09:48 | PN ---
DATE: 11/20/2017 He is being seen today for a followup consultation. PRESENTATION: The patient is a 67-year-old male, seen at the bedside with one-to-one in attendance. The patient originally came to the hospital on 11/17/2017. He came in with increased shortness of breath, which he had noticed six months ago, but it has increased over the past two months. He was gasping for air and that is why he went to the emergency department. While he was there, he shared with the staff that people are electronically controlling him and Psych consult was called due to his history of schizoaffective disorder. The patient was seen yesterday and in review of the notes, it appears that he is at his baseline. He has been hospitalized at [facility] multiple times, some of which have been psychiatric admissions and his presentation has been fairly similar to what we are seeing here in the hospital today. I have been asked back on consult due to the fact that when the patient was given his medication last night, he made some sort of a statement about taking a poison pill because he did not want to live anymore. The patient was immediately put on one-to-one, and Dr. Melendez happened to be rounding at that time and gave an order for one-to-one. When seen today, I questioned the patient as to what had happened, he explained to me that he was very frustrated because of medication that we give him when he was in the hospital, the Depakote and Depakote is the medication for schizophrenia and he is not schizophrenic, he is electronically controlled, he has other problems, he is persecuted because he is a [employer]an and it makes him upset and sad when he has to take this medication as he does not feel is appropriate for him because that is the condition that he does not have. This is an ongoing issue with this patient. However, on assessment of his suicidality, the patient is not suicidal or homicidal, and he states he would never attempt and he was not suicidal, he was just frustrated at that time and "I said something I should not have," One-to-one was discontinued. The patient appears to enjoy contact. He is very lonely at his home. Evidently, there is some sort of "mess" in his apartment and he is being pressured by his landlord, but he does not want to let anyone in to do anything about it. He does have a addressing machine operator who handles his finances, so that he is able to have money to live, but he is unwilling to spend some of this money to have someone come and help organize his apartment for him. He additionally apparently had not eaten for couple of days before he came into the hospital because he had run out of money, so this is a concern. He continues to be at his baseline. He has fixed delusions regarding the electrical system that is controlling his "body and psyche" since he was in [place] and he believes that he really just needs sleeping pills and a good diet in order to be mentally healthy. VITAL SIGNS: The patient's current vital signs include temperature of 98.6, pulse rate of 72, blood pressure of 120/73, respiratory rate of 18, and O2 saturation of 98%. LABORATORY DATA: His latest blood work shows white blood cells, hemoglobin, hematocrit are all low at this time. MEDICATIONS: His current medications psychiatrically are Depakote DR 500 mg in a.m. and h.s. and zolpidem 10 mg one at bedtime. He is also on thiamine 100 mg one p.o. daily, Cogentin 0.5 mg one p.o. a.m. and one at bedtime, as well as Risperdal 2 mg one in the morning and one at bedtime. His AIMS exam today was negative. MENTAL STATUS EXAMINATION: The patient is alert and oriented x3. His eye contact is good. His behavior is cooperative. His speech rate and volume are within normal limits. His mood today is euthymic. His affect is full. His thoughts vary between being logical and coherent being completely illogical and not making sense at all in terms of his belief system. He denies being suicidal or homicidal. He denies the presence of hallucinations, delusions or paranoia, though he comes back to the thought that he does sometimes hear voices and certainly he has an entrenched delusional system regarding being prosecuted as a Lutheran as well as the electrical controls that he is on and he has paranoid trends in conversation. His focus and concentration are good. His memory both short and long-term appears to be adequate. His appetite he indicates is normal and he is enjoying his food and he has been able to sleep since he has been in the hospital. DIAGNOSTIC IMPRESSION: Schizoaffective disorder, bipolar type, chronic ongoing. PLAN: The patient denies being suicidal or homicidal. The symptoms that he currently has, the delusions, the hallucinations, the belief system, these are all baseline issues which have been with him for a very long time. The patient is directable and is cooperative, he is medication compliant. Even though he does not believe he needs the medication, he is willing to take it, I questioned him in regards to his views on continuing the medications today and he is willing to continue the medication, though he is not feeling as it is appropriate for him. He will be followed by Dr. Deshpande on the weekend. Thank you for the consult. Nena Swan APN [facility]
[2017-11-23] MEDS: Divalproex 500 mg DR(BID formulation) PO SCH (09:54)
--- NOTE | 2017-11-23 15:21 | PN ---
DATE: 11/23/2017 He is being seen today for a followup consultation. PRESENTATION: The patient is a 67-year-old male, seen in his hospital bed. The patient originally came to the hospital and was admitted on 11/17/2017. He had had a 2-month long episode of shortness of breath, which prompted him to come to the Emergency Room. A consult was called due to history of schizoaffective disorder. The patient today presents with somewhat sad, he is waiting for some results from some tests he has had. He is wanting to understand "what's going on with my blood and my hemoglobin." He indicates that he may be discharged at some point soon. He is anxious about this. He does not feel like he can manage at home. He indicates that he cannot take care of his room, or cook for himself that it is a very difficulty situation for him and that he really needs placement in a snf. He indicates that he is afraid that his gis manager is not going to help him with this. His gis manager is his POA and is in-charge of his finances. He also indicates that he has problems with his landlord in terms of the fact that he has been unable to keep his area in his apartment where he lives clean and he additionally may be facing eviction as a result of this. Today, he is very anxious, very concerned about where he is going to go and how he is going to manage. CURRENT VITAL SIGNS: Temperature of 97.9, pulse rate of 68, blood pressure of 140/80, respirations of 20, and O2 sat of 96%. LABORATORY DATA: His current labs include white blood cell count of 7.3, which is an elevation over yesterday's white blood cell count, which was 4.5. MEDICATIONS: His current psychiatric medications include Cogentin 0.5 mg one in the morning and one at bedtime, Depakote DR 500 mg one p.o. b.i.d., folic acid 1 mg p.o. daily, Risperdal 2 mg one p.o. b.i.d., thiamine 100 mg one p.o. daily, and Ambien 10 mg one p.o. at bedtime. The patient indicates that he has not been drinking steadily as he had in the past before he came in the hospital, he had some sangria about 2 weeks prior to coming in, but he has not been drinking regularly prior to this particular admission. MENTAL STATUS EXAMINATION: The patient is alert and oriented x3. He is quite irritated by the fact that the clock on the wall that is meant to orient him is 2-1/2 hours off and complains about this several times during our conversation. He is wearing a wristwatch so he is able to keep track on his own with the time. His eye contact is fair. His behavior is cooperative. His speech rate and volume are within normal limits. His mood is blunted. His affect is constricted. His thoughts are goal directed. He denies being suicidal or homicidal and denies the presence of hallucinations, delusions or paranoia. He does says he hear voices at times. He does have entrenched belief system that he is controlled by electrical impulses and he has paranoid trends in conversation. His focus and concentration are good. His memory both short and long-term appears to be adequate. His appetite and his sleep have normalized. DIAGNOSTIC IMPRESSION: Schizoaffective disorder. PLAN: He is not suicidal or homicidal. He appears in no imminent danger of hurting himself or others. He is very concerned about his discharge plan, I have passed on his concerns to the nursing staffin regards to his placement. Patient has no behavioral issues or any concerns psychiatrically since before the weekend. He takes his medications and is cooperative with the medical regimen. We will continue to follow. Thank you for the consult. Nena Swan APN KYM
--- NOTE | 2017-11-23 17:55 | CP.PCM.DIS ---
<MiltonGerri - Last Filed: 11/23/17 17:36> Provider - Provider Date of Admission: 11/17/17 15:39 Attending physician: Vernon Melendez MD Consults: GI: Daisy Psych: Taisha Time Spent in preparation of Discharge (in minutes): 45 Diagnosis - Discharge Diagnosis (1) Alcohol withdrawal Status: Acute (2) Anemia Status: Acute Hospital Course - Lab Results Lab Results: Micro Results 11/21/17 00:35 Urine,Clean Catch Urine Culture - Final No Growth (<1,000 CFU/ML) Most Recent Lab Values WBC 7.3 10^3/ul (4.5-11.0) D 11/23/17 06:00 RBC 3.94 10^6/uL (3.5-6.1) 11/23/17 06:00 Hgb 8.2 g/dL (14.0-18.0) L 11/23/17 06:00 Hct 28.9 % (42.0-52.0) L 11/23/17 06:00 MCV 73.4 fl (80.0-105.0) L 11/23/17 06:00 MCH 20.8 pg (25.0-35.0) L 11/23/17 06:00 MCHC 28.4 g/dl (31.0-37.0) L 11/23/17 06:00 RDW 23.3 % (11.5-14.5) H 11/23/17 06:00 Plt Count 313 10^3/uL (120.0-450.0) 11/23/17 06:00 MPV 10.3 fl (7.0-11.0) 11/23/17 06:00 Gran % 62.8 % (50.0-68.0) 11/23/17 06:00 Lymph % (Auto) 16.7 % (22.0-35.0) L 11/23/17 06:00 Cabell % (Auto) 14.6 % (1.0-6.0) H 11/23/17 06:00 Eos % (Auto) 5.6 % (1.5-5.0) H 11/23/17 06:00 Baso % (Auto) 0.3 % (0.0-3.0) 11/23/17 06:00 Gran # 4.59 (1.4-6.5) 11/23/17 06:00 Lymph # 1.2 (1.2-3.4) 11/23/17 06:00 Cabell # 1.1 (0.1-0.6) H 11/23/17 06:00 Eos # 0.4 (0.0-0.7) 11/23/17 06:00 Baso # 0.02 K/mm3 (0.0-2.0) 11/23/17 06:00 Neutrophils % (Manual) 41 % (50.0-70.0) L 11/19/17 09:30 Lymphocytes % (Manual) 41 % (22.0-35.0) H 11/19/17 09:30 Monocytes % (Manual) 8 % (1.0-6.0) H 11/19/17 09:30 Eosinophils % (Manual) 8 % (0.0-3.0) H 11/19/17 09:30 Basophils % (Manual) 2 % (0.0-1.0) H 11/19/17 09:30 Platelet Evaluation Normal (NORMAL) 11/19/17 09:30 Poikilocytosis (manual Slight 11/19/17 09:30 Anisocytosis (manual) 1+ 11/19/17 09:30 Microcytosis (manual) 1+ 11/19/17 09:30 Haptoglobin 178 mg/dL (43-212) 11/17/17 15:30 PT 12.7 SECONDS (9.4-12.5) H 11/18/17 06:00 INR 1.10 (0.93-1.08) H 11/18/17 06:00 APTT 32.9 Seconds (25.1-36.5) 11/18/17 06:00 pO2 175 mm/Hg (30-55) H 11/17/17 15:45 VBG pH 7.45 (7.32-7.43) H 11/17/17 15:45 VBG pCO2 40.0 (40-60) 11/17/17 15:45 VBG HCO3 27.8 mmol/l (21-28) 11/17/17 15:45 VBG Total CO2 29.0 mmol.L (22-28) H 11/17/17 15:45 VBG O2 Sat (Calc) 98.9 % (40-65) H 11/17/17 15:45 VBG Base Excess 3.5 mmol/L (0.0-2.0) H 11/17/17 15:45 VBG Potassium 4.7 mmol/L (3.6-5.2) 11/17/17 15:45 Sodium 137.0 mmol/L (132-148) 11/17/17 15:45 Chloride 107.0 mmol/L (98-107) 11/17/17 15:45 Glucose 96 mg/dl (75-110) 11/17/17 15:45 Lactate 1.5 mmol/L (0.7-2.1) 11/17/17 15:45 FiO2 21.0 % 11/17/17 15:45 Sodium 142 mmol/L (132-148) 11/23/17 06:00 Potassium 4.3 mmol/L (3.6-5.0) 11/23/17 06:00 Chloride 105 mmol/L (98-107) 11/23/17 06:00 Carbon Dioxide 29 mmol/L (21-33) 11/23/17 06:00 Anion Gap 12 (10-20) 11/23/17 06:00 BUN 16 mg/dL (7-21) 11/23/17 06:00 Creatinine 1.0 mg/dl (0.8-1.5) 11/23/17 06:00 Est GFR ( Amer) > 60 11/23/17 06:00 Est GFR (Non-Af Amer) > 60 11/23/17 06:00 POC Glucose (mg/dL) 108 mg/dL (65-110) 11/21/17 16:36 Random Glucose 96 mg/dL (70-110) 11/23/17 06:00 Hemoglobin A1c 5.8 % (4.2-6.5) 11/19/17 06:00 Calcium 9.8 mg/dL (8.4-10.5) 11/23/17 06:00 Phosphorus 3.4 mg/dL (2.5-4.5) 11/17/17 13:50 Iron 14 ug/dL (45-180) L 11/17/17 14:40 TIBC 409 ug/dL (261-462) 11/17/17 14:40 % Saturation 3 % (20-55) L 11/17/17 14:40 Ferritin 4.4 ng/mL 11/17/17 15:30 Total Bilirubin 0.2 mg/dL (0.2-1.3) 11/23/17 06:00 Direct Bilirubin 0.1 mg/dL (0.0-0.4) 11/17/17 13:50 AST 24 U/L (17-59) 11/23/17 06:00 ALT 23 U/L (7-56) 11/23/17 06:00 Alkaline Phosphatase 42 U/L (38-126) 11/23/17 06:00 Lactate Dehydrogenase 394 U/L (333-699) 11/17/17 13:50 Total Creatine Kinase 36 U/L (35-230) 11/17/17 13:50 Troponin I < 0.01 ng/mL 11/17/17 13:50 NT-Pro-B Natriuret Pep 405 pg/mL (0-450) 11/17/17 13:50 Total Protein 6.3 g/dL (5.8-8.3) 11/23/17 06:00 Albumin 3.6 g/dL (3.0-4.8) 11/23/17 06:00 Globulin 2.8 gm/dL 11/23/17 06:00 Albumin/Globulin Ratio 1.3 (1.1-1.8) 11/23/17 06:00 Alpha Fetoprotein 0.9 ng/mL (0.0-7.5) 11/20/17 11:45 Vitamin B12 731 pg/mL (239-931) 11/17/17 15:30 TSH 3rd Generation 2.16 mIU/mL (0.46-4.68) 11/17/17 13:50 Venous Blood Potassium 4.7 mmol/L (3.6-5.2) 11/17/17 15:45 Urine Color Straw (YELLOW) 11/21/17 00:35 Urine Appearance Clear (CLEAR) 11/21/17 00:35 Urine pH 7.5 (4.7-8.0) 11/21/17 00:35 Ur Specific Wilson 1.010 (1.005-1.035) 11/21/17 00:35 Urine Protein Negative mg/dL (<30 mg/dL) 11/21/17 00:35 Urine Glucose (UA) Negative mg/dL (NEGATIVE) 11/21/17 00:35 Urine Ketones Negative mg/dL (NEGATIVE) 11/21/17 00:35 Urine Blood Negative (NEGATIVE) 11/21/17 00:35 Urine Nitrate Negative (NEGATIVE) 11/21/17 00:35 Urine Bilirubin Negative (NEGATIVE) 11/21/17 00:35 Urine Urobilinogen 0.2 E.U./dL (<1 E.U./dL) 11/21/17 00:35 Ur Leukocyte Esterase Negative Son/uL (NEGATIVE) 11/21/17 00:35 Salicylates < 1 mg/dL (2.0-20.0) L 11/17/17 13:50 Urine Opiates Screen Negative (NEGATIVE) 11/17/17 14:00 Urine Methadone Screen Negative (NEGATIVE) 11/17/17 14:00 Acetaminophen < 10.0 ug/ml (10.0-20.0) L 11/17/17 13:50 Ur Barbiturates Screen Negative (NEGATIVE) 11/17/17 14:00 Ur Phencyclidine Scrn Negative (NEGATIVE) 11/17/17 14:00 Ur Amphetamines Screen Negative (NEGATIVE) 11/17/17 14:00 U Benzodiazepines Scrn Positive (NEGATIVE) 11/17/17 14:00 U Oth Cocaine Metabols Negative (NEGATIVE) 11/17/17 14:00 U Cannabinoids Screen Negative (NEGATIVE) 11/17/17 14:00 Alcohol, Quantitative < 10 mg/dL (0-10) 11/17/17 13:50 Blood Type A POSITIVE 11/17/17 14:40 Blood Type Confirm A POSITIVE 11/17/17 15:14 Antibody Screen Negative 11/17/17 14:40 Crossmatch See Detail 11/17/17 14:40 BBK History Checked No verified bt 11/17/17 14:40 - Hospital Course Hospital Course: 67 year old male with a past medical history of schizoaffective disorder, 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 Patient was noted to have severe anemia on admission, with positive FOBT. During his hospitalization, patient had EGD and colonoscopy which did not reveal a source of GI bleeding. Patient received 2 units PRBC, and IV iron, and his H/H stabilized and was improving on the iron supplementation. During his hospitalization, the patient was also treated for his AV block, schizoaffective disorder, HRN, and hypercholesterolemia. Today, the patient's H/H remains stable, and he feels as though his lethargy has improved since admission, though he still feels somewhat weak if he attempts to exert himself. He denies any chest pain, abdominal pain, fever, or chills. Patient reports that he lives in an apartment, and refuses placement in a senior care and prefers to go to his own apartment. Patient was advised to follow up with Hem/Onc Dr. Hart for further evaluation and treatment of his anemia. All questions were answered to his satisfaction, and patient was discharged to home. Discharge Exam - Head Exam Head Exam: NORMAL INSPECTION - Eye Exam Eye Exam: EOMI, Normal appearance, PERRL - ENT Exam ENT Exam: Mucous Membranes Moist - Neck Exam Neck exam: Normal Inspection - Respiratory Exam Respiratory Exam: Clear to PA & Lateral, NORMAL BREATHING PATTERN - Cardiovascular Exam Cardiovascular Exam: REGULAR RHYTHM, +S1, +S2 - GI/Abdominal Exam GI & Abdominal Exam: Normal Bowel Sounds, Soft. absent: Tenderness - Extremities Exam Extremities exam: full ROM, normal inspection - Neurological Exam Neurological exam: Alert, Oriented x3 - Psychiatric Exam Psychiatric exam: Normal Affect, Normal Mood Additional comments: Patient has tangential thought process - Skin Skin Exam: Dry, Intact, Normal Color Discharge Plan - Follow Up Plan Condition: FAIR Disposition: HOME/ ROUTINE Instructions: Anemia (DC) Additional Instructions: 1. Continue to take all medications as prescribed 2. Follow up with Dr. Hart for further evaluation of anemia 3. Follow up with your PCP or [facility] clinic within 1 week 4. For any new or worsening concerns, contact your PCP immediately or return to ER Referrals: Zhen Hart MD [Staff Provider] - <Vernon Melendez - Last Filed: 11/24/17 08:03> Provider - Provider Date of Admission: 11/17/17 15:39 Attending physician: Vernon Melendez MD Hospital Course - Lab Results Lab Results: Micro Results 11/21/17 00:35 Urine,Clean Catch Urine Culture - Final No Growth (<1,000 CFU/ML) Most Recent Lab Values WBC 7.3 10^3/ul (4.5-11.0) D 11/23/17 06:00 RBC 3.94 10^6/uL (3.5-6.1) 11/23/17 06:00 Hgb 8.2 g/dL (14.0-18.0) L 11/23/17 06:00 Hct 28.9 % (42.0-52.0) L 11/23/17 06:00 MCV 73.4 fl (80.0-105.0) L 11/23/17 06:00 MCH 20.8 pg (25.0-35.0) L 11/23/17 06:00 MCHC 28.4 g/dl (31.0-37.0) L 11/23/17 06:00 RDW 23.3 % (11.5-14.5) H 11/23/17 06:00 Plt Count 313 10^3/uL (120.0-450.0) 11/23/17 06:00 MPV 10.3 fl (7.0-11.0) 11/23/17 06:00 Gran % 62.8 % (50.0-68.0) 11/23/17 06:00 Lymph % (Auto) 16.7 % (22.0-35.0) L 11/23/17 06:00 Cabell % (Auto) 14.6 % (1.0-6.0) H 11/23/17 06:00 Eos % (Auto) 5.6 % (1.5-5.0) H 11/23/17 06:00 Baso % (Auto) 0.3 % (0.0-3.0) 11/23/17 06:00 Gran # 4.59 (1.4-6.5) 11/23/17 06:00 Lymph # 1.2 (1.2-3.4) 11/23/17 06:00 Cabell # 1.1 (0.1-0.6) H 11/23/17 06:00 Eos # 0.4 (0.0-0.7) 11/23/17 06:00 Baso # 0.02 K/mm3 (0.0-2.0) 11/23/17 06:00 Neutrophils % (Manual) 41 % (50.0-70.0) L 11/19/17 09:30 Lymphocytes % (Manual) 41 % (22.0-35.0) H 11/19/17 09:30 Monocytes % (Manual) 8 % (1.0-6.0) H 11/19/17 09:30 Eosinophils % (Manual) 8 % (0.0-3.0) H 11/19/17 09:30 Basophils % (Manual) 2 % (0.0-1.0) H 11/19/17 09:30 Platelet Evaluation Normal (NORMAL) 11/19/17 09:30 Poikilocytosis (manual Slight 11/19/17 09:30 Anisocytosis (manual) 1+ 11/19/17 09:30 Microcytosis (manual) 1+ 11/19/17 09:30 Haptoglobin 178 mg/dL (43-212) 11/17/17 15:30 PT 12.7 SECONDS (9.4-12.5) H 11/18/17 06:00 INR 1.10 (0.93-1.08) H 11/18/17 06:00 APTT 32.9 Seconds (25.1-36.5) 11/18/17 06:00 pO2 175 mm/Hg (30-55) H 11/17/17 15:45 VBG pH 7.45 (7.32-7.43) H 11/17/17 15:45 VBG pCO2 40.0 (40-60) 11/17/17 15:45 VBG HCO3 27.8 mmol/l (21-28) 11/17/17 15:45 VBG Total CO2 29.0 mmol.L (22-28) H 11/17/17 15:45 VBG O2 Sat (Calc) 98.9 % (40-65) H 11/17/17 15:45 VBG Base Excess 3.5 mmol/L (0.0-2.0) H 11/17/17 15:45 VBG Potassium 4.7 mmol/L (3.6-5.2) 11/17/17 15:45 Sodium 137.0 mmol/L (132-148) 11/17/17 15:45 Chloride 107.0 mmol/L (98-107) 11/17/17 15:45 Glucose 96 mg/dl (75-110) 11/17/17 15:45 Lactate 1.5 mmol/L (0.7-2.1) 11/17/17 15:45 FiO2 21.0 % 11/17/17 15:45 Sodium 142 mmol/L (132-148) 11/23/17 06:00 Potassium 4.3 mmol/L (3.6-5.0) 11/23/17 06:00 Chloride 105 mmol/L (98-107) 11/23/17 06:00 Carbon Dioxide 29 mmol/L (21-33) 11/23/17 06:00 Anion Gap 12 (10-20) 11/23/17 06:00 BUN 16 mg/dL (7-21) 11/23/17 06:00 Creatinine 1.0 mg/dl (0.8-1.5) 11/23/17 06:00 Est GFR ( Amer) > 60 11/23/17 06:00 Est GFR (Non-Af Amer) > 60 11/23/17 06:00 POC Glucose (mg/dL) 108 mg/dL (65-110) 11/21/17 16:36 Random Glucose 96 mg/dL (70-110) 11/23/17 06:00 Hemoglobin A1c 5.8 % (4.2-6.5) 11/19/17 06:00 Calcium 9.8 mg/dL (8.4-10.5) 11/23/17 06:00 Phosphorus 3.4 mg/dL (2.5-4.5) 11/17/17 13:50 Iron 14 ug/dL (45-180) L 11/17/17 14:40 TIBC 409 ug/dL (261-462) 11/17/17 14:40 % Saturation 3 % (20-55) L 11/17/17 14:40 Ferritin 4.4 ng/mL 11/17/17 15:30 Total Bilirubin 0.2 mg/dL (0.2-1.3) 11/23/17 06:00 Direct Bilirubin 0.1 mg/dL (0.0-0.4) 11/17/17 13:50 AST 24 U/L (17-59) 11/23/17 06:00 ALT 23 U/L (7-56) 11/23/17 06:00 Alkaline Phosphatase 42 U/L (38-126) 11/23/17 06:00 Lactate Dehydrogenase 394 U/L (333-699) 11/17/17 13:50 Total Creatine Kinase 36 U/L (35-230) 11/17/17 13:50 Troponin I < 0.01 ng/mL 11/17/17 13:50 NT-Pro-B Natriuret Pep 405 pg/mL (0-450) 11/17/17 13:50 Total Protein 6.3 g/dL (5.8-8.3) 11/23/17 06:00 Albumin 3.6 g/dL (3.0-4.8) 11/23/17 06:00 Globulin 2.8 gm/dL 11/23/17 06:00 Albumin/Globulin Ratio 1.3 (1.1-1.8) 11/23/17 06:00 Alpha Fetoprotein 0.9 ng/mL (0.0-7.5) 11/20/17 11:45 Vitamin B12 731 pg/mL (239-931) 11/17/17 15:30 TSH 3rd Generation 2.16 mIU/mL (0.46-4.68) 11/17/17 13:50 Venous Blood Potassium 4.7 mmol/L (3.6-5.2) 11/17/17 15:45 Urine Color Straw (YELLOW) 11/21/17 00:35 Urine Appearance Clear (CLEAR) 11/21/17 00:35 Urine pH 7.5 (4.7-8.0) 11/21/17 00:35 Ur Specific Wilson 1.010 (1.005-1.035) 11/21/17 00:35 Urine Protein Negative mg/dL (<30 mg/dL) 11/21/17 00:35 Urine Glucose (UA) Negative mg/dL (NEGATIVE) 11/21/17 00:35 Urine Ketones Negative mg/dL (NEGATIVE) 11/21/17 00:35 Urine Blood Negative (NEGATIVE) 11/21/17 00:35 Urine Nitrate Negative (NEGATIVE) 11/21/17 00:35 Urine Bilirubin Negative (NEGATIVE) 11/21/17 00:35 Urine Urobilinogen 0.2 E.U./dL (<1 E.U./dL) 11/21/17 00:35 Ur Leukocyte Esterase Negative Son/uL (NEGATIVE) 11/21/17 00:35 Salicylates < 1 mg/dL (2.0-20.0) L 11/17/17 13:50 Urine Opiates Screen Negative (NEGATIVE) 11/17/17 14:00 Urine Methadone Screen Negative (NEGATIVE) 11/17/17 14:00 Acetaminophen < 10.0 ug/ml (10.0-20.0) L 11/17/17 13:50 Ur Barbiturates Screen Negative (NEGATIVE) 11/17/17 14:00 Ur Phencyclidine Scrn Negative (NEGATIVE) 11/17/17 14:00 Ur Amphetamines Screen Negative (NEGATIVE) 11/17/17 14:00 U Benzodiazepines Scrn Positive (NEGATIVE) 11/17/17 14:00 U Oth Cocaine Metabols Negative (NEGATIVE) 11/17/17 14:00 U Cannabinoids Screen Negative (NEGATIVE) 11/17/17 14:00 Alcohol, Quantitative < 10 mg/dL (0-10) 11/17/17 13:50 Blood Type A POSITIVE 11/17/17 14:40 Blood Type Confirm A POSITIVE 11/17/17 15:14 Antibody Screen Negative 11/17/17 14:40 Crossmatch See Detail 11/17/17 14:40 BBK History Checked No verified bt 11/17/17 14:40 Attending/Attestation - Attestation I have personally seen and examined this patient.: Yes I have fully participated in the care of the patient.: Yes I have reviewed all pertinent clinical information, including history, physical exam and plan: Yes Notes (Text): 11/24/17 07:58 Attending note; Patient seen and examined with resident. 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 Endoscopy showed esophagitis. No active bleeding noted. Colonoscopy is negative. Currently hemoglobin is 8.2. No active bleeding. Currently asymptomatic. CT abdomen showed simple cyst in the liver. Iron transfusion given. History of schizophrenia; psychiatric evaluation appreciated. Patient is stable. music worker evaluation appreciated. Patient refused senior care placement. Patient was referred to [facility] by addiction social worker Patient will be discharged to his basement apartment today. Upon discharge the patient will follow-up with PMD of choice. 11/24/17 08:02
--- NOTE | 2017-11-24 10:51 | CP.PCM.PCO ---
Addendum Addendum: 11/24/17 10:49 pt was d/c as per [facility] Supervisor Note pt refused to go to the long term in [place]
== END 2017-11-23 14:52 | disposition home or self-care (01) | DRG 395 ==
LOC: ED 11:54 → ERH 15:39 → 3RNO 19:03
PROVIDERS: ADMIT Internal Medicine; ATTEND Internal Medicine
PROC: 30233N1 Transfusion of Nonautologous Red Blood Cells into Peripheral Vein, Percutaneous Approach (ICD-10-PCS; 2017-11-17)
PROC: 0DB98ZX Excision of Duodenum, Via Natural or Artificial Opening Endoscopic, Diagnostic (ICD-10-PCS; 2017-11-18)
PROC: 0DB68ZX Excision of Stomach, Via Natural or Artificial Opening Endoscopic, Diagnostic (ICD-10-PCS; 2017-11-18)
PROC: 0DB58ZX Excision of Esophagus, Via Natural or Artificial Opening Endoscopic, Diagnostic (ICD-10-PCS; 2017-11-18)
PROC: 0DJD8ZZ Inspection of Lower Intestinal Tract, Via Natural or Artificial Opening Endoscopic (ICD-10-PCS; principal; 2017-11-19 13:30)
DX: D50.9 Iron deficiency anemia, unspecified (principal); I11.0 Hypertensive heart disease with heart failure; F22 Delusional disorders; I50.9 Heart failure, unspecified; R45.851 Suicidal ideations; F10.239 Alcohol dependence with withdrawal, unspecified; F25.0 Schizoaffective disorder, bipolar type; E11.9 Type 2 diabetes mellitus without complications; K76.89 Other specified diseases of liver; E78.00 Pure hypercholesterolemia, unspecified; E78.5 Hyperlipidemia, unspecified; F17.210 Nicotine dependence, cigarettes, uncomplicated; I44.39 Other atrioventricular block; K20.9 Esophagitis, unspecified; Z79.82 Long term (current) use of aspirin; Z79.899 Other long term (current) drug therapy; Z95.0 Presence of cardiac pacemaker; R40.2412 Glasgow coma scale score 13-15, at arrival to emergency department; I08.0 Rheumatic disorders of both mitral and aortic valves; R19.5 Other fecal abnormalities; K57.30 Diverticulosis of large intestine without perforation or abscess without bleeding; K64.8 Other hemorrhoids; K22.10 Ulcer of esophagus without bleeding; K25.9 Gastric ulcer, unspecified as acute or chronic, without hemorrhage or perforation; K31.9 Disease of stomach and duodenum, unspecified; K29.50 Unspecified chronic gastritis without bleeding

== ENCOUNTER 2018-01-14 21:45 | Inpatient (IN) | payer SELFPAY ==
[2018-01-14 21:57] VITALS: BMI 23.1
--- NOTE | 2018-01-14 22:11 | ED PDOC ---
Arrival/HPI - General Chief Complaint: Psychiatric Evaluation Time Seen by Provider: 01/14/18 21:57 Historian: Patient - History of Present Illness Narrative History of Present Illness (Text): 01/14/18 22:07 A 67 year old male, whose past medical history includes schizoaffective disorder , anxiety, diabetes, cardiac pacemaker, is brought into the emergency department via EMS for evaluation after the patient was hollering and screaming in his place of residence. When the patient was questioned as to why he was hollering and screaming, the patient responded "I have many problems". The patient denies any suicidal/homicidal ideation. When questioned as to what his problems were, he would not elaborate. The patient denies fevers, chills, headache, dizziness, chest pain, shortness of breath, dyspnea on exertion, cough , abdominal pain, nausea, vomiting, diarrhea, back pain, neck pain, urinary/ bowel changes, or any other somatic complaints. PMD: Dr. Fong Time/Duration: Prior to Arrival Symptom Onset: Sudden Symptom Course: Unchanged Activities at Onset: Rest, Light Context: Home Past Medical History - Provider Review Nursing Documentation Reviewed: Yes - Infectious Disease Hx of Infectious Diseases: None - Cardiac Hx Cardiac Disorders: Yes Hx Cardiac Arrhythmia: Yes Hx Congestive Heart Failure: Yes Hx Hypertension: Yes Hx Pacemaker: Yes (04/30/17) - Pulmonary Hx Respiratory Disorders: No - Neurological Hx Neurological Disorder: No - HEENT Hx HEENT Disorder: No - Renal Hx Renal Disorder: No - Endocrine/Metabolic Hx Endocrine Disorders: Yes Hx Diabetes Mellitus Type 2: Yes - Hematological/Oncological Hx Blood Disorders: No - Integumentary Hx Dermatological Disorder: No - Musculoskeletal/Rheumatological Hx Falls: No - Gastrointestinal Hx Gastrointestinal Disorders: No - Genitourinary/Gynecological Hx Genitourinary Disorders: No - Psychiatric Hx Psychophysiologic Disorder: Yes Hx Anxiety: Yes Hx Bipolar Disorder: Yes Hx Depression: Yes Hx Schizophrenia: Yes Hx Substance Use: No - Surgical History Other/Comment: inguinal hernia repair 2010 - Anesthesia Hx Anesthesia: Yes Hx Anesthesia Reactions: No Hx Malignant Hyperthermia: No Family/Social History - Physician Review Nursing Documentation Reviewed: Yes Family/Social History: No Known Family HX Smoking Status: Former Smoker Hx Alcohol Use: Yes Hx Substance Use: No Allergies/Home Meds Allergies/Adverse Reactions: Allergies No Known Allergies Allergy (Verified 01/14/18 22:01) Home Medications: Home Meds Medication Instructions Recorded Confirmed Cod Liver Oil 1 tab PO DAILY 07/29/17 11/17/17 [place]-3S/Dha/Epa/Fish Oil [Fish 1,290 mg PO DAILY 07/29/17 11/17/17 Oil 1,200 mg Softgel] Suvorexant [Belsomra] 15 mg PO HS 07/29/17 11/17/17 QUEtiapine [SEROquel] 25 mg PO DAILY 01/14/18 01/14/18 Simvastatin [Zocor] 40 mg PO ONCE 01/14/18 01/14/18 Temazepam [Restoril] 30 mg PO HS 01/14/18 Review of Systems - Physician Review All systems were reviewed & negative as marked: Yes - Review of Systems Constitutional: absent: Fevers Respiratory: absent: SOB, Cough Cardiovascular: absent: Chest Pain, Other Gastrointestinal: absent: Abdominal Pain, Stool Changes, Diarrhea, Nausea, Vomiting Genitourinary Male: absent: Urinary Output Changes Musculoskeletal: absent: Back Pain, Neck Pain Neurological: absent: Headache, Dizziness Psychiatric: Other (Patient found screaming and hollering in his place of residence. ). absent: Suicidal Ideation Physical Exam Vital Signs Reviewed: Yes Vital Signs Temp Pulse Resp BP Pulse Ox 01/14/18 22:06 98.0 F 88 18 136/83 98 Temperature: Afebrile Blood Pressure: Normal Pulse: Regular Respiratory Rate: Normal Appearance: Positive for: Well-Appearing, Non-Toxic, Comfortable Pain Distress: None Mental Status: Positive for: Alert and Oriented X 3 - Systems Exam Head: Present: Atraumatic, Normocephalic Pupils: Present: PERRL Extroacular Muscles: Present: EOMI Conjunctiva: Present: Normal Mouth: Present: Moist Mucous Membranes Neck: Present: Normal Range of Motion Respiratory/Chest: Present: Clear to Auscultation, Good Air Exchange. No: Respiratory Distress, Accessory Muscle Use Cardiovascular: Present: Regular Rate and Rhythm, Normal S1, S2. No: Murmurs Abdomen: Present: Normal Bowel Sounds. No: Tenderness, Distention, Peritoneal Signs Rectal: Present: Other (guaic -negative). No: Occult Blood Back: Present: Normal Inspection Upper Extremity: Present: Normal Inspection. No: Cyanosis, Edema Lower Extremity: Present: Normal Inspection. No: Edema Neurological: Present: GCS=15, CN II-XII Intact, Speech Normal, Motor Func Grossly Intact, Normal Sensory Function Skin: Present: Warm, Dry, Normal Color. No: Rashes Psychiatric: Present: Alert, Oriented x 3, Other (Tangential Speech) Medical Decision Making ED Course and Treatment: 01/14/18 22:13 Impression: A 67 year old male is brought in by ambulance after hollering and screaming at his place of residence. Plan: -- EKG -- Chest X-ray -- Labs -- Reassess and disposition Progress Notes: EK01/14/18 22:28 Ordered, reviewed, and independently interpreted the EKG. Rate : 80 BPM Rhythm : NSR Interpretation : 1st degree AV block. LBBB. Paced Rhythm. 01/14/18 23:09: Chest X-ray read and interpreted by me shows no acute processes. 01/15/18 00:17: Patient seen by PES. Accepted for admission to the psychiatric floor. - Lab Interpretations Lab Results: 01/14/18 22:42 01/14/18 22:42 Lab Results 01/14/18 22:42: Alcohol, Quantitative < 10 01/14/18 22:42: WBC 3.5 L D, RBC 3.39 L, Hgb 7.3 L, Hct 25.3 L, MCV 74.6 L, MCH 21.5 L, MCHC 28.9 L, RDW 19.0 H, Plt Count 245, MPV 9.4 01/14/18 22:42: Sodium 140, Potassium 3.5 L, Chloride 104, Carbon Dioxide 25, Anion Gap 15, BUN 12, Creatinine 0.9, Est GFR ( Amer) > 60, Est GFR (Non- Af Amer) > 60, Random Glucose 106, Calcium 9.8, Total Bilirubin 0.3, AST 21, ALT 23, Alkaline Phosphatase 54, Total Protein 6.5, Albumin 3.9, Globulin 2.7, Albumin/Globulin Ratio 1.4 I have reviewed the lab results: Yes - RAD Interpretation Radiology Orders: 01/14/18 CHEST PORTABLE [RAD] Stat - EKG Interpretation Interpreted by ED Physician: Yes Type: 12 lead EKG - Scribe Statement The provider has reviewed the documentation as recorded by the Ridgeibcarrie Lantigua Provider Scribe Attestation: All medical record entries made by the Scribe were at my direction and personally dictated by me. I have reviewed the chart and agree that the record accurately reflects my personal performance of the history, physical exam, medical decision making, and the department course for this patient. I have also personally directed, reviewed, and agree with the discharge instructions and disposition. Disposition/Present on Arrival - Present on Arrival Any Indicators Present on Arrival: No History of DVT/PE: No History of Uncontrolled Diabetes: Yes Urinary Catheter: No History of Decub. Ulcer: No History Surgical Site Infection Following: None - Disposition Have Diagnosis and Disposition been Completed?: Yes Diagnosis: Schizoaffective disorder, Psychosis Disposition: HOSPITALIZED Disposition Time: 00:16 Patient Plan: Admission Patient Problems: Current Active Problems Problem Status Onset Schizoaffective disorder Chronic Condition: STABLE Referrals: Chidi JOHNSON,Loc Tony MD [Primary Care Provider] - Follow up with primary Forms: CANDDi (Kazakh)
[2018-01-14 22:53] LABS: HEMOGLOBIN 7.3 g/dL (14.0-18.0); MEAN CELL VOLUME 74.6 fl (80.0-105.0); MEAN CORPUSCULAR HEMOGLOBIN 21.5 pg (25.0-35.0); MEAN CORPUSCULAR HGB CONC 28.9 g/dl (31.0-37.0); MEAN PLATELET VOLUME 9.4 fl (7.0-11.0); RBC 3.39 10^6/uL (3.5-6.1); WHITE BLOOD COUNT 3.5 10^3/ul (4.5-11.0)
[2018-01-14 23:02] LABS: ALB/GLOB RATIO 1.4 (1.1-1.8); ALBUMIN 3.9 g/dL (3.0-4.8); ALT/SGPT 23 U/L (7-56); AST/SGOT 21 U/L (17-59); BLOOD UREA NITROGEN 12 mg/dL (7-21); CALCIUM 9.8 mg/dL (8.4-10.5); GFR AFRICAN-AMERICAN > 60; GFR NON-AFRICAN AMERICAN > 60
[2018-01-15] MEDS ORDERED: Alum-Mag Hydrox-Simethicone Susp (30 mL) PO PRN (01:03)
[2018-01-15] MEDS ORDERED: Magnesium Hydroxide Susp 30 ml UD PO PRN (01:03)
[2018-01-15] MEDS ORDERED: DiphenhydrAMINE 50 mg/ml Inj IM PRN ×2 (01:03→02:35)
[2018-01-15 01:53] LABS: HDL CHOLESTEROL 44 mg/dL (29-60)
[2018-01-15 02:49] LABS: LDL CHOLESTEROL 54 mg/dL (0-129)
--- NOTE | 2018-01-15 03:47 | PCM.BM ---
<Laquita Drake - Last Filed: 01/15/18 03:44> Treatment Plan Problems - Problems identified on initial assessmt medication nonadherence Date Initiated: 01/15/18 Time Initiated: 02:15 Assessment reference: NA Status: Active delusions Date Initiated: 01/15/18 Time Initiated: 02:15 Assessment reference: NA Status: Active Priority: 2 altered thought process Date Initiated: 01/15/18 Time Initiated: 02:15 Assessment reference: NA Status: Active Priority: 3 Treatment assets and liabiliti Patient Assests: cooperative, ADL independent, negotiates basic needs Patient Liabilities: live alone, medical problems - Milieu Protocol Maintain good personal hygiene: daily Encourage regular showers, daily Remind patient to perform daily oral care, daily Assist patient to perform ADL's Conduct patient checks and document Observation sheet: Q15 minutes Maintain personal safety: every shift Educate patient to report safety concerns to staff, every shift Monitor environment for contraband/sharps Medication safety: Monitor for expected outcome, potential side effects: every shift, Assess barriers to learning: every shift, Assess readiness for medication education: every shift Discharge/Continuing Care - Education Needs Education Needs: Patient Medication, Patient Diagnosis/Disease Process, Patient Coping Skills, Patient Placement options, Patient Community resources, Patient Health Practices/Safety - Discharge Discharge Criteria: Tolerates medication w/o severe side effects, Free of paranoid thoughts, Normal sleep pattern <Rosa Elena Deshpande - Last Filed: 01/15/18 12:42> - Diagnosis (1) Schizoaffective disorder Status: Chronic Interventions: group, milieu and supportive tx as tolerated Risperdal 1 mg po bid, titrate as needed for disorganization Cogentin 1 mg po bid for EPS prophylaxis Ambien 5 mg HS for insomnia Ativan 0.5 mg po TID for anxiety and to help with mood stabilization 01/15/18 12:42 (2) Anemia Status: Chronic Interventions: Awaiting medical f/u, patient is presenting with anemia again, similar to his presentation on the medical floor last month 11/2017. 01/15/18 12:43 <Haydee Krueger - Last Filed: 01/15/18 15:24> Family Contact Family involvement: Family/SO is involved - Outside Agency Ahmet Fischer Esq. Care involvment: Following patient during stay, Information-sharing Agency contact name: Ahmet Fischer Esq.(Financial POA) Agency contact number: [phone]
[2018-01-15 04:19] LABS: BARBITURATES, UR NEGATIVE (NEGATIVE); BENZODIAZEPINES, UR NEGATIVE (NEGATIVE); OPIATES, UR NEGATIVE (NEGATIVE); PHENCYCLIDINE, UR NEGATIVE (NEGATIVE)
[2018-01-15 07:51] LABS: BASO # 0.01 K/mm3 (0.0-2.0); BASO % 0.3 % (0.0-3.0); EOS # 0.2 (0.0-0.7); EOS % 5.1 % (1.5-5.0); GRAN # 1.35 (1.4-6.5); GRAN % 36.5 % (50.0-68.0); HEMOGLOBIN 7.2 g/dL (14.0-18.0); LYMPH # 1.1 (1.2-3.4); LYMPH % 30.3 % (22.0-35.0); MEAN CELL VOLUME 74.5 fl (80.0-105.0); MEAN CORPUSCULAR HEMOGLOBIN 21.6 pg (25.0-35.0); MEAN PLATELET VOLUME 9.6 fl (7.0-11.0); MONO % 27.8 % (1.0-6.0); PLATELET COUNT 248 10^3/uL (120.0-450.0); RBC 3.33 10^6/uL (3.5-6.1); RED CELL DISTRIBUTION WIDTH 19.1 % (11.5-14.5); WHITE BLOOD COUNT 3.7 10^3/ul (4.5-11.0)
[2018-01-15 07:59] LABS: ALB/GLOB RATIO 1.3 (1.1-1.8); ALBUMIN 3.4 g/dL (3.0-4.8); ALT/SGPT 24 U/L (7-56); AST/SGOT 21 U/L (17-59); BLOOD UREA NITROGEN 12 mg/dL (7-21); CALCIUM 9.6 mg/dL (8.4-10.5); GFR AFRICAN-AMERICAN > 60; GFR NON-AFRICAN AMERICAN > 60; GLUCOSE,FASTING 74 mg/dL (65-110)
[2018-01-15 08:11] LABS: BASOPHIL 2 % (0.0-1.0); EOSINOPHIL 4 % (0.0-3.0); LYMPHOCYTE 33 % (22.0-35.0); MONOCYTE 23 % (1.0-6.0); NEUTROPHIL 38 % (50.0-70.0); PLATELET ESTIMATE NORMAL (NORMAL)
[2018-01-15] MEDS: Divalproex 500 mg DR(BID formulation) PO SCH ×2 (08:32→15:17)
--- NOTE | 2018-01-15 09:29 | CP.PCM.CON ---
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 ED for yelling and screaming. Patient was admitted to psychiatry and consult was ordered. Patient denies suicidal ideation. Patient denies fever, chills headache, dizziness, abdominal pain, diarrhea, hematochezia. Patient is tired during interview because he was sedated for agitation in Psychiatry. upon return with attending, patient is eating, and responding well to questions. Past medical history: as above Surgical History: Hernia repair, Plastic surgery; ear pinning Family History: denies history of bleeding disorders, denies history of cancers Allergies: NKDA Medications: please refer to MAR Social History:admits to smoking on and off "since he was young" up to 1 ppd, admits to alcohol consumption from time to time (does not provide details) PMD: Dr. Rush Review of Systems - Constitutional Constitutional: As Per HPI Past Patient History - Infectious Disease Hx of Infectious Diseases: None - Past Social History Smoking Status: Former Smoker - CARDIAC Hx Cardiac Disorders: Yes Hx Cardia Arrhythmia: Yes Hx Congestive Heart Failure: Yes Hx Hypertension: Yes Hx Pacemaker: Yes (04/30/17) - PULMONARY Hx Respiratory Disorders: No - NEUROLOGICAL Hx Neurological Disorder: No - HEENT Hx HEENT Problems: No - RENAL Hx Chronic Kidney Disease: No - ENDOCRINE/METABOLIC Hx Endocrine Disorders: Yes Hx Diabetes Mellitus Type 2: Yes - HEMATOLOGICAL/ONCOLOGICAL Hx Blood Disorders: No - INTEGUMENTARY Hx Dermatological Problems: No - MUSCULOSKELETAL/RHEUMATOLOGICAL Hx Falls: No - GASTROINTESTINAL Hx Gastrointestinal Disorders: No - GENITOURINARY/GYNECOLOGICAL Hx Genitourinary Disorders: No - PSYCHIATRIC Hx Psychophysiologic Disorder: Yes Hx Anxiety: Yes Hx Bipolar Disorder: Yes Hx Depression: Yes Hx Schizophrenia: Yes Hx Substance Use: No - SURGICAL HISTORY Other/Comment: inguinal hernia repair 2010 - ANESTHESIA Hx Anesthesia: Yes Hx Anesthesia Reactions: No Hx Malignant Hyperthermia: No Meds Allergies/Adverse Reactions: Allergies Allergy/AdvReac Type Severity Reaction Status Date / Time No Known Allergies Allergy Verified 01/15/18 03:40 - Medications Medications: Current Medications Acetaminophen (Tylenol 325mg Tab) 650 mg PO Q4 PRN PRN Reason: Pain, Mild (1-3) Al Hydrox/Mg Hydrox/Simethicone (Maalox Plus 30 Ml) 30 ml PO DAILY PRN PRN Reason: Upset Stomach Benztropine Mesylate (Cogentin) 1 mg PO BID [facility] Diphenhydramine HCl (Benadryl) 50 mg IM Q6 PRN PRN Reason: side effects/agitation Diphenhydramine HCl (Benadryl) 50 mg PO Q6 PRN PRN Reason: side effects/agitation Last Admin: 01/15/18 02:53 Dose: 50 mg Divalproex Sodium (Depakote Dr(*Bid*)) 500 mg PO BID [facility] PRN Reason: Protocol Haloperidol (Haldol) 5 mg PO Q6 PRN; Protocol PRN Reason: Agitation Last Admin: 01/15/18 02:52 Dose: 5 mg Haloperidol Lactate (Haldol) 5 mg IM Q6 PRN; Protocol PRN Reason: Agitation Lorazepam (Ativan) 1 mg IM Q6 PRN; Protocol PRN Reason: Agitation Lorazepam (Ativan) 1 mg PO Q6 PRN; Protocol PRN Reason: Agitation Last Admin: 01/15/18 02:53 Dose: 1 mg Magnesium Hydroxide (Milk Of Magnesia) 30 ml PO DAILY PRN PRN Reason: Constipation Pantoprazole Sodium (Protonix Ec Tab) 40 mg PO 0600 SADIE Risperidone (Risperdal Tab) 1 mg PO BID [facility] PRN Reason: Protocol Zolpidem Tartrate (Ambien) 5 mg PO HS [facility] PRN Reason: Protocol Last Admin: 01/15/18 02:33 Dose: 5 mg Physical Exam - Constitutional Appears: No Acute Distress - Head Exam Head Exam: ATRAUMATIC, NORMAL INSPECTION, NORMOCEPHALIC - Eye Exam Eye Exam: EOMI, Normal appearance Pupil Exam: NORMAL ACCOMODATION - ENT Exam ENT Exam: Mucous Membranes Moist - Neck Exam Neck exam: Positive for: Full Rom. Negative for: Tenderness, Thyromegaly - Respiratory Exam Respiratory Exam: NORMAL BREATHING PATTERN. absent: Accessory Muscle Use - Cardiovascular Exam Cardiovascular Exam: REGULAR RHYTHM, +S1, +S2. absent: Bradycardia, Tachycardia - GI/Abdominal Exam GI & Abdominal Exam: Soft. absent: Tenderness - Extremities Exam Extremities exam: Positive for: full ROM, normal inspection. Negative for: pedal edema - Back Exam Back exam: FULL ROM, NORMAL INSPECTION - Neurological Exam Neurological exam: CN II-XII Intact, Normal Gait, Oriented x3 - Psychiatric Exam Psychiatric exam: Normal Affect, Normal Mood - Skin Skin Exam: Intact, Normal Color, Warm Results - Vital Signs Recent Vital Signs: Last Vital Signs Temp 97.9 F 01/15/18 06:59 Pulse 72 01/15/18 06:59 Resp 20 01/15/18 06:59 BP 134/78 01/15/18 06:59 Pulse Ox 100 01/15/18 02:31 - Labs Result Diagrams: 01/15/18 07:30 01/15/18 07:30 Labs: Laboratory Results - last 24 hr 01/15/18 01/15/18 01/15/18 00:33 07:23 07:30 WBC RBC Hgb Hct MCV MCH MCHC RDW Plt Count MPV Gran % Lymph % (Auto) [place] % (Auto) Eos % (Auto) Baso % (Auto) Gran # Lymph # (Auto) [place] # (Auto) Eos # (Auto) Baso # (Auto) Neutrophils % (Manual) Lymphocytes % (Manual) Monocytes % (Manual) Eosinophils % (Manual) Basophils % (Manual) Platelet Evaluation Sodium 142 Potassium 3.6 Chloride 105 Carbon Dioxide 29 Anion Gap 12 BUN 12 Creatinine 0.9 Est GFR ( Amer) > 60 Est GFR (Non-Af Amer) > 60 POC Glucose (mg/dL) 75 Random Glucose 74 Fasting Glucose 74 Calcium 9.6 Phosphorus 3.6 Magnesium 2.2 Total Bilirubin 0.2 AST 21 ALT 24 Alkaline Phosphatase 51 Total Protein 6.0 Albumin 3.4 Globulin 2.6 Albumin/Globulin Ratio 1.3 TSH 3rd Generation Urine Opiates Screen Negative Urine Methadone Screen Negative Ur Barbiturates Screen Negative Ur Phencyclidine Scrn Negative Ur Amphetamines Screen Negative U Benzodiazepines Scrn Negative U Oth Cocaine Metabols Negative U Cannabinoids Screen Negative 01/15/18 01/15/18 07:30 07:30 WBC 3.7 L RBC 3.33 L Hgb 7.2 L Hct 24.8 L MCV 74.5 L MCH 21.6 L MCHC 29.0 L RDW 19.1 H Plt Count 248 MPV 9.6 Gran % 36.5 L Lymph % (Auto) 30.3 [place] % (Auto) 27.8 H Eos % (Auto) 5.1 H Baso % (Auto) 0.3 Gran # 1.35 L Lymph # (Auto) 1.1 L [place] # (Auto) 1.0 H Eos # (Auto) 0.2 Baso # (Auto) 0.01 Neutrophils % (Manual) 38 L Lymphocytes % (Manual) 33 Monocytes % (Manual) 23 H Eosinophils % (Manual) 4 H Basophils % (Manual) 2 H Platelet Evaluation Normal Sodium Potassium Chloride Carbon Dioxide Anion Gap BUN Creatinine Est GFR ( Amer) Est GFR (Non-Af Amer) POC Glucose (mg/dL) Random Glucose Fasting Glucose Calcium Phosphorus Magnesium Total Bilirubin AST ALT Alkaline Phosphatase Total Protein Albumin Globulin Albumin/Globulin Ratio TSH 3rd Generation 1.57 Urine Opiates Screen Urine Methadone Screen Ur Barbiturates Screen Ur Phencyclidine Scrn Ur Amphetamines Screen U Benzodiazepines Scrn U Oth Cocaine Metabols U Cannabinoids Screen Assessment & Plan - Assessment and Plan (Free Text) Assessment: Iron deficiency anemia monitor CBC, consider blood transfusion of H/H not stable Feosol 325mg PO TID Colace 100mg PO QD HTN Lisinopril HLD continue statin Protonix 40mg PO QAM Patient can ambulate discussed with Dr. Gary Graham DO PGY1 - Date & Time Date: 01/15/18 Time: 11:48 <Marianna Vega - Last Filed: 01/15/18 16:37> Meds - Medications Medications: Current Medications Acetaminophen (Tylenol 325mg Tab) 650 mg PO Q4 PRN PRN Reason: Pain, Mild (1-3) Al Hydrox/Mg Hydrox/Simethicone (Maalox Plus 30 Ml) 30 ml PO DAILY PRN PRN Reason: Upset Stomach Atorvastatin Calcium (Lipitor) 10 mg PO DIN SADIE Last Admin: 01/15/18 16:11 Dose: 10 mg Benztropine Mesylate (Cogentin) 1 mg PO AMHS SADIE Diphenhydramine HCl (Benadryl) 50 mg IM Q6 PRN PRN Reason: side effects/agitation Diphenhydramine HCl (Benadryl) 50 mg PO Q6 PRN PRN Reason: side effects/agitation Last Admin: 01/15/18 02:53 Dose: 50 mg Divalproex Sodium (Symone Stephenson(*Bid*)) 500 mg PO BID SADIE PRN Reason: Protocol Last Admin: 01/15/18 15:17 Dose: 500 mg Docusate Sodium (Colace) 100 mg PO DAILY SADIE Ferrous Sulfate (Feosol) 324 mg PO TID SADIE Last Admin: 01/15/18 13:10 Dose: 324 mg Haloperidol (Haldol) 5 mg PO Q6 PRN; Protocol PRN Reason: Agitation Last Admin: 01/15/18 02:52 Dose: 5 mg Haloperidol Lactate (Haldol) 5 mg IM Q6 PRN; Protocol PRN Reason: Agitation Lisinopril (Zestril) 20 mg PO DAILY SADIE Lorazepam (Ativan) 1 mg IM Q6 PRN; Protocol PRN Reason: Agitation Lorazepam (Ativan) 1 mg PO Q6 PRN; Protocol PRN Reason: Agitation Last Admin: 01/15/18 02:53 Dose: 1 mg Lorazepam (Ativan) 0.5 mg PO TID SADIE PRN Reason: Protocol Last Admin: 01/15/18 15:09 Dose: Not Given Magnesium Hydroxide (Milk Of Magnesia) 30 ml PO DAILY PRN PRN Reason: Constipation Pantoprazole Sodium (Protonix Ec Tab) 40 mg PO 0600 SADIE Risperidone (Risperdal Tab) 1 mg PO AMHS SADIE PRN Reason: Protocol Zolpidem Tartrate (Ambien) 5 mg PO HS SADIE PRN Reason: Protocol Last Admin: 01/15/18 02:33 Dose: 5 mg Results - Vital Signs Recent Vital Signs: Last Vital Signs Temp 97.9 F 01/15/18 06:59 Pulse 100 H 01/15/18 15:00 Resp 20 01/15/18 06:59 BP 144/93 H 01/15/18 15:00 Pulse Ox 100 01/15/18 02:31 - Labs Result Diagrams: 01/15/18 07:30 01/15/18 07:30 Labs: Laboratory Results - last 24 hr 01/15/18 01/15/18 01/15/18 00:33 07:23 07:30 WBC RBC Hgb Hct MCV MCH MCHC RDW Plt Count MPV Gran % Lymph % (Auto) [place] % (Auto) Eos % (Auto) Baso % (Auto) Gran # Lymph # (Auto) [place] # (Auto) Eos # (Auto) Baso # (Auto) Neutrophils % (Manual) Lymphocytes % (Manual) Monocytes % (Manual) Eosinophils % (Manual) Basophils % (Manual) Platelet Evaluation Sodium 142 Potassium 3.6 Chloride 105 Carbon Dioxide 29 Anion Gap 12 BUN 12 Creatinine 0.9 Est GFR ( Amer) > 60 Est GFR (Non-Af Amer) > 60 POC Glucose (mg/dL) 75 Random Glucose 74 Fasting Glucose 74 Calcium 9.6 Phosphorus 3.6 Magnesium 2.2 Total Bilirubin 0.2 AST 21 ALT 24 Alkaline Phosphatase 51 Total Protein 6.0 Albumin 3.4 Globulin 2.6 Albumin/Globulin Ratio 1.3 TSH 3rd Generation Urine Opiates Screen Negative Urine Methadone Screen Negative Ur Barbiturates Screen Negative Ur Phencyclidine Scrn Negative Ur Amphetamines Screen Negative U Benzodiazepines Scrn Negative U Oth Cocaine Metabols Negative U Cannabinoids Screen Negative 01/15/18 01/15/18 01/15/18 07:30 07:30 11:24 WBC 3.7 L RBC 3.33 L Hgb 7.2 L Hct 24.8 L MCV 74.5 L MCH 21.6 L MCHC 29.0 L RDW 19.1 H Plt Count 248 MPV 9.6 Gran % 36.5 L Lymph % (Auto) 30.3 [place] % (Auto) 27.8 H Eos % (Auto) 5.1 H Baso % (Auto) 0.3 Gran # 1.35 L Lymph # (Auto) 1.1 L [place] # (Auto) 1.0 H Eos # (Auto) 0.2 Baso # (Auto) 0.01 Neutrophils % (Manual) 38 L Lymphocytes % (Manual) 33 Monocytes % (Manual) 23 H Eosinophils % (Manual) 4 H Basophils % (Manual) 2 H Platelet Evaluation Normal Sodium Potassium Chloride Carbon Dioxide Anion Gap BUN Creatinine Est GFR ( Amer) Est GFR (Non-Af Amer) POC Glucose (mg/dL) 129 H Random Glucose Fasting Glucose Calcium Phosphorus Magnesium Total Bilirubin AST ALT Alkaline Phosphatase Total Protein Albumin Globulin Albumin/Globulin Ratio TSH 3rd Generation 1.57 Urine Opiates Screen Urine Methadone Screen Ur Barbiturates Screen Ur Phencyclidine Scrn Ur Amphetamines Screen U Benzodiazepines Scrn U Oth Cocaine Metabols U Cannabinoids Screen 01/15/18 16:06 WBC RBC Hgb Hct MCV MCH MCHC RDW Plt Count MPV Gran % Lymph % (Auto) [place] % (Auto) Eos % (Auto) Baso % (Auto) Gran # Lymph # (Auto) [place] # (Auto) Eos # (Auto) Baso # (Auto) Neutrophils % (Manual) Lymphocytes % (Manual) Monocytes % (Manual) Eosinophils % (Manual) Basophils % (Manual) Platelet Evaluation Sodium Potassium Chloride Carbon Dioxide Anion Gap BUN Creatinine Est GFR ( Amer) Est GFR (Non-Af Amer) POC Glucose (mg/dL) 105 Random Glucose Fasting Glucose Calcium Phosphorus Magnesium Total Bilirubin AST ALT Alkaline Phosphatase Total Protein Albumin Globulin Albumin/Globulin Ratio TSH 3rd Generation Urine Opiates Screen Urine Methadone Screen Ur Barbiturates Screen Ur Phencyclidine Scrn Ur Amphetamines Screen U Benzodiazepines Scrn U Oth Cocaine Metabols U Cannabinoids Screen Attending/Attestation - Attestation I have personally seen and examined this patient.: Yes I have fully participated in the care of the patient.: Yes I have reviewed all pertinent clinical information: Yes Notes (Text): 01/15/18 16:33 Patient seen and examined with resident. 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 No active bleeding noted. Colonoscopy was negative) is admitted to Psychiatry floor for agitation and schizophrenia; .Hemoglobin is low, patient is asymptomatic.There is no active bleeding.We will start patient on PPI, Oral Iron and stool softner.We will monitor hemoglobin. HTN is stable with current medications.
--- NOTE | 2018-01-15 09:54 | RAD ---
HISTORY: medical clearance COMPARISON: 11/17/2017 FINDINGS: LUNGS: No active pulmonary disease. PLEURA: No significant pleural effusion identified, no pneumothorax apparent. CARDIOVASCULAR: Normal. OSSEOUS STRUCTURES: No significant abnormalities. VISUALIZED UPPER ABDOMEN: Normal. OTHER FINDINGS: Pacemaker IMPRESSION: No active disease.
--- NOTE | 2018-01-15 11:22 | PCM.PSYCH ---
Initial Psychiatric Evaluation - Initial Psychiatric Evaluation Type of Admission: Voluntary History of Present Illness and Precipitating Events: Patient is a single 67 year old male with psychiatric history of Schizoaffective disorder, unclear current adherence with psychiatric medications (though with long history of noncompliance) who was BIB police due to loud and disorganzied behavior at his residence. Patient was psychiatrically admitted to our unit very early this morning and staff noted that he was disorganized, paranoid, loud and argumentative. Patient required po Haldol 5 mg , Ativan 1 mg, Benadryl 50 mg for agitation at 2:52 AM. Patient is difficult to interview at bedside this morning. I agree with nursing , his thought process is disorganized, paranoid and tangential. Patient cannot describe his current circumstances, month or year. He mumbles repeatedly and demonstrates poor eye contact. Patient is ordinarily oddly related and easily chats about his various prejudices, past persecutors and unfortunate life incidents. Of note: patient was recently discharged from the medical floor 3 weeks ago (11/17-11/23/17). He was treated for severe anemia with positive FOBT. EGD and colonoscopy did not reveal a source of GI bleeding. Patient received 2 units PRBC, and IV iron, and his H/H stabilized and was improving on the iron supplementation. Patient was discharged to his apartment after he refused placement into [facility]. He was seen by psychiatry on the medical floor and treated with Ativan 0.5 mg po TID, Ambien 10 mg po HS prn, Cogentin 0.5 mg po AMHS, Depakote 500 mg AMHS and Risperdal 2 mg AMHS. Patient has a history of completely denying that he has any psychiatric diagnosis. PSYCHIATRIC HISTORY Patient was recently discharged from the medical floor 3 weeks ago (11/17/17-). He was seen by psychiatry on the medical floor and treated with Ativan 0.5 mg po TID, Ambien 10 mg po HS prn, Cogentin 0.5 mg po AMHS, Depakote 500 mg AMHS and Risperdal 2 mg AMHS. MULTIPLE PSYCHIATRIC ADMISSIONS, most recently 05/05/17-05/21/17 at [facility]. He was discharged on Depakote 500 mg AMHS, Cogentin 0.5 mg AMHS , Ativan 0.5 mg TID, Risperdal 2 mg AMHS, Ambien 10 mg po hS prn. Other admission include 02/2017, 09/2016, 12/2015, 10/2015 and 11/2011 at [facility]. Patient has chronic noncompliance with the medications and follow-up appointments, Medication trials include, depakote, risperdal, seroquel, ambien, cogentin, ativan, restoril SOCIAL HISTORY Born and raised in [place]. Single. No kids. Unemployed. Prior arrests in [place] for "damaging an automobile" as well as in [place], [place] for MJA possession. Denies drug, alcohol or tobacco use. 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 Current Medications: Active Medications Generic Name Dose Route Start Last Admin Trade Name Freq PRN Reason Stop Dose Admin Acetaminophen 650 mg 01/15/18 02:35 Tylenol 325mg Tab PO Q4 PRN Pain, Mild (1-3) Al Hydrox/Mg Hydrox/Simethicone 30 ml 01/15/18 01:03 Maalox Plus 30 Ml PO DAILY PRN Upset Stomach Benztropine Mesylate 1 mg 01/15/18 08:00 Cogentin PO BID SADIE Diphenhydramine HCl 50 mg 01/15/18 02:35 Benadryl IM Q6 PRN side effects/agitation Diphenhydramine HCl 50 mg 01/15/18 02:35 01/15/18 02:53 Benadryl PO 50 mg Q6 PRN Administration side effects/agitation Divalproex Sodium 500 mg 01/15/18 08:00 Depestevan Stephenson(*Bid*) PO BID SADIE Protocol Haloperidol 5 mg 01/15/18 02:35 01/15/18 02:52 Haldol PO 5 mg Q6 PRN Administration Agitation Protocol Haloperidol Lactate 5 mg 01/15/18 02:36 Haldol IM Q6 PRN Agitation Protocol Lorazepam 1 mg 01/15/18 02:44 Ativan IM Q6 PRN Agitation Protocol Lorazepam 1 mg 01/15/18 02:44 01/15/18 02:53 Ativan PO 1 mg Q6 PRN Administration Agitation Protocol Magnesium Hydroxide 30 ml 01/15/18 01:03 Milk Of Magnesia PO DAILY PRN Constipation Risperidone 1 mg 01/15/18 08:00 Risperdal Tab PO BID [facility] Protocol Zolpidem Tartrate 5 mg 01/15/18 02:00 01/15/18 02:33 Ambien PO 5 mg HS [facility] Administration Protocol Past Psychiatric History - Past Psychiatric History Pertinent Medical Hx (Current Medical&Sleep Prob, Allergies): Allergies Allergy/AdvReac Type Severity Reaction Status Date / Time No Known Allergies Allergy Verified 01/15/18 03:40 Atorvastatin [Lipitor] 10 mg PO DIN #30 tab 05/20/17 Benztropine [Cogentin] 0.5 mg PO AMHS #60 tab 05/20/17 Divalproex [Depakote DR(*BID*)] 500 mg PO AMHS #60 tcp 05/20/17 Famotidine [Pepcid] 40 mg PO HS #30 tab 05/20/17 Folic Acid 1 mg PO DAILY #30 tab 05/20/17 LORazepam [Ativan] 0.5 mg PO TID #90 tab 05/20/17 Lisinopril [Zestril] 20 mg PO DAILY #30 tab 05/20/17 Thiamine [Vitamin B1 Tab] 100 mg PO DAILY #30 tab 05/20/17 Zolpidem [Ambien] 10 mg PO HS PRN #30 tab 05/20/17 risperiDONE [RisperDAL Tab] 2 mg PO AMHS #60 tab 05/20/17 Cod Liver Oil 1 tab PO DAILY 07/29/17 Elaine-3S/Dha/Epa/Fish Oil [Fish Oil 1,200 mg Softgel] 1,290 mg PO DAILY Suvorexant [Belsomra] 15 mg PO HS 07/29/17 QUEtiapine [SEROquel] 25 mg PO DAILY 01/14/18 Simvastatin [Zocor] 40 mg PO ONCE 01/14/18 Temazepam [Restoril] 30 mg PO HS 01/14/18 Mental Status Examination - Personal Presentation Personal Presentation: Looks stated age - Affect Affect: Broad - Motor Activity Motor Activity: Calm - Reliability in Providing Information Reliability in Providing Information: Poor, due to alteration in thoughts - Speech Speech: Disorganized, Irrelevant, Tangential - Mood Mood: Other (labile) - Formal Thought Process Formal Thought Process: Paranoia, Loosening of associations - Cognitive Functions Orientation: Person Sensorium: Drowsy Attention/Concentration: Easily distracted Abstract Thinking: [place] Estimate of Intelligence: Average Judgement: Imparied, as evidence by: Poor judgement, Imparied, as evidence by: Lack of insight into illness - Risk Risk: Diminished functioning - Limitations Limitations: Living alone DSM 5 DX - DSM 5 DSM 5 Diagnosis: Schizoaffective Disorder - Recommended/Plan of Treatment Treatment Recommendations and Plan of Treatment: * group, milieu and supportive tx as tolerated * Risperdal 1 mg po bid, titrate as needed for disorganization * Cogentin 1 mg po bid for EPS prophylaxis * Depakote 500 mg po bid for mood stabilization, check VPA level * Ambien 5 mg HS for insomnia * Ativan 0.5 mg po TID for anxiety and to help with mood stabilization * Awaiting medical f/u, patient is presenting with anemia again, similar to his presentation on the medical floor last month. * Vitals reviewed and noted below: 01/15/18 01/15/18 01/15/18 02:31 03:19 06:59 Temperature 98.1 F 98.1 F 97.9 F Pulse Rate 80 83 72 Respiratory 17 18 20 Rate Blood Pressure 150/72 133/83 134/78 ER LABS AND STUDIES 01/14/18 22:42: Alcohol, Quantitative < 10 01/14/18 22:42: WBC 3.5 L D, RBC 3.39 L, Hgb 7.3 L, Hct 25.3 L, MCV 74.6 L, MCH 21.5 L, MCHC 28.9 L, RDW 19.0 H, Plt Count 245, MPV 9.4 01/14/18 22:42: Sodium 140, Potassium 3.5 L, Chloride 104, Carbon Dioxide 25, Anion Gap 15, BUN 12, Creatinine 0.9, Est GFR ( Amer) > 60, Est GFR (Non- Af Amer) > 60, Random Glucose 106, Calcium 9.8, Total Bilirubin 0.3, AST 21, ALT 23, Alkaline Phosphatase 54, Total Protein 6.5, Albumin 3.9, Globulin 2.7, Albumin/Globulin Ratio 1.4 EK01/14/18 22:28 Rate : 80 BPM Rhythm : NSR Interpretation : 1st degree AV block. LBBB. Paced Rhythm. 01/14/18 23:09: Chest X-ray read and interpreted by me shows no acute processes. Floor Labs 01/15/18 01/15/18 01/15/18 07:23 07:30 07:30 WBC RBC Hgb Hct MCV MCH MCHC RDW Plt Count MPV Gran % Lymph % (Auto) [place] % (Auto) Eos % (Auto) Baso % (Auto) Gran # Lymph # (Auto) [place] # (Auto) Eos # (Auto) Baso # (Auto) Neutrophils % (Manual) Lymphocytes % (Manual) Monocytes % (Manual) Eosinophils % (Manual) Basophils % (Manual) Platelet Evaluation Sodium 142 Potassium 3.6 Chloride 105 Carbon Dioxide 29 Anion Gap 12 BUN 12 Creatinine 0.9 Est GFR (Non-Af Amer) > 60 POC Glucose (mg/dL) 75 Random Glucose 74 Fasting Glucose 74 Calcium 9.6 Phosphorus 3.6 Magnesium 2.2 Total Bilirubin 0.2 AST 21 ALT 24 Alkaline Phosphatase 51 Total Protein 6.0 Albumin 3.4 Globulin 2.6 Albumin/Globulin Ratio 1.3 TSH 3rd Generation 1.57 01/15/18 07:30 WBC 3.7 L RBC 3.33 L Hgb 7.2 L Hct 24.8 L MCV 74.5 L MCH 21.6 L MCHC 29.0 L RDW 19.1 H Plt Count 248 MPV 9.6 Gran % 36.5 L Lymph % (Auto) 30.3 [place] % (Auto) 27.8 H Eos % (Auto) 5.1 H Baso % (Auto) 0.3 Gran # 1.35 L Lymph # (Auto) 1.1 L [place] # (Auto) 1.0 H Eos # (Auto) 0.2 Baso # (Auto) 0.01 Neutrophils % (Manual) 38 L Lymphocytes % (Manual) 33 Monocytes % (Manual) 23 H Eosinophils % (Manual) 4 H Basophils % (Manual) 2 H Platelet Evaluation Normal Sodium Potassium Chloride Carbon Dioxide Anion Gap BUN Creatinine Est GFR (Non-Af Amer) POC Glucose (mg/dL) Random Glucose Fasting Glucose Calcium Phosphorus Magnesium Total Bilirubin AST ALT Alkaline Phosphatase Total Protein Albumin Globulin Albumin/Globulin Ratio TSH 3rd Generation - Smoking Cessation Smoking Cessation Initiated: No
--- NOTE | 2018-01-15 17:35 | CARD ---
APPROVED REPORT EKG Measurement Heart [id number] <Conclusion> Atrial sensed, Ventricular paced rhythm Abnormal ECG
[2018-01-16] MEDS: Pantoprazole 40 mg EC Tab PO SCH (06:02)
[2018-01-16] MEDS: Divalproex 500 mg DR(BID formulation) PO SCH ×2 (08:24→17:37)
[2018-01-16 08:28] LABS: BASO # 0.02 K/mm3 (0.0-2.0); BASO % 0.5 % (0.0-3.0); EOS # 0.2 (0.0-0.7); EOS % 4.2 % (1.5-5.0); GRAN # 1.76 (1.4-6.5); GRAN % 43.3 % (50.0-68.0); HEMOGLOBIN 7.6 g/dL (14.0-18.0); LYMPH # 1.3 (1.2-3.4); MEAN CELL VOLUME 74.6 fl (80.0-105.0); MEAN CORPUSCULAR HEMOGLOBIN 21.5 pg (25.0-35.0); MEAN CORPUSCULAR HGB CONC 28.8 g/dl (31.0-37.0); MEAN PLATELET VOLUME 9.7 fl (7.0-11.0); MONO # 0.8 (0.1-0.6); RBC 3.54 10^6/uL (3.5-6.1); RED CELL DISTRIBUTION WIDTH 18.9 % (11.5-14.5); WHITE BLOOD COUNT 4.1 10^3/ul (4.5-11.0)
--- NOTE | 2018-01-16 09:19 | PCM.PYCHPN ---
Psychiatric Progress Note - Psychiatric Progress Note Patient seen today, length of contact: 25 min Patient Chief Complaint: "people from my past are causing me [mental] pain using their electronics" Problems Identified/Issues Discussed: History of Present Illness and Precipitating Events: Patient is a single 67 year old male with psychiatric history of Schizoaffective disorder, unclear current adherence with psychiatric medications (though with long history of noncompliance) who was BIB police due to loud and disorganzied behavior at his residence. Patient was psychiatrically admitted to our unit very early this morning and staff noted that he was disorganized, paranoid, loud and argumentative. Patient required po Haldol 5 mg , Ativan 1 mg, Benadryl 50 mg for agitation at 2:52 AM. Patient is difficult to interview at bedside this morning. I agree with nursing , his thought process is disorganized, paranoid and tangential. Patient cannot describe his current circumstances, month or year. He mumbles repeatedly and demonstrates poor eye contact. Patient is ordinarily oddly related and easily chats about his various prejudices, past persecutors and unfortunate life incidents. Of note: patient was recently discharged from the medical floor 3 weeks ago (11/17-11/23/17). He was treated for severe anemia with positive FOBT. EGD and colonoscopy did not reveal a source of GI bleeding. Patient received 2 units PRBC, and IV iron, and his H/H stabilized and was improving on the iron supplementation. Patient was discharged to his apartment after he refused placement into [facility]. He was seen by psychiatry on the medical floor and treated with Ativan 0.5 mg po TID, Ambien 10 mg po HS prn, Cogentin 0.5 mg po AMHS, Depakote 500 mg AMHS and Risperdal 2 mg AMHS. Patient has a history of completely denying that he has any psychiatric diagnosis. PSYCHIATRIC HISTORY Patient was recently discharged from the medical floor 3 weeks ago (11/17/17-). He was seen by psychiatry on the medical floor and treated with Ativan 0.5 mg po TID, Ambien 10 mg po HS prn, Cogentin 0.5 mg po AMHS, Depakote 500 mg AMHS and Risperdal 2 mg AMHS. MULTIPLE PSYCHIATRIC ADMISSIONS, most recently 05/05/17-05/21/17 at [facility]. He was discharged on Depakote 500 mg AMHS, Cogentin 0.5 mg AMHS , Ativan 0.5 mg TID, Risperdal 2 mg AMHS, Ambien 10 mg po hS prn. Other admission include 02/2017, 09/2016, 12/2015, 10/2015 and 11/2011 at [facility]. Patient has chronic noncompliance with the medications and follow-up appointments, Medication trials include, depakote, risperdal, seroquel, ambien, cogentin, ativan, restoril SOCIAL HISTORY Born and raised in [place]. Single. No kids. Unemployed. Prior arrests in [place] for "damaging an automobile" as well as in [place], [place] for MJA possession. Denies drug, alcohol or tobacco use. 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 PROGRESS NOTE DAY 3 I reviewed recent notes and met with patient at bedside. Patient has been disorganized, paranoid and odd on the unit. Irritable and delusional during treatment team meeting yesterday. Patient was observed talking to himself by staff members yesterday and by this provider in the morning. Today he is oriented to month, year and location. He tells me my questions regarding his orientation are stupid. He also declares repeatedly that "people from my past are causing me [mental] pain using their electronics". Patient rambles about their "advanced technological electronics and advancements". It is difficult to maintain a productive interview with him due to his paranoia and resentment. He is offended when I inquire about hallucinations, maintaining that he does not have schizophrenia. Patient denies any new physical discomfort or pain. Doesn't appear to be in physical distress. Slept poorly last night because sleeping pill "wore off". Other than that, he denies medication concerns. Regarding his behavior on the unit, patient was more visible during the day yesterday and attended group. Appetite was also noted to be good. Patient remains unpredictable with poor insight. Diagnostic Results: Schizoaffective Disorder Medication Change: Yes (Risperdal increased) Medical Record Reviewed: Yes Mental Status Examination - Cognitive Function Orientation: Person, Place Attention: Poor Concentration: Poor Association: Loose Fund of Knowledge: Poor - Mood Mood: Other ( "people from my past are causing me [mental] pain using their electronics") - Affect Affect: Broad, Other (irritable, resentful) - Speech Speech: Loud - Formal Thought Process Formal Thought Process: Hallucinations (Patient observed talking to himself however denies hallucinations), Paranoia, Loosening of associations - Suicidal Ideation Suicidal Ideation: No - Homicidal Ideation Homicidal Ideation: No Goal/Treatment Plan - Goal/Treatment Plan Progress Toward Problem(s) and Goals/Treatment Plan: * group, milieu and supportive tx as tolerated * Risperdal increased to 2 mg po bid on 01/16/18, titrate as needed for disorganization * Cogentin 1 mg po bid for EPS prophylaxis * Depakote 500 mg po bid for mood stabilization, check VPA level * Ambien 5 mg HS for insomnia * Ativan 0.5 mg po TID for anxiety and to help with mood stabilization * Appreciate f/u by Dr. Graham/Dr. Vega on 01/15/18~Iron deficiency anemia:monitor CBC, consider blood transfusion of H/H not stable, supplement Fe 325mg PO TID, Colace 100mg PO QD * Vitals reviewed and noted below: 01/16/18 01/16/18 06:49 08:23 Temperature 97.6 F Pulse Rate 100 H 100 H Respiratory 18 Rate Blood Pressure 137/97 H 137/97 H ER LABS AND STUDIES 01/14/18 22:42: Alcohol, Quantitative < 10 01/14/18 22:42: WBC 3.5 L D, RBC 3.39 L, Hgb 7.3 L, Hct 25.3 L, MCV 74.6 L, MCH 21.5 L, MCHC 28.9 L, RDW 19.0 H, Plt Count 245, MPV 9.4 01/14/18 22:42: Sodium 140, Potassium 3.5 L, Chloride 104, Carbon Dioxide 25, Anion Gap 15, BUN 12, Creatinine 0.9, Est GFR ( Amer) > 60, Est GFR (Non- Af Amer) > 60, Random Glucose 106, Calcium 9.8, Total Bilirubin 0.3, AST 21, ALT 23, Alkaline Phosphatase 54, Total Protein 6.5, Albumin 3.9, Globulin 2.7, Albumin/Globulin Ratio 1.4 EK01/14/18 22:28 Rate : 80 BPM Rhythm : NSR Interpretation : 1st degree AV block. LBBB. Paced Rhythm. 01/14/18 23:09: Chest X-ray read and interpreted by me shows no acute processes. Floor Labs 01/15/18 01/16/18 07:30 07:30 WBC 3.7 L 4.1 L RBC 3.33 L 3.54 Hgb 7.2 L 7.6 L Hct 24.8 L 26.4 L MCV 74.5 L 74.6 L MCH 21.6 L 21.5 L MCHC 29.0 L 28.8 L RDW 19.1 H 18.9 H Plt Count 248 250 MPV 9.6 9.7 Gran % 36.5 L 43.3 L Lymph % (Auto) 30.3 32.0 [place] % (Auto) 27.8 H 20.0 H Eos % (Auto) 5.1 H 4.2 Baso % (Auto) 0.3 0.5 Gran # 1.35 L 1.76 Lymph # (Auto) 1.1 L 1.3 [place] # (Auto) 1.0 H 0.8 H Eos # (Auto) 0.2 0.2 Baso # (Auto) 0.01 0.02 Neutrophils % (Manual) 38 L Lymphocytes % (Manual) 33 Monocytes % (Manual) 23 H Eosinophils % (Manual) 4 H Basophils % (Manual) 2 H Platelet Evaluation Normal 01/15/18 01/15/18 01/15/18 07:23 07:30 07:30 WBC RBC Hgb Hct MCV MCH MCHC RDW Plt Count MPV Gran % Lymph % (Auto) [place] % (Auto) Eos % (Auto) Baso % (Auto) Gran # Lymph # (Auto) [place] # (Auto) Eos # (Auto) Baso # (Auto) Neutrophils % (Manual) Lymphocytes % (Manual) Monocytes % (Manual) Eosinophils % (Manual) Basophils % (Manual) Platelet Evaluation Sodium 142 Potassium 3.6 Chloride 105 Carbon Dioxide 29 Anion Gap 12 BUN 12 Creatinine 0.9 Est GFR (Non-Af Amer) > 60 POC Glucose (mg/dL) 75 Random Glucose 74 Fasting Glucose 74 Calcium 9.6 Phosphorus 3.6 Magnesium 2.2 Total Bilirubin 0.2 AST 21 ALT 24 Alkaline Phosphatase 51 Total Protein 6.0 Albumin 3.4 Globulin 2.6 Albumin/Globulin Ratio 1.3 TSH 3rd Generation 1.57
[2018-01-17 07:58] LABS: BASO # 0.02 K/mm3 (0.0-2.0); BASO % 0.5 % (0.0-3.0); EOS # 0.2 (0.0-0.7); EOS % 4.9 % (1.5-5.0); GRAN # 1.42 (1.4-6.5); GRAN % 36.5 % (50.0-68.0); LYMPH # 1.5 (1.2-3.4); LYMPH % 38.3 % (22.0-35.0); MEAN CELL VOLUME 74.7 fl (80.0-105.0); MEAN CORPUSCULAR HEMOGLOBIN 21.3 pg (25.0-35.0); MEAN CORPUSCULAR HGB CONC 28.5 g/dl (31.0-37.0); MEAN PLATELET VOLUME 9.3 fl (7.0-11.0); MONO # 0.8 (0.1-0.6); MONO % 19.8 % (1.0-6.0); RBC 3.76 10^6/uL (3.5-6.1); WHITE BLOOD COUNT 3.9 10^3/ul (4.5-11.0)
[2018-01-17] MEDS: Divalproex 500 mg DR(BID formulation) PO SCH ×2 (08:44→17:09)
[2018-01-17] MEDS: Pantoprazole 40 mg EC Tab PO SCH (08:45)
--- NOTE | 2018-01-17 10:41 | PCM.PYCHPN ---
Psychiatric Progress Note - Psychiatric Progress Note Patient seen today, length of contact: 25 min Patient Chief Complaint: "people from my past are causing me [mental] pain using their electronics" Problems Identified/Issues Discussed: History of Present Illness and Precipitating Events: Patient is a single 67 year old male with psychiatric history of Schizoaffective disorder, unclear current adherence with psychiatric medications (though with long history of noncompliance) who was BIB police due to loud and disorganzied behavior at his residence. Patient was psychiatrically admitted to our unit very early this morning and staff noted that he was disorganized, paranoid, loud and argumentative. Patient required po Haldol 5 mg , Ativan 1 mg, Benadryl 50 mg for agitation at 2:52 AM. Patient is difficult to interview at bedside this morning. I agree with nursing , his thought process is disorganized, paranoid and tangential. Patient cannot describe his current circumstances, month or year. He mumbles repeatedly and demonstrates poor eye contact. Patient is ordinarily oddly related and easily chats about his various prejudices, past persecutors and unfortunate life incidents. Of note: patient was recently discharged from the medical floor 3 weeks ago (11/17-11/23/17). He was treated for severe anemia with positive FOBT. EGD and colonoscopy did not reveal a source of GI bleeding. Patient received 2 units PRBC, and IV iron, and his H/H stabilized and was improving on the iron supplementation. Patient was discharged to his apartment after he refused placement into [facility]. He was seen by psychiatry on the medical floor and treated with Ativan 0.5 mg po TID, Ambien 10 mg po HS prn, Cogentin 0.5 mg po AMHS, Depakote 500 mg AMHS and Risperdal 2 mg AMHS. Patient has a history of completely denying that he has any psychiatric diagnosis. PSYCHIATRIC HISTORY Patient was recently discharged from the medical floor 3 weeks ago (11/17/17-). He was seen by psychiatry on the medical floor and treated with Ativan 0.5 mg po TID, Ambien 10 mg po HS prn, Cogentin 0.5 mg po AMHS, Depakote 500 mg AMHS and Risperdal 2 mg AMHS. MULTIPLE PSYCHIATRIC ADMISSIONS, most recently 05/05/17-05/21/17 at [facility]. He was discharged on Depakote 500 mg AMHS, Cogentin 0.5 mg AMHS , Ativan 0.5 mg TID, Risperdal 2 mg AMHS, Ambien 10 mg po hS prn. Other admission include 02/2017, 09/2016, 12/2015, 10/2015 and 11/2011 at [facility]. Patient has chronic noncompliance with the medications and follow-up appointments, Medication trials include, depakote, risperdal, seroquel, ambien, cogentin, ativan, restoril SOCIAL HISTORY Born and raised in [place]. Single. No kids. Unemployed. Prior arrests in [place] for "damaging an automobile" as well as in [place], [place] for MJA possession. Denies drug, alcohol or tobacco use. Patient used to have a POA, his academic guidance specialist however academic guidance specialist declined to be POA during 05/2017 admission. PROGRESS NOTE DAY 3 I reviewed recent notes and met with patient in the dayroom. Patient remains disorganized, paranoid and odd on the unit. Irritable and delusional during treatment team meeting on Thursday. Patient was observed talking to himself by staff members and myself on Thursday and Thursday. He has been paranoid, irritable and argumentative over the weekend. Similar to prior admissions he denies having a psychiatric illness. However he has been compliant with his medications (with encouragement). Today I met with him in the dayroom. Patient immediately starts arguing about his diagnosis, states "I do not have schizophrenia, I am not even a little paranoid. Patient doesn't want to take risperdal and depakote, even when I explain that they have their indications. Patient is a little confrontational and barks at me "are you LISTENING". Nonetheless he is doesn't escalate or become very loud. He can also be redirected but not convinced. He remains paranoid and adamant that he is being persecuted by "people in my past and their electronics, you have no idea the problems I suffered". It is still difficult to maintain a productive interview with him due to his paranoia and resentment however he is less angry and dismissive today. Patient denies any new physical discomfort or pain. Doesn't appear to be in physical distress. Slept poorly again last night because sleeping pill wore off , reports that restoril helped in the past. Regarding his behavior on the unit, patient is visible on the unit however he is not very friendly or engaged. Did attend group. Appetite was also noted to be good. Patient remains unpredictable with poor insight. Diagnostic Results: Schizoaffective Disorder Medication Change: Yes (Risperdal increased) Medical Record Reviewed: Yes Mental Status Examination - Cognitive Function Orientation: Person, Place Attention: Poor Concentration: Poor Association: Loose Fund of Knowledge: Poor - Mood Mood: Other ( "people from my past are causing me [mental] pain using their electronics") - Affect Affect: Broad, Other (irritable, resentful) - Speech Speech: Loud - Formal Thought Process Formal Thought Process: Hallucinations (Patient observed talking to himself however denies hallucinations), Paranoia, Loosening of associations - Suicidal Ideation Suicidal Ideation: No - Homicidal Ideation Homicidal Ideation: No Goal/Treatment Plan - Goal/Treatment Plan Progress Toward Problem(s) and Goals/Treatment Plan: * group, milieu and supportive tx as tolerated * Risperdal increased to 2 mg po bid on 01/16/18, titrate as needed for disorganization * Cogentin 1 mg po bid for EPS prophylaxis * Depakote 500 mg po bid for mood stabilization 01/16/18 11:40 Valproic Acid 45 L * Ambien 5 mg HS for insomnia * Ativan 0.5 mg po TID for anxiety and to help with mood stabilization * Appreciate f/u by Dr. Graham/Dr. Vega on 01/15/18~Iron deficiency anemia:monitor CBC, consider blood transfusion of H/H not stable, supplement Fe 325mg PO TID, Colace 100mg PO QD * Vitals reviewed and noted below: 01/17/18 07:00 Temperature 97.3 F L Pulse Rate 91 H Respiratory 20 Rate Blood Pressure 158/100 H ER LABS AND STUDIES 01/14/18 22:42: Alcohol, Quantitative < 10 01/14/18 22:42: WBC 3.5 L D, RBC 3.39 L, Hgb 7.3 L, Hct 25.3 L, MCV 74.6 L, MCH 21.5 L, MCHC 28.9 L, RDW 19.0 H, Plt Count 245, MPV 9.4 01/14/18 22:42: Sodium 140, Potassium 3.5 L, Chloride 104, Carbon Dioxide 25, Anion Gap 15, BUN 12, Creatinine 0.9, Est GFR ( Amer) > 60, Est GFR (Non- Af Amer) > 60, Random Glucose 106, Calcium 9.8, Total Bilirubin 0.3, AST 21, ALT 23, Alkaline Phosphatase 54, Total Protein 6.5, Albumin 3.9, Globulin 2.7, Albumin/Globulin Ratio 1.4 EK01/14/18 22:28 Rate : 80 BPM Rhythm : NSR Interpretation : 1st degree AV block. LBBB. Paced Rhythm. 01/14/18 23:09: Chest X-ray read and interpreted by me shows no acute processes. Floor Labs 01/17/18 01/17/18 07:13 07:30 WBC 3.9 L RBC 3.76 Hgb 8.0 L Hct 28.1 L MCV 74.7 L MCH 21.3 L MCHC 28.5 L RDW 19.0 H Plt Count 260 MPV 9.3 Gran % 36.5 L Lymph % (Auto) 38.3 H Mellette % (Auto) 19.8 H Eos % (Auto) 4.9 Baso % (Auto) 0.5 Gran # 1.42 Lymph # (Auto) 1.5 Mellette # (Auto) 0.8 H Eos # (Auto) 0.2 Baso # (Auto) 0.02 POC Glucose (mg/dL) 101 01/15/18 01/16/18 07:30 07:30 WBC 3.7 L 4.1 L RBC 3.33 L 3.54 Hgb 7.2 L 7.6 L Hct 24.8 L 26.4 L MCV 74.5 L 74.6 L MCH 21.6 L 21.5 L MCHC 29.0 L 28.8 L RDW 19.1 H 18.9 H Plt Count 248 250 MPV 9.6 9.7 Gran % 36.5 L 43.3 L Lymph % (Auto) 30.3 32.0 Mellette % (Auto) 27.8 H 20.0 H Eos % (Auto) 5.1 H 4.2 Baso % (Auto) 0.3 0.5 Gran # 1.35 L 1.76 Lymph # (Auto) 1.1 L 1.3 Mellette # (Auto) 1.0 H 0.8 H Eos # (Auto) 0.2 0.2 Baso # (Auto) 0.01 0.02 Neutrophils % (Manual) 38 L Lymphocytes % (Manual) 33 Monocytes % (Manual) 23 H Eosinophils % (Manual) 4 H Basophils % (Manual) 2 H Platelet Evaluation Normal 01/15/18 01/15/18 01/15/18 07:23 07:30 07:30 WBC RBC Hgb Hct MCV MCH MCHC RDW Plt Count MPV Gran % Lymph % (Auto) Mellette % (Auto) Eos % (Auto) Baso % (Auto) Gran # Lymph # (Auto) Mellette # (Auto) Eos # (Auto) Baso # (Auto) Neutrophils % (Manual) Lymphocytes % (Manual) Monocytes % (Manual) Eosinophils % (Manual) Basophils % (Manual) Platelet Evaluation Sodium 142 Potassium 3.6 Chloride 105 Carbon Dioxide 29 Anion Gap 12 BUN 12 Creatinine 0.9 Est GFR (Non-Af Amer) > 60 POC Glucose (mg/dL) 75 Random Glucose 74 Fasting Glucose 74 Calcium 9.6 Phosphorus 3.6 Magnesium 2.2 Total Bilirubin 0.2 AST 21 ALT 24 Alkaline Phosphatase 51 Total Protein 6.0 Albumin 3.4 Globulin 2.6 Albumin/Globulin Ratio 1.3 TSH 3rd Generation 1.57
--- NOTE | 2018-01-17 10:48 | CP.PCM.PN ---
<Tristian Boyer - Last Filed: 01/17/18 10:44> Subjective - Date & Time of Evaluation Date of Evaluation: 01/17/18 Time of Evaluation: 07:30 - Subjective Subjective: IM Progress Note for Hospitalist Service Patient seen and examined in the Psych unit. Patient eating breakfast without issue at time of exam, but due to schizophrenia is unable to give many coherent or consistent answers. When able to keep focused on single question, is denies acute symptoms such as chest pain, shortness of breath, or dizziness. Objective - Vital Signs/Intake and Output Vital Signs (last 24 hours): Temp Pulse Resp BP Pulse Ox 97.3 F L 100 H 20 133/77 100 01/17/18 07:00 01/17/18 08:44 01/17/18 07:00 01/17/18 08:44 01/15/18 02:31 - Medications Medications: Current Medications Acetaminophen (Tylenol 325mg Tab) 650 mg PO Q4 PRN PRN Reason: Pain, Mild (1-3) Al Hydrox/Mg Hydrox/Simethicone (Maalox Plus 30 Ml) 30 ml PO DAILY PRN PRN Reason: Upset Stomach Atorvastatin Calcium (Lipitor) 10 mg PO DIN [facility] Last Admin: 01/16/18 17:38 Dose: 10 mg Benztropine Mesylate (Cogentin) 1 mg PO AMHS [facility] Last Admin: 01/17/18 09:26 Dose: 1 mg Diphenhydramine HCl (Benadryl) 50 mg IM Q6 PRN PRN Reason: side effects/agitation Diphenhydramine HCl (Benadryl) 50 mg PO Q6 PRN PRN Reason: side effects/agitation Last Admin: 01/16/18 23:10 Dose: 50 mg Divalproex Sodium (Depakote Dr(*Bid*)) 500 mg PO BID [facility] PRN Reason: Protocol Last Admin: 01/17/18 08:44 Dose: 500 mg Docusate Sodium (Colace) 100 mg PO DAILY [facility] Last Admin: 01/17/18 08:53 Dose: Not Given Ferrous Sulfate (Feosol) 324 mg PO TID [facility] Last Admin: 01/17/18 08:43 Dose: 324 mg Haloperidol (Haldol) 5 mg PO Q6 PRN; Protocol PRN Reason: Agitation Last Admin: 01/15/18 02:52 Dose: 5 mg Haloperidol Lactate (Haldol) 5 mg IM Q6 PRN; Protocol PRN Reason: Agitation Lisinopril (Zestril) 20 mg PO DAILY [facility] Last Admin: 01/17/18 08:44 Dose: 20 mg Lorazepam (Ativan) 1 mg IM Q6 PRN; Protocol PRN Reason: Agitation Lorazepam (Ativan) 1 mg PO Q6 PRN; Protocol PRN Reason: Agitation Last Admin: 01/16/18 21:08 Dose: 1 mg Lorazepam (Ativan) 0.5 mg PO TID [facility] PRN Reason: Protocol Last Admin: 01/17/18 08:44 Dose: 0.5 mg Magnesium Hydroxide (Milk Of Magnesia) 30 ml PO DAILY PRN PRN Reason: Constipation Pantoprazole Sodium (Protonix Ec Tab) 40 mg PO 0600 [facility] Last Admin: 01/17/18 08:45 Dose: 40 mg Risperidone (Risperdal Tab) 2 mg PO AMHS [facility] PRN Reason: Protocol Last Admin: 01/17/18 09:26 Dose: 2 mg Zolpidem Tartrate (Ambien) 5 mg PO HS [facility] PRN Reason: Protocol Last Admin: 01/16/18 21:05 Dose: 5 mg - Labs Labs: 01/17/18 07:30 01/15/18 07:30 - Constitutional Appears: Non-toxic, No Acute Distress, Confused - Head Exam Head Exam: ATRAUMATIC, NORMAL INSPECTION, NORMOCEPHALIC - Eye Exam Eye Exam: Normal appearance. absent: Conjunctival injection, Scleral icterus Pupil Exam: absent: Irregular, Unequal - ENT Exam ENT Exam: Mucous Membranes Moist - Neck Exam Neck Exam: Full ROM - Respiratory Exam Respiratory Exam: Clear to Ausculation Bilateral, NORMAL BREATHING PATTERN. absent: Rales, Rhonchi, Wheezes, Respiratory Distress - Cardiovascular Exam Cardiovascular Exam: REGULAR RHYTHM, RRR, +S1, +S2. absent: Bradycardia, Tachycardia, Irregular Rhythm, JVD, +S4 - GI/Abdominal Exam GI & Abdominal Exam: Soft, Normal Bowel Sounds. absent: Tenderness - Extremities Exam Extremities Exam: Full ROM, Normal Inspection. absent: Joint Swelling, Pedal Edema - Neurological Exam Neurological Exam: Alert, Awake, Normal Gait. 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 for yelling and screaming, and was admitted to Psych. We were consulted for medical management. Plan: 1) Iron deficiency anemia -monitor CBC, consider blood transfusion of H/H not stable -Feosol 325mg PO TID -Colace 100mg PO QD -Hgb 7.6 today (was 7.2) -given chronic anemia, stable hemoglobin, and hemodynamic stability, would not transfuse at this time; would consider if patient becoming hypotensive or showing signs of hypoperfusion 2) HTN -continue Lisinopril 3) HLD -continue statin 4) Schizophrenia -defer management to psych Dispo: Psych unit FEN: Regular diet Consults: IM for medical management, Psych is primary Ppx: Protonix for GI, ambulation for DVT At this time, patient is medically stable. Will continue to monitor peripherally, will continue to monitor daily Hgb. Patient seen, reviewed, and discussed with attending, Dr. Ramachandran. <Isamar Ramachandran - Last Filed: 01/17/18 14:51> Objective - Vital Signs/Intake and Output Vital Signs (last 24 hours): Temp Pulse Resp BP Pulse Ox 97.3 F L 100 H 20 133/77 100 01/17/18 07:00 01/17/18 08:44 01/17/18 07:00 01/17/18 08:44 01/15/18 02:31 - Medications Medications: Current Medications Acetaminophen (Tylenol 325mg Tab) 650 mg PO Q4 PRN PRN Reason: Pain, Mild (1-3) Al Hydrox/Mg Hydrox/Simethicone (Maalox Plus 30 Ml) 30 ml PO DAILY PRN PRN Reason: Upset Stomach Atorvastatin Calcium (Lipitor) 10 mg PO DIN [facility] Last Admin: 01/16/18 17:38 Dose: 10 mg Benztropine Mesylate (Cogentin) 1 mg PO AMHS [facility] Last Admin: 01/17/18 09:26 Dose: 1 mg Diphenhydramine HCl (Benadryl) 50 mg IM Q6 PRN PRN Reason: side effects/agitation Diphenhydramine HCl (Benadryl) 50 mg PO Q6 PRN PRN Reason: side effects/agitation Last Admin: 01/16/18 23:10 Dose: 50 mg Divalproex Sodium (Depakote Dr(*Bid*)) 500 mg PO BID [facility] PRN Reason: Protocol Last Admin: 01/17/18 08:44 Dose: 500 mg Docusate Sodium (Colace) 100 mg PO DAILY [facility] Last Admin: 01/17/18 08:53 Dose: Not Given Ferrous Sulfate (Feosol) 324 mg PO TID [facility] Last Admin: 01/17/18 13:03 Dose: 324 mg Haloperidol (Haldol) 5 mg PO Q6 PRN; Protocol PRN Reason: Agitation Last Admin: 01/15/18 02:52 Dose: 5 mg Haloperidol Lactate (Haldol) 5 mg IM Q6 PRN; Protocol PRN Reason: Agitation Lisinopril (Zestril) 20 mg PO DAILY [facility] Last Admin: 01/17/18 08:44 Dose: 20 mg Lorazepam (Ativan) 1 mg IM Q6 PRN; Protocol PRN Reason: Agitation Lorazepam (Ativan) 1 mg PO Q6 PRN; Protocol PRN Reason: Agitation Last Admin: 01/16/18 21:08 Dose: 1 mg Lorazepam (Ativan) 0.5 mg PO TID [facility] PRN Reason: Protocol Last Admin: 01/17/18 13:03 Dose: 0.5 mg Magnesium Hydroxide (Milk Of Magnesia) 30 ml PO DAILY PRN PRN Reason: Constipation Pantoprazole Sodium (Protonix Ec Tab) 40 mg PO 0600 [facility] Last Admin: 01/17/18 08:45 Dose: 40 mg Risperidone (Risperdal Tab) 2 mg PO AMHS [facility] PRN Reason: Protocol Last Admin: 01/17/18 09:26 Dose: 2 mg Zolpidem Tartrate (Ambien) 5 mg PO [facility] PRN Reason: Protocol Last Admin: 01/16/18 21:05 Dose: 5 mg - Labs Labs: 01/17/18 07:30 01/15/18 07:30 Attending/Attestation - Attestation I have personally seen and examined this patient.: Yes I have fully participated in the care of the patient.: Yes I have reviewed all pertinent clinical information, including history, physical exam and plan: Yes Notes (Text): I have seen and examined the patient at bedside. Agree with the above note with the following additions/ exceptions: Briefly this is 67 year old male with a past medical history of schizoaffective disorder, AV block s/p pacemaker on 04/30, hypertension, dyslipidemia, Iron deficiency anemia who was admitted for agitated behavior and schizophrenia symptoms. Upon admission he was found to have severe iron deficiency anemia. He underwent EGD during his last admission which showed esophagitis however no active bleeding was noted. Colonoscopy revealed internal hemorrhoids. Hb is 8. Patient is hemodynamically stable. He is able to walk without getting sob or dizziness. Denies any other complaints. Patient is very poor historian.There is no active bleeding. Continue PPI, Oral Iron and stool softener. We will monitor hemoglobin closely. Upon discharge patient will follow up with Dr Murillo. Dr Isamar Ramachandran
[2018-01-18] MEDS: Pantoprazole 40 mg EC Tab PO SCH (07:26)
[2018-01-18 08:22] LABS: BASO # 0.01 K/mm3 (0.0-2.0); BASO % 0.2 % (0.0-3.0); EOS # 0.3 (0.0-0.7); EOS % 5.5 % (1.5-5.0); GRAN # 1.85 (1.4-6.5); HEMOGLOBIN 8.1 g/dL (14.0-18.0); LYMPH # 1.6 (1.2-3.4); LYMPH % 35.8 % (22.0-35.0); MEAN CELL VOLUME 74.8 fl (80.0-105.0); MEAN CORPUSCULAR HGB CONC 28.1 g/dl (31.0-37.0); MEAN PLATELET VOLUME 9.5 fl (7.0-11.0); MONO # 0.8 (0.1-0.6); MONO % 17.5 % (1.0-6.0); RBC 3.85 10^6/uL (3.5-6.1); RED CELL DISTRIBUTION WIDTH 19.2 % (11.5-14.5); WHITE BLOOD COUNT 4.5 10^3/ul (4.5-11.0)
[2018-01-18] MEDS: Divalproex 500 mg DR(BID formulation) PO SCH ×2 (09:22→17:06)
--- NOTE | 2018-01-18 09:36 | CP.PCM.PN ---
<AryanConstance - Last Filed: 01/18/18 18:39> Subjective - Date & Time of Evaluation Date of Evaluation: 01/18/18 Time of Evaluation: 07:50 - Subjective Subjective: Patient seen and examined at bedside. Patient was walking in the hallway. He denies any dyspnea, chest pain, palpitations, or lower extremity edema. Objective - Vital Signs/Intake and Output Vital Signs (last 24 hours): Temp Pulse Resp BP Pulse Ox 98.0 F 80 20 119/80 100 01/18/18 07:43 01/18/18 09:22 01/18/18 07:43 01/18/18 09:22 01/15/18 02:31 - Medications Medications: Current Medications Acetaminophen (Tylenol 325mg Tab) 650 mg PO Q4 PRN PRN Reason: Pain, Mild (1-3) Al Hydrox/Mg Hydrox/Simethicone (Maalox Plus 30 Ml) 30 ml PO DAILY PRN PRN Reason: Upset Stomach Atorvastatin Calcium (Lipitor) 10 mg PO DIN [facility] Last Admin: 01/17/18 17:09 Dose: 10 mg Benztropine Mesylate (Cogentin) 1 mg PO AMHS [facility] Last Admin: 01/18/18 09:23 Dose: 1 mg Diphenhydramine HCl (Benadryl) 50 mg IM Q6 PRN PRN Reason: side effects/agitation Diphenhydramine HCl (Benadryl) 50 mg PO Q6 PRN PRN Reason: side effects/agitation Last Admin: 01/17/18 21:29 Dose: 50 mg Divalproex Sodium (Depakote Dr(*Bid*)) 500 mg PO BID [facility] PRN Reason: Protocol Last Admin: 01/18/18 09:22 Dose: 500 mg Docusate Sodium (Colace) 100 mg PO DAILY [facility] Last Admin: 01/18/18 09:23 Dose: 100 mg Ferrous Sulfate (Feosol) 324 mg PO TID [facility] Last Admin: 01/18/18 09:23 Dose: 324 mg Haloperidol (Haldol) 5 mg PO Q6 PRN; Protocol PRN Reason: Agitation Last Admin: 01/15/18 02:52 Dose: 5 mg Haloperidol Lactate (Haldol) 5 mg IM Q6 PRN; Protocol PRN Reason: Agitation Lisinopril (Zestril) 20 mg PO DAILY [facility] Last Admin: 01/18/18 09:22 Dose: 20 mg Lorazepam (Ativan) 1 mg IM Q6 PRN; Protocol PRN Reason: Agitation Lorazepam (Ativan) 1 mg PO Q6 PRN; Protocol PRN Reason: Agitation Last Admin: 01/18/18 02:12 Dose: 1 mg Lorazepam (Ativan) 0.5 mg PO TID [facility] PRN Reason: Protocol Last Admin: 01/18/18 09:23 Dose: 0.5 mg Magnesium Hydroxide (Milk Of Magnesia) 30 ml PO DAILY PRN PRN Reason: Constipation Pantoprazole Sodium (Protonix Ec Tab) 40 mg PO 0600 [facility] Last Admin: 01/18/18 07:26 Dose: 40 mg Risperidone (Risperdal Tab) 2 mg PO AMHS [facility] PRN Reason: Protocol Last Admin: 01/18/18 09:23 Dose: 2 mg Zolpidem Tartrate (Ambien) 5 mg PO HS [facility] PRN Reason: Protocol Last Admin: 01/17/18 21:29 Dose: 5 mg - Labs Labs: 01/18/18 07:45 01/15/18 07:30 - Constitutional Appears: Well, Non-toxic - Head Exam Head Exam: ATRAUMATIC, NORMOCEPHALIC - Eye Exam Eye Exam: EOMI, Normal appearance Pupil Exam: NORMAL ACCOMODATION, PERRL - ENT Exam ENT Exam: Mucous Membranes Moist, Normal Oropharynx - Neck Exam Neck Exam: Normal Inspection - Respiratory Exam Respiratory Exam: Clear to Ausculation Bilateral, NORMAL BREATHING PATTERN. absent: Accessory Muscle Use - Cardiovascular Exam Cardiovascular Exam: RRR, +S1, +S2 - GI/Abdominal Exam GI & Abdominal Exam: Soft, Normal Bowel Sounds - Rectal Exam Rectal Exam: Deferred - Extremities Exam Extremities Exam: Normal Capillary Refill, Normal Inspection. absent: Joint Swelling, Pedal Edema - Back Exam Back Exam: NORMAL INSPECTION. absent: CVA tenderness (L), CVA tenderness (R) - Neurological Exam Neurological Exam: Alert, Awake, CN II-XII Intact, Oriented x3 - Psychiatric Exam Psychiatric exam: Flat Affect - Skin Skin Exam: Dry, Intact, Normal Color, Warm Assessment and Plan - Assessment and Plan (Free Text) Assessment: 67 year old male with a past medical history of schizoaffective disorder, AV block s/p pacemaker on 04/30/17, hypertension, dyslipidemia, Iron deficiency anemia who was admitted for agitated behavior and schizophrenia symptoms. Upon admission he was found to have severe iron deficiency anemia. He underwent EGD during his last admission which showed esophagitis however no active bleeding was noted. Colonoscopy revealed internal hemorrhoids. Hb is 8. Patient is hemodynamically stable. He is able to walk without getting sob or dizziness. Denies any other complaints. Patient is very poor historian.There is no active bleeding. Continue PPI, Oral Iron and stool softener. Plan: 1) Iron deficiency anemia -monitor CBC, consider blood transfusion of H/H not stable -Feosol 325mg PO TID -Colace 100mg PO QD -Hgb 8.1 2) HTN -continue Lisinopril 3) HLD -continue statin 4) Schizophrenia -defer management to psych Dispo: Psych unit FEN: Regular diet Consults: IM for medical management, Psych is primary Ppx: Protonix for GI, ambulation for DVT At this time, patient is medically stable. Will continue to monitor peripherally, will continue to monitor daily Hgb. Patient seen, reviewed, and discussed with attending, Dr. Schrader. <Ryan Schrader - Last Filed: 01/29/18 14:47> Objective - Vital Signs/Intake and Output Vital Signs (last 24 hours): Temp Pulse Resp BP Pulse Ox 98.4 F 82 20 110/74 100 01/29/18 07:11 01/29/18 09:56 01/29/18 07:11 01/29/18 09:56 01/15/18 02:31 - Medications Medications: Current Medications Acetaminophen (Tylenol 325mg Tab) 650 mg PO Q4 PRN PRN Reason: Pain, Mild (1-3) Al Hydrox/Mg Hydrox/Simethicone (Maalox Plus 30 Ml) 30 ml PO DAILY PRN PRN Reason: Upset Stomach Atorvastatin Calcium (Lipitor) 10 mg PO DIN [facility] Last Admin: 01/28/18 17:54 Dose: 10 mg Benztropine Mesylate (Cogentin) 1 mg PO AMHS [facility] Last Admin: 01/29/18 09:56 Dose: 1 mg Diphenhydramine HCl (Benadryl) 50 mg IM Q6 PRN PRN Reason: side effects/agitation Diphenhydramine HCl (Benadryl) 50 mg PO Q6 PRN PRN Reason: side effects/agitation Last Admin: 01/28/18 03:06 Dose: 50 mg Divalproex Sodium (Depakote Dr(*Bid*)) 500 mg PO BID [facility] PRN Reason: Protocol Last Admin: 01/29/18 09:58 Dose: 500 mg Docusate Sodium (Colace) 100 mg PO DAILY [facility] Last Admin: 01/29/18 09:56 Dose: 100 mg Ferrous Sulfate (Feosol) 324 mg PO TID [facility] Last Admin: 01/29/18 13:32 Dose: 324 mg Haloperidol (Haldol) 5 mg PO Q6 PRN; Protocol PRN Reason: Agitation Last Admin: 01/15/18 02:52 Dose: 5 mg Haloperidol Lactate (Haldol) 5 mg IM Q6 PRN; Protocol PRN Reason: Agitation Lisinopril (Zestril) 20 mg PO DAILY [facility] Last Admin: 01/29/18 09:56 Dose: 20 mg Lorazepam (Ativan) 1 mg IM Q6 PRN; Protocol PRN Reason: Agitation Lorazepam (Ativan) 1 mg PO Q6 PRN; Protocol PRN Reason: Agitation Last Admin: 01/23/18 00:33 Dose: 1 mg Lorazepam (Ativan) 0.5 mg PO TID [facility] PRN Reason: Protocol Last Admin: 01/29/18 13:33 Dose: 0.5 mg Magnesium Hydroxide (Milk Of Magnesia) 30 ml PO DAILY PRN PRN Reason: Constipation Pantoprazole Sodium (Protonix Ec Tab) 40 mg PO 0600 [facility] Last Admin: 01/29/18 06:42 Dose: 40 mg Risperidone (Risperdal Tab) 2 mg PO [facility] PRN Reason: Protocol Last Admin: 01/28/18 21:26 Dose: 2 mg Risperidone (Risperdal Tab) 2 mg PO BID [facility] PRN Reason: Protocol Last Admin: 01/29/18 09:58 Dose: 2 mg Zolpidem Tartrate (Ambien) 10 mg PO [facility] PRN Reason: Protocol Last Admin: 01/28/18 21:26 Dose: 10 mg - Labs Labs: 01/23/18 08:00 01/15/18 07:30 Attending/Attestation - Attestation I have personally seen and examined this patient.: Yes I have fully participated in the care of the patient.: Yes I have reviewed all pertinent clinical information, including history, physical exam and plan: Yes Notes (Text): 67 year old male with a past medical history of schizoaffective disorder, AV block s/p pacemaker on 04/30/17, hypertension, dyslipidemia, Iron deficiency anemia who was admitted for agitated behavior and schizophrenia symptoms. Upon admission he was found to have severe iron deficiency anemia. He underwent EGD during his last admission which showed esophagitis however no active bleeding was noted. Colonoscopy revealed internal hemorrhoids. Hb is 8. Patient is hemodynamically stable. He is able to walk without getting sob or dizziness. Denies any other complaints. Patient is very poor historian.There is no active bleeding. Continue PPI, Oral Iron and stool softener. Plan: 1) Iron deficiency anemia 2) HTN 3) HLD 4) Schizophrenia
--- NOTE | 2018-01-18 10:55 | PCM.PYCHPN ---
Psychiatric Progress Note - Psychiatric Progress Note Patient seen today, length of contact: 25 min Patient Chief Complaint: "people from my past are causing me [mental] pain using their electronics" Problems Identified/Issues Discussed: History of Present Illness and Precipitating Events: Patient is a single 67 year old male with psychiatric history of Schizoaffective disorder, unclear current adherence with psychiatric medications (though with long history of noncompliance) who was BIB police due to loud and disorganzied behavior at his residence. Patient was psychiatrically admitted to our unit very early this morning and staff noted that he was disorganized, paranoid, loud and argumentative. Patient required po Haldol 5 mg , Ativan 1 mg, Benadryl 50 mg for agitation at 2:52 AM. Patient is difficult to interview at bedside this morning. I agree with nursing , his thought process is disorganized, paranoid and tangential. Patient cannot describe his current circumstances, month or year. He mumbles repeatedly and demonstrates poor eye contact. Patient is ordinarily oddly related and easily chats about his various prejudices, past persecutors and unfortunate life incidents. Of note: patient was recently discharged from the medical floor 3 weeks ago (11/17-11/23/17). He was treated for severe anemia with positive FOBT. EGD and colonoscopy did not reveal a source of GI bleeding. Patient received 2 units PRBC, and IV iron, and his H/H stabilized and was improving on the iron supplementation. Patient was discharged to his apartment after he refused placement into [facility]. He was seen by psychiatry on the medical floor and treated with Ativan 0.5 mg po TID, Ambien 10 mg po HS prn, Cogentin 0.5 mg po AMHS, Depakote 500 mg AMHS and Risperdal 2 mg [facility]HS. Patient has a history of completely denying that he has any psychiatric diagnosis. PSYCHIATRIC HISTORY Patient was recently discharged from the medical floor 3 weeks ago (11/17/17-). He was seen by psychiatry on the medical floor and treated with Ativan 0.5 mg po TID, Ambien 10 mg po HS prn, Cogentin 0.5 mg po AMHS, Depakote 500 mg [facility] and Risperdal 2 mg [facility]. MULTIPLE PSYCHIATRIC ADMISSIONS, most recently 05/05/17-05/21/17 at [facility]. He was discharged on Depakote 500 mg [facility], Cogentin 0.5 mg AMHS , Ativan 0.5 mg TID, Risperdal 2 mg AMHS, Ambien 10 mg po hS prn. Other admission include 02/2017, 09/2016, 12/2015, 10/2015 and 11/2011 at [facility]. Patient has chronic noncompliance with the medications and follow-up appointments, Medication trials include, depakote, risperdal, seroquel, ambien, cogentin, ativan, restoril SOCIAL HISTORY Born and raised in [place]. Single. No kids. Unemployed. Prior arrests in [place] for "damaging an automobile" as well as in [place], [place] for MJA possession. Denies drug, alcohol or tobacco use. 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 PROGRESS NOTE DAY 4 I reviewed recent notes. To review: Patient was irritable and delusional during treatment team meeting on Thursday. Patient was observed talking to himself by staff members and myself on Thursday and Thursday. He has been paranoid, irritable and argumentative over the weekend. Generally appears unhappy and dissatisfied. I met with patient at bedside this morning.Similar to prior admissions he denies having a psychiatric illness. However he has been compliant with his medications (with encouragement). He is preoccupied with arguing about his diagnosis and denies being paranoid. He can also be briefly redirected but not convinced. Readily admits he was out of control prior to admission but feels he should be in residential and not a psychiatric unit. He is adamant about his current and past persecution. Feels it all began with his first admission in 2011 "It all went wrong then, I should never be here ". It is still difficult to maintain a productive interview with him due to his paranoia and resentment. Less angry and dismissive than at admission but isn't at baseline . Patient denies any new physical discomfort or pain. Doesn't appear to be in physical distress. Slept poorly again last night because sleeping pill wore off , reports that restoril helped in the past and requests to start it. Regarding his behavior on the unit, patient is visible on the unit however he is not very friendly or engaged. Did attend group. Appetite was also noted to be good. Patient remains unpredictable with poor insight. Diagnostic Results: Schizoaffective Disorder Medication Change: Yes (started restoril) Medical Record Reviewed: Yes Mental Status Examination - Cognitive Function Orientation: Person, Place Attention: Poor Concentration: Poor Association: Loose Fund of Knowledge: Poor - Mood Mood: Other ( "people from my past are causing me [mental] pain using their electronics") - Affect Affect: Broad, Other (irritable, resentful) - Speech Speech: Loud - Formal Thought Process Formal Thought Process: Hallucinations (Patient observed talking to himself however denies hallucinations), Paranoia, Loosening of associations - Suicidal Ideation Suicidal Ideation: No - Homicidal Ideation Homicidal Ideation: No Goal/Treatment Plan - Goal/Treatment Plan Progress Toward Problem(s) and Goals/Treatment Plan: * group, milieu and supportive tx as tolerated * Risperdal increased to 2 mg po bid on 01/16/18, titrate as needed for disorganization * Cogentin 1 mg po bid for EPS prophylaxis * Depakote 500 mg po bid for mood stabilization 01/16/18 11:40 Valproic Acid 45 L * Ambien 5 mg HS for insomnia (restoril is nonformulary) * Ativan 0.5 mg po TID for anxiety and to help with mood stabilization * Appreciate f/u by Dr. Graham/Dr. Vega on 01/15/18~Iron deficiency anemia:monitor CBC, consider blood transfusion of H/H not stable, supplement Fe 325mg PO TID, Colace 100mg PO QD * Appreciate f/u by Dr. Schrader/Aryan on 01/18/18~"given chronic anemia, stable hemoglobin, and hemodynamic stability, would not transfuse at this time; would consider if patient becoming hypotensive or showing signs of hypoperfusion ". Plan to monitor patient peripherally at this time. * Vitals reviewed and noted below: 01/18/18 01/18/18 07:43 09:22 Temperature 98.0 F Pulse Rate 80 80 Respiratory 20 Rate Blood Pressure 119/80 119/80 ER LABS AND STUDIES 01/14/18 22:42: Alcohol, Quantitative < 10 01/14/18 22:42: WBC 3.5 L D, RBC 3.39 L, Hgb 7.3 L, Hct 25.3 L, MCV 74.6 L, MCH 21.5 L, MCHC 28.9 L, RDW 19.0 H, Plt Count 245, MPV 9.4 01/14/18 22:42: Sodium 140, Potassium 3.5 L, Chloride 104, Carbon Dioxide 25, Anion Gap 15, BUN 12, Creatinine 0.9, Est GFR ( Amer) > 60, Est GFR (Non- Af Amer) > 60, Random Glucose 106, Calcium 9.8, Total Bilirubin 0.3, AST 21, ALT 23, Alkaline Phosphatase 54, Total Protein 6.5, Albumin 3.9, Globulin 2.7, Albumin/Globulin Ratio 1.4 EK01/14/18 22:28 Rate : 80 BPM Rhythm : NSR Interpretation : 1st degree AV block. LBBB. Paced Rhythm. 01/14/18 23:09: Chest X-ray read and interpreted by me shows no acute processes. Floor Labs 01/14/18 01/15/18 01/16/18 22:42 07:30 07:30 WBC 3.5 L D 3.7 L 4.1 L RBC 3.39 L 3.33 L 3.54 Hgb 7.3 L 7.2 L 7.6 L Hct 25.3 L 24.8 L 26.4 L MCV 74.6 L 74.5 L 74.6 L MCH 21.5 L 21.6 L 21.5 L MCHC 28.9 L 29.0 L 28.8 L RDW 19.0 H 19.1 H 18.9 H Plt Count 245 248 250 MPV 9.4 9.6 9.7 Gran % 36.5 L 43.3 L Lymph % (Auto) 30.3 32.0 Towner % (Auto) Eos % (Auto) 5.1 H 4.2 Baso % (Auto) 0.3 0.5 Gran # 1.35 L 1.76 Lymph # (Auto) 1.1 L 1.3 Towner # (Auto) 1.0 H 0.8 H Eos # (Auto) 0.2 0.2 Baso # (Auto) 0.01 0.02 Neutrophils % (Manual) 38 L Lymphocytes % (Manual) 33 Monocytes % (Manual) 23 H Eosinophils % (Manual) 4 H Basophils % (Manual) 2 H Platelet Evaluation Normal 01/17/18 01/18/18 07:30 07:45 WBC 3.9 L 4.5 RBC 3.76 3.85 Hgb 8.0 L 8.1 L Hct 28.1 L 28.8 L MCV 74.7 L 74.8 L MCH 21.3 L 21.0 L MCHC 28.5 L 28.1 L RDW 19.0 H 19.2 H Plt Count 260 MPV 9.3 Gran % 36.5 L 41.0 L Lymph % (Auto) 38.3 H 35.8 H Towner % (Auto) 19.8 H Eos % (Auto) 4.9 5.5 H Baso % (Auto) 0.5 0.2 Gran # 1.42 1.85 Lymph # (Auto) 1.5 1.6 Towner # (Auto) 0.8 H 0.8 H Eos # (Auto) 0.2 0.3 Baso # (Auto) 0.02 0.01 Neutrophils % (Manual) Lymphocytes % (Manual) Monocytes % (Manual) Eosinophils % (Manual) Basophils % (Manual) Platelet Evaluation 01/15/18 01/15/18 01/15/18 07:23 07:30 07:30 WBC RBC Hgb Hct MCV MCH MCHC RDW Plt Count MPV Gran % Lymph % (Auto) Towner % (Auto) Eos % (Auto) Baso % (Auto) Gran # Lymph # (Auto) Towner # (Auto) Eos # (Auto) Baso # (Auto) Neutrophils % (Manual) Lymphocytes % (Manual) Monocytes % (Manual) Eosinophils % (Manual) Basophils % (Manual) Platelet Evaluation Sodium 142 Potassium 3.6 Chloride 105 Carbon Dioxide 29 Anion Gap 12 BUN 12 Creatinine 0.9 Est GFR (Non-Af Amer) > 60 POC Glucose (mg/dL) 75 Random Glucose 74 Fasting Glucose 74 Calcium 9.6 Phosphorus 3.6 Magnesium 2.2 Total Bilirubin 0.2 AST 21 ALT 24 Alkaline Phosphatase 51 Total Protein 6.0 Albumin 3.4 Globulin 2.6 Albumin/Globulin Ratio 1.3 TSH 3rd Generation 1.57
[2018-01-19] MEDS: Pantoprazole 40 mg EC Tab PO SCH (06:40)
[2018-01-19 07:47] LABS: BASO # 0.02 K/mm3 (0.0-2.0); BASO % 0.4 % (0.0-3.0); EOS # 0.3 (0.0-0.7); EOS % 7.3 % (1.5-5.0); GRAN # 1.67 (1.4-6.5); GRAN % 36.8 % (50.0-68.0); HEMOGLOBIN 8.6 g/dL (14.0-18.0); LYMPH # 1.8 (1.2-3.4); LYMPH % 39.6 % (22.0-35.0); MEAN CELL VOLUME 74.7 fl (80.0-105.0); MEAN CORPUSCULAR HEMOGLOBIN 21.1 pg (25.0-35.0); MEAN CORPUSCULAR HGB CONC 28.3 g/dl (31.0-37.0); MONO # 0.7 (0.1-0.6); MONO % 15.9 % (1.0-6.0); RBC 4.07 10^6/uL (3.5-6.1); RED CELL DISTRIBUTION WIDTH 18.9 % (11.5-14.5); WHITE BLOOD COUNT 4.5 10^3/ul (4.5-11.0)
[2018-01-19] MEDS: Divalproex 500 mg DR(BID formulation) PO SCH ×2 (09:11→16:14)
--- NOTE | 2018-01-19 16:04 | PCM.PYCHPN ---
Psychiatric Progress Note - Psychiatric Progress Note Patient seen today, length of contact: 30min Patient Chief Complaint: "I am not schizophrenic, why I need to take risperdal" Problems Identified/Issues Discussed: Suicide/ homicide prevention, past psychiatric h/o, current psychiatric symptoms , medical problems, risk/benefits and alternatives of medications, medications compliance, coping strategies, substance abuse h/o, relapse prevention, importance of follow up with psychiatrist and therapist, discharge plan. Medical Problems: Iron deficiency anemia HTN HLD Diagnostic Results: 01/19/18 07:30 01/15/18 07:30 Lab Results 01/19/18 11:12: POC Glucose (mg/dL) 115 H 01/19/18 07:32: POC Glucose (mg/dL) 89 01/19/18 07:30: WBC 4.5, RBC 4.07, Hgb 8.6 L, Hct 30.4 L, MCV 74.7 L, MCH 21.1 L , MCHC 28.3 L, RDW 18.9 H, Plt Count 287, MPV 10.0, Gran % 36.8 L, Lymph % (Auto ) 39.6 H, [place] % (Auto) 15.9 H, Eos % (Auto) 7.3 H, Baso % (Auto) 0.4, Gran # 1.67, Lymph # (Auto) 1.8, [place] # (Auto) 0.7 H, Eos # (Auto) 0.3, Baso # (Auto) 0.02 01/18/18 11:13: POC Glucose (mg/dL) 112 H 01/18/18 07:45: WBC 4.5, RBC 3.85, Hgb 8.1 L, Hct 28.8 L, MCV 74.8 L, MCH 21.0 L , MCHC 28.1 L, RDW 19.2 H, Plt Count 280, MPV 9.5, Gran % 41.0 L, Lymph % (Auto ) 35.8 H, [place] % (Auto) 17.5 H, Eos % (Auto) 5.5 H, Baso % (Auto) 0.2, Gran # 1.85, Lymph # (Auto) 1.6, [place] # (Auto) 0.8 H, Eos # (Auto) 0.3, Baso # (Auto) 0.01 01/18/18 07:18: POC Glucose (mg/dL) 91 01/17/18 21:47: POC Glucose (mg/dL) 138 H 01/17/18 16:11: POC Glucose (mg/dL) 97 01/17/18 12:35: POC Glucose (mg/dL) 91 01/17/18 11:41: POC Glucose (mg/dL) 56 L 01/17/18 07:30: WBC 3.9 L, RBC 3.76, Hgb 8.0 L, Hct 28.1 L, MCV 74.7 L, MCH 21.3 L, MCHC 28.5 L, RDW 19.0 H, Plt Count 260, MPV 9.3, Gran % 36.5 L, Lymph % (Auto) 38.3 H, [place] % (Auto) 19.8 H, Eos % (Auto) 4.9, Baso % (Auto) 0.5, Gran # 1.42, Lymph # (Auto) 1.5, [place] # (Auto) 0.8 H, Eos # (Auto) 0.2, Baso # (Auto ) 0.02 01/17/18 07:13: POC Glucose (mg/dL) 101 01/16/18 11:40: Valproic Acid 45 L 01/16/18 07:30: WBC 4.1 L, RBC 3.54, Hgb 7.6 L, Hct 26.4 L, MCV 74.6 L, MCH 21.5 L, MCHC 28.8 L, RDW 18.9 H, Plt Count 250, MPV 9.7, Gran % 43.3 L, Lymph % (Auto) 32.0, [place] % (Auto) 20.0 H, Eos % (Auto) 4.2, Baso % (Auto) 0.5, Gran # 1.76, Lymph # (Auto) 1.3, [place] # (Auto) 0.8 H, Eos # (Auto) 0.2, Baso # (Auto) 0.02 01/15/18 16:06: POC Glucose (mg/dL) 105 01/15/18 11:24: POC Glucose (mg/dL) 129 H 01/15/18 07:30: WBC 3.7 L, RBC 3.33 L, Hgb 7.2 L, Hct 24.8 L, MCV 74.5 L, MCH 21.6 L, MCHC 29.0 L, RDW 19.1 H, Plt Count 248, MPV 9.6, Gran % 36.5 L, Lymph % (Auto) 30.3, [place] % (Auto) 27.8 H, Eos % (Auto) 5.1 H, Baso % (Auto) 0.3, Gran # 1.35 L, Lymph # (Auto) 1.1 L, [place] # (Auto) 1.0 H, Eos # (Auto) 0.2, Baso # ( Auto) 0.01, Neutrophils % (Manual) 38 L, Lymphocytes % (Manual) 33, Monocytes % (Manual) 23 H, Eosinophils % (Manual) 4 H, Basophils % (Manual) 2 H, Platelet Evaluation Normal 01/15/18 07:30: RPR Nonreactive 01/15/18 07:30: TSH 3rd Generation 1.57 01/15/18 07:30: Sodium 142, Potassium 3.6, Chloride 105, Carbon Dioxide 29, Anion Gap 12, BUN 12, Creatinine 0.9, Est GFR ( Amer) > 60, Est GFR (Non- Af Amer) > 60, Random Glucose 74, Fasting Glucose 74, Calcium 9.6, Phosphorus 3.6, Magnesium 2.2, Total Bilirubin 0.2, AST 21, ALT 24, Alkaline Phosphatase 51 , Total Protein 6.0, Albumin 3.4, Globulin 2.6, Albumin/Globulin Ratio 1.3 01/15/18 07:23: POC Glucose (mg/dL) 75 01/15/18 00:33: Urine Opiates Screen Negative, Urine Methadone Screen Negative, Ur Barbiturates Screen Negative, Ur Phencyclidine Scrn Negative, Ur Amphetamines Screen Negative, U Benzodiazepines Scrn Negative, U Oth Cocaine Metabols Negative, U Cannabinoids Screen Negative 01/14/18 22:42: Triglycerides 88, Cholesterol 120 L, LDL Cholesterol Direct 54, HDL Cholesterol 44 01/14/18 22:42: Alcohol, Quantitative < 10 01/14/18 22:42: WBC 3.5 L D, RBC 3.39 L, Hgb 7.3 L, Hct 25.3 L, MCV 74.6 L, MCH 21.5 L, MCHC 28.9 L, RDW 19.0 H, Plt Count 245, MPV 9.4 01/14/18 22:42: Sodium 140, Potassium 3.5 L, Chloride 104, Carbon Dioxide 25, Anion Gap 15, BUN 12, Creatinine 0.9, Est GFR ( Amer) > 60, Est GFR (Non- Af Amer) > 60, Random Glucose 106, Calcium 9.8, Total Bilirubin 0.3, AST 21, ALT 23, Alkaline Phosphatase 54, Total Protein 6.5, Albumin 3.9, Globulin 2.7, Albumin/Globulin Ratio 1.4 Vital Signs Temp Pulse Resp BP Pulse Ox 01/19/18 09:13 88 153/92 H 01/19/18 07:01 97.6 F 88 20 153/92 H 01/18/18 16:00 87 123/66 01/18/18 09:22 80 119/80 01/18/18 07:43 98.0 F 80 20 119/80 01/17/18 16:37 99 H 130/83 01/17/18 08:44 100 H 133/77 01/17/18 07:00 97.3 F L 91 H 20 158/100 H 01/16/18 16:54 85 107/67 01/16/18 08:23 100 H 137/97 H 01/16/18 06:49 97.6 F 100 H 18 137/97 H 01/15/18 15:00 100 H 144/93 H 01/15/18 06:59 97.9 F 72 20 134/78 01/15/18 03:19 98.1 F 83 18 133/83 01/15/18 02:31 98.1 F 80 17 150/72 100 01/15/18 00:57 79 17 158/92 H 100 01/14/18 22:06 98.0 F 88 18 136/83 98 DSM 5 Symptoms Update: as per 's assessment: Patient is a single 67 year old male with psychiatric history of Schizoaffective disorder, unclear current adherence with psychiatric medications (though with long history of noncompliance) who was BIB police due to loud and disorganzied behavior at his residence. Patient was psychiatrically admitted to our unit very early this morning and staff noted that he was disorganized, paranoid, loud and argumentative. Patient required po Haldol 5 mg , Ativan 1 mg, Benadryl 50 mg for agitation at the day of admission. Patient is difficult to interview because of disorganized thoughts and behavior , pt is paranoid, said that some Islamic extremists were moved in his apartment building, pt said that his duty is to supervise them, when was asked why, pt went tangent about his moving in to this apartment complex in 2000, then said he wants to go to the previous house which he sell before, pt was giving some names telling "all of them are feliciano". pt made statement "I am not schizophrenic, why I need to take risperdal", had no answer why he sign himself into the hospital, "I did not know what the heck I was doing..", pt appeared to be annoyed and irritable, unhappy and dissatisfied. pt tolerates meds well, no side effects observed or reported, AIMS 0, no EPS. as per staff pt is psychotic, at times refused meds, but today was compliant with meds, attended some groups, but just as observer. Diagnostic Results: Schizoaffective Disorder Medication Change: No Medical Record Reviewed: Yes Consults ordered or reviewed: medical consult appreciated Mental Status Examination - Cognitive Function Orientation: Person, Place Attention: Poor Concentration: Poor Association: Loose Fund of Knowledge: Poor - Mood Mood: Other ( "people from my past are causing me [mental] pain using their electronics") - Affect Affect: Broad, Other (irritable, resentful) - Speech Speech: Loud - Formal Thought Process Formal Thought Process: Hallucinations (Patient observed talking to himself however denies hallucinations), Paranoia (guarded), Loosening of associations, Circumstantial (and tangentia;l) - Suicidal Ideation Suicidal Ideation: No - Homicidal Ideation Homicidal Ideation: No Goal/Treatment Plan - Goal/Treatment Plan Need for Continued Stay: Remain at risks for inpatient hospitalization, Severe depression anxiety, Discharge may exacerbated symptoms, Severe functional impairment Progress Toward Problem(s) and Goals/Treatment Plan: Milieu/structure/supportive therapy Medical consult ill be considered SW consultation for discharge plan and social issues Med management medications were confirmed with the patient's pharmacy risperdal 2mg po bid for psychosis, mood stabilization depakote 500mg po bid for mood stabilization cogentin 1mg po bid for EPS ambien 5mg po hs for insomnia Family involvement Follow up on labs Will monitor closely Pt was educated about risk/benefits and alternatives of medications, coping strategies (safety plan, suicide prevention), relapse prevention, importance of follow up with psychiatrist and therapist, stay away from drugs/alcohol/smoking Estimated Date of D/C: 01/25/18
[2018-01-20 08:00] LABS: BASO # 0.03 K/mm3 (0.0-2.0); BASO % 0.8 % (0.0-3.0); EOS # 0.3 (0.0-0.7); EOS % 7.3 % (1.5-5.0); GRAN # 1.29 (1.4-6.5); HEMOGLOBIN 8.4 g/dL (14.0-18.0); LYMPH # 1.4 (1.2-3.4); LYMPH % 38.5 % (22.0-35.0); MEAN CELL VOLUME 74.9 fl (80.0-105.0); MEAN CORPUSCULAR HEMOGLOBIN 21.1 pg (25.0-35.0); MEAN CORPUSCULAR HGB CONC 28.2 g/dl (31.0-37.0); MEAN PLATELET VOLUME 9.5 fl (7.0-11.0); MONO # 0.7 (0.1-0.6); MONO % 18.4 % (1.0-6.0); RBC 3.98 10^6/uL (3.5-6.1); RED CELL DISTRIBUTION WIDTH 19.1 % (11.5-14.5); WHITE BLOOD COUNT 3.7 10^3/ul (4.5-11.0)
[2018-01-20] MEDS: Divalproex 500 mg DR(BID formulation) PO SCH ×2 (08:24→15:42)
[2018-01-20] MEDS: Pantoprazole 40 mg EC Tab PO SCH (10:05)
--- NOTE | 2018-01-20 15:00 | PCM.PYCHPN ---
Psychiatric Progress Note - Psychiatric Progress Note Patient seen today, length of contact: 30min Patient Chief Complaint: "ah, look who is here, psychiatrist, I am not schizophrenic, all I need is sleeping pill, I like my mood, I don't need mood stabilizers" Problems Identified/Issues Discussed: Suicide/ homicide prevention, past psychiatric h/o, current psychiatric symptoms , medical problems, risk/benefits and alternatives of medications, medications compliance, coping strategies, substance abuse h/o, relapse prevention, importance of follow up with psychiatrist and therapist, discharge plan. Medical Problems: Iron deficiency anemia HTN HLD Diagnostic Results: 01/19/18 07:30 01/15/18 07:30 Lab Results 01/19/18 11:12: POC Glucose (mg/dL) 115 H 01/19/18 07:32: POC Glucose (mg/dL) 89 01/19/18 07:30: WBC 4.5, RBC 4.07, Hgb 8.6 L, Hct 30.4 L, MCV 74.7 L, MCH 21.1 L , MCHC 28.3 L, RDW 18.9 H, Plt Count 287, MPV 10.0, Gran % 36.8 L, Lymph % (Auto ) 39.6 H, [place] % (Auto) 15.9 H, Eos % (Auto) 7.3 H, Baso % (Auto) 0.4, Gran # 1.67, Lymph # (Auto) 1.8, [place] # (Auto) 0.7 H, Eos # (Auto) 0.3, Baso # (Auto) 0.02 01/18/18 11:13: POC Glucose (mg/dL) 112 H 01/18/18 07:45: WBC 4.5, RBC 3.85, Hgb 8.1 L, Hct 28.8 L, MCV 74.8 L, MCH 21.0 L , MCHC 28.1 L, RDW 19.2 H, Plt Count 280, MPV 9.5, Gran % 41.0 L, Lymph % (Auto ) 35.8 H, [place] % (Auto) 17.5 H, Eos % (Auto) 5.5 H, Baso % (Auto) 0.2, Gran # 1.85, Lymph # (Auto) 1.6, [place] # (Auto) 0.8 H, Eos # (Auto) 0.3, Baso # (Auto) 0.01 01/18/18 07:18: POC Glucose (mg/dL) 91 01/17/18 21:47: POC Glucose (mg/dL) 138 H 01/17/18 16:11: POC Glucose (mg/dL) 97 01/17/18 12:35: POC Glucose (mg/dL) 91 01/17/18 11:41: POC Glucose (mg/dL) 56 L 01/17/18 07:30: WBC 3.9 L, RBC 3.76, Hgb 8.0 L, Hct 28.1 L, MCV 74.7 L, MCH 21.3 L, MCHC 28.5 L, RDW 19.0 H, Plt Count 260, MPV 9.3, Gran % 36.5 L, Lymph % (Auto) 38.3 H, [place] % (Auto) 19.8 H, Eos % (Auto) 4.9, Baso % (Auto) 0.5, Gran # 1.42, Lymph # (Auto) 1.5, [place] # (Auto) 0.8 H, Eos # (Auto) 0.2, Baso # (Auto ) 0.02 01/17/18 07:13: POC Glucose (mg/dL) 101 01/16/18 11:40: Valproic Acid 45 L 01/16/18 07:30: WBC 4.1 L, RBC 3.54, Hgb 7.6 L, Hct 26.4 L, MCV 74.6 L, MCH 21.5 L, MCHC 28.8 L, RDW 18.9 H, Plt Count 250, MPV 9.7, Gran % 43.3 L, Lymph % (Auto) 32.0, [place] % (Auto) 20.0 H, Eos % (Auto) 4.2, Baso % (Auto) 0.5, Gran # 1.76, Lymph # (Auto) 1.3, [place] # (Auto) 0.8 H, Eos # (Auto) 0.2, Baso # (Auto) 0.02 01/15/18 16:06: POC Glucose (mg/dL) 105 01/15/18 11:24: POC Glucose (mg/dL) 129 H 01/15/18 07:30: WBC 3.7 L, RBC 3.33 L, Hgb 7.2 L, Hct 24.8 L, MCV 74.5 L, MCH 21.6 L, MCHC 29.0 L, RDW 19.1 H, Plt Count 248, MPV 9.6, Gran % 36.5 L, Lymph % (Auto) 30.3, [place] % (Auto) 27.8 H, Eos % (Auto) 5.1 H, Baso % (Auto) 0.3, Gran # 1.35 L, Lymph # (Auto) 1.1 L, [place] # (Auto) 1.0 H, Eos # (Auto) 0.2, Baso # ( Auto) 0.01, Neutrophils % (Manual) 38 L, Lymphocytes % (Manual) 33, Monocytes % (Manual) 23 H, Eosinophils % (Manual) 4 H, Basophils % (Manual) 2 H, Platelet Evaluation Normal 01/15/18 07:30: RPR Nonreactive 01/15/18 07:30: TSH 3rd Generation 1.57 01/15/18 07:30: Sodium 142, Potassium 3.6, Chloride 105, Carbon Dioxide 29, Anion Gap 12, BUN 12, Creatinine 0.9, Est GFR ( Amer) > 60, Est GFR (Non- Af Amer) > 60, Random Glucose 74, Fasting Glucose 74, Calcium 9.6, Phosphorus 3.6, Magnesium 2.2, Total Bilirubin 0.2, AST 21, ALT 24, Alkaline Phosphatase 51 , Total Protein 6.0, Albumin 3.4, Globulin 2.6, Albumin/Globulin Ratio 1.3 01/15/18 07:23: POC Glucose (mg/dL) 75 01/15/18 00:33: Urine Opiates Screen Negative, Urine Methadone Screen Negative, Ur Barbiturates Screen Negative, Ur Phencyclidine Scrn Negative, Ur Amphetamines Screen Negative, U Benzodiazepines Scrn Negative, U Oth Cocaine Metabols Negative, U Cannabinoids Screen Negative 01/14/18 22:42: Triglycerides 88, Cholesterol 120 L, LDL Cholesterol Direct 54, HDL Cholesterol 44 01/14/18 22:42: Alcohol, Quantitative < 10 01/14/18 22:42: WBC 3.5 L D, RBC 3.39 L, Hgb 7.3 L, Hct 25.3 L, MCV 74.6 L, MCH 21.5 L, MCHC 28.9 L, RDW 19.0 H, Plt Count 245, MPV 9.4 01/14/18 22:42: Sodium 140, Potassium 3.5 L, Chloride 104, Carbon Dioxide 25, Anion Gap 15, BUN 12, Creatinine 0.9, Est GFR ( Amer) > 60, Est GFR (Non- Af Amer) > 60, Random Glucose 106, Calcium 9.8, Total Bilirubin 0.3, AST 21, ALT 23, Alkaline Phosphatase 54, Total Protein 6.5, Albumin 3.9, Globulin 2.7, Albumin/Globulin Ratio 1.4 Vital Signs Temp Pulse Resp BP Pulse Ox 01/19/18 09:13 88 153/92 H 01/19/18 07:01 97.6 F 88 20 153/92 H 01/18/18 16:00 87 123/66 01/18/18 09:22 80 119/80 01/18/18 07:43 98.0 F 80 20 119/80 01/17/18 16:37 99 H 130/83 01/17/18 08:44 100 H 133/77 01/17/18 07:00 97.3 F L 91 H 20 158/100 H 01/16/18 16:54 85 107/67 01/16/18 08:23 100 H 137/97 H 01/16/18 06:49 97.6 F 100 H 18 137/97 H 01/15/18 15:00 100 H 144/93 H 01/15/18 06:59 97.9 F 72 20 134/78 01/15/18 03:19 98.1 F 83 18 133/83 01/15/18 02:31 98.1 F 80 17 150/72 100 01/15/18 00:57 79 17 158/92 H 100 01/14/18 22:06 98.0 F 88 18 136/83 98 Laboratory Results - last 24 hr 01/20/18 01/20/18 01/20/18 07:16 07:20 11:04 WBC 3.7 L RBC 3.98 Hgb 8.4 L Hct 29.8 L MCV 74.9 L MCH 21.1 L MCHC 28.2 L RDW 19.1 H Plt Count 289 MPV 9.5 Gran % 35.0 L Lymph % (Auto) 38.5 H [place] % (Auto) 18.4 H Eos % (Auto) 7.3 H Baso % (Auto) 0.8 Gran # 1.29 L Lymph # (Auto) 1.4 [place] # (Auto) 0.7 H Eos # (Auto) 0.3 Baso # (Auto) 0.03 POC Glucose (mg/dL) 90 117 H DSM 5 Symptoms Update: Patient is a single 67 year old male with psychiatric history of Schizoaffective disorder, unclear current adherence with psychiatric medications (though with long history of noncompliance) who was BIB police due to loud and disorganzied behavior at his residence. Patient was psychiatrically admitted to our unit very early this morning and staff noted that he was disorganized, paranoid, loud and argumentative. Patient required po Haldol 5 mg , Ativan 1 mg, Benadryl 50 mg for agitation at the day of admission. Patient is difficult to interview because of disorganized thoughts and behavior , pt is paranoid, said "ah, look who is here, psychiatrist, I am not schizophrenic, all I need is sleeping pill", pt was advised to submit 48 hr notice, was educated that he has rights to refuse medications, pt said "OKAY, OKAY, I will take your stupid medications". as per staff pt was more pleasant compliant with meds. pt appeared to be annoyed and irritable, unhappy and dissatisfied. pt tolerates meds well, no side effects observed or reported, AIMS 0, no EPS. labs revealed low WBC and decreased Gran #, will repeat labs am. Diagnostic Results: Schizoaffective Disorder Medication Change: No Medical Record Reviewed: Yes Consults ordered or reviewed: medical consult appreciated Mental Status Examination - Cognitive Function Orientation: Person, Place Attention: Poor Concentration: Poor Association: Loose Fund of Knowledge: Poor - Mood Mood: Other ( "people from my past are causing me [mental] pain using their electronics") - Affect Affect: Broad, Other (irritable, resentful) - Speech Speech: Loud - Formal Thought Process Formal Thought Process: Hallucinations (Patient observed talking to himself however denies hallucinations), Paranoia (guarded), Loosening of associations, Circumstantial (and tangentia;l) - Suicidal Ideation Suicidal Ideation: No - Homicidal Ideation Homicidal Ideation: No Goal/Treatment Plan - Goal/Treatment Plan Need for Continued Stay: Remain at risks for inpatient hospitalization, Severe depression anxiety, Discharge may exacerbated symptoms, Severe functional impairment Progress Toward Problem(s) and Goals/Treatment Plan: Milieu/structure/supportive therapy Medical consult ill be considered SW consultation for discharge plan and social issues Med management medications were confirmed with the patient's pharmacy risperdal 2mg po bid for psychosis, mood stabilization depakote 500mg po bid for mood stabilization cogentin 1mg po bid for EPS ambien 5mg po hs for insomnia Family involvement Follow up on labs Will monitor closely Pt was educated about risk/benefits and alternatives of medications, coping strategies (safety plan, suicide prevention), relapse prevention, importance of follow up with psychiatrist and therapist, stay away from drugs/alcohol/smoking Estimated Date of D/C: 01/25/18
[2018-01-21 07:02] LABS: BASO # 0.01 K/mm3 (0.0-2.0); BASO % 0.2 % (0.0-3.0); EOS # 0.3 (0.0-0.7); EOS % 6.4 % (1.5-5.0); GRAN # 1.51 (1.4-6.5); GRAN % 37.4 % (50.0-68.0); HEMOGLOBIN 8.7 g/dL (14.0-18.0); LYMPH # 1.6 (1.2-3.4); LYMPH % 39.9 % (22.0-35.0); MEAN CELL VOLUME 74.2 fl (80.0-105.0); MEAN CORPUSCULAR HEMOGLOBIN 21.2 pg (25.0-35.0); MEAN CORPUSCULAR HGB CONC 28.5 g/dl (31.0-37.0); MEAN PLATELET VOLUME 9.6 fl (7.0-11.0); MONO # 0.7 (0.1-0.6); MONO % 16.1 % (1.0-6.0); RBC 4.11 10^6/uL (3.5-6.1); RED CELL DISTRIBUTION WIDTH 19.3 % (11.5-14.5)
[2018-01-21] MEDS: Divalproex 500 mg DR(BID formulation) PO SCH ×2 (08:25→17:20)
[2018-01-21] MEDS: Pantoprazole 40 mg EC Tab PO SCH (08:26)
--- NOTE | 2018-01-21 15:26 | PCM.PYCHPN ---
Psychiatric Progress Note - Psychiatric Progress Note Patient seen today, length of contact: 30min Patient Chief Complaint: "I am fine, just go" Problems Identified/Issues Discussed: Suicide/ homicide prevention, past psychiatric h/o, current psychiatric symptoms , medical problems, risk/benefits and alternatives of medications, medications compliance, coping strategies, substance abuse h/o, relapse prevention, importance of follow up with psychiatrist and therapist, discharge plan. Medical Problems: Iron deficiency anemia HTN HLD Diagnostic Results: 01/21/18 06:30 01/15/18 07:30 Lab Results 01/21/18 07:29: POC Glucose (mg/dL) 108 01/21/18 06:30: WBC 4.0 L, RBC 4.11, Hgb 8.7 L, Hct 30.5 L, MCV 74.2 L, MCH 21.2 L, MCHC 28.5 L, RDW 19.3 H, Plt Count 284, MPV 9.6, Gran % 37.4 L, Lymph % (Auto) 39.9 H, [place] % (Auto) 16.1 H, Eos % (Auto) 6.4 H, Baso % (Auto) 0.2, Gran # 1.51, Lymph # (Auto) 1.6, [place] # (Auto) 0.7 H, Eos # (Auto) 0.3, Baso # ( Auto) 0.01 01/20/18 11:04: POC Glucose (mg/dL) 117 H 01/20/18 07:20: WBC 3.7 L, RBC 3.98, Hgb 8.4 L, Hct 29.8 L, MCV 74.9 L, MCH 21.1 L, MCHC 28.2 L, RDW 19.1 H, Plt Count 289, MPV 9.5, Gran % 35.0 L, Lymph % (Auto) 38.5 H, [place] % (Auto) 18.4 H, Eos % (Auto) 7.3 H, Baso % (Auto) 0.8, Gran # 1.29 L, Lymph # (Auto) 1.4, [place] # (Auto) 0.7 H, Eos # (Auto) 0.3, Baso # (Auto) 0.03 01/20/18 07:16: POC Glucose (mg/dL) 90 01/19/18 11:12: POC Glucose (mg/dL) 115 H 01/19/18 07:32: POC Glucose (mg/dL) 89 01/19/18 07:30: WBC 4.5, RBC 4.07, Hgb 8.6 L, Hct 30.4 L, MCV 74.7 L, MCH 21.1 L , MCHC 28.3 L, RDW 18.9 H, Plt Count 287, MPV 10.0, Gran % 36.8 L, Lymph % (Auto ) 39.6 H, [place] % (Auto) 15.9 H, Eos % (Auto) 7.3 H, Baso % (Auto) 0.4, Gran # 1.67, Lymph # (Auto) 1.8, [place] # (Auto) 0.7 H, Eos # (Auto) 0.3, Baso # (Auto) 0.02 01/18/18 11:13: POC Glucose (mg/dL) 112 H 01/18/18 07:45: WBC 4.5, RBC 3.85, Hgb 8.1 L, Hct 28.8 L, MCV 74.8 L, MCH 21.0 L , MCHC 28.1 L, RDW 19.2 H, Plt Count 280, MPV 9.5, Gran % 41.0 L, Lymph % (Auto ) 35.8 H, [place] % (Auto) 17.5 H, Eos % (Auto) 5.5 H, Baso % (Auto) 0.2, Gran # 1.85, Lymph # (Auto) 1.6, [place] # (Auto) 0.8 H, Eos # (Auto) 0.3, Baso # (Auto) 0.01 01/18/18 07:18: POC Glucose (mg/dL) 91 01/17/18 21:47: POC Glucose (mg/dL) 138 H 01/17/18 16:11: POC Glucose (mg/dL) 97 01/17/18 12:35: POC Glucose (mg/dL) 91 01/17/18 11:41: POC Glucose (mg/dL) 56 L 01/17/18 07:30: WBC 3.9 L, RBC 3.76, Hgb 8.0 L, Hct 28.1 L, MCV 74.7 L, MCH 21.3 L, MCHC 28.5 L, RDW 19.0 H, Plt Count 260, MPV 9.3, Gran % 36.5 L, Lymph % (Auto) 38.3 H, [place] % (Auto) 19.8 H, Eos % (Auto) 4.9, Baso % (Auto) 0.5, Gran # 1.42, Lymph # (Auto) 1.5, [place] # (Auto) 0.8 H, Eos # (Auto) 0.2, Baso # (Auto ) 0.02 01/17/18 07:13: POC Glucose (mg/dL) 101 01/16/18 11:40: Valproic Acid 45 L 01/16/18 07:30: WBC 4.1 L, RBC 3.54, Hgb 7.6 L, Hct 26.4 L, MCV 74.6 L, MCH 21.5 L, MCHC 28.8 L, RDW 18.9 H, Plt Count 250, MPV 9.7, Gran % 43.3 L, Lymph % (Auto) 32.0, [place] % (Auto) 20.0 H, Eos % (Auto) 4.2, Baso % (Auto) 0.5, Gran # 1.76, Lymph # (Auto) 1.3, [place] # (Auto) 0.8 H, Eos # (Auto) 0.2, Baso # (Auto) 0.02 01/15/18 16:06: POC Glucose (mg/dL) 105 01/15/18 11:24: POC Glucose (mg/dL) 129 H 01/15/18 07:30: WBC 3.7 L, RBC 3.33 L, Hgb 7.2 L, Hct 24.8 L, MCV 74.5 L, MCH 21.6 L, MCHC 29.0 L, RDW 19.1 H, Plt Count 248, MPV 9.6, Gran % 36.5 L, Lymph % (Auto) 30.3, [place] % (Auto) 27.8 H, Eos % (Auto) 5.1 H, Baso % (Auto) 0.3, Gran # 1.35 L, Lymph # (Auto) 1.1 L, [place] # (Auto) 1.0 H, Eos # (Auto) 0.2, Baso # ( Auto) 0.01, Neutrophils % (Manual) 38 L, Lymphocytes % (Manual) 33, Monocytes % (Manual) 23 H, Eosinophils % (Manual) 4 H, Basophils % (Manual) 2 H, Platelet Evaluation Normal 01/15/18 07:30: RPR Nonreactive 01/15/18 07:30: TSH 3rd Generation 1.57 01/15/18 07:30: Sodium 142, Potassium 3.6, Chloride 105, Carbon Dioxide 29, Anion Gap 12, BUN 12, Creatinine 0.9, Est GFR ( Amer) > 60, Est GFR (Non- Af Amer) > 60, Random Glucose 74, Fasting Glucose 74, Calcium 9.6, Phosphorus 3.6, Magnesium 2.2, Total Bilirubin 0.2, AST 21, ALT 24, Alkaline Phosphatase 51 , Total Protein 6.0, Albumin 3.4, Globulin 2.6, Albumin/Globulin Ratio 1.3 01/15/18 07:23: POC Glucose (mg/dL) 75 01/15/18 00:33: Urine Opiates Screen Negative, Urine Methadone Screen Negative, Ur Barbiturates Screen Negative, Ur Phencyclidine Scrn Negative, Ur Amphetamines Screen Negative, U Benzodiazepines Scrn Negative, U Oth Cocaine Metabols Negative, U Cannabinoids Screen Negative 01/14/18 22:42: Triglycerides 88, Cholesterol 120 L, LDL Cholesterol Direct 54, HDL Cholesterol 44 01/14/18 22:42: Alcohol, Quantitative < 10 01/14/18 22:42: WBC 3.5 L D, RBC 3.39 L, Hgb 7.3 L, Hct 25.3 L, MCV 74.6 L, MCH 21.5 L, MCHC 28.9 L, RDW 19.0 H, Plt Count 245, MPV 9.4 01/14/18 22:42: Sodium 140, Potassium 3.5 L, Chloride 104, Carbon Dioxide 25, Anion Gap 15, BUN 12, Creatinine 0.9, Est GFR ( Amer) > 60, Est GFR (Non- Af Amer) > 60, Random Glucose 106, Calcium 9.8, Total Bilirubin 0.3, AST 21, ALT 23, Alkaline Phosphatase 54, Total Protein 6.5, Albumin 3.9, Globulin 2.7, Albumin/Globulin Ratio 1.4 Vital Signs Temp Pulse Resp BP Pulse Ox 01/21/18 08:25 70 106/70 01/21/18 07:25 98.1 F 81 20 106/70 01/20/18 16:30 93 H 125/68 01/20/18 08:25 83 117/72 01/20/18 07:39 98.0 F 83 20 117/72 01/19/18 16:30 96 H 127/82 01/19/18 09:13 88 153/92 H 01/19/18 07:01 97.6 F 88 20 153/92 H 01/18/18 16:00 87 123/66 01/18/18 09:22 80 119/80 01/18/18 07:43 98.0 F 80 20 119/80 01/17/18 16:37 99 H 130/83 01/17/18 08:44 100 H 133/77 01/17/18 07:00 97.3 F L 91 H 20 158/100 H 01/16/18 16:54 85 107/67 01/16/18 08:23 100 H 137/97 H 01/16/18 06:49 97.6 F 100 H 18 137/97 H 01/15/18 15:00 100 H 144/93 H 01/15/18 06:59 97.9 F 72 20 134/78 01/15/18 03:19 98.1 F 83 18 133/83 01/15/18 02:31 98.1 F 80 17 150/72 100 01/15/18 00:57 79 17 158/92 H 100 01/14/18 22:06 98.0 F 88 18 136/83 98 DSM 5 Symptoms Update: Patient is a single 67 year old male with psychiatric history of Schizoaffective disorder, unclear current adherence with psychiatric medications (though with long history of noncompliance) who was BIB police due to loud and disorganzied behavior at his residence. Patient was psychiatrically admitted to our unit very early this morning and staff noted that he was disorganized, paranoid, loud and argumentative. Patient required po Haldol 5 mg , Ativan 1 mg, Benadryl 50 mg for agitation at the day of admission. Patient is difficult to interview because of disorganized thoughts and behavior , pt is paranoid, that he is not schizophrenic "all I need is to have a good night sleep", pt appeared to be annoyed and irritable, unhappy and dissatisfied. as per staff pt compliant with meds, started to go to the groups. pt tolerates meds well, no side effects observed or reported, AIMS 0, no EPS. yesterday labs revealed low WBC and decreased Gran #, repeated Gran today is WNL. Diagnostic Results: Schizoaffective Disorder Medication Change: No Medical Record Reviewed: Yes Consults ordered or reviewed: medical consult appreciated Mental Status Examination - Cognitive Function Orientation: Person, Place Attention: Poor Concentration: Poor Association: Loose Fund of Knowledge: Poor - Mood Mood: Other ( "people from my past are causing me [mental] pain using their electronics") - Affect Affect: Broad, Other (irritable, resentful) - Speech Speech: Loud - Formal Thought Process Formal Thought Process: Hallucinations (Patient observed talking to himself however denies hallucinations), Paranoia (guarded), Loosening of associations, Circumstantial (and tangentia;l) - Suicidal Ideation Suicidal Ideation: No - Homicidal Ideation Homicidal Ideation: No Goal/Treatment Plan - Goal/Treatment Plan Need for Continued Stay: Remain at risks for inpatient hospitalization, Severe depression anxiety, Discharge may exacerbated symptoms, Severe functional impairment Progress Toward Problem(s) and Goals/Treatment Plan: Milieu/structure/supportive therapy Medical consult ill be considered SW consultation for discharge plan and social issues Med management medications were confirmed with the patient's pharmacy risperdal 2mg po bid for psychosis, mood stabilization depakote 500mg po bid for mood stabilization cogentin 1mg po bid for EPS ambien 5mg po hs for insomnia Family involvement Follow up on labs Will monitor closely Pt was educated about risk/benefits and alternatives of medications, coping strategies (safety plan, suicide prevention), relapse prevention, importance of follow up with psychiatrist and therapist, stay away from drugs/alcohol/smoking Estimated Date of D/C: 01/25/18
[2018-01-22 07:44] LABS: BASO # 0.02 K/mm3 (0.0-2.0); BASO % 0.5 % (0.0-3.0); EOS # 0.2 (0.0-0.7); EOS % 5.6 % (1.5-5.0); GRAN # 1.95 (1.4-6.5); GRAN % 45.3 % (50.0-68.0); HEMOGLOBIN 9.6 g/dL (14.0-18.0); LYMPH # 1.6 (1.2-3.4); LYMPH % 37.4 % (22.0-35.0); MEAN CELL VOLUME 73.8 fl (80.0-105.0); MEAN CORPUSCULAR HEMOGLOBIN 21.3 pg (25.0-35.0); MEAN CORPUSCULAR HGB CONC 28.8 g/dl (31.0-37.0); MEAN PLATELET VOLUME 9.4 fl (7.0-11.0); MONO # 0.5 (0.1-0.6); MONO % 11.2 % (1.0-6.0); RBC 4.51 10^6/uL (3.5-6.1); RED CELL DISTRIBUTION WIDTH 19.4 % (11.5-14.5); WHITE BLOOD COUNT 4.3 10^3/ul (4.5-11.0)
[2018-01-22] MEDS: Divalproex 500 mg DR(BID formulation) PO SCH ×2 (09:42→16:50)
[2018-01-22] MEDS: Pantoprazole 40 mg EC Tab PO SCH (09:43)
--- NOTE | 2018-01-22 11:32 | PCM.BM ---
<Haydee Krueger Y - Last Filed: 01/22/18 11:32> Treatment Plan Problems - Problems identified on initial assessmt medication nonadherence Date Initiated: 01/15/18 Time Initiated: 02:15 Assessment reference: NA Status: Active delusions Date Initiated: 01/15/18 Time Initiated: 02:15 Assessment reference: NA Status: Active Priority: 2 altered thought process Date Initiated: 01/15/18 Time Initiated: 02:15 Assessment reference: NA Status: Active Priority: 3 Treatment assets and liabiliti Patient Assests: cooperative, ADL independent, negotiates basic needs Patient Liabilities: live alone, medical problems - Milieu Protocol Maintain good personal hygiene: daily Encourage regular showers, daily Remind patient to perform daily oral care, daily Assist patient to perform ADL's Conduct patient checks and document Observation sheet: Q15 minutes Maintain personal safety: every shift Educate patient to report safety concerns to staff, every shift Monitor environment for contraband/sharps Medication safety: Monitor for expected outcome, potential side effects: every shift, Assess barriers to learning: every shift, Assess readiness for medication education: every shift Milieu Narrative: Milieu/structure/supportive therapy Medical consult ill be considered SW consultation for discharge plan and social issues Med management medications were confirmed with the patient's pharmacy risperdal 2mg po bid for psychosis, mood stabilization depakote 500mg po bid for mood stabilization cogentin 1mg po bid for EPS ambien 5mg po hs for insomnia Family involvement Follow up on labs Will monitor closely Pt was educated about risk/benefits and alternatives of medications, coping strategies (safety plan, suicide prevention), relapse prevention, importance of follow up with psychiatrist and therapist, stay away from drugs/alcohol/smoking Family Contact Family involvement: Family/SO is involved - Outside Agency Ahmet Fischer Esq. Care involvment: Following patient during stay, Information-sharing Agency contact name: Ahmet Fischer Esq.(Financial POA) Agency contact number: [phone] Discharge/Continuing Care - Education Needs Education Needs: Patient Medication, Patient Diagnosis/Disease Process, Patient Coping Skills, Patient Placement options, Patient Community resources, Patient Health Practices/Safety - Discharge Discharge Criteria: Tolerates medication w/o severe side effects, Free of paranoid thoughts, Normal sleep pattern - Treatment Team Participation Patient/Family/SO Statement: Milieu/structure/supportive therapy Medical consult ill be considered SW consultation for discharge plan and social issues Med management medications were confirmed with the patient's pharmacy risperdal 2mg po bid for psychosis, mood stabilization depakote 500mg po bid for mood stabilization cogentin 1mg po bid for EPS ambien 5mg po hs for insomnia Family involvement Follow up on labs Will monitor closely Pt was educated about risk/benefits and alternatives of medications, coping strategies (safety plan, suicide prevention), relapse prevention, importance of follow up with psychiatrist and therapist, stay away from drugs/alcohol/smoking Treatment Plan Review - Problem medication nonadherence Time Initiated: 02:15 delusions Time Initiated: 02:15 altered thought process Time Initiated: 02:15 <Taisha Saleh - Last Filed: 01/29/18 09:14> - Diagnosis (1) Schizoaffective disorder Status: Chronic Interventions: group, milieu and supportive tx as tolerated Risperdal 1 mg po bid, titrate as needed for disorganization Cogentin 1 mg po bid for EPS prophylaxis Ambien 5 mg HS for insomnia Ativan 0.5 mg po TID for anxiety and to help with mood stabilization pt is still disorganized and psychotic poor insight 01/15/18 12:42 01/22/18 17:16
--- NOTE | 2018-01-22 17:21 | PCM.PYCHPN ---
Psychiatric Progress Note - Psychiatric Progress Note Patient seen today, length of contact: 30min Patient Chief Complaint: "I should of been put in nursing home due to disturbing the peace." Problems Identified/Issues Discussed: Suicide/ homicide prevention, past psychiatric h/o, current psychiatric symptoms , medical problems, risk/benefits and alternatives of medications, medications compliance, coping strategies, substance abuse h/o, relapse prevention, importance of follow up with psychiatrist and therapist, discharge plan. Medical Problems: Iron deficiency anemia HTN HLD Diagnostic Results: 01/21/18 06:30 01/15/18 07:30 Lab Results 01/21/18 07:29: POC Glucose (mg/dL) 108 01/21/18 06:30: WBC 4.0 L, RBC 4.11, Hgb 8.7 L, Hct 30.5 L, MCV 74.2 L, MCH 21.2 L, MCHC 28.5 L, RDW 19.3 H, Plt Count 284, MPV 9.6, Gran % 37.4 L, Lymph % (Auto) 39.9 H, [place] % (Auto) 16.1 H, Eos % (Auto) 6.4 H, Baso % (Auto) 0.2, Gran # 1.51, Lymph # (Auto) 1.6, [place] # (Auto) 0.7 H, Eos # (Auto) 0.3, Baso # ( Auto) 0.01 01/20/18 11:04: POC Glucose (mg/dL) 117 H 01/20/18 07:20: WBC 3.7 L, RBC 3.98, Hgb 8.4 L, Hct 29.8 L, MCV 74.9 L, MCH 21.1 L, MCHC 28.2 L, RDW 19.1 H, Plt Count 289, MPV 9.5, Gran % 35.0 L, Lymph % (Auto) 38.5 H, [place] % (Auto) 18.4 H, Eos % (Auto) 7.3 H, Baso % (Auto) 0.8, Gran # 1.29 L, Lymph # (Auto) 1.4, [place] # (Auto) 0.7 H, Eos # (Auto) 0.3, Baso # (Auto) 0.03 01/20/18 07:16: POC Glucose (mg/dL) 90 01/19/18 11:12: POC Glucose (mg/dL) 115 H 01/19/18 07:32: POC Glucose (mg/dL) 89 01/19/18 07:30: WBC 4.5, RBC 4.07, Hgb 8.6 L, Hct 30.4 L, MCV 74.7 L, MCH 21.1 L , MCHC 28.3 L, RDW 18.9 H, Plt Count 287, MPV 10.0, Gran % 36.8 L, Lymph % (Auto ) 39.6 H, [place] % (Auto) 15.9 H, Eos % (Auto) 7.3 H, Baso % (Auto) 0.4, Gran # 1.67, Lymph # (Auto) 1.8, [place] # (Auto) 0.7 H, Eos # (Auto) 0.3, Baso # (Auto) 0.02 01/18/18 11:13: POC Glucose (mg/dL) 112 H 01/18/18 07:45: WBC 4.5, RBC 3.85, Hgb 8.1 L, Hct 28.8 L, MCV 74.8 L, MCH 21.0 L , MCHC 28.1 L, RDW 19.2 H, Plt Count 280, MPV 9.5, Gran % 41.0 L, Lymph % (Auto ) 35.8 H, [place] % (Auto) 17.5 H, Eos % (Auto) 5.5 H, Baso % (Auto) 0.2, Gran # 1.85, Lymph # (Auto) 1.6, [place] # (Auto) 0.8 H, Eos # (Auto) 0.3, Baso # (Auto) 0.01 01/18/18 07:18: POC Glucose (mg/dL) 91 01/17/18 21:47: POC Glucose (mg/dL) 138 H 01/17/18 16:11: POC Glucose (mg/dL) 97 01/17/18 12:35: POC Glucose (mg/dL) 91 01/17/18 11:41: POC Glucose (mg/dL) 56 L 01/17/18 07:30: WBC 3.9 L, RBC 3.76, Hgb 8.0 L, Hct 28.1 L, MCV 74.7 L, MCH 21.3 L, MCHC 28.5 L, RDW 19.0 H, Plt Count 260, MPV 9.3, Gran % 36.5 L, Lymph % (Auto) 38.3 H, [place] % (Auto) 19.8 H, Eos % (Auto) 4.9, Baso % (Auto) 0.5, Gran # 1.42, Lymph # (Auto) 1.5, [place] # (Auto) 0.8 H, Eos # (Auto) 0.2, Baso # (Auto ) 0.02 01/17/18 07:13: POC Glucose (mg/dL) 101 01/16/18 11:40: Valproic Acid 45 L 01/16/18 07:30: WBC 4.1 L, RBC 3.54, Hgb 7.6 L, Hct 26.4 L, MCV 74.6 L, MCH 21.5 L, MCHC 28.8 L, RDW 18.9 H, Plt Count 250, MPV 9.7, Gran % 43.3 L, Lymph % (Auto) 32.0, [place] % (Auto) 20.0 H, Eos % (Auto) 4.2, Baso % (Auto) 0.5, Gran # 1.76, Lymph # (Auto) 1.3, [place] # (Auto) 0.8 H, Eos # (Auto) 0.2, Baso # (Auto) 0.02 01/15/18 16:06: POC Glucose (mg/dL) 105 01/15/18 11:24: POC Glucose (mg/dL) 129 H 01/15/18 07:30: WBC 3.7 L, RBC 3.33 L, Hgb 7.2 L, Hct 24.8 L, MCV 74.5 L, MCH 21.6 L, MCHC 29.0 L, RDW 19.1 H, Plt Count 248, MPV 9.6, Gran % 36.5 L, Lymph % (Auto) 30.3, [place] % (Auto) 27.8 H, Eos % (Auto) 5.1 H, Baso % (Auto) 0.3, Gran # 1.35 L, Lymph # (Auto) 1.1 L, [place] # (Auto) 1.0 H, Eos # (Auto) 0.2, Baso # ( Auto) 0.01, Neutrophils % (Manual) 38 L, Lymphocytes % (Manual) 33, Monocytes % (Manual) 23 H, Eosinophils % (Manual) 4 H, Basophils % (Manual) 2 H, Platelet Evaluation Normal 01/15/18 07:30: RPR Nonreactive 01/15/18 07:30: TSH 3rd Generation 1.57 01/15/18 07:30: Sodium 142, Potassium 3.6, Chloride 105, Carbon Dioxide 29, Anion Gap 12, BUN 12, Creatinine 0.9, Est GFR ( Amer) > 60, Est GFR (Non- Af Amer) > 60, Random Glucose 74, Fasting Glucose 74, Calcium 9.6, Phosphorus 3.6, Magnesium 2.2, Total Bilirubin 0.2, AST 21, ALT 24, Alkaline Phosphatase 51 , Total Protein 6.0, Albumin 3.4, Globulin 2.6, Albumin/Globulin Ratio 1.3 01/15/18 07:23: POC Glucose (mg/dL) 75 01/15/18 00:33: Urine Opiates Screen Negative, Urine Methadone Screen Negative, Ur Barbiturates Screen Negative, Ur Phencyclidine Scrn Negative, Ur Amphetamines Screen Negative, U Benzodiazepines Scrn Negative, U Oth Cocaine Metabols Negative, U Cannabinoids Screen Negative 01/14/18 22:42: Triglycerides 88, Cholesterol 120 L, LDL Cholesterol Direct 54, HDL Cholesterol 44 01/14/18 22:42: Alcohol, Quantitative < 10 01/14/18 22:42: WBC 3.5 L D, RBC 3.39 L, Hgb 7.3 L, Hct 25.3 L, MCV 74.6 L, MCH 21.5 L, MCHC 28.9 L, RDW 19.0 H, Plt Count 245, MPV 9.4 01/14/18 22:42: Sodium 140, Potassium 3.5 L, Chloride 104, Carbon Dioxide 25, Anion Gap 15, BUN 12, Creatinine 0.9, Est GFR ( Amer) > 60, Est GFR (Non- Af Amer) > 60, Random Glucose 106, Calcium 9.8, Total Bilirubin 0.3, AST 21, ALT 23, Alkaline Phosphatase 54, Total Protein 6.5, Albumin 3.9, Globulin 2.7, Albumin/Globulin Ratio 1.4 Vital Signs Temp Pulse Resp BP Pulse Ox 01/21/18 08:25 70 106/70 01/21/18 07:25 98.1 F 81 20 106/70 01/20/18 16:30 93 H 125/68 01/20/18 08:25 83 117/72 01/20/18 07:39 98.0 F 83 20 117/72 01/19/18 16:30 96 H 127/82 01/19/18 09:13 88 153/92 H 01/19/18 07:01 97.6 F 88 20 153/92 H 01/18/18 16:00 87 123/66 01/18/18 09:22 80 119/80 01/18/18 07:43 98.0 F 80 20 119/80 01/17/18 16:37 99 H 130/83 01/17/18 08:44 100 H 133/77 01/17/18 07:00 97.3 F L 91 H 20 158/100 H 01/16/18 16:54 85 107/67 01/16/18 08:23 100 H 137/97 H 01/16/18 06:49 97.6 F 100 H 18 137/97 H 01/15/18 15:00 100 H 144/93 H 01/15/18 06:59 97.9 F 72 20 134/78 01/15/18 03:19 98.1 F 83 18 133/83 01/15/18 02:31 98.1 F 80 17 150/72 100 01/15/18 00:57 79 17 158/92 H 100 01/14/18 22:06 98.0 F 88 18 136/83 98 Laboratory Results - last 24 hr 01/22/18 01/22/18 01/22/18 07:00 07:24 11:18 WBC 4.3 L RBC 4.51 Hgb 9.6 L Hct 33.3 L MCV 73.8 L MCH 21.3 L MCHC 28.8 L RDW 19.4 H Plt Count 333 MPV 9.4 Gran % 45.3 L Lymph % (Auto) 37.4 H [place] % (Auto) 11.2 H Eos % (Auto) 5.6 H Baso % (Auto) 0.5 Gran # 1.95 Lymph # (Auto) 1.6 [place] # (Auto) 0.5 Eos # (Auto) 0.2 Baso # (Auto) 0.02 POC Glucose (mg/dL) 88 122 H DSM 5 Symptoms Update: Patient is a single 67 year old male with psychiatric history of Schizoaffective disorder, unclear current adherence with psychiatric medications (though with long history of noncompliance) who was BIB police due to loud and disorganzied behavior at his residence. Patient was psychiatrically admitted to our unit very early this morning and staff noted that he was disorganized, paranoid, loud and argumentative. Patient required po Haldol 5 mg , Ativan 1 mg, Benadryl 50 mg for agitation at the day of admission. Patient is difficult to interview because of disorganized thoughts and behavior , pt made statement "I should of been put in nursing home due to disturbing the peace." was talking about being "not good because of what [place] doing for [place]", pt is paranoid, pt said that he is not schizophrenic "all I need is to have a good night sleep", pt appeared to be annoyed and irritable, unhappy and dissatisfied. no option to discuss the d/c plan because he does not want to go to the Boarding home because "it is for schizos". as per staff pt compliant with meds, started to go to the groups. pt tolerates meds well, no side effects observed or reported, AIMS 0, no EPS. yesterday labs revealed low WBC and decreased Gran #, repeated Gran today is WNL. Diagnostic Results: Schizoaffective Disorder Medication Change: Yes (risperdal increased) Medical Record Reviewed: Yes Consults ordered or reviewed: medical consult appreciated Mental Status Examination - Cognitive Function Orientation: Person, Place Attention: Poor Concentration: Poor Association: Loose Fund of Knowledge: Poor - Mood Mood: Other ( "people from my past are causing me [mental] pain using their electronics") - Affect Affect: Broad, Other (irritable, resentful) - Speech Speech: Loud - Formal Thought Process Formal Thought Process: Hallucinations (Patient observed talking to himself however denies hallucinations), Paranoia (guarded), Loosening of associations, Circumstantial (and tangentia;l) - Suicidal Ideation Suicidal Ideation: No - Homicidal Ideation Homicidal Ideation: No Goal/Treatment Plan - Goal/Treatment Plan Need for Continued Stay: Remain at risks for inpatient hospitalization, Severe depression anxiety, Discharge may exacerbated symptoms, Severe functional impairment Progress Toward Problem(s) and Goals/Treatment Plan: Milieu/structure/supportive therapy Medical consult ill be considered SW consultation for discharge plan and social issues Med management medications were confirmed with the patient's pharmacy risperdal 2mg po tid for psychosis, mood stabilization depakote 500mg po bid for mood stabilization cogentin 1mg po bid for EPS ambien 5mg po hs for insomnia Family involvement Follow up on labs Will monitor closely Pt was educated about risk/benefits and alternatives of medications, coping strategies (safety plan, suicide prevention), relapse prevention, importance of follow up with psychiatrist and therapist, stay away from drugs/alcohol/smoking Estimated Date of D/C: 01/25/18
[2018-01-23 08:18] LABS: BASO # 0.01 K/mm3 (0.0-2.0); BASO % 0.2 % (0.0-3.0); EOS # 0.4 (0.0-0.7); EOS % 6.6 % (1.5-5.0); GRAN # 2.46 (1.4-6.5); GRAN % 43.8 % (50.0-68.0); HEMOGLOBIN 8.5 g/dL (14.0-18.0); LYMPH # 1.9 (1.2-3.4); LYMPH % 33.5 % (22.0-35.0); MEAN CELL VOLUME 74.1 fl (80.0-105.0); MEAN CORPUSCULAR HEMOGLOBIN 21.4 pg (25.0-35.0); MEAN CORPUSCULAR HGB CONC 28.8 g/dl (31.0-37.0); MEAN PLATELET VOLUME 9.9 fl (7.0-11.0); MONO # 0.9 (0.1-0.6); MONO % 15.9 % (1.0-6.0); RBC 3.98 10^6/uL (3.5-6.1); RED CELL DISTRIBUTION WIDTH 19.4 % (11.5-14.5); WHITE BLOOD COUNT 5.6 10^3/ul (4.5-11.0)
[2018-01-23] MEDS: Divalproex 500 mg DR(BID formulation) PO SCH ×2 (09:31→17:46)
--- NOTE | 2018-01-23 11:06 | PCM.PYCHPN ---
Psychiatric Progress Note - Psychiatric Progress Note Patient seen today, length of contact: 25 min Patient Chief Complaint: "people from my past are causing me [mental] pain using their electronics" Problems Identified/Issues Discussed: History of Present Illness and Precipitating Events: Patient is a single 67 year old male with psychiatric history of Schizoaffective disorder, unclear current adherence with psychiatric medications (though with long history of noncompliance) who was BIB police due to loud and disorganzied behavior at his residence. Patient was psychiatrically admitted to our unit very early this morning and staff noted that he was disorganized, paranoid, loud and argumentative. Patient required po Haldol 5 mg , Ativan 1 mg, Benadryl 50 mg for agitation at 2:52 AM. Patient is difficult to interview at bedside this morning. I agree with nursing , his thought process is disorganized, paranoid and tangential. Patient cannot describe his current circumstances, month or year. He mumbles repeatedly and demonstrates poor eye contact. Patient is ordinarily oddly related and easily chats about his various prejudices, past persecutors and unfortunate life incidents. Of note: patient was recently discharged from the medical floor 3 weeks ago (11/17-11/23/17). He was treated for severe anemia with positive FOBT. EGD and colonoscopy did not reveal a source of GI bleeding. Patient received 2 units PRBC, and IV iron, and his H/H stabilized and was improving on the iron supplementation. Patient was discharged to his apartment after he refused placement into [facility]. He was seen by psychiatry on the medical floor and treated with Ativan 0.5 mg po TID, Ambien 10 mg po HS prn, Cogentin 0.5 mg po AMHS, Depakote 500 mg AMHS and Risperdal 2 mg AMHS. Patient has a history of completely denying that he has any psychiatric diagnosis. PROGRESS NOTE I reviewed recent notes. He continues to be paranoid, irritable and argumentative. Similar to prior admissions he denies having a psychiatric illness. He denies paranoia and denies having a diagnosis of schizophrenia. Generally appears unhappy and resentful. Feels he should be in group home and not a psychiatric unit. Feels it all began with his first admission in 2011 "It all went wrong then, I should never be here, it's become a bad habit coming here". It is still difficult to maintain a productive interview with him due to his unhappiness. He is adamant about his current and past persecution. Patient rambles and ruminates about his "terrible history" and is positive that he has been monitored electronically "the technology is there". Patient denies any new physical discomfort or pain. Doesn't appear to be in physical distress. Regarding his behavior on the unit, patient is visible on the unit however he is not very friendly or engaged. Did attend group. He was paranoid and hostile during treatment team meeting yesterday. He had many complaints however did not put in a 48 hour letter. Patient's insight remains poor. Diagnostic Results: Schizoaffective Disorder Medication Change: Yes (risperdal increased) Medical Record Reviewed: Yes Mental Status Examination - Cognitive Function Orientation: Person, Place Attention: Poor Concentration: Poor Association: Loose Fund of Knowledge: Poor - Mood Mood: Other ( "people from my past are causing me [mental] pain using their electronics") - Affect Affect: Broad, Other (irritable, resentful) - Speech Speech: Loud - Formal Thought Process Formal Thought Process: Hallucinations (Patient observed talking to himself however denies hallucinations), Paranoia (guarded), Loosening of associations, Circumstantial (and tangentia;l) - Suicidal Ideation Suicidal Ideation: No - Homicidal Ideation Homicidal Ideation: No Goal/Treatment Plan - Goal/Treatment Plan Need for Continued Stay: Remain at risks for inpatient hospitalization, Severe depression anxiety, Discharge may exacerbated symptoms, Severe functional impairment Progress Toward Problem(s) and Goals/Treatment Plan: * group, milieu and supportive tx as tolerated * Risperdal 2 mg po TID for paranoia, mood control and disorganization * Cogentin 1 mg po AMHS for EPS prophylaxis * Depakote 500 mg po bid for mood stabilization, VPA on 01/16/18 =45 L. Check another level in the AM. * Ambien 5 mg HS for insomnia (restoril is nonformulary) * Ativan 0.5 mg po TID for anxiety and to help with mood stabilization * Vitals reviewed and noted below: Selected Entries 01/23/18 07:25 Temperature 98.6 F Pulse Rate 77 Respiratory 20 Rate Blood Pressure 111/70 Weekend Labs Summarized Estimated Date of D/C: 01/25/18
--- NOTE | 2018-01-23 18:54 | PCM.BM ---
<Kalyn Devine - Last Filed: 01/23/18 18:51> Treatment Plan Problems - Problems identified on initial assessmt medication nonadherence Date Initiated: 01/15/18 Time Initiated: 02:15 Assessment reference: NA Status: Active delusions Date Initiated: 01/15/18 Time Initiated: 02:15 Assessment reference: NA Status: Active Priority: 2 altered thought process Date Initiated: 01/15/18 Time Initiated: 02:15 Assessment reference: NA Status: Active Priority: 3 Treatment assets and liabiliti Patient Assests: cooperative, ADL independent, negotiates basic needs Patient Liabilities: live alone, medical problems - Milieu Protocol Maintain good personal hygiene: daily Encourage regular showers, daily Remind patient to perform daily oral care, daily Assist patient to perform ADL's Conduct patient checks and document Observation sheet: Q15 minutes Maintain personal safety: every shift Educate patient to report safety concerns to staff, every shift Monitor environment for contraband/sharps Medication safety: Monitor for expected outcome, potential side effects: every shift, Assess barriers to learning: every shift, Assess readiness for medication education: every shift Milieu Narrative: * group, milieu and supportive tx as tolerated * Risperdal 2 mg po TID for paranoia, mood control and disorganization * Cogentin 1 mg po AMHS for EPS prophylaxis * Depakote 500 mg po bid for mood stabilization, VPA on 01/16/18 =45 L. Check another level in the AM. * Ambien 5 mg HS for insomnia (restoril is nonformulary) * Ativan 0.5 mg po TID for anxiety and to help with mood stabilization * Vitals reviewed and noted below: Selected Entries 01/23/18 07:25 Temperature 98.6 F Pulse Rate 77 Respiratory 20 Rate Blood Pressure 111/70 Weekend Labs Summarized Family Contact Family involvement: Family/SO is involved - Outside Agency Ahmet Fischer Esq. Care involvment: Following patient during stay, Information-sharing Agency contact name: Ahmet Fischer Esq.(Financial POA) Agency contact number: [phone] Discharge/Continuing Care - Education Needs Education Needs: Patient Medication, Patient Diagnosis/Disease Process, Patient Coping Skills, Patient Placement options, Patient Community resources, Patient Health Practices/Safety - Discharge Discharge Criteria: Tolerates medication w/o severe side effects, Free of paranoid thoughts, Normal sleep pattern - Treatment Team Participation Patient/Family/SO Statement: * group, milieu and supportive tx as tolerated * Risperdal 2 mg po TID for paranoia, mood control and disorganization * Cogentin 1 mg po AMHS for EPS prophylaxis * Depakote 500 mg po bid for mood stabilization, VPA on 01/16/18 =45 L. Check another level in the AM. * Ambien 5 mg HS for insomnia (restoril is nonformulary) * Ativan 0.5 mg po TID for anxiety and to help with mood stabilization * Vitals reviewed and noted below: Selected Entries 01/23/18 07:25 Temperature 98.6 F Pulse Rate 77 Respiratory 20 Rate Blood Pressure 111/70 Weekend Labs Summarized Treatment Plan Review - Problem medication nonadherence Time Initiated: 02:15 (taking his medication with encouragemnent) Progress toward outcomes: improved delusions Time Initiated: 02:15 Progress toward outcomes: unchanged altered thought process Time Initiated: 02:15 Progress toward outcomes: unchanged <Taisha Saleh - Last Filed: 01/29/18 09:14> - Diagnosis (1) Schizoaffective disorder Status: Chronic Interventions: 01/29/18 09:13 pt is slowly improving compliant with meds much calmer, more rationale
[2018-01-24] MEDS: Divalproex 500 mg DR(BID formulation) PO SCH ×2 (09:08→16:01)
[2018-01-24] MEDS: Pantoprazole 40 mg EC Tab PO SCH (09:09)
[2018-01-25] MEDS: Pantoprazole 40 mg EC Tab PO SCH (06:48)
[2018-01-25] MEDS: Divalproex 500 mg DR(BID formulation) PO SCH ×2 (09:27→17:56)
[2018-01-26] MEDS: Divalproex 500 mg DR(BID formulation) PO SCH ×2 (09:07→17:03)
--- NOTE | 2018-01-26 16:33 | PCM.PYCHPN ---
Psychiatric Progress Note - Psychiatric Progress Note Patient seen today, length of contact: 25min Patient Chief Complaint: "If I hear electronic voices it does not mean I have schizophrenia" Problems Identified/Issues Discussed: Suicide/ homicide prevention, past psychiatric h/o, current psychiatric symptoms , medical problems, risk/benefits and alternatives of medications, medications compliance, coping strategies, substance abuse h/o, relapse prevention, importance of follow up with psychiatrist and therapist, discharge plan. Medical Problems: Iron deficiency anemia HTN HLD labs better Diagnostic Results: 01/21/18 06:30 01/15/18 07:30 Lab Results 01/21/18 07:29: POC Glucose (mg/dL) 108 01/21/18 06:30: WBC 4.0 L, RBC 4.11, Hgb 8.7 L, Hct 30.5 L, MCV 74.2 L, MCH 21.2 L, MCHC 28.5 L, RDW 19.3 H, Plt Count 284, MPV 9.6, Gran % 37.4 L, Lymph % (Auto) 39.9 H, Loving % (Auto) 16.1 H, Eos % (Auto) 6.4 H, Baso % (Auto) 0.2, Gran # 1.51, Lymph # (Auto) 1.6, Loving # (Auto) 0.7 H, Eos # (Auto) 0.3, Baso # ( Auto) 0.01 01/20/18 11:04: POC Glucose (mg/dL) 117 H 01/20/18 07:20: WBC 3.7 L, RBC 3.98, Hgb 8.4 L, Hct 29.8 L, MCV 74.9 L, MCH 21.1 L, MCHC 28.2 L, RDW 19.1 H, Plt Count 289, MPV 9.5, Gran % 35.0 L, Lymph % (Auto) 38.5 H, Loving % (Auto) 18.4 H, Eos % (Auto) 7.3 H, Baso % (Auto) 0.8, Gran # 1.29 L, Lymph # (Auto) 1.4, Loving # (Auto) 0.7 H, Eos # (Auto) 0.3, Baso # (Auto) 0.03 01/20/18 07:16: POC Glucose (mg/dL) 90 01/19/18 11:12: POC Glucose (mg/dL) 115 H 01/19/18 07:32: POC Glucose (mg/dL) 89 01/19/18 07:30: WBC 4.5, RBC 4.07, Hgb 8.6 L, Hct 30.4 L, MCV 74.7 L, MCH 21.1 L , MCHC 28.3 L, RDW 18.9 H, Plt Count 287, MPV 10.0, Gran % 36.8 L, Lymph % (Auto ) 39.6 H, Loving % (Auto) 15.9 H, Eos % (Auto) 7.3 H, Baso % (Auto) 0.4, Gran # 1.67, Lymph # (Auto) 1.8, Loving # (Auto) 0.7 H, Eos # (Auto) 0.3, Baso # (Auto) 0.02 01/18/18 11:13: POC Glucose (mg/dL) 112 H 01/18/18 07:45: WBC 4.5, RBC 3.85, Hgb 8.1 L, Hct 28.8 L, MCV 74.8 L, MCH 21.0 L , MCHC 28.1 L, RDW 19.2 H, Plt Count 280, MPV 9.5, Gran % 41.0 L, Lymph % (Auto ) 35.8 H, Loving % (Auto) 17.5 H, Eos % (Auto) 5.5 H, Baso % (Auto) 0.2, Gran # 1.85, Lymph # (Auto) 1.6, Loving # (Auto) 0.8 H, Eos # (Auto) 0.3, Baso # (Auto) 0.01 01/18/18 07:18: POC Glucose (mg/dL) 91 01/17/18 21:47: POC Glucose (mg/dL) 138 H 01/17/18 16:11: POC Glucose (mg/dL) 97 01/17/18 12:35: POC Glucose (mg/dL) 91 01/17/18 11:41: POC Glucose (mg/dL) 56 L 01/17/18 07:30: WBC 3.9 L, RBC 3.76, Hgb 8.0 L, Hct 28.1 L, MCV 74.7 L, MCH 21.3 L, MCHC 28.5 L, RDW 19.0 H, Plt Count 260, MPV 9.3, Gran % 36.5 L, Lymph % (Auto) 38.3 H, Loving % (Auto) 19.8 H, Eos % (Auto) 4.9, Baso % (Auto) 0.5, Gran # 1.42, Lymph # (Auto) 1.5, Loving # (Auto) 0.8 H, Eos # (Auto) 0.2, Baso # (Auto ) 0.02 01/17/18 07:13: POC Glucose (mg/dL) 101 01/16/18 11:40: Valproic Acid 45 L 01/16/18 07:30: WBC 4.1 L, RBC 3.54, Hgb 7.6 L, Hct 26.4 L, MCV 74.6 L, MCH 21.5 L, MCHC 28.8 L, RDW 18.9 H, Plt Count 250, MPV 9.7, Gran % 43.3 L, Lymph % (Auto) 32.0, Loving % (Auto) 20.0 H, Eos % (Auto) 4.2, Baso % (Auto) 0.5, Gran # 1.76, Lymph # (Auto) 1.3, Loving # (Auto) 0.8 H, Eos # (Auto) 0.2, Baso # (Auto) 0.02 01/15/18 16:06: POC Glucose (mg/dL) 105 01/15/18 11:24: POC Glucose (mg/dL) 129 H 01/15/18 07:30: WBC 3.7 L, RBC 3.33 L, Hgb 7.2 L, Hct 24.8 L, MCV 74.5 L, MCH 21.6 L, MCHC 29.0 L, RDW 19.1 H, Plt Count 248, MPV 9.6, Gran % 36.5 L, Lymph % (Auto) 30.3, Loving % (Auto) 27.8 H, Eos % (Auto) 5.1 H, Baso % (Auto) 0.3, Gran # 1.35 L, Lymph # (Auto) 1.1 L, Loving # (Auto) 1.0 H, Eos # (Auto) 0.2, Baso # ( Auto) 0.01, Neutrophils % (Manual) 38 L, Lymphocytes % (Manual) 33, Monocytes % (Manual) 23 H, Eosinophils % (Manual) 4 H, Basophils % (Manual) 2 H, Platelet Evaluation Normal 01/15/18 07:30: RPR Nonreactive 01/15/18 07:30: TSH 3rd Generation 1.57 01/15/18 07:30: Sodium 142, Potassium 3.6, Chloride 105, Carbon Dioxide 29, Anion Gap 12, BUN 12, Creatinine 0.9, Est GFR ( Amer) > 60, Est GFR (Non- Af Amer) > 60, Random Glucose 74, Fasting Glucose 74, Calcium 9.6, Phosphorus 3.6, Magnesium 2.2, Total Bilirubin 0.2, AST 21, ALT 24, Alkaline Phosphatase 51 , Total Protein 6.0, Albumin 3.4, Globulin 2.6, Albumin/Globulin Ratio 1.3 01/15/18 07:23: POC Glucose (mg/dL) 75 01/15/18 00:33: Urine Opiates Screen Negative, Urine Methadone Screen Negative, Ur Barbiturates Screen Negative, Ur Phencyclidine Scrn Negative, Ur Amphetamines Screen Negative, U Benzodiazepines Scrn Negative, U Oth Cocaine Metabols Negative, U Cannabinoids Screen Negative 01/14/18 22:42: Triglycerides 88, Cholesterol 120 L, LDL Cholesterol Direct 54, HDL Cholesterol 44 01/14/18 22:42: Alcohol, Quantitative < 10 01/14/18 22:42: WBC 3.5 L D, RBC 3.39 L, Hgb 7.3 L, Hct 25.3 L, MCV 74.6 L, MCH 21.5 L, MCHC 28.9 L, RDW 19.0 H, Plt Count 245, MPV 9.4 01/14/18 22:42: Sodium 140, Potassium 3.5 L, Chloride 104, Carbon Dioxide 25, Anion Gap 15, BUN 12, Creatinine 0.9, Est GFR ( Amer) > 60, Est GFR (Non- Af Amer) > 60, Random Glucose 106, Calcium 9.8, Total Bilirubin 0.3, AST 21, ALT 23, Alkaline Phosphatase 54, Total Protein 6.5, Albumin 3.9, Globulin 2.7, Albumin/Globulin Ratio 1.4 Vital Signs Temp Pulse Resp BP Pulse Ox 01/21/18 08:25 70 106/70 01/21/18 07:25 98.1 F 81 20 106/70 01/20/18 16:30 93 H 125/68 01/20/18 08:25 83 117/72 01/20/18 07:39 98.0 F 83 20 117/72 01/19/18 16:30 96 H 127/82 01/19/18 09:13 88 153/92 H 01/19/18 07:01 97.6 F 88 20 153/92 H 01/18/18 16:00 87 123/66 01/18/18 09:22 80 119/80 01/18/18 07:43 98.0 F 80 20 119/80 01/17/18 16:37 99 H 130/83 01/17/18 08:44 100 H 133/77 01/17/18 07:00 97.3 F L 91 H 20 158/100 H 01/16/18 16:54 85 107/67 01/16/18 08:23 100 H 137/97 H 01/16/18 06:49 97.6 F 100 H 18 137/97 H 01/15/18 15:00 100 H 144/93 H 01/15/18 06:59 97.9 F 72 20 134/78 01/15/18 03:19 98.1 F 83 18 133/83 01/15/18 02:31 98.1 F 80 17 150/72 100 01/15/18 00:57 79 17 158/92 H 100 01/14/18 22:06 98.0 F 88 18 136/83 98 Laboratory Results - last 24 hr 01/22/18 01/22/18 01/22/18 07:00 07:24 11:18 WBC 4.3 L RBC 4.51 Hgb 9.6 L Hct 33.3 L MCV 73.8 L MCH 21.3 L MCHC 28.8 L RDW 19.4 H Plt Count 333 MPV 9.4 Gran % 45.3 L Lymph % (Auto) 37.4 H Loving % (Auto) 11.2 H Eos % (Auto) 5.6 H Baso % (Auto) 0.5 Gran # 1.95 Lymph # (Auto) 1.6 Loving # (Auto) 0.5 Eos # (Auto) 0.2 Baso # (Auto) 0.02 POC Glucose (mg/dL) 88 122 H Laboratory Results - last 24 hr 01/25/18 07:41 POC Glucose (mg/dL) 73 DSM 5 Symptoms Update: Patient is a single 67 year old male with psychiatric history of Schizoaffective disorder, unclear current adherence with psychiatric medications (though with long history of noncompliance) who was BIB police due to loud and disorganzied behavior at his residence. Patient was psychiatrically admitted to our unit very early this morning and staff noted that he was disorganized, paranoid, loud and argumentative. Patient required po Haldol 5 mg , Ativan 1 mg, Benadryl 50 mg for agitation at 2:52 AM. Patient is difficult to interview his thought process is disorganized, paranoid and tangential. pt convinced that he does not have schizophrenia, "If I hear electronic voices it does not mean I have schizophrenia", He mumbles repeatedly and demonstrates poor eye contact, irritability and sarcasm. Patient denies any new physical discomfort or pain. Doesn't appear to be in physical distress. Regarding his behavior on the unit, patient is visible on the unit however he is not very friendly or engaged. pt tolerates meds well, no side effects observed or reported. AIMS 0, no EPS. Diagnostic Results: Schizoaffective Disorder Medication Change: Yes (ambien increased) Medical Record Reviewed: Yes Consults ordered or reviewed: medical consult appreciated Mental Status Examination - Cognitive Function Orientation: Person, Place Attention: Poor Concentration: Poor Association: Loose Fund of Knowledge: Poor - Mood Mood: Other ( "people from my past are causing me [mental] pain using their electronics") - Affect Affect: Broad, Other (irritable, resentful) - Speech Speech: Loud - Formal Thought Process Formal Thought Process: Hallucinations ( Denies hallucinations), Paranoia ( guarded), Loosening of associations, Circumstantial (and tangential) - Suicidal Ideation Suicidal Ideation: No - Homicidal Ideation Homicidal Ideation: No Goal/Treatment Plan - Goal/Treatment Plan Need for Continued Stay: Remain at risks for inpatient hospitalization, Severe depression anxiety, Discharge may exacerbated symptoms, Severe functional impairment Progress Toward Problem(s) and Goals/Treatment Plan: Milieu/structure/supportive therapy Medical consult ill be considered SW consultation for discharge plan and social issues Med management medications were confirmed with the patient's pharmacy risperdal 2mg po tid for psychosis, mood stabilization depakote 500mg po bid for mood stabilization cogentin 1mg po bid for EPS ambien 10mg po hs for insomnia Family involvement Follow up on labs Will monitor closely Pt was educated about risk/benefits and alternatives of medications, coping strategies (safety plan, suicide prevention), relapse prevention, importance of follow up with psychiatrist and therapist, stay away from drugs/alcohol/smoking Estimated Date of D/C: 01/27/18
[2018-01-27] MEDS: Divalproex 500 mg DR(BID formulation) PO SCH ×2 (08:46→16:56)
[2018-01-27] MEDS: Pantoprazole 40 mg EC Tab PO SCH (08:47)
[2018-01-28] MEDS: Divalproex 500 mg DR(BID formulation) PO SCH ×2 (09:19→17:54)
[2018-01-28] MEDS: Pantoprazole 40 mg EC Tab PO SCH (09:21)
[2018-01-29] MEDS: Pantoprazole 40 mg EC Tab PO SCH (06:42)
[2018-01-29] MEDS: Divalproex 500 mg DR(BID formulation) PO SCH ×2 (09:58→18:30)
--- NOTE | 2018-01-29 13:37 | PCM.PYCHPN ---
Psychiatric Progress Note - Psychiatric Progress Note Patient seen today, length of contact: 25min Patient Chief Complaint: "I told you that I am not schizophrenic, I don't like you schizo medications" Problems Identified/Issues Discussed: Suicide/ homicide prevention, past psychiatric h/o, current psychiatric symptoms , medical problems, risk/benefits and alternatives of medications, medications compliance, coping strategies, substance abuse h/o, relapse prevention, importance of follow up with psychiatrist and therapist, discharge plan. Medical Problems: Iron deficiency anemia HTN HLD labs better Diagnostic Results: 01/21/18 06:30 01/15/18 07:30 Lab Results 01/21/18 07:29: POC Glucose (mg/dL) 108 01/21/18 06:30: WBC 4.0 L, RBC 4.11, Hgb 8.7 L, Hct 30.5 L, MCV 74.2 L, MCH 21.2 L, MCHC 28.5 L, RDW 19.3 H, Plt Count 284, MPV 9.6, Gran % 37.4 L, Lymph % (Auto) 39.9 H, Brule % (Auto) 16.1 H, Eos % (Auto) 6.4 H, Baso % (Auto) 0.2, Gran # 1.51, Lymph # (Auto) 1.6, Brule # (Auto) 0.7 H, Eos # (Auto) 0.3, Baso # ( Auto) 0.01 01/20/18 11:04: POC Glucose (mg/dL) 117 H 01/20/18 07:20: WBC 3.7 L, RBC 3.98, Hgb 8.4 L, Hct 29.8 L, MCV 74.9 L, MCH 21.1 L, MCHC 28.2 L, RDW 19.1 H, Plt Count 289, MPV 9.5, Gran % 35.0 L, Lymph % (Auto) 38.5 H, Brule % (Auto) 18.4 H, Eos % (Auto) 7.3 H, Baso % (Auto) 0.8, Gran # 1.29 L, Lymph # (Auto) 1.4, Brule # (Auto) 0.7 H, Eos # (Auto) 0.3, Baso # (Auto) 0.03 01/20/18 07:16: POC Glucose (mg/dL) 90 01/19/18 11:12: POC Glucose (mg/dL) 115 H 01/19/18 07:32: POC Glucose (mg/dL) 89 01/19/18 07:30: WBC 4.5, RBC 4.07, Hgb 8.6 L, Hct 30.4 L, MCV 74.7 L, MCH 21.1 L , MCHC 28.3 L, RDW 18.9 H, Plt Count 287, MPV 10.0, Gran % 36.8 L, Lymph % (Auto ) 39.6 H, Brule % (Auto) 15.9 H, Eos % (Auto) 7.3 H, Baso % (Auto) 0.4, Gran # 1.67, Lymph # (Auto) 1.8, Brule # (Auto) 0.7 H, Eos # (Auto) 0.3, Baso # (Auto) 0.02 01/18/18 11:13: POC Glucose (mg/dL) 112 H 01/18/18 07:45: WBC 4.5, RBC 3.85, Hgb 8.1 L, Hct 28.8 L, MCV 74.8 L, MCH 21.0 L , MCHC 28.1 L, RDW 19.2 H, Plt Count 280, MPV 9.5, Gran % 41.0 L, Lymph % (Auto ) 35.8 H, Brule % (Auto) 17.5 H, Eos % (Auto) 5.5 H, Baso % (Auto) 0.2, Gran # 1.85, Lymph # (Auto) 1.6, Brule # (Auto) 0.8 H, Eos # (Auto) 0.3, Baso # (Auto) 0.01 01/18/18 07:18: POC Glucose (mg/dL) 91 01/17/18 21:47: POC Glucose (mg/dL) 138 H 01/17/18 16:11: POC Glucose (mg/dL) 97 01/17/18 12:35: POC Glucose (mg/dL) 91 01/17/18 11:41: POC Glucose (mg/dL) 56 L 01/17/18 07:30: WBC 3.9 L, RBC 3.76, Hgb 8.0 L, Hct 28.1 L, MCV 74.7 L, MCH 21.3 L, MCHC 28.5 L, RDW 19.0 H, Plt Count 260, MPV 9.3, Gran % 36.5 L, Lymph % (Auto) 38.3 H, Brule % (Auto) 19.8 H, Eos % (Auto) 4.9, Baso % (Auto) 0.5, Gran # 1.42, Lymph # (Auto) 1.5, Brule # (Auto) 0.8 H, Eos # (Auto) 0.2, Baso # (Auto ) 0.02 01/17/18 07:13: POC Glucose (mg/dL) 101 01/16/18 11:40: Valproic Acid 45 L 01/16/18 07:30: WBC 4.1 L, RBC 3.54, Hgb 7.6 L, Hct 26.4 L, MCV 74.6 L, MCH 21.5 L, MCHC 28.8 L, RDW 18.9 H, Plt Count 250, MPV 9.7, Gran % 43.3 L, Lymph % (Auto) 32.0, Brule % (Auto) 20.0 H, Eos % (Auto) 4.2, Baso % (Auto) 0.5, Gran # 1.76, Lymph # (Auto) 1.3, Brule # (Auto) 0.8 H, Eos # (Auto) 0.2, Baso # (Auto) 0.02 01/15/18 16:06: POC Glucose (mg/dL) 105 01/15/18 11:24: POC Glucose (mg/dL) 129 H 01/15/18 07:30: WBC 3.7 L, RBC 3.33 L, Hgb 7.2 L, Hct 24.8 L, MCV 74.5 L, MCH 21.6 L, MCHC 29.0 L, RDW 19.1 H, Plt Count 248, MPV 9.6, Gran % 36.5 L, Lymph % (Auto) 30.3, Brule % (Auto) 27.8 H, Eos % (Auto) 5.1 H, Baso % (Auto) 0.3, Gran # 1.35 L, Lymph # (Auto) 1.1 L, Brule # (Auto) 1.0 H, Eos # (Auto) 0.2, Baso # ( Auto) 0.01, Neutrophils % (Manual) 38 L, Lymphocytes % (Manual) 33, Monocytes % (Manual) 23 H, Eosinophils % (Manual) 4 H, Basophils % (Manual) 2 H, Platelet Evaluation Normal 01/15/18 07:30: RPR Nonreactive 01/15/18 07:30: TSH 3rd Generation 1.57 01/15/18 07:30: Sodium 142, Potassium 3.6, Chloride 105, Carbon Dioxide 29, Anion Gap 12, BUN 12, Creatinine 0.9, Est GFR ( Amer) > 60, Est GFR (Non- Af Amer) > 60, Random Glucose 74, Fasting Glucose 74, Calcium 9.6, Phosphorus 3.6, Magnesium 2.2, Total Bilirubin 0.2, AST 21, ALT 24, Alkaline Phosphatase 51 , Total Protein 6.0, Albumin 3.4, Globulin 2.6, Albumin/Globulin Ratio 1.3 01/15/18 07:23: POC Glucose (mg/dL) 75 01/15/18 00:33: Urine Opiates Screen Negative, Urine Methadone Screen Negative, Ur Barbiturates Screen Negative, Ur Phencyclidine Scrn Negative, Ur Amphetamines Screen Negative, U Benzodiazepines Scrn Negative, U Oth Cocaine Metabols Negative, U Cannabinoids Screen Negative 01/14/18 22:42: Triglycerides 88, Cholesterol 120 L, LDL Cholesterol Direct 54, HDL Cholesterol 44 01/14/18 22:42: Alcohol, Quantitative < 10 01/14/18 22:42: WBC 3.5 L D, RBC 3.39 L, Hgb 7.3 L, Hct 25.3 L, MCV 74.6 L, MCH 21.5 L, MCHC 28.9 L, RDW 19.0 H, Plt Count 245, MPV 9.4 01/14/18 22:42: Sodium 140, Potassium 3.5 L, Chloride 104, Carbon Dioxide 25, Anion Gap 15, BUN 12, Creatinine 0.9, Est GFR ( Amer) > 60, Est GFR (Non- Af Amer) > 60, Random Glucose 106, Calcium 9.8, Total Bilirubin 0.3, AST 21, ALT 23, Alkaline Phosphatase 54, Total Protein 6.5, Albumin 3.9, Globulin 2.7, Albumin/Globulin Ratio 1.4 Vital Signs Temp Pulse Resp BP Pulse Ox 01/21/18 08:25 70 106/70 03/15/18 07:25 98.1 F 81 20 106/70 01/20/18 16:30 93 H 125/68 01/20/18 08:25 83 117/72 01/20/18 07:39 98.0 F 83 20 117/72 01/19/18 16:30 96 H 127/82 01/19/18 09:13 88 153/92 H 01/19/18 07:01 97.6 F 88 20 153/92 H 01/18/18 16:00 87 123/66 01/18/18 09:22 80 119/80 01/18/18 07:43 98.0 F 80 20 119/80 01/17/18 16:37 99 H 130/83 01/17/18 08:44 100 H 133/77 01/17/18 07:00 97.3 F L 91 H 20 158/100 H 01/16/18 16:54 85 107/67 01/16/18 08:23 100 H 137/97 H 01/16/18 06:49 97.6 F 100 H 18 137/97 H 01/15/18 15:00 100 H 144/93 H 01/15/18 06:59 97.9 F 72 20 134/78 01/15/18 03:19 98.1 F 83 18 133/83 01/15/18 02:31 98.1 F 80 17 150/72 100 01/15/18 00:57 79 17 158/92 H 100 01/14/18 22:06 98.0 F 88 18 136/83 98 Laboratory Results - last 24 hr 01/22/18 01/22/18 01/22/18 07:00 07:24 11:18 WBC 4.3 L RBC 4.51 Hgb 9.6 L Hct 33.3 L MCV 73.8 L MCH 21.3 L MCHC 28.8 L RDW 19.4 H Plt Count 333 MPV 9.4 Gran % 45.3 L Lymph % (Auto) 37.4 H Brule % (Auto) 11.2 H Eos % (Auto) 5.6 H Baso % (Auto) 0.5 Gran # 1.95 Lymph # (Auto) 1.6 Brule # (Auto) 0.5 Eos # (Auto) 0.2 Baso # (Auto) 0.02 POC Glucose (mg/dL) 88 122 H Laboratory Results - last 24 hr 01/25/18 07:41 POC Glucose (mg/dL) 73 DSM 5 Symptoms Update: Patient is a single 67 year old male with psychiatric history of Schizoaffective disorder, unclear current adherence with psychiatric medications (though with long history of noncompliance) who was BIB police due to loud and disorganzied behavior at his residence. Patient was psychiatrically admitted to our unit very early this morning and staff noted that he was disorganized, paranoid, loud and argumentative. Patient required po Haldol 5 mg , Ativan 1 mg, Benadryl 50 mg for agitation at 2:52 AM. Patient is difficult to interview his thought process is disorganized, paranoid and tangential, but more pleasant, was willing to be referred to the boarding home, was seen by SW, pt was insisting that he is not schizophrenic and "I don' t like your schizo medications" Patient denies any new physical discomfort or pain. Doesn't appear to be in physical distress. Regarding his behavior on the unit, patient is visible on the unit however he is not very friendly or engaged. pt tolerates meds well, no side effects observed or reported. AIMS 0, no EPS. Diagnostic Results: Schizoaffective Disorder Medication Change: No Medical Record Reviewed: Yes Mental Status Examination - Cognitive Function Orientation: Person, Place Attention: Poor Concentration: Poor Association: Loose Fund of Knowledge: Poor - Mood Mood: Other ( "people from my past are causing me [mental] pain using their electronics") - Affect Affect: Broad, Other (irritable, resentful) - Speech Speech: Loud - Formal Thought Process Formal Thought Process: Hallucinations ( Denies hallucinations), Paranoia ( guarded), Loosening of associations, Circumstantial (and tangential) - Suicidal Ideation Suicidal Ideation: No - Homicidal Ideation Homicidal Ideation: No Goal/Treatment Plan - Goal/Treatment Plan Need for Continued Stay: Remain at risks for inpatient hospitalization, Severe depression anxiety, Discharge may exacerbated symptoms, Severe functional impairment Progress Toward Problem(s) and Goals/Treatment Plan: Milieu/structure/supportive therapy Medical consult ill be considered SW consultation for discharge plan and social issues Med management medications were confirmed with the patient's pharmacy risperdal 2mg po tid for psychosis, mood stabilization depakote 500mg po bid for mood stabilization cogentin 1mg po bid for EPS ambien 10mg po hs for insomnia Family involvement Follow up on labs Will monitor closely Pt was educated about risk/benefits and alternatives of medications, coping strategies (safety plan, suicide prevention), relapse prevention, importance of follow up with psychiatrist and therapist, stay away from drugs/alcohol/smoking boarding home interview Estimated Date of D/C: 02/03/18
--- NOTE | 2018-01-29 16:55 | PCM.BM ---
Treatment Plan Problems - Problems identified on initial assessmt medication nonadherence Date Initiated: 01/15/18 Time Initiated: 02:15 (taking his medication with encouragemnent) Assessment reference: NA Status: Active delusions Date Initiated: 01/15/18 Time Initiated: 02:15 Assessment reference: NA Status: Active Priority: 2 altered thought process Date Initiated: 01/15/18 Time Initiated: 02:15 Assessment reference: NA Status: Active Priority: 3 Treatment assets and liabiliti Patient Assests: cooperative, ADL independent, negotiates basic needs Patient Liabilities: live alone, medical problems - Milieu Protocol Maintain good personal hygiene: daily Encourage regular showers, daily Remind patient to perform daily oral care, daily Assist patient to perform ADL's Conduct patient checks and document Observation sheet: Q15 minutes Maintain personal safety: every shift Educate patient to report safety concerns to staff, every shift Monitor environment for contraband/sharps Medication safety: Monitor for expected outcome, potential side effects: every shift, Assess barriers to learning: every shift, Assess readiness for medication education: every shift Milieu Narrative: Milieu/structure/supportive therapy Medical consult ill be considered consultation for discharge plan and social issues Med management medications were confirmed with the patient's pharmacy risperdal 2mg po tid for psychosis, mood stabilization depakote 500mg po bid for mood stabilization cogentin 1mg po bid for EPS ambien 10mg po hs for insomnia Family involvement Follow up on labs Will monitor closely Pt was educated about risk/benefits and alternatives of medications, coping strategies (safety plan, suicide prevention), relapse prevention, importance of follow up with psychiatrist and therapist, stay away from drugs/alcohol/smoking boarding home interview Family Contact Family involvement: Family/SO is involved - Outside Agency Ahmet Fischer Esq. Care involvment: Following patient during stay, Information-sharing Agency contact name: Ahmet Fischer Esq.(Financial POA) Agency contact number: [phone] Discharge/Continuing Care - Education Needs Education Needs: Patient Medication, Patient Diagnosis/Disease Process, Patient Coping Skills, Patient Placement options, Patient Community resources, Patient Health Practices/Safety - Discharge Discharge Criteria: Tolerates medication w/o severe side effects, Free of paranoid thoughts, Normal sleep pattern - Treatment Team Participation Patient/Family/SO Statement: Milieu/structure/supportive therapy Medical consult ill be considered SW consultation for discharge plan and social issues Med management medications were confirmed with the patient's pharmacy risperdal 2mg po tid for psychosis, mood stabilization depakote 500mg po bid for mood stabilization cogentin 1mg po bid for EPS ambien 10mg po hs for insomnia Family involvement Follow up on labs Will monitor closely Pt was educated about risk/benefits and alternatives of medications, coping strategies (safety plan, suicide prevention), relapse prevention, importance of follow up with psychiatrist and therapist, stay away from drugs/alcohol/smoking boarding home interview Treatment Plan Review - Problem medication nonadherence Time Initiated: 02:15 (taking his medication with encouragemnent) Progress toward outcomes: improved delusions Time Initiated: 02:15 Progress toward outcomes: unchanged altered thought process Time Initiated: 02:15 Progress toward outcomes: unchanged
[2018-01-30] MEDS: Pantoprazole 40 mg EC Tab PO SCH (06:30)
--- NOTE | 2018-01-30 09:46 | PCM.PYCHPN ---
Psychiatric Progress Note - Psychiatric Progress Note Patient seen today, length of contact: 25min Patient Chief Complaint: "I am not paranoid, I do not have schizophrenia" Problems Identified/Issues Discussed: History of Present Illness and Precipitating Events: Patient is a single 67 year old male with psychiatric history of Schizoaffective disorder, unclear current adherence with psychiatric medications (though with long history of noncompliance) who was BIB police due to loud and disorganzied behavior at his residence. Patient was psychiatrically admitted to our unit very early this morning and staff noted that he was disorganized, paranoid, loud and argumentative. Patient required po Haldol 5 mg , Ativan 1 mg, Benadryl 50 mg for agitation at 2:52 AM. Patient is difficult to interview at bedside this morning. I agree with nursing , his thought process is disorganized, paranoid and tangential. Patient cannot describe his current circumstances, month or year. He mumbles repeatedly and demonstrates poor eye contact. Patient is ordinarily oddly related and easily chats about his various prejudices, past persecutors and unfortunate life incidents. Of note: patient was recently discharged from the medical floor 3 weeks ago (11/17-11/23/17). He was treated for severe anemia with positive FOBT. EGD and colonoscopy did not reveal a source of GI bleeding. Patient received 2 units PRBC, and IV iron, and his H/H stabilized and was improving on the iron supplementation. Patient was discharged to his apartment after he refused placement into [facility]. He was seen by psychiatry on the medical floor and treated with Ativan 0.5 mg po TID, Ambien 10 mg po HS prn, Cogentin 0.5 mg po AMHS, Depakote 500 mg AMHS and Risperdal 2 mg AMHS. Patient has a history of completely denying that he has any psychiatric diagnosis. PROGRESS NOTE I reviewed recent notes and met with patient at bedside. He is groomed, alert and oriented x3. Patient continues to be irritable and argumentative. Similar to prior admissions he continues to deny having a psychiatric illness. He denies having paranoia and denies his diagnosis of schizophrenia. Tells me that he is unhappy because this diagnosis will follow me everywhere. Patient generally still appears resentful and interviews with him are generally unproductive due to his poor insight. He does seem less angry and a little more organized since last weekend. We can actually have a conversation about sleep medications today. He still isnt sleeping well and would like to try something besides ambien. I try to review his medication history however he reports I dont know, you know better than me. He is aware that Restoril is nonformulary and indicates that Seroquel was not beneficial in the past. Patient denies any new physical discomfort or pain. Doesn't appear to be in physical distress. Regarding his behavior on the unit, patient is visible on the unit and joins some group activities. He does interact with some other patients, this is an improvement from his behavior since admission. There were no behavioral issues overnight. Diagnostic Results: Schizoaffective Disorder Medication Change: Yes (trazodone started) Medical Record Reviewed: Yes Mental Status Examination - Cognitive Function Orientation: Person, Place Attention: Poor Concentration: Poor Association: Loose Fund of Knowledge: Poor - Mood Mood: Other ( "people from my past are causing me [mental] pain using their electronics") - Affect Affect: Broad, Other (irritable, resentful) - Speech Speech: Loud - Formal Thought Process Formal Thought Process: Hallucinations ( Denies hallucinations), Paranoia ( chronic paranoid delusions), Loosening of associations, Circumstantial (and tangential) - Suicidal Ideation Suicidal Ideation: No - Homicidal Ideation Homicidal Ideation: No Goal/Treatment Plan - Goal/Treatment Plan Need for Continued Stay: Remain at risks for inpatient hospitalization, Severe depression anxiety, Discharge may exacerbated symptoms, Severe functional impairment Progress Toward Problem(s) and Goals/Treatment Plan: * group, milieu and supportive tx as tolerated * Risperdal 2 mg po TID for paranoia, mood control and disorganization * Cogentin 1 mg po AMHS for EPS prophylaxis * Depakote 500 mg po bid for mood stabilization 01/16/18 01/23/18 11:40 08:00 Valproic Acid 45 L 59 * Ambien 10 mg HS for insomnia d/c'ed on 01/30/18, started trazodone 50 mg po HS off-label for insomnia (restoril is nonformulary) * Ativan 0.5 mg po TID for anxiety and to help with mood stabilization * No new weekend labs thus far * Vitals reviewed and noted below: 01/29/18 01/29/18 01/29/18 07:11 09:56 16:00 Temperature 98.4 F Pulse Rate 80 82 80 Respiratory 20 Rate Blood Pressure 98/72 L 110/74 82/50 L PRIOR Weekend Labs Summarized Laboratory Results - last 72 hr 01/22/18 01/22/18 01/22/18 07:00 07:24 11:18 WBC 4.3 L RBC 4.51 Hgb 9.6 L Hct 33.3 L MCV 73.8 L MCH 21.3 L MCHC 28.8 L RDW 19.4 H Plt Count 333 MPV 9.4 Gran % 45.3 L Lymph % (Auto) 37.4 H [place] % (Auto) 11.2 H Eos % (Auto) 5.6 H Baso % (Auto) 0.5 Gran # 1.95 Lymph # (Auto) 1.6 [place] # (Auto) 0.5 Eos # (Auto) 0.2 Baso # (Auto) 0.02 POC Glucose (mg/dL) 88 122 H Valproic Acid 01/23/18 01/23/18 01/23/18 07:21 08:00 08:00 WBC 5.6 D RBC 3.98 Hgb 8.5 L Hct 29.5 L MCV 74.1 L MCH 21.4 L MCHC 28.8 L RDW 19.4 H Plt Count 291 MPV 9.9 Gran % 43.8 L Lymph % (Auto) 33.5 [place] % (Auto) 15.9 H Eos % (Auto) 6.6 H Baso % (Auto) 0.2 Gran # 2.46 Lymph # (Auto) 1.9 [place] # (Auto) 0.9 H Eos # (Auto) 0.4 Baso # (Auto) 0.01 POC Glucose (mg/dL) 95 Valproic Acid 59 01/23/18 01/24/18 11:29 07:25 WBC RBC Hgb Hct MCV MCH MCHC RDW Plt Count MPV Gran % Lymph % (Auto) [place] % (Auto) Eos % (Auto) Baso % (Auto) Gran # Lymph # (Auto) [place] # (Auto) Eos # (Auto) Baso # (Auto) POC Glucose (mg/dL) 112 H 98 Valproic Acid Estimated Date of D/C: 02/03/18
[2018-01-30] MEDS: Divalproex 500 mg DR(BID formulation) PO SCH ×2 (09:52→18:10)
[2018-01-31] MEDS: Divalproex 500 mg DR(BID formulation) PO SCH ×2 (09:15→17:18)
[2018-01-31] MEDS: Pantoprazole 40 mg EC Tab PO SCH (09:15)
--- NOTE | 2018-01-31 10:01 | PCM.PYCHPN ---
Psychiatric Progress Note - Psychiatric Progress Note Patient seen today, length of contact: 25min Patient Chief Complaint: "I am not paranoid, I do not have schizophrenia" Problems Identified/Issues Discussed: History of Present Illness and Precipitating Events: Patient is a single 67 year old male with psychiatric history of Schizoaffective disorder, unclear current adherence with psychiatric medications (though with long history of noncompliance) who was BIB police due to loud and disorganzied behavior at his residence. Patient was psychiatrically admitted to our unit very early this morning and staff noted that he was disorganized, paranoid, loud and argumentative. Patient required po Haldol 5 mg , Ativan 1 mg, Benadryl 50 mg for agitation at 2:52 AM. Patient is difficult to interview at bedside this morning. I agree with nursing , his thought process is disorganized, paranoid and tangential. Patient cannot describe his current circumstances, month or year. He mumbles repeatedly and demonstrates poor eye contact. Patient is ordinarily oddly related and easily chats about his various prejudices, past persecutors and unfortunate life incidents. Of note: patient was recently discharged from the medical floor 3 weeks ago (11/17-11/23/17). He was treated for severe anemia with positive FOBT. EGD and colonoscopy did not reveal a source of GI bleeding. Patient received 2 units PRBC, and IV iron, and his H/H stabilized and was improving on the iron supplementation. Patient was discharged to his apartment after he refused placement into [facility]. He was seen by psychiatry on the medical floor and treated with Ativan 0.5 mg po TID, Ambien 10 mg po HS prn, Cogentin 0.5 mg po AMHS, Depakote 500 mg AMHS and Risperdal 2 mg AMHS. Patient has a history of completely denying that he has any psychiatric diagnosis. PROGRESS NOTE I reviewed recent notes and met with patient at bedside. He is groomed, alert and oriented x3. Patient is less irritable this morning but still adamant about not having a psychiatric illness. He denies having paranoia and denies his diagnosis of schizophrenia. Patient reports that he slept a little better last night. Appears friendlier and makes a few jokes about getting medical marijuana. He is less resentful but interviews with him can still be unproductive due to his poor insight. Patient denies any new physical discomfort or pain. Doesn't appear to be in physical distress. Overall he is less angry and a little more organized since last weekend. We can actually have a conversation about his sleep medications and possible side effects. He is agreeable to small increase in Trazodone tonight. Regarding his behavior on the unit, patient is visible on the unit and patient joins some group activities. He does interact with some other patients, this is an improvement from his behavior since admission. Patient still appears suspicious and recently stated to a nurse "I refuse to answer questions about hallucinations on the basis it will incriminate me". This sounds exactly like something Rodriguez would say. Diagnostic Results: Schizoaffective Disorder Medication Change: Yes (Increased trazodone to 75 mg po HS on 01/31/18 for sleep restlessness) Medical Record Reviewed: Yes Mental Status Examination - Cognitive Function Orientation: Person, Place Attention: Poor Concentration: Poor Association: Loose Fund of Knowledge: Poor - Mood Mood: Other ( "people from my past are causing me [mental] pain using their electronics") - Affect Affect: Broad, Other (irritable, resentful) - Speech Speech: Loud - Formal Thought Process Formal Thought Process: Hallucinations ( Denies hallucinations), Paranoia ( chronic paranoid delusions), Loosening of associations (Improving), Circumstantial (and tangential) - Suicidal Ideation Suicidal Ideation: No - Homicidal Ideation Homicidal Ideation: No Goal/Treatment Plan - Goal/Treatment Plan Need for Continued Stay: Remain at risks for inpatient hospitalization, Severe depression anxiety, Discharge may exacerbated symptoms, Severe functional impairment Progress Toward Problem(s) and Goals/Treatment Plan: * group, milieu and supportive tx as tolerated * Risperdal 2 mg po TID for paranoia, mood control and disorganization * Cogentin 1 mg po AMHS for EPS prophylaxis * Depakote 500 mg po bid for mood stabilization 01/16/18 01/23/18 11:40 08:00 Valproic Acid 45 L 59 * Ambien 10 mg HS for insomnia d/c'ed on 01/30/18, started trazodone 50 mg po HS off-label for insomnia (restoril is nonformulary). Increased trazodone to 75 mg po HS on 01/31/18 for continued sleep restlessness. * Ativan 0.5 mg po TID for anxiety and to help with mood stabilization * No new weekend labs * Vitals reviewed and noted below: 01/31/18 06:49 Temperature 98.1 F Pulse Rate 79 Respiratory 20 Rate Blood Pressure 111/69 O2 Sat by Pulse 98 Oximetry PRIOR Weekend Labs Summarized Laboratory Results - last 72 hr 01/22/18 01/22/18 01/22/18 07:00 07:24 11:18 WBC 4.3 L RBC 4.51 Hgb 9.6 L Hct 33.3 L MCV 73.8 L MCH 21.3 L MCHC 28.8 L RDW 19.4 H Plt Count 333 MPV 9.4 Gran % 45.3 L Lymph % (Auto) 37.4 H [place] % (Auto) 11.2 H Eos % (Auto) 5.6 H Baso % (Auto) 0.5 Gran # 1.95 Lymph # (Auto) 1.6 [place] # (Auto) 0.5 Eos # (Auto) 0.2 Baso # (Auto) 0.02 POC Glucose (mg/dL) 88 122 H Valproic Acid 01/23/18 01/23/18 01/23/18 07:21 08:00 08:00 WBC 5.6 D RBC 3.98 Hgb 8.5 L Hct 29.5 L MCV 74.1 L MCH 21.4 L MCHC 28.8 L RDW 19.4 H Plt Count 291 MPV 9.9 Gran % 43.8 L Lymph % (Auto) 33.5 [place] % (Auto) 15.9 H Eos % (Auto) 6.6 H Baso % (Auto) 0.2 Gran # 2.46 Lymph # (Auto) 1.9 [place] # (Auto) 0.9 H Eos # (Auto) 0.4 Baso # (Auto) 0.01 POC Glucose (mg/dL) 95 Valproic Acid 59 01/23/18 01/24/18 11:29 07:25 WBC RBC Hgb Hct MCV MCH MCHC RDW Plt Count MPV Gran % Lymph % (Auto) [place] % (Auto) Eos % (Auto) Baso % (Auto) Gran # Lymph # (Auto) [place] # (Auto) Eos # (Auto) Baso # (Auto) POC Glucose (mg/dL) 112 H 98 Valproic Acid Estimated Date of D/C: 02/03/18
[2018-02-01] MEDS: Pantoprazole 40 mg EC Tab PO SCH (06:58)
[2018-02-01] MEDS: Divalproex 500 mg DR(BID formulation) PO SCH ×2 (09:00→16:15)
--- NOTE | 2018-02-01 16:51 | PCM.PYCHPN ---
Psychiatric Progress Note - Psychiatric Progress Note Patient seen today, length of contact: 25min Patient Chief Complaint: "I did not sleep well" Problems Identified/Issues Discussed: Suicide/ homicide prevention, past psychiatric h/o, current psychiatric symptoms , medical problems, risk/benefits and alternatives of medications, medications compliance, coping strategies, substance abuse h/o, relapse prevention, importance of follow up with psychiatrist and therapist, discharge plan. Medical Problems: Iron deficiency anemia HTN HLD labs better Diagnostic Results: 01/21/18 06:30 01/15/18 07:30 Lab Results 01/21/18 07:29: POC Glucose (mg/dL) 108 01/21/18 06:30: WBC 4.0 L, RBC 4.11, Hgb 8.7 L, Hct 30.5 L, MCV 74.2 L, MCH 21.2 L, MCHC 28.5 L, RDW 19.3 H, Plt Count 284, MPV 9.6, Gran % 37.4 L, Lymph % (Auto) 39.9 H, [place] % (Auto) 16.1 H, Eos % (Auto) 6.4 H, Baso % (Auto) 0.2, Gran # 1.51, Lymph # (Auto) 1.6, [place] # (Auto) 0.7 H, Eos # (Auto) 0.3, Baso # ( Auto) 0.01 01/20/18 11:04: POC Glucose (mg/dL) 117 H 01/20/18 07:20: WBC 3.7 L, RBC 3.98, Hgb 8.4 L, Hct 29.8 L, MCV 74.9 L, MCH 21.1 L, MCHC 28.2 L, RDW 19.1 H, Plt Count 289, MPV 9.5, Gran % 35.0 L, Lymph % (Auto) 38.5 H, [place] % (Auto) 18.4 H, Eos % (Auto) 7.3 H, Baso % (Auto) 0.8, Gran # 1.29 L, Lymph # (Auto) 1.4, [place] # (Auto) 0.7 H, Eos # (Auto) 0.3, Baso # (Auto) 0.03 01/20/18 07:16: POC Glucose (mg/dL) 90 01/19/18 11:12: POC Glucose (mg/dL) 115 H 01/19/18 07:32: POC Glucose (mg/dL) 89 01/19/18 07:30: WBC 4.5, RBC 4.07, Hgb 8.6 L, Hct 30.4 L, MCV 74.7 L, MCH 21.1 L , MCHC 28.3 L, RDW 18.9 H, Plt Count 287, MPV 10.0, Gran % 36.8 L, Lymph % (Auto ) 39.6 H, [place] % (Auto) 15.9 H, Eos % (Auto) 7.3 H, Baso % (Auto) 0.4, Gran # 1.67, Lymph # (Auto) 1.8, [place] # (Auto) 0.7 H, Eos # (Auto) 0.3, Baso # (Auto) 0.02 01/18/18 11:13: POC Glucose (mg/dL) 112 H 01/18/18 07:45: WBC 4.5, RBC 3.85, Hgb 8.1 L, Hct 28.8 L, MCV 74.8 L, MCH 21.0 L , MCHC 28.1 L, RDW 19.2 H, Plt Count 280, MPV 9.5, Gran % 41.0 L, Lymph % (Auto ) 35.8 H, [place] % (Auto) 17.5 H, Eos % (Auto) 5.5 H, Baso % (Auto) 0.2, Gran # 1.85, Lymph # (Auto) 1.6, [place] # (Auto) 0.8 H, Eos # (Auto) 0.3, Baso # (Auto) 0.01 01/18/18 07:18: POC Glucose (mg/dL) 91 01/17/18 21:47: POC Glucose (mg/dL) 138 H 01/17/18 16:11: POC Glucose (mg/dL) 97 01/17/18 12:35: POC Glucose (mg/dL) 91 01/17/18 11:41: POC Glucose (mg/dL) 56 L 01/17/18 07:30: WBC 3.9 L, RBC 3.76, Hgb 8.0 L, Hct 28.1 L, MCV 74.7 L, MCH 21.3 L, MCHC 28.5 L, RDW 19.0 H, Plt Count 260, MPV 9.3, Gran % 36.5 L, Lymph % (Auto) 38.3 H, [place] % (Auto) 19.8 H, Eos % (Auto) 4.9, Baso % (Auto) 0.5, Gran # 1.42, Lymph # (Auto) 1.5, [place] # (Auto) 0.8 H, Eos # (Auto) 0.2, Baso # (Auto ) 0.02 01/17/18 07:13: POC Glucose (mg/dL) 101 01/16/18 11:40: Valproic Acid 45 L 01/16/18 07:30: WBC 4.1 L, RBC 3.54, Hgb 7.6 L, Hct 26.4 L, MCV 74.6 L, MCH 21.5 L, MCHC 28.8 L, RDW 18.9 H, Plt Count 250, MPV 9.7, Gran % 43.3 L, Lymph % (Auto) 32.0, [place] % (Auto) 20.0 H, Eos % (Auto) 4.2, Baso % (Auto) 0.5, Gran # 1.76, Lymph # (Auto) 1.3, [place] # (Auto) 0.8 H, Eos # (Auto) 0.2, Baso # (Auto) 0.02 01/15/18 16:06: POC Glucose (mg/dL) 105 01/15/18 11:24: POC Glucose (mg/dL) 129 H 01/15/18 07:30: WBC 3.7 L, RBC 3.33 L, Hgb 7.2 L, Hct 24.8 L, MCV 74.5 L, MCH 21.6 L, MCHC 29.0 L, RDW 19.1 H, Plt Count 248, MPV 9.6, Gran % 36.5 L, Lymph % (Auto) 30.3, [place] % (Auto) 27.8 H, Eos % (Auto) 5.1 H, Baso % (Auto) 0.3, Gran # 1.35 L, Lymph # (Auto) 1.1 L, [place] # (Auto) 1.0 H, Eos # (Auto) 0.2, Baso # ( Auto) 0.01, Neutrophils % (Manual) 38 L, Lymphocytes % (Manual) 33, Monocytes % (Manual) 23 H, Eosinophils % (Manual) 4 H, Basophils % (Manual) 2 H, Platelet Evaluation Normal 01/15/18 07:30: RPR Nonreactive 01/15/18 07:30: TSH 3rd Generation 1.57 01/15/18 07:30: Sodium 142, Potassium 3.6, Chloride 105, Carbon Dioxide 29, Anion Gap 12, BUN 12, Creatinine 0.9, Est GFR ( Amer) > 60, Est GFR (Non- Af Amer) > 60, Random Glucose 74, Fasting Glucose 74, Calcium 9.6, Phosphorus 3.6, Magnesium 2.2, Total Bilirubin 0.2, AST 21, ALT 24, Alkaline Phosphatase 51 , Total Protein 6.0, Albumin 3.4, Globulin 2.6, Albumin/Globulin Ratio 1.3 01/15/18 07:23: POC Glucose (mg/dL) 75 01/15/18 00:33: Urine Opiates Screen Negative, Urine Methadone Screen Negative, Ur Barbiturates Screen Negative, Ur Phencyclidine Scrn Negative, Ur Amphetamines Screen Negative, U Benzodiazepines Scrn Negative, U Oth Cocaine Metabols Negative, U Cannabinoids Screen Negative 01/14/18 22:42: Triglycerides 88, Cholesterol 120 L, LDL Cholesterol Direct 54, HDL Cholesterol 44 01/14/18 22:42: Alcohol, Quantitative < 10 01/14/18 22:42: WBC 3.5 L D, RBC 3.39 L, Hgb 7.3 L, Hct 25.3 L, MCV 74.6 L, MCH 21.5 L, MCHC 28.9 L, RDW 19.0 H, Plt Count 245, MPV 9.4 01/14/18 22:42: Sodium 140, Potassium 3.5 L, Chloride 104, Carbon Dioxide 25, Anion Gap 15, BUN 12, Creatinine 0.9, Est GFR ( Amer) > 60, Est GFR (Non- Af Amer) > 60, Random Glucose 106, Calcium 9.8, Total Bilirubin 0.3, AST 21, ALT 23, Alkaline Phosphatase 54, Total Protein 6.5, Albumin 3.9, Globulin 2.7, Albumin/Globulin Ratio 1.4 Vital Signs Temp Pulse Resp BP Pulse Ox 01/21/18 08:25 70 106/70 01/21/18 07:25 98.1 F 81 20 106/70 01/20/18 16:30 93 H 125/68 01/20/18 08:25 83 117/72 01/20/18 07:39 98.0 F 83 20 117/72 01/19/18 16:30 96 H 127/82 01/19/18 09:13 88 153/92 H 01/19/18 07:01 97.6 F 88 20 153/92 H 01/18/18 16:00 87 123/66 01/18/18 09:22 80 119/80 01/18/18 07:43 98.0 F 80 20 119/80 01/17/18 16:37 99 H 130/83 01/17/18 08:44 100 H 133/77 01/17/18 07:00 97.3 F L 91 H 20 158/100 H 01/16/18 16:54 85 107/67 01/16/18 08:23 100 H 137/97 H 01/16/18 06:49 97.6 F 100 H 18 137/97 H 01/15/18 15:00 100 H 144/93 H 01/15/18 06:59 97.9 F 72 20 134/78 01/15/18 03:19 98.1 F 83 18 133/83 01/15/18 02:31 98.1 F 80 17 150/72 100 01/15/18 00:57 79 17 158/92 H 100 01/14/18 22:06 98.0 F 88 18 136/83 98 Laboratory Results - last 24 hr 01/22/18 01/22/18 01/22/18 07:00 07:24 11:18 WBC 4.3 L RBC 4.51 Hgb 9.6 L Hct 33.3 L MCV 73.8 L MCH 21.3 L MCHC 28.8 L RDW 19.4 H Plt Count 333 MPV 9.4 Gran % 45.3 L Lymph % (Auto) 37.4 H [place] % (Auto) 11.2 H Eos % (Auto) 5.6 H Baso % (Auto) 0.5 Gran # 1.95 Lymph # (Auto) 1.6 [place] # (Auto) 0.5 Eos # (Auto) 0.2 Baso # (Auto) 0.02 POC Glucose (mg/dL) 88 122 H Laboratory Results - last 24 hr 01/25/18 07:41 POC Glucose (mg/dL) 73 DSM 5 Symptoms Update: Patient is a single 67 year old male with psychiatric history of Schizoaffective disorder, unclear current adherence with psychiatric medications (though with long history of noncompliance) who was BIB police due to loud and disorganzied behavior at his residence. Patient was psychiatrically admitted to our unit very early this morning and staff noted that he was disorganized, paranoid, loud and argumentative. Patient required po Haldol 5 mg , Ativan 1 mg, Benadryl 50 mg for agitation at 2:52 AM. Patient is difficult to interview still but pt is less irritable, less angry, pt was not overly psychotic, but pt is guarded and paranoid. Patient denies any new physical discomfort or pain. Doesn't appear to be in physical distress. Regarding his behavior on the unit, patient is visible on the unit however he is not very friendly or engaged. pt tolerates meds well, no side effects observed or reported. AIMS 0, no EPS. socially responsible investment adviser is helping pt with d/c plan, [facility] seems to be interested in pt. pt's POA contact information to discuss finances. PT requested to also be referred to the [facility], sw contacted the place. Diagnostic Results: Schizoaffective Disorder Medication Change: No Medical Record Reviewed: Yes Consults ordered or reviewed: medical consult appreciated Mental Status Examination - Cognitive Function Orientation: Person, Place Attention: Poor (some improvemetn) Concentration: Poor (some improvement) Association: Loose (some improvement) Fund of Knowledge: Poor - Mood Mood: Other ( "people from my past are causing me [mental] pain using their electronics") - Affect Affect: Broad, Other (at times irritable) - Speech Speech: Appropriate - Formal Thought Process Formal Thought Process: Hallucinations ( Denies hallucinations), Paranoia ( chronic paranoid delusions), Loosening of associations (Improving), Circumstantial (and tangential) - Suicidal Ideation Suicidal Ideation: No - Homicidal Ideation Homicidal Ideation: No Goal/Treatment Plan - Goal/Treatment Plan Need for Continued Stay: Remain at risks for inpatient hospitalization, Severe depression anxiety, Discharge may exacerbated symptoms, Severe functional impairment Progress Toward Problem(s) and Goals/Treatment Plan: Milieu/structure/supportive therapy Medical consult ill be considered consultation for discharge plan and social issues Med management medications were confirmed with the patient's pharmacy risperdal 2mg po tid for psychosis, mood stabilization depakote 500mg po bid for mood stabilization cogentin 1mg po bid for EPS ambien 10mg po hs for insomnia Family involvement Follow up on labs Will monitor closely Pt was educated about risk/benefits and alternatives of medications, coping strategies (safety plan, suicide prevention), relapse prevention, importance of follow up with psychiatrist and therapist, stay away from drugs/alcohol/smoking boarding home interview, d/c planning Estimated Date of D/C: 02/03/18
[2018-02-02] MEDS: Pantoprazole 40 mg EC Tab PO SCH (06:56)
[2018-02-02] MEDS: Divalproex 500 mg DR(BID formulation) PO SCH ×2 (09:06→17:31)
--- NOTE | 2018-02-02 15:57 | PCM.PYCHPN ---
Psychiatric Progress Note - Psychiatric Progress Note Patient seen today, length of contact: 25min Patient Chief Complaint: "I did not sleep well" Problems Identified/Issues Discussed: Suicide/ homicide prevention, past psychiatric h/o, current psychiatric symptoms , medical problems, risk/benefits and alternatives of medications, medications compliance, coping strategies, substance abuse h/o, relapse prevention, importance of follow up with psychiatrist and therapist, discharge plan. Medical Problems: Iron deficiency anemia HTN HLD labs better Diagnostic Results: 01/21/18 06:30 01/15/18 07:30 Lab Results 01/21/18 07:29: POC Glucose (mg/dL) 108 01/21/18 06:30: WBC 4.0 L, RBC 4.11, Hgb 8.7 L, Hct 30.5 L, MCV 74.2 L, MCH 21.2 L, MCHC 28.5 L, RDW 19.3 H, Plt Count 284, MPV 9.6, Gran % 37.4 L, Lymph % (Auto) 39.9 H, Ida % (Auto) 16.1 H, Eos % (Auto) 6.4 H, Baso % (Auto) 0.2, Gran # 1.51, Lymph # (Auto) 1.6, [place] # (Auto) 0.7 H, Eos # (Auto) 0.3, Baso # ( Auto) 0.01 01/20/18 11:04: POC Glucose (mg/dL) 117 H 01/20/18 07:20: WBC 3.7 L, RBC 3.98, Hgb 8.4 L, Hct 29.8 L, MCV 74.9 L, MCH 21.1 L, MCHC 28.2 L, RDW 19.1 H, Plt Count 289, MPV 9.5, Gran % 35.0 L, Lymph % (Auto) 38.5 H, [place] % (Auto) 18.4 H, Eos % (Auto) 7.3 H, Baso % (Auto) 0.8, Gran # 1.29 L, Lymph # (Auto) 1.4, [place] # (Auto) 0.7 H, Eos # (Auto) 0.3, Baso # (Auto) 0.03 01/20/18 07:16: POC Glucose (mg/dL) 90 01/19/18 11:12: POC Glucose (mg/dL) 115 H 01/19/18 07:32: POC Glucose (mg/dL) 89 01/19/18 07:30: WBC 4.5, RBC 4.07, Hgb 8.6 L, Hct 30.4 L, MCV 74.7 L, MCH 21.1 L , MCHC 28.3 L, RDW 18.9 H, Plt Count 287, MPV 10.0, Gran % 36.8 L, Lymph % (Auto ) 39.6 H, [place] % (Auto) 15.9 H, Eos % (Auto) 7.3 H, Baso % (Auto) 0.4, Gran # 1.67, Lymph # (Auto) 1.8, [place] # (Auto) 0.7 H, Eos # (Auto) 0.3, Baso # (Auto) 0.02 01/18/18 11:13: POC Glucose (mg/dL) 112 H 01/18/18 07:45: WBC 4.5, RBC 3.85, Hgb 8.1 L, Hct 28.8 L, MCV 74.8 L, MCH 21.0 L , MCHC 28.1 L, RDW 19.2 H, Plt Count 280, MPV 9.5, Gran % 41.0 L, Lymph % (Auto ) 35.8 H, [place] % (Auto) 17.5 H, Eos % (Auto) 5.5 H, Baso % (Auto) 0.2, Gran # 1.85, Lymph # (Auto) 1.6, [place]da # (Auto) 0.8 H, Eos # (Auto) 0.3, Baso # (Auto) 0.01 01/18/18 07:18: POC Glucose (mg/dL) 91 01/17/18 21:47: POC Glucose (mg/dL) 138 H 01/17/18 16:11: POC Glucose (mg/dL) 97 01/17/18 12:35: POC Glucose (mg/dL) 91 01/17/18 11:41: POC Glucose (mg/dL) 56 L 01/17/18 07:30: WBC 3.9 L, RBC 3.76, Hgb 8.0 L, Hct 28.1 L, MCV 74.7 L, MCH 21.3 L, MCHC 28.5 L, RDW 19.0 H, Plt Count 260, MPV 9.3, Gran % 36.5 L, Lymph % (Auto) 38.3 H, [place] % (Auto) 19.8 H, Eos % (Auto) 4.9, Baso % (Auto) 0.5, Gran # 1.42, Lymph # (Auto) 1.5, [place] # (Auto) 0.8 H, Eos # (Auto) 0.2, Baso # (Auto ) 0.02 01/17/18 07:13: POC Glucose (mg/dL) 101 01/16/18 11:40: Valproic Acid 45 L 01/16/18 07:30: WBC 4.1 L, RBC 3.54, Hgb 7.6 L, Hct 26.4 L, MCV 74.6 L, MCH 21.5 L, MCHC 28.8 L, RDW 18.9 H, Plt Count 250, MPV 9.7, Gran % 43.3 L, Lymph % (Auto) 32.0, [place] % (Auto) 20.0 H, Eos % (Auto) 4.2, Baso % (Auto) 0.5, Gran # 1.76, Lymph # (Auto) 1.3, [place] # (Auto) 0.8 H, Eos # (Auto) 0.2, Baso # (Auto) 0.02 01/15/18 16:06: POC Glucose (mg/dL) 105 01/15/18 11:24: POC Glucose (mg/dL) 129 H 01/15/18 07:30: WBC 3.7 L, RBC 3.33 L, Hgb 7.2 L, Hct 24.8 L, MCV 74.5 L, MCH 21.6 L, MCHC 29.0 L, RDW 19.1 H, Plt Count 248, MPV 9.6, Gran % 36.5 L, Lymph % (Auto) 30.3, [place] % (Auto) 27.8 H, Eos % (Auto) 5.1 H, Baso % (Auto) 0.3, Gran # 1.35 L, Lymph # (Auto) 1.1 L, [place] # (Auto) 1.0 H, Eos # (Auto) 0.2, Baso # ( Auto) 0.01, Neutrophils % (Manual) 38 L, Lymphocytes % (Manual) 33, Monocytes % (Manual) 23 H, Eosinophils % (Manual) 4 H, Basophils % (Manual) 2 H, Platelet Evaluation Normal 01/15/18 07:30: RPR Nonreactive 01/15/18 07:30: TSH 3rd Generation 1.57 01/15/18 07:30: Sodium 142, Potassium 3.6, Chloride 105, Carbon Dioxide 29, Anion Gap 12, BUN 12, Creatinine 0.9, Est GFR ( Amer) > 60, Est GFR (Non- Af Amer) > 60, Random Glucose 74, Fasting Glucose 74, Calcium 9.6, Phosphorus 3.6, Magnesium 2.2, Total Bilirubin 0.2, AST 21, ALT 24, Alkaline Phosphatase 51 , Total Protein 6.0, Albumin 3.4, Globulin 2.6, Albumin/Globulin Ratio 1.3 01/15/18 07:23: POC Glucose (mg/dL) 75 01/15/18 00:33: Urine Opiates Screen Negative, Urine Methadone Screen Negative, Ur Barbiturates Screen Negative, Ur Phencyclidine Scrn Negative, Ur Amphetamines Screen Negative, U Benzodiazepines Scrn Negative, U Oth Cocaine Metabols Negative, U Cannabinoids Screen Negative 01/14/18 22:42: Triglycerides 88, Cholesterol 120 L, LDL Cholesterol Direct 54, HDL Cholesterol 44 01/14/18 22:42: Alcohol, Quantitative < 10 01/14/18 22:42: WBC 3.5 L D, RBC 3.39 L, Hgb 7.3 L, Hct 25.3 L, MCV 74.6 L, MCH 21.5 L, MCHC 28.9 L, RDW 19.0 H, Plt Count 245, MPV 9.4 01/14/18 22:42: Sodium 140, Potassium 3.5 L, Chloride 104, Carbon Dioxide 25, Anion Gap 15, BUN 12, Creatinine 0.9, Est GFR ( Amer) > 60, Est GFR (Non- Af Amer) > 60, Random Glucose 106, Calcium 9.8, Total Bilirubin 0.3, AST 21, ALT 23, Alkaline Phosphatase 54, Total Protein 6.5, Albumin 3.9, Globulin 2.7, Albumin/Globulin Ratio 1.4 Vital Signs Temp Pulse Resp BP Pulse Ox 01/21/18 08:25 70 106/70 01/21/18 07:25 98.1 F 81 20 106/70 01/20/18 16:30 93 H 125/68 01/20/18 08:25 83 117/72 01/20/18 07:39 98.0 F 83 20 117/72 01/19/18 16:30 96 H 127/82 01/19/18 09:13 88 153/92 H 01/19/18 07:01 97.6 F 88 20 153/92 H 01/18/18 16:00 87 123/66 01/18/18 09:22 80 119/80 01/18/18 07:43 98.0 F 80 20 119/80 01/17/18 16:37 99 H 130/83 01/17/18 08:44 100 H 133/77 01/17/18 07:00 97.3 F L 91 H 20 158/100 H 01/16/18 16:54 85 107/67 01/16/18 08:23 100 H 137/97 H 01/16/18 06:49 97.6 F 100 H 18 137/97 H 01/15/18 15:00 100 H 144/93 H 01/15/18 06:59 97.9 F 72 20 134/78 01/15/18 03:19 98.1 F 83 18 133/83 01/15/18 02:31 98.1 F 80 17 150/72 100 01/15/18 00:57 79 17 158/92 H 100 01/14/18 22:06 98.0 F 88 18 136/83 98 Laboratory Results - last 24 hr 01/22/18 01/22/18 01/22/18 07:00 07:24 11:18 WBC 4.3 L RBC 4.51 Hgb 9.6 L Hct 33.3 L MCV 73.8 L MCH 21.3 L MCHC 28.8 L RDW 19.4 H Plt Count 333 MPV 9.4 Gran % 45.3 L Lymph % (Auto) 37.4 H Ida % (Auto) 11.2 H Eos % (Auto) 5.6 H Baso % (Auto) 0.5 Gran # 1.95 Lymph # (Auto) 1.6 Ida # (Auto) 0.5 Eos # (Auto) 0.2 Baso # (Auto) 0.02 POC Glucose (mg/dL) 88 122 H Laboratory Results - last 24 hr 01/25/18 07:41 POC Glucose (mg/dL) 73 DSM 5 Symptoms Update: Patient is a single 67 year old male with psychiatric history of Schizoaffective disorder, unclear current adherence with psychiatric medications (though with long history of noncompliance) who was BIB police due to loud and disorganzied behavior at his residence. Patient was psychiatrically admitted to our unit very early this morning and staff noted that he was disorganized, paranoid, loud and argumentative. Patient required po Haldol 5 mg , Ativan 1 mg, Benadryl 50 mg for agitation at 2:52 AM. Patient is difficult to interview still but pt is less irritable, less angry, pt was not overly psychotic, but pt is guarded and paranoid. pt c/o insomnia, but pt sleeps long hours, pt had no changes with his presentation, as per RN report pt is less irritable, no agitation, no aggression. Patient denies any new physical discomfort or pain. Doesn't appear to be in physical distress. Regarding his behavior on the unit, patient is visible on the unit however he is not very friendly or engaged. pt tolerates meds well, no side effects observed or reported. AIMS 0, no EPS. delinquency prevention social worker is helping pt with d/c plan, [facility] seems to be interested in pt. pt's POA contact information to discuss finances. PT requested to also be referred to the [facility], sw contacted the place. filled application, awaiting for RN from the [facility] to evaluate pt 02/03/18. Diagnostic Results: Schizoaffective Disorder Medication Change: No Medical Record Reviewed: Yes Mental Status Examination - Cognitive Function Orientation: Person, Place Attention: Poor (some improvemetn) Concentration: Poor (some improvement) Association: Loose (some improvement) Fund of Knowledge: Poor - Mood Mood: Other ( "people from my past are causing me [mental] pain using their electronics") - Affect Affect: Broad, Other (at times irritable) - Speech Speech: Appropriate - Formal Thought Process Formal Thought Process: Hallucinations ( Denies hallucinations), Paranoia ( chronic paranoid delusions), Loosening of associations (Improving), Circumstantial (and tangential) - Suicidal Ideation Suicidal Ideation: No - Homicidal Ideation Homicidal Ideation: No Goal/Treatment Plan - Goal/Treatment Plan Need for Continued Stay: Remain at risks for inpatient hospitalization, Severe depression anxiety, Discharge may exacerbated symptoms, Severe functional impairment Progress Toward Problem(s) and Goals/Treatment Plan: Milieu/structure/supportive therapy Medical consult ill be considered SW consultation for discharge plan and social issues Med management medications were confirmed with the patient's pharmacy risperdal 2mg po tid for psychosis, mood stabilization depakote 500mg po bid for mood stabilization cogentin 1mg po bid for EPS ambien 10mg po hs for insomnia Family involvement Follow up on labs Will monitor closely Pt was educated about risk/benefits and alternatives of medications, coping strategies (safety plan, suicide prevention), relapse prevention, importance of follow up with psychiatrist and therapist, stay away from drugs/alcohol/smoking assisted living RN will evaluate pt 02/03/18 Estimated Date of D/C: 02/05/18
[2018-02-03 03:01] VITALS: RESP 20; O2SAT 97
[2018-02-03 07:14] LABS: BASO # 0.02 K/mm3 (0.0-2.0); BASO % 0.3 % (0.0-3.0); EOS # 0.3 (0.0-0.7); EOS % 4.3 % (1.5-5.0); GRAN # 3.51 (1.4-6.5); GRAN % 53.9 % (50.0-68.0); LYMPH # 1.5 (1.2-3.4); LYMPH % 23.7 % (22.0-35.0); MEAN CELL VOLUME 75.6 fl (80.0-105.0); MEAN CORPUSCULAR HGB CONC 29.2 g/dl (31.0-37.0); MEAN PLATELET VOLUME 9.3 fl (7.0-11.0); MONO # 1.2 (0.1-0.6); MONO % 17.8 % (1.0-6.0); RBC 4.54 10^6/uL (3.5-6.1); RED CELL DISTRIBUTION WIDTH 20.2 % (11.5-14.5); WHITE BLOOD COUNT 6.5 10^3/ul (4.5-11.0)
[2018-02-03 07:25] LABS: ALB/GLOB RATIO 1.3 (1.1-1.8); ALBUMIN 3.9 g/dL (3.0-4.8); ALT/SGPT 11 U/L (7-56); AST/SGOT 18 U/L (17-59); BLOOD UREA NITROGEN 31 mg/dL (7-21); CALCIUM 9.9 mg/dL (8.4-10.5); GFR AFRICAN-AMERICAN > 60; GFR NON-AFRICAN AMERICAN > 60
[2018-02-03] MEDS: Pantoprazole 40 mg EC Tab PO SCH (09:18)
[2018-02-03] MEDS: Divalproex 500 mg DR(BID formulation) PO SCH ×2 (09:18→18:05)
--- NOTE | 2018-02-03 14:03 | PCM.PYCHPN ---
Psychiatric Progress Note - Psychiatric Progress Note Patient seen today, length of contact: 25min Patient Chief Complaint: "I did not sleep well" Problems Identified/Issues Discussed: Suicide/ homicide prevention, past psychiatric h/o, current psychiatric symptoms , medical problems, risk/benefits and alternatives of medications, medications compliance, coping strategies, substance abuse h/o, relapse prevention, importance of follow up with psychiatrist and therapist, discharge plan. Medical Problems: Iron deficiency anemia HTN HLD labs better Diagnostic Results: 01/21/18 06:30 01/15/18 07:30 Lab Results 01/21/18 07:29: POC Glucose (mg/dL) 108 01/21/18 06:30: WBC 4.0 L, RBC 4.11, Hgb 8.7 L, Hct 30.5 L, MCV 74.2 L, MCH 21.2 L, MCHC 28.5 L, RDW 19.3 H, Plt Count 284, MPV 9.6, Gran % 37.4 L, Lymph % (Auto) 39.9 H, [place] % (Auto) 16.1 H, Eos % (Auto) 6.4 H, Baso % (Auto) 0.2, Gran # 1.51, Lymph # (Auto) 1.6, [place] # (Auto) 0.7 H, Eos # (Auto) 0.3, Baso # ( Auto) 0.01 01/20/18 11:04: POC Glucose (mg/dL) 117 H 01/20/18 07:20: WBC 3.7 L, RBC 3.98, Hgb 8.4 L, Hct 29.8 L, MCV 74.9 L, MCH 21.1 L, MCHC 28.2 L, RDW 19.1 H, Plt Count 289, MPV 9.5, Gran % 35.0 L, Lymph % (Auto) 38.5 H, [place] % (Auto) 18.4 H, Eos % (Auto) 7.3 H, Baso % (Auto) 0.8, Gran # 1.29 L, Lymph # (Auto) 1.4, [place] # (Auto) 0.7 H, Eos # (Auto) 0.3, Baso # (Auto) 0.03 01/20/18 07:16: POC Glucose (mg/dL) 90 01/19/18 11:12: POC Glucose (mg/dL) 115 H 01/19/18 07:32: POC Glucose (mg/dL) 89 01/19/18 07:30: WBC 4.5, RBC 4.07, Hgb 8.6 L, Hct 30.4 L, MCV 74.7 L, MCH 21.1 L , MCHC 28.3 L, RDW 18.9 H, Plt Count 287, MPV 10.0, Gran % 36.8 L, Lymph % (Auto ) 39.6 H, [place] % (Auto) 15.9 H, Eos % (Auto) 7.3 H, Baso % (Auto) 0.4, Gran # 1.67, Lymph # (Auto) 1.8, [place] # (Auto) 0.7 H, Eos # (Auto) 0.3, Baso # (Auto) 0.02 01/18/18 11:13: POC Glucose (mg/dL) 112 H 01/18/18 07:45: WBC 4.5, RBC 3.85, Hgb 8.1 L, Hct 28.8 L, MCV 74.8 L, MCH 21.0 L , MCHC 28.1 L, RDW 19.2 H, Plt Count 280, MPV 9.5, Gran % 41.0 L, Lymph % (Auto ) 35.8 H, [place] % (Auto) 17.5 H, Eos % (Auto) 5.5 H, Baso % (Auto) 0.2, Gran # 1.85, Lymph # (Auto) 1.6, [place] # (Auto) 0.8 H, Eos # (Auto) 0.3, Baso # (Auto) 0.01 01/18/18 07:18: POC Glucose (mg/dL) 91 01/17/18 21:47: POC Glucose (mg/dL) 138 H 01/17/18 16:11: POC Glucose (mg/dL) 97 01/17/18 12:35: POC Glucose (mg/dL) 91 01/17/18 11:41: POC Glucose (mg/dL) 56 L 01/17/18 07:30: WBC 3.9 L, RBC 3.76, Hgb 8.0 L, Hct 28.1 L, MCV 74.7 L, MCH 21.3 L, MCHC 28.5 L, RDW 19.0 H, Plt Count 260, MPV 9.3, Gran % 36.5 L, Lymph % (Auto) 38.3 H, [place] % (Auto) 19.8 H, Eos % (Auto) 4.9, Baso % (Auto) 0.5, Gran # 1.42, Lymph # (Auto) 1.5, [place] # (Auto) 0.8 H, Eos # (Auto) 0.2, Baso # (Auto ) 0.02 01/17/18 07:13: POC Glucose (mg/dL) 101 01/16/18 11:40: Valproic Acid 45 L 01/16/18 07:30: WBC 4.1 L, RBC 3.54, Hgb 7.6 L, Hct 26.4 L, MCV 74.6 L, MCH 21.5 L, MCHC 28.8 L, RDW 18.9 H, Plt Count 250, MPV 9.7, Gran % 43.3 L, Lymph % (Auto) 32.0, [place] % (Auto) 20.0 H, Eos % (Auto) 4.2, Baso % (Auto) 0.5, Gran # 1.76, Lymph # (Auto) 1.3, [place] # (Auto) 0.8 H, Eos # (Auto) 0.2, Baso # (Auto) 0.02 01/15/18 16:06: POC Glucose (mg/dL) 105 01/15/18 11:24: POC Glucose (mg/dL) 129 H 01/15/18 07:30: WBC 3.7 L, RBC 3.33 L, Hgb 7.2 L, Hct 24.8 L, MCV 74.5 L, MCH 21.6 L, MCHC 29.0 L, RDW 19.1 H, Plt Count 248, MPV 9.6, Gran % 36.5 L, Lymph % (Auto) 30.3, [place] % (Auto) 27.8 H, Eos % (Auto) 5.1 H, Baso % (Auto) 0.3, Gran # 1.35 L, Lymph # (Auto) 1.1 L, [place] # (Auto) 1.0 H, Eos # (Auto) 0.2, Baso # ( Auto) 0.01, Neutrophils % (Manual) 38 L, Lymphocytes % (Manual) 33, Monocytes % (Manual) 23 H, Eosinophils % (Manual) 4 H, Basophils % (Manual) 2 H, Platelet Evaluation Normal 01/15/18 07:30: RPR Nonreactive 01/15/18 07:30: TSH 3rd Generation 1.57 01/15/18 07:30: Sodium 142, Potassium 3.6, Chloride 105, Carbon Dioxide 29, Anion Gap 12, BUN 12, Creatinine 0.9, Est GFR ( Amer) > 60, Est GFR (Non- Af Amer) > 60, Random Glucose 74, Fasting Glucose 74, Calcium 9.6, Phosphorus 3.6, Magnesium 2.2, Total Bilirubin 0.2, AST 21, ALT 24, Alkaline Phosphatase 51 , Total Protein 6.0, Albumin 3.4, Globulin 2.6, Albumin/Globulin Ratio 1.3 01/15/18 07:23: POC Glucose (mg/dL) 75 01/15/18 00:33: Urine Opiates Screen Negative, Urine Methadone Screen Negative, Ur Barbiturates Screen Negative, Ur Phencyclidine Scrn Negative, Ur Amphetamines Screen Negative, U Benzodiazepines Scrn Negative, U Oth Cocaine Metabols Negative, U Cannabinoids Screen Negative 01/14/18 22:42: Triglycerides 88, Cholesterol 120 L, LDL Cholesterol Direct 54, HDL Cholesterol 44 01/14/18 22:42: Alcohol, Quantitative < 10 01/14/18 22:42: WBC 3.5 L D, RBC 3.39 L, Hgb 7.3 L, Hct 25.3 L, MCV 74.6 L, MCH 21.5 L, MCHC 28.9 L, RDW 19.0 H, Plt Count 245, MPV 9.4 01/14/18 22:42: Sodium 140, Potassium 3.5 L, Chloride 104, Carbon Dioxide 25, Anion Gap 15, BUN 12, Creatinine 0.9, Est GFR ( Amer) > 60, Est GFR (Non- Af Amer) > 60, Random Glucose 106, Calcium 9.8, Total Bilirubin 0.3, AST 21, ALT 23, Alkaline Phosphatase 54, Total Protein 6.5, Albumin 3.9, Globulin 2.7, Albumin/Globulin Ratio 1.4 Vital Signs Temp Pulse Resp BP Pulse Ox 01/21/18 08:25 70 106/70 01/21/18 07:25 98.1 F 81 20 106/70 01/20/18 16:30 93 H 125/68 01/20/18 08:25 83 117/72 01/20/18 07:39 98.0 F 83 20 117/72 01/19/18 16:30 96 H 127/82 01/19/18 09:13 88 153/92 H 01/19/18 07:01 97.6 F 88 20 153/92 H 01/18/18 16:00 87 123/66 01/18/18 09:22 80 119/80 01/18/18 07:43 98.0 F 80 20 119/80 01/17/18 16:37 99 H 130/83 01/17/18 08:44 100 H 133/77 01/17/18 07:00 97.3 F L 91 H 20 158/100 H 01/16/18 16:54 85 107/67 01/16/18 08:23 100 H 137/97 H 01/16/18 06:49 97.6 F 100 H 18 137/97 H 01/15/18 15:00 100 H 144/93 H 01/15/18 06:59 97.9 F 72 20 134/78 01/15/18 03:19 98.1 F 83 18 133/83 01/15/18 02:31 98.1 F 80 17 150/72 100 01/15/18 00:57 79 17 158/92 H 100 01/14/18 22:06 98.0 F 88 18 136/83 98 Laboratory Results - last 24 hr 01/22/18 01/22/18 01/22/18 07:00 07:24 11:18 WBC 4.3 L RBC 4.51 Hgb 9.6 L Hct 33.3 L MCV 73.8 L MCH 21.3 L MCHC 28.8 L RDW 19.4 H Plt Count 333 MPV 9.4 Gran % 45.3 L Lymph % (Auto) 37.4 H [place] % (Auto) 11.2 H Eos % (Auto) 5.6 H Baso % (Auto) 0.5 Gran # 1.95 Lymph # (Auto) 1.6 [place] # (Auto) 0.5 Eos # (Auto) 0.2 Baso # (Auto) 0.02 POC Glucose (mg/dL) 88 122 H Laboratory Results - last 24 hr 01/25/18 07:41 POC Glucose (mg/dL) 73 Laboratory Results - last 24 hr 02/03/18 02/03/18 02/03/18 06:50 06:50 06:50 WBC 6.5 RBC 4.54 Hgb 10.0 L Hct 34.3 L MCV 75.6 L MCH 22.0 L MCHC 29.2 L RDW 20.2 H Plt Count 345 MPV 9.3 Gran % 53.9 Lymph % (Auto) 23.7 [place] % (Auto) 17.8 H Eos % (Auto) 4.3 Baso % (Auto) 0.3 Gran # 3.51 Lymph # (Auto) 1.5 [place] # (Auto) 1.2 H Eos # (Auto) 0.3 Baso # (Auto) 0.02 Sodium 137 Potassium 4.9 Chloride 99 Carbon Dioxide 31 Anion Gap 13 BUN 31 H Creatinine 1.2 Est GFR ( Amer) > 60 Est GFR (Non-Af Amer) > 60 Random Glucose 109 Calcium 9.9 Total Bilirubin 0.5 AST 18 ALT 11 Alkaline Phosphatase 54 Total Protein 7.0 Albumin 3.9 Globulin 3.1 Albumin/Globulin Ratio 1.3 Valproic Acid 58 DSM 5 Symptoms Update: Patient is a single 67 year old male with psychiatric history of Schizoaffective disorder, unclear current adherence with psychiatric medications (though with long history of noncompliance) who was BIB police due to loud and disorganzied behavior at his residence. Patient was psychiatrically admitted to our unit very early this morning and staff noted that he was disorganized, paranoid, loud and argumentative. Patient required po Haldol 5 mg , Ativan 1 mg, Benadryl 50 mg for agitation at 2:52 AM. Patient is difficult to interview still but pt is less irritable, less angry, pt was not overly psychotic, but pt is guarded and paranoid. pt was asking relatively intelligent questions, pt is aware of the RN from [facility] appt today. Patient denies any new physical discomfort or pain. Doesn't appear to be in physical distress. Regarding his behavior on the unit, patient is visible on the unit however he is not very friendly or engaged. pt tolerates meds well, no side effects observed or reported. AIMS 0, no EPS. social media marketing analyst is helping pt with d/c plan, [facility] seems to be interested in pt. pt's POA contact information to discuss finances. PT requested to also be referred to the [facility], contacted the place. filled application, awaiting for RN from the assisted living to evaluate pt 02/03/18. Diagnostic Results: Schizoaffective Disorder Medication Change: No Medical Record Reviewed: Yes Mental Status Examination - Cognitive Function Orientation: Person, Place Attention: Poor (some improvemetn) Concentration: Poor (some improvement) Association: Loose (some improvement) Fund of Knowledge: Poor - Mood Mood: Other ( "people from my past are causing me [mental] pain using their electronics") - Affect Affect: Broad, Other (at times irritable) - Speech Speech: Appropriate - Formal Thought Process Formal Thought Process: Hallucinations ( Denies hallucinations), Paranoia ( chronic paranoid delusions), Loosening of associations (Improving), Circumstantial (and tangential) - Suicidal Ideation Suicidal Ideation: No - Homicidal Ideation Homicidal Ideation: No Goal/Treatment Plan - Goal/Treatment Plan Need for Continued Stay: Remain at risks for inpatient hospitalization, Severe depression anxiety, Discharge may exacerbated symptoms, Severe functional impairment Progress Toward Problem(s) and Goals/Treatment Plan: Milieu/structure/supportive therapy Medical consult ill be considered consultation for discharge plan and social issues Med management medications were confirmed with the patient's pharmacy risperdal 2mg po tid for psychosis, mood stabilization depakote 500mg po bid for mood stabilization cogentin 1mg po bid for EPS ambien 10mg po hs for insomnia Family involvement Follow up on labs Will monitor closely Pt was educated about risk/benefits and alternatives of medications, coping strategies (safety plan, suicide prevention), relapse prevention, importance of follow up with psychiatrist and therapist, stay away from drugs/alcohol/smoking assisted living RN will evaluate pt 02/03/18 Estimated Date of D/C: 02/05/18
[2018-02-04] MEDS: Pantoprazole 40 mg EC Tab PO SCH (05:55)
[2018-02-04] MEDS: Divalproex 500 mg DR(BID formulation) PO SCH ×2 (09:28→16:39)
--- NOTE | 2018-02-04 15:13 | PCM.PYCHPN ---
Psychiatric Progress Note - Psychiatric Progress Note Patient seen today, length of contact: 25min Patient Chief Complaint: "I did not sleep well" Problems Identified/Issues Discussed: Suicide/ homicide prevention, past psychiatric h/o, current psychiatric symptoms , medical problems, risk/benefits and alternatives of medications, medications compliance, coping strategies, substance abuse h/o, relapse prevention, importance of follow up with psychiatrist and therapist, discharge plan. Medical Problems: Iron deficiency anemia HTN HLD labs better Diagnostic Results: 01/21/18 06:30 01/15/18 07:30 Lab Results 01/21/18 07:29: POC Glucose (mg/dL) 108 01/21/18 06:30: WBC 4.0 L, RBC 4.11, Hgb 8.7 L, Hct 30.5 L, MCV 74.2 L, MCH 21.2 L, MCHC 28.5 L, RDW 19.3 H, Plt Count 284, MPV 9.6, Gran % 37.4 L, Lymph % (Auto) 39.9 H, [place] % (Auto) 16.1 H, Eos % (Auto) 6.4 H, Baso % (Auto) 0.2, Gran # 1.51, Lymph # (Auto) 1.6, [place] # (Auto) 0.7 H, Eos # (Auto) 0.3, Baso # ( Auto) 0.01 01/20/18 11:04: POC Glucose (mg/dL) 117 H 01/20/18 07:20: WBC 3.7 L, RBC 3.98, Hgb 8.4 L, Hct 29.8 L, MCV 74.9 L, MCH 21.1 L, MCHC 28.2 L, RDW 19.1 H, Plt Count 289, MPV 9.5, Gran % 35.0 L, Lymph % (Auto) 38.5 H, [place] % (Auto) 18.4 H, Eos % (Auto) 7.3 H, Baso % (Auto) 0.8, Gran # 1.29 L, Lymph # (Auto) 1.4, [place] # (Auto) 0.7 H, Eos # (Auto) 0.3, Baso # (Auto) 0.03 01/20/18 07:16: POC Glucose (mg/dL) 90 01/19/18 11:12: POC Glucose (mg/dL) 115 H 01/19/18 07:32: POC Glucose (mg/dL) 89 01/19/18 07:30: WBC 4.5, RBC 4.07, Hgb 8.6 L, Hct 30.4 L, MCV 74.7 L, MCH 21.1 L , MCHC 28.3 L, RDW 18.9 H, Plt Count 287, MPV 10.0, Gran % 36.8 L, Lymph % (Auto ) 39.6 H, [place] % (Auto) 15.9 H, Eos % (Auto) 7.3 H, Baso % (Auto) 0.4, Gran # 1.67, Lymph # (Auto) 1.8, [place] # (Auto) 0.7 H, Eos # (Auto) 0.3, Baso # (Auto) 0.02 01/18/18 11:13: POC Glucose (mg/dL) 112 H 01/18/18 07:45: WBC 4.5, RBC 3.85, Hgb 8.1 L, Hct 28.8 L, MCV 74.8 L, MCH 21.0 L , MCHC 28.1 L, RDW 19.2 H, Plt Count 280, MPV 9.5, Gran % 41.0 L, Lymph % (Auto ) 35.8 H, [place] % (Auto) 17.5 H, Eos % (Auto) 5.5 H, Baso % (Auto) 0.2, Gran # 1.85, Lymph # (Auto) 1.6, [place] # (Auto) 0.8 H, Eos # (Auto) 0.3, Baso # (Auto) 0.01 01/18/18 07:18: POC Glucose (mg/dL) 91 01/17/18 21:47: POC Glucose (mg/dL) 138 H 01/17/18 16:11: POC Glucose (mg/dL) 97 01/17/18 12:35: POC Glucose (mg/dL) 91 01/17/18 11:41: POC Glucose (mg/dL) 56 L 01/17/18 07:30: WBC 3.9 L, RBC 3.76, Hgb 8.0 L, Hct 28.1 L, MCV 74.7 L, MCH 21.3 L, MCHC 28.5 L, RDW 19.0 H, Plt Count 260, MPV 9.3, Gran % 36.5 L, Lymph % (Auto) 38.3 H, [place] % (Auto) 19.8 H, Eos % (Auto) 4.9, Baso % (Auto) 0.5, Gran # 1.42, Lymph # (Auto) 1.5, [place] # (Auto) 0.8 H, Eos # (Auto) 0.2, Baso # (Auto ) 0.02 01/17/18 07:13: POC Glucose (mg/dL) 101 01/16/18 11:40: Valproic Acid 45 L 01/16/18 07:30: WBC 4.1 L, RBC 3.54, Hgb 7.6 L, Hct 26.4 L, MCV 74.6 L, MCH 21.5 L, MCHC 28.8 L, RDW 18.9 H, Plt Count 250, MPV 9.7, Gran % 43.3 L, Lymph % (Auto) 32.0, [place] % (Auto) 20.0 H, Eos % (Auto) 4.2, Baso % (Auto) 0.5, Gran # 1.76, Lymph # (Auto) 1.3, [place] # (Auto) 0.8 H, Eos # (Auto) 0.2, Baso # (Auto) 0.02 01/15/18 16:06: POC Glucose (mg/dL) 105 01/15/18 11:24: POC Glucose (mg/dL) 129 H 01/15/18 07:30: WBC 3.7 L, RBC 3.33 L, Hgb 7.2 L, Hct 24.8 L, MCV 74.5 L, MCH 21.6 L, MCHC 29.0 L, RDW 19.1 H, Plt Count 248, MPV 9.6, Gran % 36.5 L, Lymph % (Auto) 30.3, [place] % (Auto) 27.8 H, Eos % (Auto) 5.1 H, Baso % (Auto) 0.3, Gran # 1.35 L, Lymph # (Auto) 1.1 L, [place] # (Auto) 1.0 H, Eos # (Auto) 0.2, Baso # ( Auto) 0.01, Neutrophils % (Manual) 38 L, Lymphocytes % (Manual) 33, Monocytes % (Manual) 23 H, Eosinophils % (Manual) 4 H, Basophils % (Manual) 2 H, Platelet Evaluation Normal 01/15/18 07:30: RPR Nonreactive 01/15/18 07:30: TSH 3rd Generation 1.57 01/15/18 07:30: Sodium 142, Potassium 3.6, Chloride 105, Carbon Dioxide 29, Anion Gap 12, BUN 12, Creatinine 0.9, Est GFR ( Amer) > 60, Est GFR (Non- Af Amer) > 60, Random Glucose 74, Fasting Glucose 74, Calcium 9.6, Phosphorus 3.6, Magnesium 2.2, Total Bilirubin 0.2, AST 21, ALT 24, Alkaline Phosphatase 51 , Total Protein 6.0, Albumin 3.4, Globulin 2.6, Albumin/Globulin Ratio 1.3 01/15/18 07:23: POC Glucose (mg/dL) 75 01/15/18 00:33: Urine Opiates Screen Negative, Urine Methadone Screen Negative, Ur Barbiturates Screen Negative, Ur Phencyclidine Scrn Negative, Ur Amphetamines Screen Negative, U Benzodiazepines Scrn Negative, U Oth Cocaine Metabols Negative, U Cannabinoids Screen Negative 01/14/18 22:42: Triglycerides 88, Cholesterol 120 L, LDL Cholesterol Direct 54, HDL Cholesterol 44 01/14/18 22:42: Alcohol, Quantitative < 10 01/14/18 22:42: WBC 3.5 L D, RBC 3.39 L, Hgb 7.3 L, Hct 25.3 L, MCV 74.6 L, MCH 21.5 L, MCHC 28.9 L, RDW 19.0 H, Plt Count 245, MPV 9.4 01/14/18 22:42: Sodium 140, Potassium 3.5 L, Chloride 104, Carbon Dioxide 25, Anion Gap 15, BUN 12, Creatinine 0.9, Est GFR ( Amer) > 60, Est GFR (Non- Af Amer) > 60, Random Glucose 106, Calcium 9.8, Total Bilirubin 0.3, AST 21, ALT 23, Alkaline Phosphatase 54, Total Protein 6.5, Albumin 3.9, Globulin 2.7, Albumin/Globulin Ratio 1.4 Vital Signs Temp Pulse Resp BP Pulse Ox 01/21/18 08:25 70 106/70 01/21/18 07:25 98.1 F 81 20 106/70 01/20/18 16:30 93 H 125/68 01/20/18 08:25 83 117/72 01/20/18 07:39 98.0 F 83 20 117/72 01/19/18 16:30 96 H 127/82 01/19/18 09:13 88 153/92 H 01/19/18 07:01 97.6 F 88 20 153/92 H 01/18/18 16:00 87 123/66 01/18/18 09:22 80 119/80 01/18/18 07:43 98.0 F 80 20 119/80 01/17/18 16:37 99 H 130/83 01/17/18 08:44 100 H 133/77 01/17/18 07:00 97.3 F L 91 H 20 158/100 H 01/16/18 16:54 85 107/67 01/16/18 08:23 100 H 137/97 H 01/16/18 06:49 97.6 F 100 H 18 137/97 H 01/15/18 15:00 100 H 144/93 H 01/15/18 06:59 97.9 F 72 20 134/78 01/15/18 03:19 98.1 F 83 18 133/83 01/15/18 02:31 98.1 F 80 17 150/72 100 01/15/18 00:57 79 17 158/92 H 100 01/14/18 22:06 98.0 F 88 18 136/83 98 Laboratory Results - last 24 hr 01/22/18 01/22/18 01/22/18 07:00 07:24 11:18 WBC 4.3 L RBC 4.51 Hgb 9.6 L Hct 33.3 L MCV 73.8 L MCH 21.3 L MCHC 28.8 L RDW 19.4 H Plt Count 333 MPV 9.4 Gran % 45.3 L Lymph % (Auto) 37.4 H [place] % (Auto) 11.2 H Eos % (Auto) 5.6 H Baso % (Auto) 0.5 Gran # 1.95 Lymph # (Auto) 1.6 [place] # (Auto) 0.5 Eos # (Auto) 0.2 Baso # (Auto) 0.02 POC Glucose (mg/dL) 88 122 H Laboratory Results - last 24 hr 01/25/18 07:41 POC Glucose (mg/dL) 73 Laboratory Results - last 24 hr 02/03/18 02/03/18 02/03/18 06:50 06:50 06:50 WBC 6.5 RBC 4.54 Hgb 10.0 L Hct 34.3 L MCV 75.6 L MCH 22.0 L MCHC 29.2 L RDW 20.2 H Plt Count 345 MPV 9.3 Gran % 53.9 Lymph % (Auto) 23.7 [place] % (Auto) 17.8 H Eos % (Auto) 4.3 Baso % (Auto) 0.3 Gran # 3.51 Lymph # (Auto) 1.5 [place] # (Auto) 1.2 H Eos # (Auto) 0.3 Baso # (Auto) 0.02 Sodium 137 Potassium 4.9 Chloride 99 Carbon Dioxide 31 Anion Gap 13 BUN 31 H Creatinine 1.2 Est GFR ( Amer) > 60 Est GFR (Non-Af Amer) > 60 Random Glucose 109 Calcium 9.9 Total Bilirubin 0.5 AST 18 ALT 11 Alkaline Phosphatase 54 Total Protein 7.0 Albumin 3.9 Globulin 3.1 Albumin/Globulin Ratio 1.3 Valproic Acid 58 DSM 5 Symptoms Update: Patient is a single 67 year old male with psychiatric history of Schizoaffective disorder, unclear current adherence with psychiatric medications (though with long history of noncompliance) who was BIB police due to loud and disorganzied behavior at his residence. Patient was psychiatrically admitted to our unit very early this morning and staff noted that he was disorganized, paranoid, loud and argumentative. Patient required po Haldol 5 mg , Ativan 1 mg, Benadryl 50 mg for agitation at 2:52 AM. Patient is difficult to interview still but pt is less irritable, less angry, pt was not overly psychotic, but pt is guarded and paranoid. pt was asking relatively intelligent questions, RN from [facility] evaluated pt yesterday, pt was accepted. Patient denies any new physical discomfort or pain. Doesn't appear to be in physical distress. Regarding his behavior on the unit, patient is visible on the unit however he is not very friendly or engaged. pt tolerates meds well, no side effects observed or reported. AIMS 0, no EPS. Diagnostic Results: Schizoaffective Disorder Medication Change: No Medical Record Reviewed: Yes Mental Status Examination - Cognitive Function Orientation: Person, Place Attention: Poor (some improvemetn) Concentration: Poor (some improvement) Association: Loose (some improvement) Fund of Knowledge: Poor - Mood Mood: Other ( "people from my past are causing me [mental] pain using their electronics") - Affect Affect: Broad, Other (at times irritable) - Speech Speech: Appropriate - Formal Thought Process Formal Thought Process: Hallucinations ( Denies hallucinations), Paranoia ( chronic paranoid delusions), Loosening of associations (Improving), Circumstantial (and tangential) - Suicidal Ideation Suicidal Ideation: No - Homicidal Ideation Homicidal Ideation: No Goal/Treatment Plan - Goal/Treatment Plan Need for Continued Stay: Remain at risks for inpatient hospitalization, Severe depression anxiety, Discharge may exacerbated symptoms, Severe functional impairment Progress Toward Problem(s) and Goals/Treatment Plan: Milieu/structure/supportive therapy Medical consult ill be considered SW consultation for discharge plan and social issues Med management medications were confirmed with the patient's pharmacy risperdal 2mg po tid for psychosis, mood stabilization depakote 500mg po bid for mood stabilization cogentin 1mg po bid for EPS ambien 10mg po hs for insomnia Family involvement Follow up on labs Will monitor closely Pt was educated about risk/benefits and alternatives of medications, coping strategies (safety plan, suicide prevention), relapse prevention, importance of follow up with psychiatrist and therapist, stay away from drugs/alcohol/smoking assisted living RN will evaluate pt 02/03/18, pt was accepted. will be dc tomorrow Estimated Date of D/C: 02/06/18
[2018-02-05] MEDS: Pantoprazole 40 mg EC Tab PO SCH (07:29)
[2018-02-05] MEDS: Divalproex 500 mg DR(BID formulation) PO SCH ×2 (09:43→17:24)
--- NOTE | 2018-02-05 17:36 | PCM.PYCHPN ---
Psychiatric Progress Note - Psychiatric Progress Note Patient seen today, length of contact: 25min Patient Chief Complaint: "I feel the same, tell me at what time I will be discharged?" Problems Identified/Issues Discussed: Suicide/ homicide prevention, past psychiatric h/o, current psychiatric symptoms , medical problems, risk/benefits and alternatives of medications, medications compliance, coping strategies, substance abuse h/o, relapse prevention, importance of follow up with psychiatrist and therapist, discharge plan. Medical Problems: Iron deficiency anemia HTN HLD labs better Diagnostic Results: 01/21/18 06:30 01/15/18 07:30 Lab Results 01/21/18 07:29: POC Glucose (mg/dL) 108 01/21/18 06:30: WBC 4.0 L, RBC 4.11, Hgb 8.7 L, Hct 30.5 L, MCV 74.2 L, MCH 21.2 L, MCHC 28.5 L, RDW 19.3 H, Plt Count 284, MPV 9.6, Gran % 37.4 L, Lymph % (Auto) 39.9 H, [place] % (Auto) 16.1 H, Eos % (Auto) 6.4 H, Baso % (Auto) 0.2, Gran # 1.51, Lymph # (Auto) 1.6, Bent # (Auto) 0.7 H, Eos # (Auto) 0.3, Baso # ( Auto) 0.01 01/20/18 11:04: POC Glucose (mg/dL) 117 H 01/20/18 07:20: WBC 3.7 L, RBC 3.98, Hgb 8.4 L, Hct 29.8 L, MCV 74.9 L, MCH 21.1 L, MCHC 28.2 L, RDW 19.1 H, Plt Count 289, MPV 9.5, Gran % 35.0 L, Lymph % (Auto) 38.5 H, [place] % (Auto) 18.4 H, Eos % (Auto) 7.3 H, Baso % (Auto) 0.8, Gran # 1.29 L, Lymph # (Auto) 1.4, Bent # (Auto) 0.7 H, Eos # (Auto) 0.3, Baso # (Auto) 0.03 01/20/18 07:16: POC Glucose (mg/dL) 90 01/19/18 11:12: POC Glucose (mg/dL) 115 H 01/19/18 07:32: POC Glucose (mg/dL) 89 01/19/18 07:30: WBC 4.5, RBC 4.07, Hgb 8.6 L, Hct 30.4 L, MCV 74.7 L, MCH 21.1 L , MCHC 28.3 L, RDW 18.9 H, Plt Count 287, MPV 10.0, Gran % 36.8 L, Lymph % (Auto ) 39.6 H, [place] % (Auto) 15.9 H, Eos % (Auto) 7.3 H, Baso % (Auto) 0.4, Gran # 1.67, Lymph # (Auto) 1.8, Bent # (Auto) 0.7 H, Eos # (Auto) 0.3, Baso # (Auto) 0.02 01/18/18 11:13: POC Glucose (mg/dL) 112 H 01/18/18 07:45: WBC 4.5, RBC 3.85, Hgb 8.1 L, Hct 28.8 L, MCV 74.8 L, MCH 21.0 L , MCHC 28.1 L, RDW 19.2 H, Plt Count 280, MPV 9.5, Gran % 41.0 L, Lymph % (Auto ) 35.8 H, [place] % (Auto) 17.5 H, Eos % (Auto) 5.5 H, Baso % (Auto) 0.2, Gran # 1.85, Lymph # (Auto) 1.6, Bent # (Auto) 0.8 H, Eos # (Auto) 0.3, Baso # (Auto) 0.01 01/18/18 07:18: POC Glucose (mg/dL) 91 01/17/18 21:47: POC Glucose (mg/dL) 138 H 01/17/18 16:11: POC Glucose (mg/dL) 97 01/17/18 12:35: POC Glucose (mg/dL) 91 01/17/18 11:41: POC Glucose (mg/dL) 56 L 01/17/18 07:30: WBC 3.9 L, RBC 3.76, Hgb 8.0 L, Hct 28.1 L, MCV 74.7 L, MCH 21.3 L, MCHC 28.5 L, RDW 19.0 H, Plt Count 260, MPV 9.3, Gran % 36.5 L, Lymph % (Auto) 38.3 H, [place] % (Auto) 19.8 H, Eos % (Auto) 4.9, Baso % (Auto) 0.5, Gran # 1.42, Lymph # (Auto) 1.5, Bent # (Auto) 0.8 H, Eos # (Auto) 0.2, Baso # (Auto ) 0.02 01/17/18 07:13: POC Glucose (mg/dL) 101 01/16/18 11:40: Valproic Acid 45 L 01/16/18 07:30: WBC 4.1 L, RBC 3.54, Hgb 7.6 L, Hct 26.4 L, MCV 74.6 L, MCH 21.5 L, MCHC 28.8 L, RDW 18.9 H, Plt Count 250, MPV 9.7, Gran % 43.3 L, Lymph % (Auto) 32.0, Bent % (Auto) 20.0 H, Eos % (Auto) 4.2, Baso % (Auto) 0.5, Gran # 1.76, Lymph # (Auto) 1.3, Bent # (Auto) 0.8 H, Eos # (Auto) 0.2, Baso # (Auto) 0.02 01/15/18 16:06: POC Glucose (mg/dL) 105 01/15/18 11:24: POC Glucose (mg/dL) 129 H 01/15/18 07:30: WBC 3.7 L, RBC 3.33 L, Hgb 7.2 L, Hct 24.8 L, MCV 74.5 L, MCH 21.6 L, MCHC 29.0 L, RDW 19.1 H, Plt Count 248, MPV 9.6, Gran % 36.5 L, Lymph % (Auto) 30.3, Bent % (Auto) 27.8 H, Eos % (Auto) 5.1 H, Baso % (Auto) 0.3, Gran # 1.35 L, Lymph # (Auto) 1.1 L, Bent # (Auto) 1.0 H, Eos # (Auto) 0.2, Baso # ( Auto) 0.01, Neutrophils % (Manual) 38 L, Lymphocytes % (Manual) 33, Monocytes % (Manual) 23 H, Eosinophils % (Manual) 4 H, Basophils % (Manual) 2 H, Platelet Evaluation Normal 01/15/18 07:30: RPR Nonreactive 01/15/18 07:30: TSH 3rd Generation 1.57 01/15/18 07:30: Sodium 142, Potassium 3.6, Chloride 105, Carbon Dioxide 29, Anion Gap 12, BUN 12, Creatinine 0.9, Est GFR ( Amer) > 60, Est GFR (Non- Af Amer) > 60, Random Glucose 74, Fasting Glucose 74, Calcium 9.6, Phosphorus 3.6, Magnesium 2.2, Total Bilirubin 0.2, AST 21, ALT 24, Alkaline Phosphatase 51 , Total Protein 6.0, Albumin 3.4, Globulin 2.6, Albumin/Globulin Ratio 1.3 01/15/18 07:23: POC Glucose (mg/dL) 75 01/15/18 00:33: Urine Opiates Screen Negative, Urine Methadone Screen Negative, Ur Barbiturates Screen Negative, Ur Phencyclidine Scrn Negative, Ur Amphetamines Screen Negative, U Benzodiazepines Scrn Negative, U Oth Cocaine Metabols Negative, U Cannabinoids Screen Negative 01/14/18 22:42: Triglycerides 88, Cholesterol 120 L, LDL Cholesterol Direct 54, HDL Cholesterol 44 01/14/18 22:42: Alcohol, Quantitative < 10 01/14/18 22:42: WBC 3.5 L D, RBC 3.39 L, Hgb 7.3 L, Hct 25.3 L, MCV 74.6 L, MCH 21.5 L, MCHC 28.9 L, RDW 19.0 H, Plt Count 245, MPV 9.4 01/14/18 22:42: Sodium 140, Potassium 3.5 L, Chloride 104, Carbon Dioxide 25, Anion Gap 15, BUN 12, Creatinine 0.9, Est GFR ( Amer) > 60, Est GFR (Non- Af Amer) > 60, Random Glucose 106, Calcium 9.8, Total Bilirubin 0.3, AST 21, ALT 23, Alkaline Phosphatase 54, Total Protein 6.5, Albumin 3.9, Globulin 2.7, Albumin/Globulin Ratio 1.4 Vital Signs Temp Pulse Resp BP Pulse Ox 01/21/18 08:25 70 106/70 01/21/18 07:25 98.1 F 81 20 106/70 01/20/18 16:30 93 H 125/68 01/20/18 08:25 83 117/72 01/20/18 07:39 98.0 F 83 20 117/72 01/19/18 16:30 96 H 127/82 01/19/18 09:13 88 153/92 H 01/19/18 07:01 97.6 F 88 20 153/92 H 01/18/18 16:00 87 123/66 01/18/18 09:22 80 119/80 01/18/18 07:43 98.0 F 80 20 119/80 01/17/18 16:37 99 H 130/83 01/17/18 08:44 100 H 133/77 01/17/18 07:00 97.3 F L 91 H 20 158/100 H 01/16/18 16:54 85 107/67 01/16/18 08:23 100 H 137/97 H 01/16/18 06:49 97.6 F 100 H 18 137/97 H 01/15/18 15:00 100 H 144/93 H 01/15/18 06:59 97.9 F 72 20 134/78 01/15/18 03:19 98.1 F 83 18 133/83 01/15/18 02:31 98.1 F 80 17 150/72 100 01/15/18 00:57 79 17 158/92 H 100 01/14/18 22:06 98.0 F 88 18 136/83 98 Laboratory Results - last 24 hr 01/22/18 01/22/18 01/22/18 07:00 07:24 11:18 WBC 4.3 L RBC 4.51 Hgb 9.6 L Hct 33.3 L MCV 73.8 L MCH 21.3 L MCHC 28.8 L RDW 19.4 H Plt Count 333 MPV 9.4 Gran % 45.3 L Lymph % (Auto) 37.4 H Bent % (Auto) 11.2 H Eos % (Auto) 5.6 H Baso % (Auto) 0.5 Gran # 1.95 Lymph # (Auto) 1.6 Bent # (Auto) 0.5 Eos # (Auto) 0.2 Baso # (Auto) 0.02 POC Glucose (mg/dL) 88 122 H Laboratory Results - last 24 hr 01/25/18 07:41 POC Glucose (mg/dL) 73 Laboratory Results - last 24 hr 02/03/18 02/03/18 02/03/18 06:50 06:50 06:50 WBC 6.5 RBC 4.54 Hgb 10.0 L Hct 34.3 L MCV 75.6 L MCH 22.0 L MCHC 29.2 L RDW 20.2 H Plt Count 345 MPV 9.3 Gran % 53.9 Lymph % (Auto) 23.7 Bent % (Auto) 17.8 H Eos % (Auto) 4.3 Baso % (Auto) 0.3 Gran # 3.51 Lymph # (Auto) 1.5 Bent # (Auto) 1.2 H Eos # (Auto) 0.3 Baso # (Auto) 0.02 Sodium 137 Potassium 4.9 Chloride 99 Carbon Dioxide 31 Anion Gap 13 BUN 31 H Creatinine 1.2 Est GFR ( Amer) > 60 Est GFR (Non-Af Amer) > 60 Random Glucose 109 Calcium 9.9 Total Bilirubin 0.5 AST 18 ALT 11 Alkaline Phosphatase 54 Total Protein 7.0 Albumin 3.9 Globulin 3.1 Albumin/Globulin Ratio 1.3 Valproic Acid 58 Temp Pulse Resp BP Pulse Ox 98.1 F 76 20 110/66 97 02/05/18 07:00 02/05/18 09:46 02/05/18 07:00 02/05/18 09:46 02/02/18 21:00 DSM 5 Symptoms Update: Patient is a single 67 year old male with psychiatric history of Schizoaffective disorder, unclear current adherence with psychiatric medications (though with long history of noncompliance) who was BIB police due to loud and disorganzied behavior at his residence. Patient was psychiatrically admitted to our unit very early this morning and staff noted that he was disorganized, paranoid, loud and argumentative. Patient required po Haldol 5 mg , Ativan 1 mg, Benadryl 50 mg for agitation at 2:52 AM. Patient is difficult to interview still but pt is less irritable, less angry, pt was not overly psychotic, but pt is guarded and paranoid. pt was asking relatively intelligent questions, RN from [facility] evaluated pt was accepted, pt is scheduled for d/c tomorrow, pt's POA will pick him up. Patient denies any new physical discomfort or pain. Doesn't appear to be in physical distress. Regarding his behavior on the unit, patient is visible on the unit however he is not very friendly or engaged. pt tolerates meds well, no side effects observed or reported. AIMS 0, no EPS. Diagnostic Results: Schizoaffective Disorder Medication Change: No Medical Record Reviewed: Yes Mental Status Examination - Cognitive Function Orientation: Person, Place Attention: Poor (some improvemetn) Concentration: Poor (some improvement) Association: Loose (some improvement) Fund of Knowledge: Poor - Mood Mood: Other ( "people from my past are causing me [mental] pain using their electronics") - Affect Affect: Broad - Speech Speech: Appropriate - Formal Thought Process Formal Thought Process: Hallucinations ( Denies hallucinations), Paranoia ( chronic paranoid delusions), Loosening of associations (Improving), Circumstantial (and tangential) - Suicidal Ideation Suicidal Ideation: No - Homicidal Ideation Homicidal Ideation: No Goal/Treatment Plan - Goal/Treatment Plan Need for Continued Stay: Remain at risks for inpatient hospitalization, Severe depression anxiety, Discharge may exacerbated symptoms, Severe functional impairment Progress Toward Problem(s) and Goals/Treatment Plan: Milieu/structure/supportive therapy Medical consult ill be considered SW consultation for discharge plan and social issues Med management medications were confirmed with the patient's pharmacy risperdal 2mg po tid for psychosis, mood stabilization depakote 500mg po bid for mood stabilization cogentin 1mg po bid for EPS ambien 10mg po hs for insomnia Family involvement Follow up on labs Will monitor closely Pt was educated about risk/benefits and alternatives of medications, coping strategies (safety plan, suicide prevention), relapse prevention, importance of follow up with psychiatrist and therapist, stay away from drugs/alcohol/smoking assisted living RN will evaluate pt 02/03/18, pt was accepted. will be dc 02/06/18 patient was provided with 3 days supply of the medications because patient will be brought to assisted living facility on Thursday, over the weekend patient required to be on medications. assisted-living facility was provided with prescription for 1 months. Estimated Date of D/C: 02/06/18
[2018-02-06 07:15] VITALS: BP 124/75; PULSE 60; TEMP 97.2
[2018-02-06] MEDS: Divalproex 500 mg DR(BID formulation) PO SCH (08:20)
[2018-02-06] MEDS: Pantoprazole 40 mg EC Tab PO SCH (08:22)
--- NOTE | 2018-02-06 14:02 | PCM.PYCHDC ---
Mental Status Examination - Mental Status Examination Orientation: Person, Place, Situation, Time Memory: Impaired (chronic) Mood: Neutral Affect: Constricted (but reactive) Attention: Poor (baseline, but better) Concentration: Poor (baseline, but better) Association: Loose (baseline, but better) Fund of Knowledge: WNL Formal Thought Process: Delusions ( but better), Loosening of associations ( chronic), Circumstantial (chronic) Description of patient's judgement and insight: somewhat better Psychotic Thoughts and Behaviors: pt still delusional, but not aggressive or agitated much better to compare to the time of admission Suicidal Ideation: No Current Homicidal Ideation?: No Plan: pt adamantly denied thoughts of harming self or others denied intent or plan. Discharge Summary - Discharge Note Reason for Hospitalization: worsening of psychosis, paranoia, inability to function Psychiatric History (includes Medical, Family, Personal Hx): long history of schizoaffective disorder Laboratory Data: Abnormal Lab Results 02/05/18 16:18 POC Glucose (mg/dL) 110 02/03/18 06:50 02/03/18 06:50 Lab Results 02/05/18 16:18: POC Glucose (mg/dL) 110 02/05/18 07:41: POC Glucose (mg/dL) 92 02/03/18 06:50: Valproic Acid 58 02/03/18 06:50: Sodium 137, Potassium 4.9, Chloride 99, Carbon Dioxide 31, Anion Gap 13, BUN 31 H, Creatinine 1.2, Est GFR ( Amer) > 60, Est GFR ( Non-Af Amer) > 60, Random Glucose 109, Calcium 9.9, Total Bilirubin 0.5, AST 18 , ALT 11, Alkaline Phosphatase 54, Total Protein 7.0, Albumin 3.9, Globulin 3.1 , Albumin/Globulin Ratio 1.3 02/03/18 06:50: WBC 6.5, RBC 4.54, Hgb 10.0 L, Hct 34.3 L, MCV 75.6 L, MCH 22.0 L, MCHC 29.2 L, RDW 20.2 H, Plt Count 345, MPV 9.3, Gran % 53.9, Lymph % (Auto) 23.7, [place] % (Auto) 17.8 H, Eos % (Auto) 4.3, Baso % (Auto) 0.3, Gran # 3.51, Lymph # (Auto) 1.5, [place] # (Auto) 1.2 H, Eos # (Auto) 0.3, Baso # (Auto) 0.02 02/02/18 07:27: POC Glucose (mg/dL) 94 01/29/18 07:17: POC Glucose (mg/dL) 75 01/28/18 07:47: POC Glucose (mg/dL) 108 01/27/18 07:31: POC Glucose (mg/dL) 103 01/26/18 07:28: POC Glucose (mg/dL) 96 01/25/18 07:41: POC Glucose (mg/dL) 73 01/24/18 07:25: POC Glucose (mg/dL) 98 01/23/18 11:29: POC Glucose (mg/dL) 112 H 01/23/18 08:00: Valproic Acid 59 01/23/18 08:00: WBC 5.6 D, RBC 3.98, Hgb 8.5 L, Hct 29.5 L, MCV 74.1 L, MCH 21.4 L, MCHC 28.8 L, RDW 19.4 H, Plt Count 291, MPV 9.9, Gran % 43.8 L, Lymph % (Auto) 33.5, [place] % (Auto) 15.9 H, Eos % (Auto) 6.6 H, Baso % (Auto) 0.2, Gran # 2.46, Lymph # (Auto) 1.9, [place] # (Auto) 0.9 H, Eos # (Auto) 0.4, Baso # (Auto ) 0.01 01/23/18 07:21: POC Glucose (mg/dL) 95 01/22/18 11:18: POC Glucose (mg/dL) 122 H 01/22/18 07:24: POC Glucose (mg/dL) 88 01/22/18 07:00: WBC 4.3 L, RBC 4.51, Hgb 9.6 L, Hct 33.3 L, MCV 73.8 L, MCH 21.3 L, MCHC 28.8 L, RDW 19.4 H, Plt Count 333, MPV 9.4, Gran % 45.3 L, Lymph % (Auto) 37.4 H, [place] % (Auto) 11.2 H, Eos % (Auto) 5.6 H, Baso % (Auto) 0.5, Gran # 1.95, Lymph # (Auto) 1.6, [place] # (Auto) 0.5, Eos # (Auto) 0.2, Baso # ( Auto) 0.02 01/21/18 07:29: POC Glucose (mg/dL) 108 01/21/18 06:30: WBC 4.0 L, RBC 4.11, Hgb 8.7 L, Hct 30.5 L, MCV 74.2 L, MCH 21.2 L, MCHC 28.5 L, RDW 19.3 H, Plt Count 284, MPV 9.6, Gran % 37.4 L, Lymph % (Auto) 39.9 H, [place] % (Auto) 16.1 H, Eos % (Auto) 6.4 H, Baso % (Auto) 0.2, Gran # 1.51, Lymph # (Auto) 1.6, [place] # (Auto) 0.7 H, Eos # (Auto) 0.3, Baso # ( Auto) 0.01 01/20/18 11:04: POC Glucose (mg/dL) 117 H 01/20/18 07:20: WBC 3.7 L, RBC 3.98, Hgb 8.4 L, Hct 29.8 L, MCV 74.9 L, MCH 21.1 L, MCHC 28.2 L, RDW 19.1 H, Plt Count 289, MPV 9.5, Gran % 35.0 L, Lymph % (Auto) 38.5 H, [place] % (Auto) 18.4 H, Eos % (Auto) 7.3 H, Baso % (Auto) 0.8, Gran # 1.29 L, Lymph # (Auto) 1.4, [place]ee # (Auto) 0.7 H, Eos # (Auto) 0.3, Baso # (Auto) 0.03 01/20/18 07:16: POC Glucose (mg/dL) 90 01/19/18 11:12: POC Glucose (mg/dL) 115 H 01/19/18 07:32: POC Glucose (mg/dL) 89 01/19/18 07:30: WBC 4.5, RBC 4.07, Hgb 8.6 L, Hct 30.4 L, MCV 74.7 L, MCH 21.1 L , MCHC 28.3 L, RDW 18.9 H, Plt Count 287, MPV 10.0, Gran % 36.8 L, Lymph % (Auto ) 39.6 H, [place] % (Auto) 15.9 H, Eos % (Auto) 7.3 H, Baso % (Auto) 0.4, Gran # 1.67, Lymph # (Auto) 1.8, [place]ee # (Auto) 0.7 H, Eos # (Auto) 0.3, Baso # (Auto) 0.02 01/18/18 11:13: POC Glucose (mg/dL) 112 H 01/18/18 07:45: WBC 4.5, RBC 3.85, Hgb 8.1 L, Hct 28.8 L, MCV 74.8 L, MCH 21.0 L , MCHC 28.1 L, RDW 19.2 H, Plt Count 280, MPV 9.5, Gran % 41.0 L, Lymph % (Auto ) 35.8 H, [place] % (Auto) 17.5 H, Eos % (Auto) 5.5 H, Baso % (Auto) 0.2, Gran # 1.85, Lymph # (Auto) 1.6, [place] # (Auto) 0.8 H, Eos # (Auto) 0.3, Baso # (Auto) 0.01 01/18/18 07:18: POC Glucose (mg/dL) 91 01/17/18 21:47: POC Glucose (mg/dL) 138 H 01/17/18 16:11: POC Glucose (mg/dL) 97 01/17/18 12:35: POC Glucose (mg/dL) 91 01/17/18 11:41: POC Glucose (mg/dL) 56 L 01/17/18 07:30: WBC 3.9 L, RBC 3.76, Hgb 8.0 L, Hct 28.1 L, MCV 74.7 L, MCH 21.3 L, MCHC 28.5 L, RDW 19.0 H, Plt Count 260, MPV 9.3, Gran % 36.5 L, Lymph % (Auto) 38.3 H, [place] % (Auto) 19.8 H, Eos % (Auto) 4.9, Baso % (Auto) 0.5, Gran # 1.42, Lymph # (Auto) 1.5, [place] # (Auto) 0.8 H, Eos # (Auto) 0.2, Baso # (Auto ) 0.02 01/17/18 07:13: POC Glucose (mg/dL) 101 01/16/18 11:40: Valproic Acid 45 L 01/16/18 07:30: WBC 4.1 L, RBC 3.54, Hgb 7.6 L, Hct 26.4 L, MCV 74.6 L, MCH 21.5 L, MCHC 28.8 L, RDW 18.9 H, Plt Count 250, MPV 9.7, Gran % 43.3 L, Lymph % (Auto) 32.0, [place] % (Auto) 20.0 H, Eos % (Auto) 4.2, Baso % (Auto) 0.5, Gran # 1.76, Lymph # (Auto) 1.3, [place] # (Auto) 0.8 H, Eos # (Auto) 0.2, Baso # (Auto) 0.02 01/15/18 16:06: POC Glucose (mg/dL) 105 01/15/18 11:24: POC Glucose (mg/dL) 129 H 01/15/18 07:30: WBC 3.7 L, RBC 3.33 L, Hgb 7.2 L, Hct 24.8 L, MCV 74.5 L, MCH 21.6 L, MCHC 29.0 L, RDW 19.1 H, Plt Count 248, MPV 9.6, Gran % 36.5 L, Lymph % (Auto) 30.3, [place] % (Auto) 27.8 H, Eos % (Auto) 5.1 H, Baso % (Auto) 0.3, Gran # 1.35 L, Lymph # (Auto) 1.1 L, [place] # (Auto) 1.0 H, Eos # (Auto) 0.2, Baso # ( Auto) 0.01, Neutrophils % (Manual) 38 L, Lymphocytes % (Manual) 33, Monocytes % (Manual) 23 H, Eosinophils % (Manual) 4 H, Basophils % (Manual) 2 H, Platelet Evaluation Normal 01/15/18 07:30: RPR Nonreactive 01/15/18 07:30: TSH 3rd Generation 1.57 01/15/18 07:30: Sodium 142, Potassium 3.6, Chloride 105, Carbon Dioxide 29, Anion Gap 12, BUN 12, Creatinine 0.9, Est GFR ( Amer) > 60, Est GFR (Non- Af Amer) > 60, Random Glucose 74, Fasting Glucose 74, Calcium 9.6, Phosphorus 3.6, Magnesium 2.2, Total Bilirubin 0.2, AST 21, ALT 24, Alkaline Phosphatase 51 , Total Protein 6.0, Albumin 3.4, Globulin 2.6, Albumin/Globulin Ratio 1.3 01/15/18 07:23: POC Glucose (mg/dL) 75 01/15/18 00:33: Urine Opiates Screen Negative, Urine Methadone Screen Negative, Ur Barbiturates Screen Negative, Ur Phencyclidine Scrn Negative, Ur Amphetamines Screen Negative, U Benzodiazepines Scrn Negative, U Oth Cocaine Metabols Negative, U Cannabinoids Screen Negative 01/14/18 22:42: Triglycerides 88, Cholesterol 120 L, LDL Cholesterol Direct 54, HDL Cholesterol 44 01/14/18 22:42: Alcohol, Quantitative < 10 01/14/18 22:42: WBC 3.5 L D, RBC 3.39 L, Hgb 7.3 L, Hct 25.3 L, MCV 74.6 L, MCH 21.5 L, MCHC 28.9 L, RDW 19.0 H, Plt Count 245, MPV 9.4 01/14/18 22:42: Sodium 140, Potassium 3.5 L, Chloride 104, Carbon Dioxide 25, Anion Gap 15, BUN 12, Creatinine 0.9, Est GFR ( Amer) > 60, Est GFR (Non- Af Amer) > 60, Random Glucose 106, Calcium 9.8, Total Bilirubin 0.3, AST 21, ALT 23, Alkaline Phosphatase 54, Total Protein 6.5, Albumin 3.9, Globulin 2.7, Albumin/Globulin Ratio 1.4 Vital Signs Temp Pulse Resp BP Pulse Ox 02/06/18 07:14 97.2 F L 60 20 124/75 02/05/18 09:46 76 110/66 02/05/18 07:00 98.1 F 60 20 170/84 H 02/04/18 09:27 76 110/66 02/04/18 07:29 98.3 F 63 20 80/41 L 02/03/18 16:00 64 96/59 L 02/03/18 07:30 98.3 F 70 20 85/57 L 02/02/18 21:00 99.5 F 111 H 20 138/82 97 02/02/18 16:00 72 119/96 H 02/02/18 09:07 123/81 02/02/18 06:57 98.2 F 60 19 123/81 02/01/18 16:00 61 126/75 02/01/18 09:00 64 93/52 L 02/01/18 07:41 98.0 F 64 20 93/52 L 01/31/18 16:39 71 100/60 01/31/18 09:13 79 111/69 01/31/18 06:49 98.1 F 79 20 111/69 98 01/30/18 15:00 68 106/59 L 01/30/18 09:54 71 109/63 01/30/18 07:00 98.1 F 71 20 01/30/18 06:50 98.1 F 71 20 109/63 01/29/18 16:00 80 82/50 L 01/29/18 09:56 82 110/74 01/29/18 07:11 98.4 F 80 20 98/72 L 01/29/18 07:08 97.3 F L 66 20 147/63 01/28/18 16:29 72 129/77 01/28/18 09:19 74 104/84 01/28/18 07:35 98.0 F 74 20 107/64 01/27/18 08:48 86 116/60 01/27/18 07:38 98.2 F 86 20 116/60 01/26/18 09:07 81 132/82 01/26/18 07:36 97.7 F 80 20 99/72 L 01/25/18 09:25 86 122/92 H 01/25/18 07:00 98.3 F 86 18 122/92 H 01/24/18 09:07 78 110/68 01/24/18 07:20 97.6 F 78 20 110/68 01/23/18 16:00 77 111/65 01/23/18 07:25 98.6 F 77 20 111/70 01/22/18 16:43 88 83/53 L 01/22/18 09:44 90 110/74 01/22/18 07:41 98.0 F 90 20 110/74 01/21/18 16:00 88 124/87 01/21/18 08:25 70 106/70 01/21/18 07:25 98.1 F 81 20 106/70 01/20/18 16:30 93 H 125/68 01/20/18 08:25 83 117/72 01/20/18 07:39 98.0 F 83 20 117/72 01/19/18 16:30 96 H 127/82 01/19/18 09:13 88 153/92 H 01/19/18 07:01 97.6 F 88 20 153/92 H 01/18/18 16:00 87 123/66 01/18/18 09:22 80 119/80 01/18/18 07:43 98.0 F 80 20 119/80 01/17/18 16:37 99 H 130/83 01/17/18 08:44 100 H 133/77 01/17/18 07:00 97.3 F L 91 H 20 158/100 H 01/16/18 16:54 85 107/67 01/16/18 08:23 100 H 137/97 H 01/16/18 06:49 97.6 F 100 H 18 137/97 H 01/15/18 15:00 100 H 144/93 H 01/15/18 06:59 97.9 F 72 20 134/78 01/15/18 03:19 98.1 F 83 18 133/83 01/15/18 02:31 98.1 F 80 17 150/72 100 01/15/18 00:57 79 17 158/92 H 100 01/14/18 22:06 98.0 F 88 18 136/83 98 Consultations:: List each consultation separately and include: 1. Reason for request. 2. Findings. 3. Follow-up Consultations: medical consult appreciated please see notes for more detailed information Summary of Hospital Course include:: 1. Description of specific treatment plan utilized for patients during their course of treatmen. 2. Summarize the time- course for resolution of acute symptoms and/or regressed behaviors. 3. Describe issues identified and worked on during hospitalization. 4. Describe medication utilized. 5. Describe medical problems identified and treated. 6. Reassessment of suicide risk Summary of Hospital Course: Patient is a single 67 year old male with psychiatric history of Schizoaffective disorder, unclear current adherence with psychiatric medications (though with long history of noncompliance) who was BIB police due to loud and disorganzied behavior at his residence. at the time of admission he was disorganized, paranoid, loud and argumentative. Patient required po Haldol 5 mg, Ativan 1 mg, Benadryl 50 mg for agitation. Patient was difficult to interview because of disorganized thoughts and behavior , pt is paranoid, said that some Islamic extremists were moved in his apartment building, pt said that his duty is to supervise them, when was asked why, pt went tangent about his moving in to this apartment complex in 2000, then said he wants to go to the previous house which he sell before, pt was giving some names telling "all of them are feliciano". pt made statement "I am not schizophrenic, why I need to take risperdal", had no answer why he sign himself into the hospital, "I did not know what the heck I was doing..", pt appeared to be annoyed and irritable, unhappy and dissatisfied. during this hospitalization patient was stabilized on the following medication regiment: risperdal 2mg po tid for psychosis, mood stabilization depakote 500mg po bid for mood stabilization cogentin 1mg po bid for EPS ambien 10mg po hs for insomnia ativan as needed for anxiety. Patient tolerated medications well, no side effects observed or reported. patient was interviewed by assisted living facility [facility], was accepted, patient will be admitted there these coming Thursday, February 08, 2018. Overall pt improved significantly, patient still has residual symptoms of psychosis, paranoia, but with much improvement, patient reached maximum effects from this acute hospitalization, pt deemed to be ready for discharge. patient power of switchboard operator helper for finances Mr. Fischer came over this morning, patient we will go back to his apartment, then patient will go to assisted living on Thursday. At the time of the discharge pt denied been depressed, denied thoughts of harming self or others, denied psychotic symptoms, and pt does not appeared to be psychotic, denied been anxious, pt is not in imminent danger to self or others, will be following up with psychiatrist at assisted living facility, information about follow up appointment, time and address provided to the pt, it is patient responsibility to follow up with outpatient clinic, PMD as well as specialists (see SW note for more detailed information). In case pt will need to obtain results of studies pending at discharge pt was provided with contact information of Psychiatric Inpatient unit [phone] as well as Medical Record Department [phone]. patient was provided with 3 days supply of all of his current medications Prescriptions for month supply was faxed over to the assisted living facility. pt was provided with prescriptions for all of medications (please see medication reconciliation form) Pt was educated about safety plan in case of worsening of symptoms or in case of suicidal or homicidal ideation call 911 or go to the nearest ER, also was educated to take meds as prescribed and stay away from drugs, pt verbalized understanding. - Diagnosis (1) Schizoaffective disorder Status: Chronic Priority: High - Final Diagnosis (DSM 5) Condition upon Discharge: STABLE Disposition: HOME/ ROUTINE Follow-up Treatment Plan: At the time of the discharge pt denied been depressed, denied thoughts of harming self or others, denied psychotic symptoms, and pt does not appeared to be psychotic, denied been anxious, pt is not in imminent danger to self or others, will be following up with psychiatrist at assisted living facility, information about follow up appointment, time and address provided to the pt, it is patient responsibility to follow up with outpatient clinic, PMD as well as specialists (see SW note for more detailed information). In case pt will need to obtain results of studies pending at discharge pt was provided with contact information of Psychiatric Inpatient unit [phone] as well as Medical Record Department [phone]. patient was provided with 3 days supply of all of his current medications Prescriptions for month supply was faxed over to the assisted living facility. pt was provided with prescriptions for all of medications (please see medication reconciliation form) Pt was educated about safety plan in case of worsening of symptoms or in case of suicidal or homicidal ideation call 911 or go to the nearest ER, also was educated to take meds as prescribed and stay away from drugs, pt verbalized understanding. Prescriptions/Medication Reconciliation: RX: Atorvastatin [Lipitor] 10 mg PO DIN #30 tab RX: Benztropine [Cogentin] 1 mg PO AMHS #60 tab RX: Divalproex [Depakote DR(*BID*)] 500 mg PO BID #60 tcp RX: Docusate [Colace] 100 mg PO DAILY #30 cap RX: Ferrous Sulfate [Feosol] 324 mg PO TID #90 ect RX: Lisinopril [Zestril] 20 mg PO DAILY #30 tab RX: LORazepam [Ativan] 0.5 mg PO BID #60 tab RX: Pantoprazole [Protonix EC Tab] 40 mg PO 0600 #30 ect RX: risperiDONE [RisperDAL Tab] 2 mg PO BID #60 tab RX: risperiDONE [RisperDAL Tab] 2 mg PO HS #30 tab RX: traZODone [Desyrel] 50 mg PO HS #30 tab - Smoking Cessation Smoking Cessation Medication prescribed: No Reason for not providing: patient does not smoke, patient does not use any drugs
== END 2018-02-06 10:58 | disposition home or self-care (01) | DRG 885 ==
LOC: ED 21:45 → ERH 01-15 00:17 → UNDOADMIN 01-15 00:17 → ERH 01-15 00:52 → PSYC 01-15 02:14
PROVIDERS: ADMIT Psychiatry & Neurology Psychiatry; ATTEND Psychiatry & Neurology Psychiatry
DX: F25.9 Schizoaffective disorder, unspecified (principal); I11.0 Hypertensive heart disease with heart failure; I50.9 Heart failure, unspecified; I44.30 Unspecified atrioventricular block; D50.9 Iron deficiency anemia, unspecified; E78.5 Hyperlipidemia, unspecified; E11.9 Type 2 diabetes mellitus without complications; K20.9 Esophagitis, unspecified; K64.8 Other hemorrhoids; F17.200 Nicotine dependence, unspecified, uncomplicated; F31.9 Bipolar disorder, unspecified; G47.00 Insomnia, unspecified; F41.8 Other specified anxiety disorders; Z91.19 Patient's noncompliance with other medical treatment and regimen; Z91.14 Patient's other noncompliance with medication regimen; Z95.0 Presence of cardiac pacemaker